=== PATIENT | male | born 1945 | race Caucasian/White ===

== ENCOUNTER → 2018-02-02 | Outpatient (CLI) | payer MEDICARE ==
[2018-02-02 08:48] LABS: CHOLESTEROL 187.93 mg/dL (0-200); TRIGLYCERIDES 80 mg/dL (<150)
[2018-02-02 08:59] LABS: DIRECT LDL 111 mg/dL (<100)
== END ==
LOC: OD 07:44
PROVIDERS: ATTEND Internal Medicine
DX: Z12.5 Encounter for screening for malignant neoplasm of prostate (principal); E78.5 Hyperlipidemia, unspecified
CPT/HCPCS: 36415; 80061; G0103

== ENCOUNTER → 2018-03-01 | Outpatient (CLI) | payer MEDICARE ==
--- NOTE | 2018-03-01 14:41 | RADIOLOGY REPORT (SQ) ---
EXAM DESCRIPTION: CHEST PA/LATERAL COMPLETED DATE/TIME: 03/01/2018 2:00 pm REASON FOR STUDY: COUGH R05 COUGH COMPARISON: 01/01/2015. NUMBER OF VIEWS: Two view. TECHNIQUE: Frontal and lateral radiographic views of the chest acquired. LIMITATIONS: None. FINDINGS: LUNGS AND PLEURA: No opacities, masses or pneumothorax. No pleural effusion. Attenuated bl ood vessels and flattened aide-diaphragms. MEDIASTINUM AND HILAR STRUCTURES: No masses. No contour abnormalities. HEART AND VASCULAR STRUCTURES: Heart normal in size and contour. No evidence for failure. BONES: No acute findings. HARDWARE: None in the chest. OTHER: No other significant finding. IMPRESSION: COPD. NO ACUTE RADIOGRAPHIC FINDING IN THE CHEST. TECHNICAL DOCUMENTATION: JOB ID: [id number] [employer]- All Rights Reserved Reading location - IP/workstation name: [email or web address]
== END ==
LOC: OD 13:30
PROVIDERS: ATTEND Internal Medicine
DX: R05 Cough (principal)
CPT/HCPCS: 71046

== ENCOUNTER → 2019-03-01 | Outpatient (CLI) | payer MEDICARE ==
--- NOTE | 2019-03-01 14:58 | RADIOLOGY REPORT (SQ) ---
EXAM DESCRIPTION: CT LUNG CANCER SCREENING COMPLETED DATE/TIME: 03/01/2019 2:28 pm REASON FOR STUDY: NICOTINE DEPENDENCE, CIGARETTES, W OTH DISORDERS F17.218 NICOTINE DEPENDENCE, CIG ARETTES, W OTH DISORDERS Has the patient had a Chest CT scan within the past year? Was the patient offered tobacco cessation counseling? Was the patient engaged in shared decision making for this test? Does the patient have signs or symptoms of Lung Cancer? Is the patient a smoker? How many pack years? How many years since quitting smoking? Patients age: COMPARISON: None. TECHNIQUE: Low Dose CT scan performed of the chest without intravenous contrast for purposes of scre ening for lung cancer. Images reviewed with lung, soft tissue and bone windows. Reconstructed coron al and sagittal MPR images reviewed. All images stored on PACS. All CT scanners at this facility use dose modulation, iterative reconstruction, and/or weight based d osing when appropriate to reduce radiation dose to as low as reasonably achievable (ALARA). [facility]: Dose Right [facility]: CareDose [facility]: Dose Right [facility]: Teradose 4D [facility]: [email or web address] RADIATION DOSE: CT Rad equipment meets quality standard of care and radiation dose reduction techniq ues were employed. CTDIvol: 2.0 mGy. DLP: 89 mGy-cm. mGy. . LIMITATIONS: None FINDINGS: LUNGS AND PLEURA: No masses or nodules. No pleural effusions or calcifications. No pne umothorax. HILAR AND MEDIASTINAL STRUCTURES: Shotty mediastinal nodes. HEART AND VASCULAR STRUCTURES: Irregular aortic dilatation. Generally ectatic ascending aorta with m ore focal dilatation up to 4.8 cm. Ectatic descending aorta with focal dilatation up to 5.2 cm mid d escending. Distal descending dilatation with saccular aneurysm up to 4.8 cm. Aneurysmal dilatation in the upper abdomen aorta. At the level of the hiatus, likely greater than 5 cm. No pericardial e ffusion. CORONARY ARTERY CALCIFICATIONS: Marked. UPPER ABDOMEN, THYROID, BONES, OTHER SOFT TISSUES: As above. IMPRESSION: 1. No suspicious lung lesions. 2. Extensive aortic aneurysms. Aneurysms involve the ascending and descending aorta with continuatio n into the upper abdominal aorta. LUNGRADS: LUNGRADS: 1 NEGATIVE. NO NODULES, OR DEFINITELY BENIGN NODULES MODIFIER: S CLINICALLY SIGNIFICANT OR POTENTIALLY CLINICALLY SIGNIFICANT FINDINGS (non lung cancer) RECOMMENDATION: Continue annual screening with LDCT in 12 months. COMMENT: CRITERIA: No lung nodules. Nodules with specific calcifications: Complete, central, popcorn, concentric rings and fat containin g nodules. TECHNICAL DOCUMENTATION: JOB ID: [id number] Quality ID # [id number]: Final reports with documentation of one or more dose reduction techniques (e.g., Au tomated exposure control, adjustment of the mA and/or kV according to patient size, use of iterative reconstruction technique) 2010 [facility] Radiology Reading location - IP/workstation name: [email or web address]
== END ==
LOC: RAD 14:04
PROVIDERS: ATTEND Physician Assistant
DX: Z12.2 Encounter for screening for malignant neoplasm of respiratory organs (principal); F17.218 Nicotine dependence, cigarettes, with other nicotine-induced disorders; I71.4 Abdominal aortic aneurysm, without rupture
CPT/HCPCS: G0297

== ENCOUNTER → 2019-07-05 | Outpatient (CLI) | payer MEDICARE ==
--- NOTE | 2019-07-05 10:37 | RADIOLOGY REPORT (SQ) ---
EXAM DESCRIPTION: U/S RETROPERITON (RENAL/AORTA) COMPLETED DATE/TIME: 07/05/2019 10:22 am REASON FOR STUDY: UTI (N39.0) N39.0 URINARY TRACT INFECTION, SITE NOT SPECIFIED COMPARISON: None. TECHNIQUE: Dynamic and static grayscale images acquired of the kidneys and bladder and recorded on P ACS. Additional selected color Doppler and spectral images recorded. LIMITATIONS: None. FINDINGS: RIGHT KIDNEY: The right kidney measures 10.0 cm in length. Normal echogenicity. No so lid or suspicious masses. No hydronephrosis. No calcifications. There is a 2.7 x 3.[address] LEFT KIDNEY: The left kidney measures 11.5 cm in length. Normal echogenicity. No solid or suspic ious masses. No hydronephrosis. No calcifications. BLADDER: No masses. OTHER FINDINGS: No other significant finding. IMPRESSION: Small right renal cyst largest diameter is 3.0 cm. No other significant findings. TECHNICAL DOCUMENTATION: JOB ID: [id number] [employer]- All Rights Reserved Reading location - IP/workstation name: [email or web address]
== END ==
LOC: RAD 09:35
PROVIDERS: ATTEND Urology
DX: N39.0 Urinary tract infection, site not specified (principal); N28.1 Cyst of kidney, acquired
CPT/HCPCS: 76770

== ENCOUNTER 2019-10-25 12:20 | Emergency (ER) | payer MEDICARE ==
[2019-10-25] MEDS ORDERED: ONDANSETRON HCL INJ/PF 4 MG/2 ML SDV IV ONE ×2 (13:08→15:14)
--- NOTE | 2019-10-25 13:10 | ER Document Report ---
ED Medical Screen (RME) - General Chief Complaint: Abdominal Pain Stated Complaint: ABDOMINAL/BACK PAIN Time Seen by Provider: 10/25/19 13:07 Primary Care Provider: CHRISTIAN RIVAS [Primary Care Provider] - Follow up as needed Information source: Patient Notes: Patient presents complaining of abdominal pain that radiates around to his back that started around 2:00 this morning. Patient reports nausea and vomiting x2 episodes. No diarrhea. No fever. Patient does complain of some lightheadedness. No chest discomfort. Patient does have abdominal aortic aneurysm. I have greeted and performed a rapid initial assessment of this patient. A comprehensive ED assessment and evaluation of the patient, analysis of test results and completion of the medical decision making process will be conducted by additional ED providers. TRAVEL OUTSIDE OF THE [place] IN LAST 30 DAYS: No Physical Exam - Vital signs Vitals: Temp Pulse Resp BP Pulse Ox 97.8 F 50 L 18 148/75 H 100 10/25/19 12:27 10/25/19 12:27 10/25/19 12:27 10/25/19 12:27 10/25/19 12:27 - Abdominal Tenderness: Tender - Abdominal tenderness across mid abdomen Course - Vital Signs Vital signs: Temp Pulse Resp BP Pulse Ox 97.8 F 50 L 18 148/75 H 100 10/25/19 12:27 10/25/19 12:27 10/25/19 12:27 10/25/19 12:27 10/25/19 12:27 Doctor's Discharge - Discharge Referrals: CHRISTIAN RIVAS [Primary Care Provider] - Follow up as needed
[2019-10-25 14:00] LABS: ABSOLUTE BASOPHILS # (AUTO) 0.1 10^3/uL (0.0-0.2); ABSOLUTE LYMPHOCYTES (AUTO) 1.5 10^3/uL (0.5-4.7); ABSOLUTE MONOCYTES (AUTO) 0.4 10^3/uL (0.1-1.4); ABSOLUTE NEUT (AUTO) 8.2 10^3/uL (1.7-8.2); BASOPHILS % (AUTO) 0.6 % (0-2); EOSINOPHILS % (AUTO) 0.1 % (0-6); HEMATOCRIT 44.5 % (37.9-51.0); HEMOGLOBIN 15.3 g/dL (13.5-17.0); LYMPHOCYTES % (AUTO) 14.6 % (13-45); MEAN CORPUSCULAR HEMOGLOBIN 31.7 pg (27.0-33.4); MEAN CORPUSCULAR HGB CONC 34.5 g/dL (32.0-36.0); MEAN CORPUSCULAR VOLUME 92 fl (80-97); MONOCYTES % (AUTO) 3.8 % (3-13); PLATELET COUNT 218 10^3/uL (150-450); RED BLOOD COUNT 4.83 10^6/uL (4.35-5.55); RED CELL DISTRIBUTION WIDTH 14.1 % (11.5-14.0); SEGMENTED NEUTROPHILS % (AUTO) 80.9 % (42-78); TOTAL CELLS COUNTED % (AUTO) 100 %; WHITE BLOOD COUNT 10.2 10^3/uL (4.0-10.5)
[2019-10-25 14:17] LABS: ALBUMIN 4.3 g/dL (3.5-5.0); ALKALINE PHOSPHATASE 139 U/L (38-126); ANION GAP 11 (5-19); ASPARTATE AMINO TRANSFERASE 20 U/L (17-59); BILIRUBIN,DIRECT 0.1 mg/dL (0.0-0.4); BILIRUBIN,TOTAL 0.5 mg/dL (0.2-1.3); BLOOD UREA NITROGEN 14 mg/dL (7-20); CALCIUM 9.9 mg/dL (8.4-10.2); CARBON DIOXIDE 32 mmol/L (22-30); CHLORIDE 98 mmol/L (98-107); GLUCOSE 138 mg/dL (75-110); POTASSIUM 4.3 mmol/L (3.6-5.0); TOTAL PROTEIN 7.5 g/dL (6.3-8.2)
[2019-10-25 14:21] LABS: APPEARANCE,URINE CLEAR; BILIRUBIN,URINE NEGATIVE (NEGATIVE); COLOR,URINE YELLOW; GLUCOSE, URINE NEGATIVE (NEGATIVE); KETONES,URINE TRACE mg/dL (NEGATIVE); LEUKOCYTE ESTERASE,URINE NEGATIVE (NEGATIVE); NITRITE,URINE NEGATIVE (NEGATIVE); PROTEIN,URINE 30 mg/dL (NEGATIVE); URINE SPECIFIC GRAVITY 1.017; UROBILINOGEN,URINE NEGATIVE mg/dL (<2.0)
--- NOTE | 2019-10-25 14:24 | RADIOLOGY REPORT (SQ) ---
EXAM DESCRIPTION: U/S RETROPERITON (RENAL/AORTA) COMPLETED DATE/TIME: 10/25/2019 2:09 pm REASON FOR STUDY: abd pain, hx AAA COMPARISON: None. TECHNIQUE: Static and dynamic grayscale images acquired of the aorta and stored on PACs. Selected co karen Doppler and spectral images recorded. LIMITATIONS: None. FINDINGS: AORTIC CALIBER MAXIMAL PROXIMAL: 3.5 cm. MID: 2.8 cm. DISTAL: 2.8 cm. Unable to visualize the iliacs. IMPRESSION: Mild aneurysmal dilatation of the proximal abdominal aorta - it measures up to 3.5 cm in diameter. COMMENT: Aortic aneurysm imaging followup: 3.5-3.9 cm Every 12 months *Based upon the Society for Vascular Surgery Guidelines: J Vasc Surg. 2009 Oct;50(4 Suppl):S2-49 *For aortas of maximum diameter of 2.6-2.9 cm meeting the criteria for AAA (?1.5 x proximal normal se gment) TECHNICAL DOCUMENTATION: JOB ID: [id number] [employer]- All Rights Reserved Reading location - IP/workstation name: [email or web address]
[2019-10-25] MEDS ORDERED: MORPHINE SULFATE 10 MG/ML INJ IV ONE (15:14)
[2019-10-25] MEDS ORDERED: FENTANYL CITRATE INJ/PF 100 MCG/2 ML AMPUL IV ONE ×2 (15:34→18:48)
--- NOTE | 2019-10-25 17:09 | EKG REPORT ---
SEVERITY:- ABNORMAL ECG - SINUS RHYTHM LEFT ANTERIOR FASCICULAR BLOCK : Confirmed by: Faby Zamora 25-Oct-2019 17:08:11
--- NOTE | 2019-10-25 17:32 | RADIOLOGY REPORT (SQ) ---
EXAM DESCRIPTION: CTA ABDOMEN/PELVIS W WO COMPLETED DATE/TIME: 10/25/2019 5:11 pm REASON FOR STUDY: abdominal pain, vomiting COMPARISON: Chest CT 03/01/2019 TECHNIQUE: CT scan of the abdominal aorta extending to the iliac bifurcation performed with intraven ous contrast using helical scanning technique with dynamic intravenous contrast injection. Images rev iewed with lung, soft tissue, and bone windows. Reconstructed coronal and sagittal MPR images reviewe d. All images stored on PACS. Advanced 3D imaging as volume rendering, MIPS, SSD performed? yes All CT scanners at this facility use dose modulation, iterative reconstruction, and/or weight based d osing when appropriate to reduce radiation dose to as low as reasonably achievable (ALARA). [facility]: Dose Right [facility]: CareDose [facility]: Dose Right [facility]: Teradose 4D [facility]: [employer] CONTRAST TYPE AND DOSE: contrast/concentration: Isovue 350.00 mg/ml; Total Contrast Delivered: 100.0 ml; Total Saline Delivered: 90.0 ml RENAL FUNCTION: BUN 14; creatinine 0.63 LIMITATIONS: None. FINDINGS: NON-CONTRASTED IMAGING: Post contrast images only. POST-CONTRAST IMAGING: AORTA AND VESSELS: There is a thoracoabdominal aneurysm measuring up to 5.5 cm in greatest orthogonal dimension. Calcified and non calcified plaque is demonstrated. The aorta tapers to normal at the l evel of the iliac arteries which are normal in caliber. The major vascular branches remain patent an d are well opacified. LUNG BASES: No significant findings. No nodules or infiltrates. LIVER: Normal size. No masses or dilated ducts. SPLEEN: Normal size. No focal lesions. PANCREAS: No masses. No significant calcifications. No adjacent inflammation or peripancreatic fluid collections. Pancreatic duct not dilated. GALLBLADDER: No identified stones by CT criteria. No inflammatory changes to suggest cholecystitis. ADRENAL GLANDS: No significant masses or asymmetry. RIGHT KIDNEY AND URETER: No mass, calculi or urinary tract obstruction. Incidental note is made of a 3.2 cm exophytic simple cyst. LEFT KIDNEY AND URETER: No mass, calculi or urinary tract obstruction. RETROPERITONEUM: No retroperitoneal adenopathy, hemorrhage or masses. BOWEL AND PERITONEAL CAVITY: They are multiple loops of fluid and gas distended small bowel without e vidence of mechanical obstruction or volvulus. Colonic diverticula are present without focal inflamm atory changes. Simple appearing free fluid is seen within the pelvic cul-de-sac, extending cranially to the level of the right hepatic lobe. APPENDIX: Surgically absent. ABDOMINAL WALL: No masses. No hernias. BONY STRUCTURES: No significant or acute findings. 3-D IMAGING: Confirms the above findings. OTHER: There is uniform, circumferential mural thickening of the bladder. IMPRESSION: 1. Prominent thoraco abdominal aneurysm measuring up to 5.5 cm in greatest orthogonal d imension. No evidence of dissection or rupture. 2. Multiple loops of fluid a gas distended small bowel may represent a developing small bowel obstru ction. Concomitant simple ascites is a nonspecific finding. 3. Other chronic and incidental findings as detailed above. TECHNICAL DOCUMENTATION: JOB ID: [id number] Quality ID # 436: Final reports with documentation of one or more dose reduction techniques (e.g., Au tomated exposure control, adjustment of the mA and/or kV according to patient size, use of iterative reconstruction technique) 2010 [employer]- All Rights Reserved Reading location - IP/workstation name: [email or web address]
[2019-10-25] MEDS ORDERED: NORMAL SALINE 1000 ML 1,000 ML IV ONE (18:49)
[2019-10-25] MEDS ORDERED: PROMETHAZINE HCL INJ 25 MG/1 ML VIAL IV ONE (18:50)
--- NOTE | 2019-10-25 20:03 | ER Document Report ---
ED General - General Chief Complaint: Abdominal Pain Stated Complaint: ABDOMINAL/BACK PAIN Time Seen by Provider: 10/25/19 13:07 Primary Care Provider: CHRISTIAN RIVAS [NO LOCAL MD] - 10/28/19 TRAVEL OUTSIDE OF THE [place] IN LAST 30 DAYS: No - HPI Notes: 74-year-old male to the emergency department with daughter with complaints of nausea and vomiting and upper abdominal pain that radiates into his back since last night. He states that he has vomited at least 3 or 4 times today. He denies any diarrhea. Last bowel movement was yesterday. He denies any fevers or chills. Of note the patient has a history of AAA and is being closely followed. His daughter states that the last measurement that they had it was about 5 cm. Patient denies any chest pain, shortness of breath, leg numbness. He has not had abdominal surgery. His pain does not worsen with eating. He does smoke. - Related Data Allergies/Adverse Reactions: ibuprofen Allergy (Verified 10/25/19 13:15) Penicillins Allergy (Verified 10/25/19 13:15) pravastatin Allergy (Verified 10/25/19 13:15) Home Medications: atorvastain,lisinopril, metoprool Past Medical History - General Information source: Patient - Social History Smoking Status: Current Every Day Smoker Chew tobacco use (# tins/day): No Frequency of alcohol use: None Drug Abuse: None Family History: Hypertension Patient has suicidal ideation: No Patient has homicidal ideation: No Past Surgical History: Reports: Hx Appendectomy Review of Systems - Review of Systems Constitutional: denies: Chills, Fever EENT: No symptoms reported Cardiovascular: denies: Chest pain, Palpitations, Orthopnea, Dyspnea, Syncope, Dizziness, Lightheaded Respiratory: denies: Cough, Short of breath Gastrointestinal: Abdominal pain, Nausea, Vomiting. denies: Diarrhea Genitourinary: No symptoms reported Male Genitourinary: No symptoms reported Musculoskeletal: No symptoms reported Skin: No symptoms reported Hematologic/Lymphatic: No symptoms reported Neurological/Psychological: No symptoms reported -: Yes All other systems reviewed and negative Physical Exam - Vital signs Vitals: Temp Pulse Resp BP Pulse Ox 97.8 F 50 L 18 148/75 H 100 10/25/19 12:27 10/25/19 12:27 10/25/19 12:27 10/25/19 12:27 10/25/19 12:27 Interpretation: Hypertensive - General General appearance: Alert - HEENT Head: Normocephalic, Atraumatic Eyes: Normal Pupils: PERRL Neck: Normal, Supple - Respiratory Respiratory status: No respiratory distress Chest status: Nontender Breath sounds: Normal Chest palpation: Normal - Cardiovascular Rhythm: Regular Heart sounds: Normal auscultation Murmur: No - Abdominal Inspection: Normal Distension: No distension Bowel sounds: Normal Tenderness: Tender. No: McBurney's point, Mckay's sign, Guarding, Rebound, Other Notes: + TTP over the epigastrium and to the RUQ and LUQ. Negative mckay's sign. no CVA tenderness bilaterally - Back Back: Normal, Nontender - Neurological Neuro grossly intact: Yes Cognition: Normal Orientation: AAOx4 Taty Coma Scale Eye Opening: Spontaneous [place] Coma Scale Verbal: Oriented Taty Coma Scale Motor: Obeys Commands Taty Coma Scale Total: 15 Speech: Normal Motor strength normal: LUE, RUE, LLE, RLE Sensory: Normal - Psychological Associated symptoms: Normal affect, Normal mood - Skin Skin Temperature: Warm Skin Moisture: Dry Skin Color: Normal Course - Re-evaluation Re-evalutation: Impression: Epigastric abd pain. Noted CTA reading with known AAA of 5.5 cm. There are also dilated loops of bowel but no mercy obstruction. Patient did have one episode of vomiting here in the ER but is now doing better. Discussed patient with Dr. Wyatt. He agrees with the plan for discharge home. Have given strict return precautions. Patient and daughter agree with the plan. - Vital Signs Vital signs: Temp Pulse Resp BP Pulse Ox 99.5 F 60 18 145/92 H 100 10/25/19 21:45 10/25/19 21:45 10/25/19 21:45 10/25/19 21:45 10/25/19 21:45 - Laboratory Result Diagrams: 10/25/19 13:30 10/25/19 13:30 Laboratory results interpreted by me: 10/25/19 10/25/19 10/25/19 13:30 13:30 13:30 RDW 14.1 H Seg Neutrophils % 80.9 H Carbon Dioxide 32 H Glucose 138 H Alkaline Phosphatase 139 H Urine Protein 30 H Urine Ketones TRACE H - Diagnostic Test Radiology reviewed: Image reviewed, Reports reviewed - EKG Interpretation by Me Additional EKG results interpreted by me: no STEMI, rate of 59, Left anterior fasicular block. no change from prior. Discharge - Discharge Clinical Impression: Abdominal aortic aneurysm (AAA) 3.0 cm to 5.5 cm in diameter in male Abdominal pain Qualifiers: Abdominal location: upper abdomen, unspecified Qualified Code(s): R10.10 - Upper abdominal pain, unspecified Nausea & vomiting Qualifiers: Vomiting type: unspecified Vomiting Intractability: non-intractable Qualified Code(s): R11.2 - Nausea with vomiting, unspecified Condition: Stable Disposition: HOME, SELF-CARE Instructions: Abdominal Pain ([facility]), Vomiting ([facility]) Additional Instructions: PUSH FLUIDS -- TRY GATORADE, POWERADE< CLEAR LIQUIDS. RETURN IF INTRACTABLE VOMITING, WORSENING ABDOMINAL PAIN, CHEST PAIN, SHORTNESS OF BREATH, PASSING OUT. FOLLOW UP WITH YOUR PRIMARY CARE PHYSICIAN ON MONDAY WITHOUT FAIL. Prescriptions: Hydrocodone/Acetaminophen [[place] 5-325 mg Tablet] 1 tab PO Q4H #10 tablet Ondansetron [Zofran Odt 4 mg Tablet] 1 - 2 tab PO Q4H PRN #15 tab.rapdis PRN Reason: For Nausea/Vomiting Referrals: CHRISTIAN RIVAS [NO LOCAL MD] - 10/28/19
[2019-10-25] MEDS ORDERED: NORMAL SALINE 500 ML IV ONE (20:08)
[2019-10-25 21:48] VITALS: BP 145/92
== END 2019-10-25 21:45 | disposition home or self-care (01) ==
LOC: ER 12:20
DX: I71.4 Abdominal aortic aneurysm, without rupture (principal); R10.13 Epigastric pain; R10.816 Epigastric abdominal tenderness; R10.813 Right lower quadrant abdominal tenderness; R10.814 Left lower quadrant abdominal tenderness; R11.2 Nausea with vomiting, unspecified; I44.4 Left anterior fascicular block; F17.200 Nicotine dependence, unspecified, uncomplicated; Z79.899 Other long term (current) drug therapy; Z90.49 Acquired absence of other specified parts of digestive tract; Z88.8 Allergy status to other drugs, medicaments and biological substances; Z88.0 Allergy status to penicillin
CPT/HCPCS: 93005; 96376; 99284; 96361; 96374; 96375; 36415; 83690; 85025; 80053; 81001; 76770; 74174; 93010; J3010; J2550; J2405; J7030; J7040

== ENCOUNTER 2019-11-16 16:44 | Inpatient (IN) | payer MEDICARE ==
[2019-11-16] MEDS ORDERED: ONDANSETRON HCL INJ/PF 4 MG/2 ML SDV IV ONE ×3 (17:26→21:56)
--- NOTE | 2019-11-16 17:27 | ER Document Report ---
ED GI/ - General Chief Complaint: Abdominal Pain Stated Complaint: ABDOMINAL PAIN Time Seen by Provider: 11/16/19 16:56 TRAVEL OUTSIDE OF THE [place] IN LAST 30 DAYS: No - HPI Notes: 11/16/19 17:53 74-year-old male to the emergency department with family with complaints of progressively worsening abdominal pain, vomiting, leg swelling for the past 3 weeks. He was initially seen in our department on October 25 and had a CTA of his abdomen done. He had started to vomit the night before and did pretty well in the emergency department. He had normal labs at that time and weight 50 kg. He was sent home and urged to follow-up with primary care. He has seen his primary care several times since then and was placed most recently on clarithromycin, Flagyl, omeprazole for "stomach infection". He completed the course of antibiotics but he continues to do poorly. He often vomits several times a day. He has not been able to eat anything since yesterday because his abdominal pain has gotten worse. His daughter states that his legs have been swollen for not quite a week now and today they noticed that his abdomen was significantly swollen. He has no prior history of liver disease. He has not had any alcoholic beverages for over 40 years. He does smoke. He has a known AAA that on October 25 was measured at 5.5 cm. He denies any chest pain or shortness of breath. He states that is extremely thirsty. This morning when he was vomiting his daughter noticed that the emesis looked a lot like coffee grounds. That is when they decided to call the medics and he was brought here. Patient states that he has had some difficulty having a bowel movement. He states his last time was this morning but it was very little. He has not noticed any blood in his stool. Daughter states that he has had episodes of confusion. She states that she has been seeing it mainly at night where he will kind of talk out of his head and use his hands a lot. She also saw an episode of this yesterday during the day. - Related Data Allergies/Adverse Reactions: ibuprofen Allergy (Verified 10/25/19 13:15) Penicillins Allergy (Verified 10/25/19 13:15) pravastatin Allergy (Verified 10/25/19 13:15) Past Medical History - General Information source: Patient, Relative - Social History Smoking Status: Current Every Day Smoker Frequency of alcohol use: Has not had an alcoholic beverage in over 40 years Drug Abuse: None Lives with: Family Family History: Hypertension Patient has suicidal ideation: No Patient has homicidal ideation: No Past Surgical History: Reports: Hx Appendectomy Review of Systems - Review of Systems Constitutional: denies: Chills, Fever EENT: No symptoms reported Cardiovascular: denies: Chest pain, Palpitations, Heart racing, Orthopnea, Dyspnea, Syncope, Dizziness, Lightheaded Respiratory: denies: Cough, Short of breath Gastrointestinal: Abdominal pain, Nausea, Vomiting, Constipation, Blood in vomit Genitourinary: No symptoms reported Musculoskeletal: No symptoms reported Skin: No symptoms reported Hematologic/Lymphatic: No symptoms reported Neurological/Psychological: No symptoms reported -: Yes All other systems reviewed and negative Physical Exam - Vital signs Vitals: Resp 19 11/16/19 16:50 Selected Entries 11/16/19 11/16/19 22:01 22:31 Temperature 98.1 F Heart Rate ( 92 Monitors) Respiratory 22 H Rate Blood Pressure 103/75 Blood Pressure 84 Mean O2 Sat by Pulse 98 Oximetry Notes: Noted blood pressure of 97/74. Noted weight of 56.4 kg. In comparison to October 25 this is a 14 pound weight gain - General General appearance: Alert Notes: Patient appears ill but not toxic. - HEENT Head: Normocephalic, Atraumatic Eyes: Normal Pupils: PERRL - Respiratory Respiratory status: No respiratory distress Chest status: Nontender. No: Accessory muscle use Breath sounds: Normal. No: Rales, Rhonchi, Stridor, Wheezing Chest palpation: Normal - Cardiovascular Rhythm: Regular Heart sounds: Normal auscultation Murmur: No Notes: Bilateral legs with 3-4+ pitting edema - Abdominal Distension: Distended Bowel sounds: Normal Tenderness: Tender. No: McBurney's point, Mckay's sign, Guarding, Rebound Notes: The abdomen is diffusely distended. He is tympanic. Do not appreciate a mercy fluid wave. He has tenderness to palpation in the epigastrium and right upper quadrant. No CVA tenderness. This is a significantly different abdominal exam than when he was evaluated on October 25. - Rectal Tenderness: No Stool: Heme negative Hemorrhoids: None Notes: There appears to be an evolving sacral decubitus. Stage I - Back Back: Normal, Nontender - Neurological Neuro grossly intact: Yes Cognition: Normal Orientation: AAOx4 [place] Coma Scale Eye Opening: Spontaneous [place] Coma Scale Verbal: Oriented Taty Coma Scale Motor: Obeys Commands Taty Coma Scale Total: 15 Speech: Normal Cranial nerves: Normal Cerebellar coordination: Normal Motor strength normal: LUE, RUE, LLE, RLE Additional motor exam normals: Equal cashier and salesperson. No: Pronator drift Sensory: Normal - Psychological Associated symptoms: Normal affect - Patient is not acutely confused. He is able to answer questions and he knows person, place, time and situation., Normal mood - Skin Skin Temperature: Warm Skin Moisture: Dry Skin Color: Normal Course - Re-evaluation Re-evalutation: 11/16/[address] Paula, ER attending. Discussed patient's history of nausea and vomiting abdominal pain for the past 3 weeks. Discussed how patient had outpatient antibiotics but has not improved. Discussed episode of likely coffee-ground emesis this morning. Noted that blood pressure is 97/73. Patient has a history of hypertension. He is not tachycardic. He is not hypoxic. We discussed patient's abdominal exam which does illustrate distention. We discussed his lower extremity exam which has 3-4+ pitting edema bilaterally. We have a high suspicion that perhaps he is in liver failure. We will await labs and then proceed with further imaging studies. 11/17/19 00:[address] result. Discussed further with Dr. Skinner current ER attending. He agrees with plan for admission with surgery consulting and patient to medicine due to the hyponatremia. Spoke with Dr. Perez, surgeon. He agrees with plan for consultation and the patient to go to medicine. He will come and see the patient. I have ordered an NG tube for the patient. Spoke with Dr. Sawant, hospitalist. He agrees with plan for admission and he would like for the patient to go to a medical floor. He is aware that an NG tube will be placed and Dr. Perez will consult on the patient. Dr. Perez came and saw the patient and would also like to have a Amaya placed. Was approached by nursing staff. 4 attempts were made to place NG tube without success. Dr. Skinner and I discussed this and we will go together and to the patient to place NG tube. Dr. Skinner was able to place an NG tube successfully with good return of gastric fluid and checked by auscultation to hear bubbles. We will confirm with KUB. Nursing staff is also attempted to Place Amaya and had difficulty with a 14 and a 16 [place]. I also attempted to help advance a 16 and met resistance. I have encouraged staff midwife to try to place a coude after KUB is completed. KUB confirms placement of NG tube in the stomach. Nursing staff was not able to place Coude. Nursing staff decided to take patient to the floor. Advised Dr. Skinner of the amaya issue and patient having gone to the floor. He is aware. Impression: SBO, hyponatremia, leg edema. Patient admitted to the hospitalist service with surgery consulting. NG tube in place with at least 350 ml of green gastric content out. - Vital Signs Vital signs: Temp Pulse Resp BP Pulse Ox 98.1 F 22 H 103/75 98 11/16/19 22:01 11/16/19 22:31 11/16/19 22:31 11/16/19 22:31 - Laboratory Result Diagrams: 11/16/19 16:57 11/16/19 16:57 Laboratory results interpreted by me: 11/16/19 11/16/19 11/16/19 16:57 16:57 17:46 WBC 12.8 H Lymph % (Auto) 10.1 L Absolute Neuts (auto) 10.5 H Seg Neutrophils % 82.4 H Sodium 122.3 L Chloride 81 L Carbon Dioxide 32 H Creatinine 0.40 L Calcium 8.1 L Ammonia < 8.7 L Total Protein 5.2 L Albumin 2.7 L Urine Protein Urine Ketones 11/16/19 21:25 WBC Lymph % (Auto) Absolute Neuts (auto) Seg Neutrophils % Sodium Chloride Carbon Dioxide Creatinine Calcium Ammonia Total Protein Albumin Urine Protein 30 H Urine Ketones 80 H - Diagnostic Test Radiology reviewed: Image reviewed, Reports reviewed - EKG Interpretation by Me Additional EKG results interpreted by me: 11/16/19 EKG #1: Rate 83, rhythm: Sinus, interpretation: no STEMI, T wave inversions in V2 and V3; the T wave inversion in V3 is new in comparison to a prior on October 25, 2019 Discharge - Discharge Clinical Impression: Small bowel obstruction, Hyponatremia, Dependent edema Nausea and vomiting Qualifiers: Vomiting type: unspecified Vomiting Intractability: non-intractable Qualified Code(s): R11.2 - Nausea with vomiting, unspecified Abdominal pain Qualifiers: Abdominal location: right upper quadrant Qualified Code(s): R10.11 - Right upper quadrant pain Condition: Stable Disposition: ADMITTED INPATIENT Admitting Provider: Savana (Hospitalist) Unit Admitted: Medical Floor
--- NOTE | 2019-11-16 18:06 | RADIOLOGY REPORT (SQ) ---
EXAM DESCRIPTION: CHEST SINGLE VIEW COMPLETED DATE/TIME: 11/16/2019 5:54 pm REASON FOR STUDY: leg edema, vomiting, low BP COMPARISON: 03/01/2019 TECHNIQUE: Single frontal radiographic view of the chest acquired. NUMBER OF VIEWS: One view. LIMITATIONS: None. FINDINGS: LUNGS AND PLEURA: No pneumothorax. No consolidation or pleural effusion. MEDIASTINUM AND HILAR STRUCTURES: Similar aortic contour to the prior study given differences in tech nique. HEART AND VASCULAR STRUCTURES: Stable. BONES: No acute findings. HARDWARE: None in the chest. OTHER: No other significant finding. IMPRESSION: NO ACUTE FINDINGS.Similar aortic contour to the prior study given differences in techniq ue. TECHNICAL DOCUMENTATION: JOB ID: [id number] [place]-72 2010 [employer]- All Rights Reserved Reading location - IP/workstation name: [email or web address]
[2019-11-16 18:13] LABS: INTERNATIONAL RATION (INR) 0.97; PROTHROMBIN TIME 12.9 SEC (11.4-15.4)
[2019-11-16 18:14] LABS: PARTIAL THROMBOPLASTIN TIME 27.7 SEC (23.5-35.8)
[2019-11-16 18:20] LABS: ABSOLUTE LYMPHOCYTES (AUTO) 1.3 10^3/uL (0.5-4.7); ABSOLUTE MONOCYTES (AUTO) 0.9 10^3/uL (0.1-1.4); ABSOLUTE NEUT (AUTO) 10.5 10^3/uL (1.7-8.2); ALBUMIN 2.7 g/dL (3.5-5.0); ALKALINE PHOSPHATASE 56 U/L (38-126); ANION GAP 9 (5-19); ASPARTATE AMINO TRANSFERASE 37 U/L (17-59); BASOPHILS % (AUTO) 0.2 % (0-2); BILIRUBIN,DIRECT 0.4 mg/dL (0.0-0.4); BILIRUBIN,TOTAL 0.6 mg/dL (0.2-1.3); BLOOD UREA NITROGEN 19 mg/dL (7-20); CALCIUM 8.1 mg/dL (8.4-10.2); CARBON DIOXIDE 32 mmol/L (22-30); CHLORIDE 81 mmol/L (98-107); EOSINOPHILS % (AUTO) 0.4 % (0-6); GLUCOSE 98 mg/dL (75-110); HEMATOCRIT 39.7 % (37.9-51.0); HEMOGLOBIN 13.9 g/dL (13.5-17.0); LYMPHOCYTES % (AUTO) 10.1 % (13-45); MEAN CORPUSCULAR HEMOGLOBIN 31.3 pg (27.0-33.4); MEAN CORPUSCULAR VOLUME 89 fl (80-97); MONOCYTES % (AUTO) 6.9 % (3-13); PLATELET COUNT 296 10^3/uL (150-450); RED BLOOD COUNT 4.44 10^6/uL (4.35-5.55); RED CELL DISTRIBUTION WIDTH 13.8 % (11.5-14.0); SEGMENTED NEUTROPHILS % (AUTO) 82.4 % (42-78); TOTAL CELLS COUNTED % (AUTO) 100 %; TOTAL PROTEIN 5.2 g/dL (6.3-8.2); WHITE BLOOD COUNT 12.8 10^3/uL (4.0-10.5)
[2019-11-16 18:31] LABS: NT PRO BNP 256 pg/mL (<450)
[2019-11-16 18:32] LABS: TROPONIN I < 0.012 ng/mL
--- NOTE | 2019-11-16 21:41 | RADIOLOGY REPORT (SQ) ---
EXAM DESCRIPTION: CT ABDOMEN PELVIS WITH IV CONTRAST COMPLETED DATE/TME: 11/16/2019 00:00 CLINICAL HISTORY: 74 years Male abd pain, vomiting COMPARISON: 10/25/2019. TECHNIQUE: Contiguous axial images obtained through the abdomen and pelvis following IV contrast. Reformatted images obtained. This exam was performed according to our department optimization program which includes automated exposure control, adjustment of the mA and/or kv according to patient size and/or use of iterative reconstruction technique. FINDINGS: Lungs appear hyperinflated. There is aneurysmal dilatation of the distal thoracic aorta measuring 4.6 cm cyst bubble level of the hiatus. The liver, spleen and pancreas appear unremarkable. No adrenal masses. Unremarkable left kidney. There is mild distention of the right renal collecting system as compared to the previous examination without a discrete delayed nephrogram or area of obstruction noted. The renal collecting system appears subtly hyperdense. Question hemorrhage. Partial obstruction is not excluded. The gallbladder is visualized. There is infrarenal abdominal aortic aneurysm measuring 3 x 3.5 cm. This appears similar when compared to the earlier examination. Follow-up is recommended every two years. Calcification is present without evidence of acute dissection or rupture. There is moderate distention of small bowel consistent with obstruction. The zone of transition is in the right lower quadrant seen on image 45 and 46. The distal small bowel is completely decompressed. This appears to represent the same area of obstruction noted on the previous examination. The appendix is is not clearly identified.. Small amount of free fluid is present. IMPRESSION: Small bowel obstruction with an abrupt zone of transition in the right lower quadrant in the same location of obstruction on the examination from October Small amount of free fluid in the abdomen and pelvis Diverticulosis without diverticulitis There is mild distention of the right renal collecting system as compared to the previous exam without definite obstructing lesion noted. The collecting system also appears subtly hyperdense. Question hemorrhage within the collecting system. The possibility of partial obstruction cannot be excluded.
[2019-11-16 21:56] LABS: APPEARANCE,URINE SLIGHTLY-CLOUDY; BILIRUBIN,URINE NEGATIVE (NEGATIVE); COLOR,URINE AMBER; GLUCOSE, URINE NEGATIVE (NEGATIVE); KETONES,URINE 80 mg/dL (NEGATIVE); LEUKOCYTE ESTERASE,URINE NEGATIVE (NEGATIVE); NITRITE,URINE NEGATIVE (NEGATIVE); PROTEIN,URINE 30 mg/dL (NEGATIVE); URINE SPECIFIC GRAVITY 1.028; UROBILINOGEN,URINE NEGATIVE mg/dL (<2.0)
[2019-11-16] MEDS ORDERED: MORPHINE SULFATE 10 MG/ML INJ IV ONE (21:56)
[2019-11-16] MEDS ORDERED: LIDOCAINE 2% JELLY 5 ML TUBE TOP ONE (22:01)
[2019-11-16] MEDS ORDERED: NORMAL SALINE 1000 ML 1,000 ML IV PRN (22:02)
--- NOTE | 2019-11-16 22:50 | PDOC CONSULTATION ---
Consultation Consult Date: 11/16/19 Attending physician:: DAMEON HERNANDEZ Provider Consulted: LACI RIOJAS Consult reason:: sbo History of Present Illness Admission Date/PCP: NAOMI SAMS MD History of Present Illness: DYLAN MAXWELL is a 74 year old male to the emergency department with family with complaints of progressively worsening abdominal pain, vomiting, leg swelling for the past 3 weeks. He was initially seen in our department on October 25 and had a CTA of his abdomen done. He had started to vomit the night before and did pretty well in the emergency department. He had normal labs at that time and weight 50 kg. He was sent home and urged to follow-up with primary care. He has seen his primary care several times since then and was placed most recently on clarithromycin, Flagyl, omeprazole for "stomach infection". He completed the course of a ntibiotics but he continues to do poorly. He often vomits several times a day. He has not been able to eat anything since yesterday because his abdominal pain has gotten worse. His daughter states that his legs have been swollen for not quite a week now and today they noticed that his abdomen was significantly swollen. He has no prior history of liver disease. He has not had any alcoholic beverages for over 40 years. He does smoke. He has a known AAA that on October 25 was measured at 5.5 cm. He denies any chest pain or shortness of breath. He states that is extremely thirsty. This morning when he was vomiting his daughter noticed that the emesis looked a lot like coffee grounds. That is when they decided to call the medics and he was brought here. Patient states that he has had some difficulty having a bowel movement. He states his last time was this morning but it was very little. He has not noticed any blood in his stool. He has a history of open appendectomy done in 2009 Past Medical History Pulmonary Medical History: Reports: Chronic Obstructive Pulmonary Disease (COPD) GI Medical History: Reports: Other - 5.5 cm known abdominal aortic aneurysm Psychiatric Medical History: Reports: Tobacco Dependency Past Surgical History Past Surgical History: Reports: Appendectomy Social History Lives with: Family Smoking Status: Current Every Day Smoker Family History Family History: Hypertension Parental Family History Reviewed: No Children Family History Reviewed: NA Sibling(s) Family History Reviewed.: NA Medication/Allergy Home Medications: Atorvastatin Calcium [Lipitor 10 mg Tablet] 10 mg PO DAILY 10/25/19 Hydrocodone/Acetaminophen [[place] 5-325 mg Tablet] 1 tab PO Q4H #10 tablet 10/25/19 Lisinopril [Zestril] 2.5 mg PO DAILY 10/25/19 Metoprolol Succinate [Toprol Xl 25 mg Tab.sr] 12.5 mg PO DAILY 10/25/19 Ondansetron [Zofran Odt 4 mg Tablet] 1 - 2 tab PO Q4H PRN #15 tab.rapdis 10/25/19 Allergies/Adverse Reactions: ibuprofen Allergy (Verified 10/25/19 13:15) Penicillins Allergy (Verified 10/25/19 13:15) pravastatin Allergy (Verified 10/25/19 13:15) Review of Systems Constitutional: PRESENT: fatigue, weakness, weight loss Eyes: ABSENT: as per HPI, visual disturbances, other Ears: ABSENT: as per HPI, hearing changes, other Nose, Mouth, and Throat: ABSENT: as per HPI, headache(s), mouth pain, sore throat, vertigo, other Breasts: ABSENT: as per HPI, other Cardiovascular: ABSENT: as per HPI, chest pain, dyspnea on exertion, edema, orthropnea, palpitations, other Respiratory: PRESENT: dyspnea Gastrointestinal: PRESENT: abdominal pain, bloating, constipation, nausea, vomiting Genitourinary: PRESENT: difficulty urinating Musculoskeletal: PRESENT: muscle weakness Integumentary: ABSENT: as per HPI, diaphoresis, erythema, lesions, pruritus, rash, wounds, other Neurological: ABSENT: as per HPI, abnormal gait, abnormal movements, abnormal s peech, confusion, convulsions, dizziness, focal weakness, frequent falls, lack of coordination, memory loss, numbness, paresthesias, restless legs, syncope, tingling, tremor(s), vertigo, weakness, other Psychiatric: ABSENT: as per HPI, anxiety, depression, hallucinations, homidical ideation, suicidal ideation, other Endocrine: ABSENT: as per HPI, cold intolerance, flushing, heat intolerance, menstrual abnormalities, polydipsia, polyphagia, polyuria, other Hematologic/Lymphatic: ABSENT: as per HPI, easy bleeding, easy bruising, lymphadenopathy, other Allergic/Immunologic: ABSENT: as per HPI, seasonal rhinorrhea, other Physical Exam Vital Signs: Temp Pulse Resp BP Pulse Ox 98.1 F 25 H 101/75 99 11/16/19 22:01 11/16/19 18:01 11/16/19 18:01 11/16/19 18:01 Intake & Output 11/15/19 11/16/19 11/17/19 06:59 06:59 06:59 Weight 56.4 kg General appearance: PRESENT: disheveled, mild distress, thin Head exam: PRESENT: normocephalic Eye exam: PRESENT: EOMI Ear exam: PRESENT: normal external ear exam Mouth exam: PRESENT: dry mucosa Teeth exam: PRESENT: poor dentation Neck exam: PRESENT: full ROM Respiratory exam: PRESENT: clear to auscultation johanna, prolonged expiratory phas, retraction Cardiovascular exam: PRESENT: RRR Pulses: PRESENT: +1 pedal pulses bilateral GI/Abdominal exam: PRESENT: distended, hyperactive bowel sounds Rectal exam: PRESENT: deferred Extremities exam: PRESENT: full ROM Musculoskeletal exam: PRESENT: full ROM Neurological exam: PRESENT: alert, awake, oriented to person, oriented to place Psychiatric exam: PRESENT: appropriate affect Skin exam: PRESENT: dry Results Laboratory Results: 11/16/19 16:57 11/16/19 16:57 11/16/19 11/16/19 11/16/19 16:57 16:57 17:46 WBC 12.8 H RBC 4.44 Hgb 13.9 Hct 39.7 MCV 89 MCH 31.3 MCHC 35.0 RDW 13.8 Plt Count 296 Seg Neutrophils % 82.4 H Sodium 122.3 L Potassium 4.0 Chloride 81 L Carbon Dioxide 32 H Anion Gap 9 BUN 19 Creatinine 0.40 L Est GFR ( Amer) > 60 Glucose 98 Lactic Acid Calcium 8.1 L Total Bilirubin 0.6 AST 37 Alkaline Phosphatase 56 Ammonia < 8.7 L Total Protein 5.2 L Albumin 2.7 L Lipase 121.2 Urine Color Urine Appearance Urine pH Ur Specific [place] Urine Protein Urine Glucose (UA) Urine Ketones Urine Blood Urine Nitrite Ur Leukocyte Esterase Urine WBC (Auto) Urine RBC (Auto) 11/16/19 11/16/19 17:46 21:25 WBC RBC Hgb Hct MCV MCH MCHC RDW Plt Count Seg Neutrophils % Sodium Potassium Chloride Carbon Dioxide Anion Gap BUN Creatinine Est GFR ( Amer) Glucose Lactic Acid 0.9 Calcium Total Bilirubin AST Alkaline Phosphatase Ammonia Total Protein Albumin Lipase Urine Color CANDY Urine Appearance SLIGHTLY-CLOUDY Urine pH 6.0 Ur Specific [place] 1.028 Urine Protein 30 H Urine Glucose (UA) NEGATIVE Urine Ketones 80 H Urine Blood NEGATIVE Urine Nitrite NEGATIVE Ur Leukocyte Esterase NEGATIVE Urine WBC (Auto) 2 Urine RBC (Auto) 1 11/16/19 16:57 Troponin I < 0.012 NT-Pro-B Natriuret Pep 256 Impressions: Abdomen/Pelvis CT 11/16/19 00:00 IMPRESSION: Small bowel obstruction with an abrupt zone of transition in the right lower quadrant in the same location of obstruction on the examination from October Small amount of free fluid in the abdomen and pelvis Diverticulosis without diverticulitis There is mild distention of the right renal collecting system as compared to the previous exam without definite obstructing lesion noted. The collecting system also appears subtly hyperdense. Question hemorrhage within the collecting system. The possibility of partial obstruction cannot be excluded. Chest X-Ray 11/16/19 17:30 IMPRESSION: NO ACUTE FINDINGS.Similar aortic contour to the prior study given differences in technique. Assessment & Plan - Plan Summary Plan Summary: Impression this is a 74-year-old male who presents with weight loss fatigue hyponatremia chronic nausea and vomiting for the last 2 to 3 weeks has had an extensive work-up for his abdominal pain including a CT angiogram which was essentially negative for intra-abdominal process. Over the course of the last 24 hours patient's abdomen has become progressively more distended and tympanitic with increased nausea and vomiting now noted to be coffee-ground according to the family. This is what prompted their bringing him to the hospital today. CT scan is consistent with a small bowel obstruction as is his physical examination. Recommendations patient needs to be admitted to the medical service for treatment of his hyponatremia and evaluation of his COPD. I have ordered placement of an NG tube for a distended stomach seen on CT scan as well as a Oconnor catheter for his distended urinary bladder. Patient most likely will need diagnostic laparoscopy possible laparotomy during this hospital course however his metabolic issues need to be addressed first. Surgery will follow.
[2019-11-16] MEDS ORDERED: ACETAMINOPHEN 650 MG SUPP.RECT PR PRN (23:31)
[2019-11-16] MEDS ORDERED: NICOTINE 21 MG/24 HR PATCH.TD24 TD PRN (23:31)
[2019-11-16] MEDS ORDERED: MORPHINE SULFATE 10 MG/ML INJ IV PRN ×3 (23:31)
[2019-11-16] MEDS ORDERED: LEVALBUTEROL HCL NEB 0.63 MG/3 ML AMPUL NEB PRN (23:31)
[2019-11-16] MEDS ORDERED: GLUCAGON,HUMAN RECOMB 1 MG INJ SUBCUT PRN (23:33)
[2019-11-16] MEDS ORDERED: DEXTROSE 50%-WATER 25 GM/50 ML DISP.SYRIN IV PRN ×2 (23:33)
[2019-11-16] MEDS ORDERED: PROMETHAZINE HCL INJ 25 MG/1 ML VIAL IV PRN (23:33)
[2019-11-16] MEDS ORDERED: DEXTROSE 5%-LACTATED RINGERS 1,000 ML IV PRN (23:33)
[2019-11-16] MEDS ORDERED: DEXTROSE 40% GEL 15 GM TUBE PO PRN ×2 (23:33)
[2019-11-16] MEDS ORDERED: LORAZEPAM INJ 2 MG/1 ML VIAL IV PRN (23:47)
[2019-11-17] MEDS: IPRATROPIUM BROMIDE 0.02% NEB 0.5 MG/2.5 ML AMPUL NEB SCH ×3 (00:37→17:17)
[2019-11-17] MEDS: LEVALBUTEROL HCL NEB 1.25 MG/3 ML AMPUL NEB SCH ×3 (00:37→17:17)
--- NOTE | 2019-11-17 01:06 | RADIOLOGY REPORT (SQ) ---
EXAM DESCRIPTION: XR ABDOMEN 1 VIEW (KUB) COMPLETED DATE/TME: 11/17/2019 00:14 CLINICAL HISTORY: 74 years, Male, s/p ng tube placement COMPARISON: None. NUMBER OF VIEWS: 2 TECHNIQUE: AP abdomen LIMITATIONS: None. FINDINGS: Residual contrast within the collecting system and urinary bladder. Enteric tube coiled in the stomach. Dilated air-filled loops of small bowel are noted centrally. Gas and stool in the colon. Osteopenia IMPRESSION: Enteric tube coiled in the stomach copyright 2010 [employer]- All Rights Reserved
[2019-11-17] MEDS: PANTOPRAZOLE SODIUM 40 MG VIAL IV SCH ×3 (02:16→21:04)
[2019-11-17 04:45] LABS: HEMATOCRIT 35.4 % (37.9-51.0); HEMOGLOBIN 12.3 g/dL (13.5-17.0); MEAN CORPUSCULAR HEMOGLOBIN 31.3 pg (27.0-33.4); MEAN CORPUSCULAR HGB CONC 34.7 g/dL (32.0-36.0); MEAN CORPUSCULAR VOLUME 90 fl (80-97); PLATELET COUNT 268 10^3/uL (150-450); RED BLOOD COUNT 3.94 10^6/uL (4.35-5.55); RED CELL DISTRIBUTION WIDTH 14.3 % (11.5-14.0); WHITE BLOOD COUNT 13.2 10^3/uL (4.0-10.5)
--- NOTE | 2019-11-17 04:54 | PDOC H&P ---
History of Present Illness Admission Date/PCP: 11/16/19 22:40 NAOMI SAMS MD Patient complains of: Abdominal pain History of Present Illness: DYLAN MAXWELL is a 74 year old male who presented to the emergency room with a 3-week history of abdominal pain. He admits the gradual onset and slowly worsening of generalized intermittant abdominal pain, without radiation, accompanied by continuous nausea with episodic vomiting and associated with continuous decreased oral intake/anorexia and gradually increased swelling of his bilateral lower extremities. He describes the pain as an achy generalized pain with occasional sharp episodes lasting for several minutes and periods of several hours with no pain. He has been seen on several occasions for this problem including an emergency room visit on 10/25/2019 and a visit with his primary care provider who treated him for a possible H. pylori ulcer. He completed the treatment for H. pylori but had no improvement in his symptoms. He denies other associated or accompanying signs and symptoms. He denies prior similar episodes. He has not identified any aggravating or ameliorating factors for his abdominal pain. In the emergency room he was found to have a small bowel obstruction on his abdominal and pelvis CT scan. He was also noted to have a white blood count of 12,800 and to be hyponatremic. He was seen in consultation at the request of the emergency room doctor by Dr. Perez for the surgical team and he is being admitted by the hospitalist service with consultation to Dr. Perez at his request. Past Medical History Cardiac Medical History: Reports: Hypertension, Peripheral Vascular Disease - Abdominal aortic aneurysm 5.5 cm in diameter Denies: Atrial Fibrillation, Congestive Heart Failure, Coronary Artery Disease, Myocardial Infarction, Hyperlipidema Pulmonary Medical History: Reports: Chronic Obstructive Pulmonary Disease (COPD) Denies: Asthma, Respiratory Failure, Sleep Apnea EENT Medical History: Denies: Cataracts, Ears - Hearing aids Neurological Medical History: Denies: Hemorrhagic CVA, Ischemic CVA, Seizures Endocrine Medical History: Denies: Diabetes Mellitus Type 1, Diabetes Mellitus Type 2, Hyperthyroidism, Hypothyroidism Renal/ Medical History: Denies: Chronic Kidney Disease, Nephrolithiasis Malignancy Medical History: Reports: None GI Medical History: Denies: Cirrhosis, Crohn's Disease, Gastroesophageal Reflux Disease, Hepatitis, Hiatal Hernia, Peptic Ulcer Disease, Ulcerative Colitis Musculoskeltal Medical History: Denies: Arthritis, Gout Skin Medical History: Denies: Eczema, Psoriasis Psychiatric Medical History: Reports: Tobacco Dependency Denies: Alcohol Dependency, Substance Abuse Traumatic Medical History: Reports: None Hematology: Denies: Anemia, Bleeding Tendencies Infectious Medical History: Reports: None Past Surgical History Past Surgical History: Reports: Appendectomy Social History Information Source: Patient Lives with: Family Smoking Status: Current Every Day Smoker Electronic Cigarette use?: No Frequency of Alcohol Use: None Hx Recreational Drug Use: No Drugs: None Hx Prescription Drug Abuse: No - Advance Directive Resuscitation Status: Full Code Surrogate healthcare decision maker:: Carol Ann Cotterley Family History Family History: Hypertension. denies: CAD, DM, Malignancy Parental Family History Reviewed: Yes Children Family History Reviewed: No Sibling(s) Family History Reviewed.: Yes Medication/Allergy Home Medications: Atorvastatin Calcium [Lipitor 10 mg Tablet] 10 mg PO DAILY 10/25/19 Hydrocodone/Acetaminophen [Hope 5-325 mg Tablet] 1 tab PO Q4H #10 tablet 10/25/19 Lisinopril [Zestril] 2.5 mg PO DAILY 10/25/19 Metoprolol Succinate [Toprol Xl 25 mg Tab.sr] 12.5 mg PO DAILY 10/25/19 Ondansetron [Zofran Odt 4 mg Tablet] 1 - 2 tab PO Q4H PRN #15 tab.rapdis 10/25/19 Allergies/Adverse Reactions: ibuprofen Allergy (Verified 10/25/19 13:15) Penicillins Allergy (Verified 10/25/19 13:15) pravastatin Allergy (Verified 10/25/19 13:15) Review of Systems Constitutional: PRESENT: anorexia. ABSENT: chills, fever(s) Eyes: ABSENT: visual disturbances, other - Eye pain Ears: ABSENT: hearing changes, other - Ear pain Nose, Mouth, and Throat: ABSENT: headache(s), mouth pain, sore throat Cardiovascular: PRESENT: as per HPI, edema. ABSENT: chest pain, dyspnea on exertion, palpitations Respiratory: ABSENT: cough, dyspnea Gastrointestinal: PRESENT: as per HPI, abdominal pain, nausea, vomiting. ABSENT: constipation, diarrhea Genitourinary: ABSENT: dysuria, hematuria Musculoskeletal: ABSENT: back pain, joint swelling, muscle weakness Integumentary: ABSENT: pruritus, rash Neurological: ABSENT: confusion, convulsions, focal weakness, memory loss, syncope Psychiatric: ABSENT: anxiety, depression Endocrine: ABSENT: cold intolerance, heat intolerance Hematologic/Lymphatic: ABSENT: easy bleeding, easy bruising Allergic/Immunologic: ABSENT: seasonal rhinorrhea Physical Exam Vital Signs: Temp Pulse Resp BP Pulse Ox 98.1 F 22 H 103/75 98 11/16/19 22:01 11/16/19 22:31 11/16/19 22:31 11/16/19 22:31 Intake & Output 11/14/19 11/15/19 11/16/19 23:59 23:59 23:59 Weight 56.4 kg General appearance: PRESENT: cooperative, mild distress - Secondary to abdominal pain Head exam: PRESENT: atraumatic, normocephalic Eye exam: PRESENT: conjunctiva pink. ABSENT: conjunctival injection, scleral icterus Ear exam: PRESENT: normal external ear exam. ABSENT: bleeding, drainage Mouth exam: PRESENT: dry mucosa, neck supple Neck exam: ABSENT: thyromegaly, tracheal deviation Respiratory exam: PRESENT: decreased breath sounds - Moderately decreased breath sounds throughout all hicks, prolonged expiratory phas - Minimally prolonged expiratory phase noted in all lung hicks, rales - Fine bibasilar rales are noted, symmetrical, wheezes - Minimal expiratory wheezes noted in all lung fi elds Cardiovascular exam: PRESENT: RRR. ABSENT: clicks, gallop, rubs Pulses: PRESENT: normal carotid pulses, normal radial pulses Vascular exam: PRESENT: normal capillary refill. ABSENT: pallor GI/Abdominal exam: PRESENT: distended - Moderate gaseous distention, hypoactive bowel sounds, soft, tenderness - Mild generalized tenderness on palpation Rectal exam: PRESENT: deferred Extremities exam: PRESENT: pedal edema, +2 edema - 2+ pitting pretibial edema of the bilateral lower extremities. ABSENT: joint swelling Musculoskeletal exam: ABSENT: deformity, dislocation Neurological exam: PRESENT: alert, oriented to person, oriented to place, oriented to time, oriented to situation, CN II-XII grossly intact. ABSENT: motor sensory deficit Psychiatric exam: PRESENT: appropriate affect, normal mood Skin exam: PRESENT: dry, intact, warm. ABSENT: jaundice, rash, urticaria Results Laboratory Results: 11/16/19 16:57 11/16/19 16:57 11/16/19 11/16/19 11/16/19 16:57 16:57 17:46 WBC 12.8 H RBC 4.44 Hgb 13.9 Hct 39.7 MCV 89 MCH 31.3 MCHC 35.0 RDW 13.8 Plt Count 296 Seg Neutrophils % 82.4 H Sodium 122.3 L Potassium 4.0 Chloride 81 L Carbon Dioxide 32 H Anion Gap 9 BUN 19 Creatinine 0.40 L Est GFR ( Amer) > 60 Glucose 98 Lactic Acid Calcium 8.1 L Total Bilirubin 0.6 AST 37 Alkaline Phosphatase 56 Ammonia < 8.7 L Total Protein 5.2 L Albumin 2.7 L Lipase 121.2 Urine Color Urine Appearance Urine pH Ur Specific [place] Urine Protein Urine Glucose (UA) Urine Ketones Urine Blood Urine Nitrite Ur Leukocyte Esterase Urine WBC (Auto) Urine RBC (Auto) 11/16/19 11/16/19 17:46 21:25 WBC RBC Hgb Hct MCV MCH MCHC RDW Plt Count Seg Neutrophils % Sodium Potassium Chloride Carbon Dioxide Anion Gap BUN Creatinine Est GFR ( Amer) Glucose Lactic Acid 0.9 Calcium Total Bilirubin AST Alkaline Phosphatase Ammonia Total Protein Albumin Lipase Urine Color CANDY Urine Appearance SLIGHTLY-CLOUDY Urine pH 6.0 Ur Specific [place] 1.028 Urine Protein 30 H Urine Glucose (UA) NEGATIVE Urine Ketones 80 H Urine Blood NEGATIVE Urine Nitrite NEGATIVE Ur Leukocyte Esterase NEGATIVE Urine WBC (Auto) 2 Urine RBC (Auto) 1 11/16/19 16:57 Troponin I < 0.012 NT-Pro-B Natriuret Pep 256 Impressions: Abdomen/Pelvis CT 11/16/19 00:00 IMPRESSION: Small bowel obstruction with an abrupt zone of transition in the right lower quadrant in the same location of obstruction on the examination from October Small amount of free fluid in the abdomen and pelvis Diverticulosis without diverticulitis There is mild distention of the right renal collecting system as compared to the previous exam without definite obstructing lesion noted. The collecting system also appears subtly hyperdense. Question hemorrhage within the collecting system. The possibility of partial obstruction cannot be excluded. Chest X-Ray 11/16/19 17:30 IMPRESSION: NO ACUTE FINDINGS.Similar aortic contour to the prior study given differences in technique. Assessment and Plan - Diagnosis (1) Small bowel obstruction Is this a current diagnosis for this admission?: Yes (2) Hyponatremia Is this a current diagnosis for this admission?: Yes (3) Nausea and vomiting Qualifiers: Vomiting type: unspecified Vomiting Intractability: non-intractable Qualified Code(s): R11.2 - Nausea with vomiting, unspecified Is this a current diagnosis for this admission?: Yes (4) Chronic obstructive pulmonary disease Qualifiers: COPD type: unspecified COPD Qualified Code(s): J44.9 - Chronic obstructive pulmonary disease, unspecified Is this a current diagnosis for this admission?: Yes (5) Essential hypertension Is this a current diagnosis for this admission?: Yes (6) Tobacco use disorder, continuous Is this a current diagnosis for this admission?: Yes - Plan Summary Summary: Patient is admitted to the medical service where he will receive routine supportive and symptomatic cares. He will be seen in consultation by Dr. Perez for surgical intervention as needed. He will receive morphine sulfate 2 to 4 mg IV every 2 hours as needed for control of pain with a sliding scale used for dosage. He will receive Ativan 1 mg IV every 4 hours as needed for anxiety or restlessness. He will receive IV fluid replacement with lactated Ringer's. Daily laboratory evaluations of the patient CBC, metabolic profile and magnesium level will be obtained as appropriate. A nicotine replacement patch will be available for the patient's use if desired. Smoking cessation is advised and counseled briefly at the bedside. - Time Time Spent with patient: 15-24 minutes Smoking Cessation Education: 3 to 10 minutes Medications reviewed and adjusted accordingly: Yes - Inpatient Certification Based on my medical assessment, after consideration of the patient's comorbidities, presenting symptoms, or acuity I expect that the services needed warrant INPATIENT care.: Yes I certify that my determination is in accordance with my understanding of Medicare's requirements for reasonable and necessary INPATIENT services [42 CFR 412.3e].: Yes Medical Necessity: Failure to Improve With Outpatient Therapy, Need Close Monitoring Due to Risk of Patient Decompensation, Need For IV Fluids, Need for Pain Control, Need for Surgery, Risk of Complication if Not Cared For in Hospital
[2019-11-17 05:11] LABS: BLOOD UREA NITROGEN 18 mg/dL (7-20); CALCIUM 7.7 mg/dL (8.4-10.2); CARBON DIOXIDE 32 mmol/L (22-30); CHLORIDE 82 mmol/L (98-107); GLUCOSE 130 mg/dL (75-110); POTASSIUM 3.6 mmol/L (3.6-5.0)
[2019-11-17 05:12] LABS: ANION GAP 10 (5-19)
[2019-11-17] MEDS: HEPARIN SOD (PORCINE) 5,000 UNIT/ML 1 ML VIAL SUBCUT SCH ×3 (05:19→21:03)
[2019-11-17] MEDS ORDERED: DEXTROSE 5%-NORMAL SALINE 1,000 ML IV PRN (07:54)
--- NOTE | 2019-11-17 09:04 | PDOC PROGRESS REPORT ---
Subjective Progress Note for:: 11/17/19 Subjective:: feels better with ng tube Reason For Visit: SMALL BOWEL OBSTRUCTION,HYPONATREMIA Physical Exam Vital Signs: Temp Pulse Resp BP Pulse Ox 98.7 F 94 15 91/58 L 94 11/17/19 07:29 11/17/19 07:29 11/17/19 07:29 11/17/19 07:29 11/17/19 07:29 Intake & Output 11/16/19 11/17/19 11/18/19 06:59 06:59 06:59 Output Total 925 Balance -925 Weight 83.2 kg General appearance: PRESENT: no acute distress Head exam: PRESENT: normocephalic Eye exam: PRESENT: EOMI Ear exam: PRESENT: normal external ear exam Mouth exam: PRESENT: moist Neck exam: PRESENT: full ROM Cardiovascular exam: PRESENT: RRR Pulses: PRESENT: normal radial pulses, normal femoral pulses GI/Abdominal exam: PRESENT: other - abd distended, hyperactive bs non tender sl improved since ng no flatus Rectal exam: PRESENT: deferred Extremities exam: PRESENT: full ROM Musculoskeletal exam: PRESENT: full ROM Neurological exam: PRESENT: awake, oriented to person, oriented to place Psychiatric exam: PRESENT: appropriate affect Skin exam: PRESENT: dry Results Laboratory Results: 11/17/19 04:36 11/17/19 04:36 11/16/19 11/16/19 11/16/19 16:57 16:57 17:46 WBC 12.8 H RBC 4.44 Hgb 13.9 Hct 39.7 MCV 89 MCH 31.3 MCHC 35.0 RDW 13.8 Plt Count 296 Seg Neutrophils % 82.4 H Sodium 122.3 L Potassium 4.0 Chloride 81 L Carbon Dioxide 32 H Anion Gap 9 BUN 19 Creatinine 0.40 L Est GFR ( Amer) > 60 Glucose 98 Lactic Acid Calcium 8.1 L Magnesium Total Bilirubin 0.6 AST 37 Alkaline Phosphatase 56 Ammonia < 8.7 L Total Protein 5.2 L Albumin 2.7 L Lipase 121.2 TSH Urine Color Urine Appearance Urine pH Ur Specific [place] Urine Protein Urine Glucose (UA) Urine Ketones Urine Blood Urine Nitrite Ur Leukocyte Esterase Urine WBC (Auto) Urine RBC (Auto) 11/16/19 11/16/19 11/17/19 17:46 21:25 01:01 WBC RBC Hgb Hct MCV MCH MCHC RDW Plt Count Seg Neutrophils % Sodium Potassium Chloride Carbon Dioxide Anion Gap BUN Creatinine Est GFR ( Amer) Glucose Lactic Acid 0.9 0.9 Calcium Magnesium Total Bilirubin AST Alkaline Phosphatase Ammonia Total Protein Albumin Lipase TSH Urine Color CANDY Urine Appearance SLIGHTLY-CLOUDY Urine pH 6.0 Ur Specific [place] 1.028 Urine Protein 30 H Urine Glucose (UA) NEGATIVE Urine Ketones 80 H Urine Blood NEGATIVE Urine Nitrite NEGATIVE Ur Leukocyte Esterase NEGATIVE Urine WBC (Auto) 2 Urine RBC (Auto) 1 11/17/19 11/17/19 11/17/19 04:36 04:36 04:36 WBC 13.2 H RBC 3.94 L Hgb 12.3 L Hct 35.4 L MCV 90 MCH 31.3 MCHC 34.7 RDW 14.3 H Plt Count 268 Seg Neutrophils % Sodium 123.6 L Potassium 3.6 Chloride 82 L Carbon Dioxide 32 H Anion Gap 10 BUN 18 Creatinine 0.51 L Est GFR ( Amer) > 60 Glucose 130 H Lactic Acid 0.7 Calcium 7.7 L Magnesium 1.6 Total Bilirubin AST Alkaline Phosphatase Ammonia Total Protein Albumin Lipase TSH Urine Color Urine Appearance Urine pH Ur Specific [place] Urine Protein Urine Glucose (UA) Urine Ketones Urine Blood Urine Nitrite Ur Leukocyte Esterase Urine WBC (Auto) Urine RBC (Auto) 11/17/19 04:36 WBC RBC Hgb Hct MCV MCH MCHC RDW Plt Count Seg Neutrophils % Sodium Potassium Chloride Carbon Dioxide Anion Gap BUN Creatinine Est GFR ( Amer) Glucose Lactic Acid Calcium Magnesium Total Bilirubin AST Alkaline Phosphatase Ammonia Total Protein Albumin Lipase TSH 2.17 Urine Color Urine Appearance Urine pH Ur Specific [place] Urine Protein Urine Glucose (UA) Urine Ketones Urine Blood Urine Nitrite Ur Leukocyte Esterase Urine WBC (Auto) Urine RBC (Auto) 11/16/19 16:57 Troponin I < 0.012 NT-Pro-B Natriuret Pep 256 Impressions: Abdomen/Pelvis CT 11/16/19 00:00 IMPRESSION: Small bowel obstruction with an abrupt zone of transition in the right lower quadrant in the same location of obstruction on the examination from [place] Small amount of free fluid in the abdomen and pelvis Diverticulosis without diverticulitis There is mild distention of the right renal collecting system as compared to the previous exam without definite obstructing lesion noted. The collecting system also appears subtly hyperdense. Question hemorrhage within the collecting system. The possibility of partial obstruction cannot be excluded. Chest X-Ray 11/16/19 17:30 IMPRESSION: NO ACUTE FINDINGS.Similar aortic contour to the prior study given differences in technique. KUB X-Ray 11/17/19 00:14 IMPRESSION: Enteric tube coiled in the stomach copyright 2011 [employer]- All Rights Reserved Assessment & Plan - Diagnosis (1) Hyponatremia Is this a current diagnosis for this admission?: Yes (2) Small bowel obstruction Is this a current diagnosis for this admission?: Yes - Time Time Spent with patient: 35 or more minutes - Plan Summary Plan Summary: sbo and hyponatremia pt prob has had a prolonged at least partial sbo has responded sl to ng suction approx a liter of fecal ng so far he will need surgery, however atthis time need to correct Na. will cont to follow plan on surgery when electrolytes corrected.
[2019-11-17] MEDS: DEXTROSE 5%-NORMAL SALINE 1,000 ML IV PRN ×2 (10:56→19:00)
--- NOTE | 2019-11-17 12:40 | PDOC PROGRESS REPORT ---
Subjective Progress Note for:: 11/17/19 Subjective:: DYLAN MAXWELL is a 74 year old male who presented to the emergency room with a 3-week history of abdominal pain. He admits the gradual onset and slowly worsening of generalized intermittant abdominal pain, without radiation, accompanied by continuous nausea with episodic vomiting and associated with continuous decreased oral intake/anorexia and gradually increased swelling of his bilateral lower extremities. He describes the pain as an achy generalized pain with occasional sharp episodes lasting for several minutes and periods of several hours with no pain. He has been seen on several occasions for this problem including an emergency room visit on 10/25/2019 and a visit with his primary care provider who treated him for a possible H. pylori ulcer. He completed the treatment for H. pylori but had no improvement in his symptoms. He denies other associated or accompanying signs and symptoms. He denies prior similar episodes. He has not identified any aggravating or ameliorating factors for his abdominal pain. In the emergency room he was found to have a small bowel obstruction on his abdominal and pelvis CT scan. He was also noted to have a white blood count of 12,800 and to be hyponatremic. He was seen in consultation at the request of the emergency room doctor by Dr. Perez for the surgical team and he is being admitted by the hospitalist service with consultation to Dr. Perez at his request. 11/17/2019. No acute events overnight. Patient comfortably resting in bed in no apparent distress, abdominal pain is minimal, patient is passing flatus, denies any fever, chills, nausea, vomiting. Surgery on board. Plan is poss possible laparotomy once electrolytes are corrected. Reason For Visit: SMALL BOWEL OBSTRUCTION,HYPONATREMIA Physical Exam Vital Signs: Temp Pulse Resp BP Pulse Ox 98.7 F 94 15 91/58 L 94 11/17/19 07:29 11/17/19 07:29 11/17/19 07:29 11/17/19 07:29 11/17/19 07:29 Intake & Output 11/16/19 11/17/19 11/18/19 06:59 06:59 06:59 Output Total 925 Balance -925 Weight 83.2 kg General appearance: PRESENT: no acute distress, well-developed, well-nourished Head exam: PRESENT: atraumatic, normocephalic Respiratory exam: PRESENT: clear to auscultation johanna. ABSENT: rales, rhonchi, wheezes GI/Abdominal exam: PRESENT: diminished bowel sounds, distended, soft, other - Nasogastric tube in place.. ABSENT: guarding, mass, organolmegaly, rebound, tenderness Neurological exam: PRESENT: alert, awake, oriented to person, oriented to place, oriented to time, oriented to situation, CN II-XII grossly intact. ABSENT: motor sensory deficit Results Laboratory Results: 11/17/19 04:36 11/17/19 04:36 11/16/19 11/16/19 11/16/19 16:57 16:57 17:46 WBC 12.8 H RBC 4.44 Hgb 13.9 Hct 39.7 MCV 89 MCH 31.3 MCHC 35.0 RDW 13.8 Plt Count 296 Seg Neutrophils % 82.4 H Sodium 122.3 L Potassium 4.0 Chloride 81 L Carbon Dioxide 32 H Anion Gap 9 BUN 19 Creatinine 0.40 L Est GFR ( Amer) > 60 Glucose 98 Lactic Acid Calcium 8.1 L Magnesium Total Bilirubin 0.6 AST 37 Alkaline Phosphatase 56 Ammonia < 8.7 L Total Protein 5.2 L Albumin 2.7 L Lipase 121.2 TSH Urine Color Urine Appearance Urine pH Ur Specific [place] Urine Protein Urine Glucose (UA) Urine Ketones Urine Blood Urine Nitrite Ur Leukocyte Esterase Urine WBC (Auto) Urine RBC (Auto) 11/16/19 11/16/19 11/17/19 17:46 21:25 01:01 WBC RBC Hgb Hct MCV MCH MCHC RDW Plt Count Seg Neutrophils % Sodium Potassium Chloride Carbon Dioxide Anion Gap BUN Creatinine Est GFR ( Amer) Glucose Lactic Acid 0.9 0.9 Calcium Magnesium Total Bilirubin AST Alkaline Phosphatase Ammonia Total Protein Albumin Lipase TSH Urine Color CANDY Urine Appearance SLIGHTLY-CLOUDY Urine pH 6.0 Ur Specific [place] 1.028 Urine Protein 30 H Urine Glucose (UA) NEGATIVE Urine Ketones 80 H Urine Blood NEGATIVE Urine Nitrite NEGATIVE Ur Leukocyte Esterase NEGATIVE Urine WBC (Auto) 2 Urine RBC (Auto) 1 11/17/19 11/17/19 11/17/19 04:36 04:36 04:36 WBC 13.2 H RBC 3.94 L Hgb 12.3 L Hct 35.4 L MCV 90 MCH 31.3 MCHC 34.7 RDW 14.3 H Plt Count 268 Seg Neutrophils % Sodium 123.6 L Potassium 3.6 Chloride 82 L Carbon Dioxide 32 H Anion Gap 10 BUN 18 Creatinine 0.51 L Est GFR ( Amer) > 60 Glucose 130 H Lactic Acid 0.7 Calcium 7.7 L Magnesium 1.6 Total Bilirubin AST Alkaline Phosphatase Ammonia Total Protein Albumin Lipase TSH Urine Color Urine Appearance Urine pH Ur Specific [place] Urine Protein Urine Glucose (UA) Urine Ketones Urine Blood Urine Nitrite Ur Leukocyte Esterase Urine WBC (Auto) Urine RBC (Auto) 11/17/19 11/17/19 04:36 08:45 WBC RBC Hgb Hct MCV MCH MCHC RDW Plt Count Seg Neutrophils % Sodium Potassium Chloride Carbon Dioxide Anion Gap BUN Creatinine Est GFR ( Amer) Glucose Lactic Acid 0.7 Calcium Magnesium Total Bilirubin AST Alkaline Phosphatase Ammonia Total Protein Albumin Lipase TSH 2.17 Urine Color Urine Appearance Urine pH Ur Specific [place] Urine Protein Urine Glucose (UA) Urine Ketones Urine Blood Urine Nitrite Ur Leukocyte Esterase Urine WBC (Auto) Urine RBC (Auto) 11/16/19 16:57 Troponin I < 0.012 NT-Pro-B Natriuret Pep 256 Impressions: Abdomen/Pelvis CT 11/16/19 00:00 IMPRESSION: Small bowel obstruction with an abrupt zone of transition in the right lower quadrant in the same location of obstruction on the examination from October Small amount of free fluid in the abdomen and pelvis Diverticulosis without diverticulitis There is mild distention of the right renal collecting system as compared to the previous exam without definite obstructing lesion noted. The collecting system also appears subtly hyperdense. Question hemorrhage within the collecting system. The possibility of partial obstruction cannot be excluded. Chest X-Ray 11/16/19 17:30 IMPRESSION: NO ACUTE FINDINGS.Similar aortic contour to the prior study given differences in technique. KUB X-Ray 11/17/19 00:14 IMPRESSION: Enteric tube coiled in the stomach copyright 2010 [employer]- All Rights Reserved Assessment and Plan - Diagnosis (1) Small bowel obstruction Is this a current diagnosis for this admission?: Yes Plan: Based on physical examination and CT finding. Denies any previous abdominal surgery or any bowel obstruction. Patient is starting to pass flatus now. Nominal pain is improving. Has not had a bowel movement. NG tube in place. Surgery on board for possible exploratory laparotomy. Continue supportive measures. Monitor vital status and electrolytes and replace as needed. (2) Chronic obstructive pulmonary disease Qualifiers: COPD type: unspecified COPD Qualified Code(s): J44.9 - Chronic obstructive pulmonary disease, unspecified Is this a current diagnosis for this admission?: Yes Plan: Does not seem to be acutely exacerbated. Continue supplemental oxygen, LABA, LABA, PRN duo nebs. (3) Hyponatremia Is this a current diagnosis for this admission?: Yes Plan: Likely due to GI losses. Continue NS. Sodium level every 8. (4) Nausea and vomiting Qualifiers: Vomiting type: unspecified Vomiting Intractability: non-intractable Qualified Code(s): R11.2 - Nausea with vomiting, unspecified Is this a current diagnosis for this admission?: Yes Plan: Improving. Due to #1. Supportive measures. Monitor electrolytes and replace as needed. (5) Abdominal aortic aneurysm (AAA) Qualifiers: Presence of rupture: without rupture Qualified Code(s): I71.4 - Abdominal aortic aneurysm, without rupture Is this a current diagnosis for this admission?: Yes Plan: Thoracic and abdominal aortic aneurysm. Greatest dimension 5.4 cm. As per patient he is already being evaluated as outpatient and had a recent CT. Patient and family strongly encouraged to follow-up with PCP and vascular surgeon for surgical intervention.
[2019-11-17] MEDS: LISINOPRIL 5 MG TABLET PO SCH (17:20)
--- NOTE | 2019-11-17 20:44 | EKG REPORT ---
SEVERITY:- ABNORMAL ECG - SINUS RHYTHM LEFT ANTERIOR FASCICULAR BLOCK CONSIDER LEFT VENTRICULAR HYPERTROPHY : Confirmed by: Faby Zamora 17-Nov-2019 20:43:13
--- NOTE | 2019-11-17 20:44 | EKG REPORT ---
SEVERITY:- ABNORMAL ECG - SINUS RHYTHM LEFT ANTERIOR FASCICULAR BLOCK CONSIDER LEFT VENTRICULAR HYPERTROPHY ABNORMAL T, CONSIDER ISCHEMIA, ANTERIOR LEADS : Confirmed by: Faby Zamora 17-Nov-2019 20:43:19
[2019-11-18] MEDS: DEXTROSE 5%-NORMAL SALINE 1,000 ML IV PRN ×3 (02:09→11:26)
[2019-11-18] MEDS: HEPARIN SOD (PORCINE) 5,000 UNIT/ML 1 ML VIAL SUBCUT SCH ×3 (05:08→22:31)
[2019-11-18 05:26] LABS: HEMATOCRIT 36.1 % (37.9-51.0); HEMOGLOBIN 12.6 g/dL (13.5-17.0); MEAN CORPUSCULAR HEMOGLOBIN 31.6 pg (27.0-33.4); MEAN CORPUSCULAR HGB CONC 34.8 g/dL (32.0-36.0); MEAN CORPUSCULAR VOLUME 91 fl (80-97); PLATELET COUNT 240 10^3/uL (150-450); RED BLOOD COUNT 3.98 10^6/uL (4.35-5.55); RED CELL DISTRIBUTION WIDTH 14.1 % (11.5-14.0); WHITE BLOOD COUNT 10.2 10^3/uL (4.0-10.5)
[2019-11-18 05:50] LABS: ANION GAP 8 (5-19); BLOOD UREA NITROGEN 10 mg/dL (7-20); CALCIUM 7.3 mg/dL (8.4-10.2); CARBON DIOXIDE 27 mmol/L (22-30); CHLORIDE 93 mmol/L (98-107); GLUCOSE 102 mg/dL (75-110); POTASSIUM 3.1 mmol/L (3.6-5.0)
[2019-11-18] MEDS ORDERED: POTASSI CL 20 MEQ/50 ML RIDER 20 MEQ/50 ML RTUPB IV ONE (08:00)
[2019-11-18] MEDS ORDERED: (PENDING PHARMACY ID) (Lisinopril [Zestril] 2.5 MG) PO SCH (10:00)
[2019-11-18] MEDS: LISINOPRIL 5 MG TABLET PO SCH (10:21)
[2019-11-18] MEDS: METOPROLOL SUCCINATE 25 MG TAB.SR.24H PO SCH (10:22)
[2019-11-18] MEDS: PANTOPRAZOLE SODIUM 40 MG VIAL IV SCH ×2 (10:25→22:00)
--- NOTE | 2019-11-18 11:13 | PDOC PROGRESS REPORT ---
Subjective Progress Note for:: 11/18/19 Subjective:: DYLAN MAXWELL is a 74 year old male who presented to the emergency room with a 3-week history of abdominal pain. He admits the gradual onset and slowly worsening of generalized intermittant abdominal pain, without radiation, accompanied by continuous nausea with episodic vomiting and associated with continuous decreased oral intake/anorexia and gradually increased swelling of his bilateral lower extremities. He describes the pain as an achy generalized pain with occasional sharp episodes lasting for several minutes and periods of several hours with no pain. He has been seen on several occasions for this problem including an emergency room visit on 10/25/2019 and a visit with his primary care provider who treated him for a possible H. pylori ulcer. He completed the treatment for H. pylori but had no improvement in his symptoms. He denies other associated or accompanying signs and symptoms. He denies prior similar episodes. He has not identified any aggravating or ameliorating factors for his abdominal pain. In the emergency room he was found to have a small bowel obstruction on his abdominal and pelvis CT scan. He was also noted to have a white blood count of 12,800 and to be hyponatremic. He was seen in consultation at the request of the emergency room doctor by Dr. Perez for the surgical team and he is being admitted by the hospitalist service with consultation to Dr. Perez at his request. 11/17/2019. No acute events overnight. Patient comfortably resting in bed in no apparent distress, abdominal pain is minimal, patient is passing flatus, denies any fever, chills, nausea, vomiting. Surgery on board. Plan is poss possible laparotomy once electrolytes are corrected. 11/18/2019. No acute events overnight. Patient has had 3-4 bowel movement since yesterday, abdominal pain has resolved, still having high gastric residual, denies any fever, chills, nausea, vomiting, diarrhea, constipation or any urinary symptoms. Reason For Visit: SMALL BOWEL OBSTRUCTION,HYPONATREMIA Physical Exam Vital Signs: Temp Pulse Resp BP Pulse Ox 97.7 F 81 16 99/66 L 96 11/17/19 19:36 11/17/19 19:36 11/17/19 19:36 11/17/19 19:36 11/17/19 19:36 Intake & Output 11/17/19 11/18/19 11/19/19 06:59 06:59 06:59 Intake Total 2974 Output Total 925 2175 Balance -925 799 Weight 83.2 kg 54.3 kg General appearance: PRESENT: no acute distress, well-developed, well-nourished Head exam: PRESENT: atraumatic, normocephalic Respiratory exam: PRESENT: clear to auscultation johanna. ABSENT: rales, rhonchi, wheezes Cardiovascular exam: PRESENT: RRR. ABSENT: diastolic murmur, rubs, systolic murmur GI/Abdominal exam: PRESENT: normal bowel sounds, soft. ABSENT: distended, guarding, mass, organolmegaly, rebound, tenderness Neurological exam: PRESENT: alert, awake, oriented to person, oriented to place, oriented to time, oriented to situation, CN II-XII grossly intact. ABSENT: motor sensory deficit Results Laboratory Results: 11/18/19 05:15 11/18/19 05:15 11/17/19 11/17/19 11/18/19 14:18 21:40 05:15 WBC 10.2 RBC 3.98 L Hgb 12.6 L Hct 36.1 L MCV 91 MCH 31.6 MCHC 34.8 RDW 14.1 H Plt Count 240 Sodium 124.7 L 125.0 L Potassium Chloride Carbon Dioxide Anion Gap BUN Creatinine Est GFR ( Amer) Glucose Calcium Magnesium 11/18/19 05:15 WBC RBC Hgb Hct MCV MCH MCHC RDW Plt Count Sodium 127.7 L Potassium 3.1 L Chloride 93 L Carbon Dioxide 27 Anion Gap 8 BUN 10 Creatinine 0.41 L Est GFR ( Amer) > 60 Glucose 102 Calcium 7.3 L Magnesium 1.7 11/16/19 16:57 Troponin I < 0.012 NT-Pro-B Natriuret Pep 256 Impressions: Abdomen/Pelvis CT 11/16/19 00:00 IMPRESSION: Small bowel obstruction with an abrupt zone of transition in the right lower quadrant in the same location of obstruction on the examination from [place] Small amount of free fluid in the abdomen and pelvis Diverticulosis without diverticulitis There is mild distention of the right renal collecting system as compared to the previous exam without definite obstructing lesion noted. The collecting system also appears subtly hyperdense. Question hemorrhage within the collecting system. The possibility of partial obstruction cannot be excluded. Chest X-Ray 11/16/19 17:30 IMPRESSION: NO ACUTE FINDINGS.Similar aortic contour to the prior study given differences in technique. KUB X-Ray 11/17/19 00:14 IMPRESSION: Enteric tube coiled in the stomach copyright 2011 [employer]- All Rights Reserved Assessment and Plan - Diagnosis (1) Small bowel obstruction Is this a current diagnosis for this admission?: Yes Plan: Having normal bowel movement. Based on initial physical examination and CT finding. Denies any previous abdominal surgery or any bowel obstruction. No bowel movement. Having high residuals. Surgical intervention has been held at this point. Continue nasogastric suctioning. Monitor vitals. Surgery on board. Follow recommendations. (2) Chronic obstructive pulmonary disease Qualifiers: COPD type: unspecified COPD Qualified Code(s): J44.9 - Chronic obstructive pulmonary disease, unspecified Is this a current diagnosis for this admission?: Yes Plan: Does not seem to be acutely exacerbated. Continue supplemental oxygen, LABA, LABA, PRN duo nebs. (3) Hyponatremia Is this a current diagnosis for this admission?: Yes Plan: Likely due to GI losses. Continue NS. Sodium level every 8. (4) Nausea and vomiting Qualifiers: Vomiting type: unspecified Vomiting Intractability: non-intractable Qualified Code(s): R11.2 - Nausea with vomiting, unspecified Is this a current diagnosis for this admission?: Yes Plan: Improving. Due to #1. Supportive measures. Monitor electrolytes and replace as needed. (5) Abdominal aortic aneurysm (AAA) Qualifiers: Presence of rupture: without rupture Qualified Code(s): I71.4 - Abdominal aortic aneurysm, without rupture Is this a current diagnosis for this admission?: Yes Plan: Thoracic and abdominal aortic aneurysm. Greatest dimension 5.4 cm. As per patient he is already being evaluated as outpatient and had a recent CT. Patient and family strongly encouraged to follow-up with PCP and vascular surgeon for surgical intervention.
--- NOTE | 2019-11-18 11:57 | PDOC PROGRESS REPORT ---
Subjective Progress Note for:: 11/18/19 Subjective:: Patient doing better, passing gas and stool. Much less distended according to patient's daughter. Patient remains confused, disoriented. Reason For Visit: SMALL BOWEL OBSTRUCTION,HYPONATREMIA Physical Exam Vital Signs: Temp Pulse Resp BP Pulse Ox 97.7 F 81 16 99/66 L 96 11/17/19 19:36 11/17/19 19:36 11/17/19 19:36 11/17/19 19:36 11/17/19 19:36 Intake & Output 11/17/19 11/18/19 11/19/19 06:59 06:59 06:59 Intake Total 2974 269 Output Total 925 2175 200 Balance -925 799 69 Weight 83.2 kg 54.3 kg General appearance: PRESENT: no acute distress, other - Patient confused, disoriented, but pleasant. GI/Abdominal exam: PRESENT: other - Abdomen much less distended; soft, no gloria toneal signs. Nasogastric drainage down but still, bilious. Results Laboratory Results: 11/18/19 05:15 11/18/19 05:15 11/17/19 11/17/19 11/18/19 14:18 21:40 05:15 WBC 10.2 RBC 3.98 L Hgb 12.6 L Hct 36.1 L MCV 91 MCH 31.6 MCHC 34.8 RDW 14.1 H Plt Count 240 Sodium 124.7 L 125.0 L Potassium Chloride Carbon Dioxide Anion Gap BUN Creatinine Est GFR ( Amer) Glucose Calcium Magnesium 11/18/19 05:15 WBC RBC Hgb Hct MCV MCH MCHC RDW Plt Count Sodium 127.7 L Potassium 3.1 L Chloride 93 L Carbon Dioxide 27 Anion Gap 8 BUN 10 Creatinine 0.41 L Est GFR ( Amer) > 60 Glucose 102 Calcium 7.3 L Magnesium 1.7 11/16/19 16:57 Troponin I < 0.012 NT-Pro-B Natriuret Pep 256 Impressions: Abdomen/Pelvis CT 11/16/19 00:00 IMPRESSION: Small bowel obstruction with an abrupt zone of transition in the right lower quadrant in the same location of obstruction on the examination from October Small amount of free fluid in the abdomen and pelvis Diverticulosis without diverticulitis There is mild distention of the right renal collecting system as compared to the previous exam without definite obstructing lesion noted. The collecting system also appears subtly hyperdense. Question hemorrhage within the collecting system. The possibility of partial obstruction cannot be excluded. Chest X-Ray 11/16/19 17:30 IMPRESSION: NO ACUTE FINDINGS.Similar aortic contour to the prior study given differences in technique. KUB X-Ray 11/17/19 00:14 IMPRESSION: Enteric tube coiled in the stomach copyright 2011 [employer]- All Rights Reserved Assessment & Plan - Diagnosis (1) Small bowel obstruction Is this a current diagnosis for this admission?: Yes Plan: Impression: Clinically improved with significant bowel and gas evacuation; nasogastric drainage persist however. No peritoneal signs; no indication for surgical intervention today. Patient remains disoriented, confused; daughter at bedside believes symptoms are worse Recommendations: 1. Continue nasogastric decompression; no indication for surgery today 2. Sodium now up to 127; still low, being corrected; discussed altered mentation with primary care staff. Will obtain CT scan of head. - Time Time Spent with patient: 15-24 minutes Medications reviewed and adjusted accordingly: Yes Anticipated discharge: Home
--- NOTE | 2019-11-18 15:25 | RADIOLOGY REPORT (SQ) ---
EXAM DESCRIPTION: CT HEAD WITHOUT COMPLETED DATE/TIME: 11/18/2019 3:13 pm REASON FOR STUDY: persistant hyponatremia, mental status changes COMPARISON: None. TECHNIQUE: Axial images acquired through the brain without intravenous contrast. Images reviewed wi th bone, brain and subdural windows. Additional sagittal and coronal reconstructions were generated. Images stored on PACS. All CT scanners at this facility use dose modulation, iterative reconstruction, and/or weight based d osing when appropriate to reduce radiation dose to as low as reasonably achievable (ALARA). [facility]: Dose Right [facility]: CareDose [facility]: Dose Right [facility]: Teradose 4D [facility]: Define My Style RADIATION DOSE: CT Rad equipment meets quality standard of care and radiation dose reduction techniq ues were employed. CTDIvol: 53.2 mGy. DLP: 1044 mGy-cm. mGy. LIMITATIONS: None. FINDINGS: VENTRICLES: Prominent. CEREBRUM: No masses. No hemorrhage. No midline shift. Areas of low density in the white matter mos t likely due to chronic micro-vascular ischemic change. No evidence for acute infarction. CEREBELLUM: No masses or hemorrhage. Prominent CSF space consistent with arachnoid cyst or Dandy-Wal ker variant. EXTRAAXIAL SPACES: Mild age-related involutional change. No fluid collections. No masses. ORBITS AND GLOBE: No intra- or extraconal masses. Normal contour of globe without masses. CALVARIUM: No fracture. PARANASAL SINUSES: No fluid or mucosal thickening. SOFT TISSUES: No mass or hematoma. OTHER: No other significant finding. IMPRESSION: MILD CHRONIC CHANGES OF ATROPHY AND MICROVASCULAR ISCHEMIA. NO ACUTE PROCESS. EVIDENCE OF ACUTE STROKE: NO. TECHNICAL DOCUMENTATION: JOB ID: [id number] Quality ID # [id number]: Final reports with documentation of one or more dose reduction techniques (e.g., Au tomated exposure control, adjustment of the mA and/or kV according to patient size, use of iterative reconstruction technique) 2010 [employer]- All Rights Reserved Reading location - IP/workstation name: [email or web address]
[2019-11-18] MEDS ORDERED: HALOPERIDOL LACTATE INJ 5 MG/1 ML VIAL IV PRN (18:33)
[2019-11-19 05:11] LABS: HEMOGLOBIN 12.6 g/dL (13.5-17.0); MEAN CORPUSCULAR HEMOGLOBIN 31.6 pg (27.0-33.4); MEAN CORPUSCULAR VOLUME 90 fl (80-97); PLATELET COUNT 222 10^3/uL (150-450); RED BLOOD COUNT 3.98 10^6/uL (4.35-5.55); RED CELL DISTRIBUTION WIDTH 14.1 % (11.5-14.0); WHITE BLOOD COUNT 5.5 10^3/uL (4.0-10.5)
[2019-11-19 05:37] LABS: BLOOD UREA NITROGEN 8 mg/dL (7-20); CALCIUM 7.4 mg/dL (8.4-10.2); CARBON DIOXIDE 29 mmol/L (22-30); CHLORIDE 98 mmol/L (98-107); GLUCOSE 78 mg/dL (75-110)
[2019-11-19 05:52] LABS: ANION GAP 4 (5-19)
[2019-11-19] MEDS ORDERED: DEXTROSE 5%-NORMAL SALINE 1,000 ML with POTASSIUM CHLORIDE 40 MEQ IV PRN ×2 (06:20)
[2019-11-19] MEDS: POTASSIUM CHLORIDE 20 MEQ/50 ML RTU IV SCH ×2 (06:49→09:59)
[2019-11-19] MEDS: HEPARIN SOD (PORCINE) 5,000 UNIT/ML 1 ML VIAL SUBCUT SCH ×3 (07:04→21:39)
[2019-11-19] MEDS: METOPROLOL SUCCINATE 25 MG TAB.SR.24H PO SCH (09:45)
[2019-11-19] MEDS: LISINOPRIL 5 MG TABLET PO SCH (09:45)
[2019-11-19] MEDS: PANTOPRAZOLE SODIUM 40 MG VIAL IV SCH ×2 (09:59→21:39)
--- NOTE | 2019-11-19 10:44 | PDOC PROGRESS REPORT ---
Subjective Progress Note for:: 11/19/19 Subjective:: 74-year-old male admitted with hyponatremia and a small bowel obstruction. Currently, the patient is having bowel movements and passing flatus. He reports that he has no abdominal pain or nausea. His NG tube has been in place for several days. He denies chest pain, shortness of breath, fevers, chills, orthostasis, blurry vision, dizziness. Reason For Visit: SMALL BOWEL OBSTRUCTION,HYPONATREMIA Physical Exam Vital Signs: Temp Pulse Resp BP Pulse Ox 98.9 F 76 16 107/63 91 L 11/19/19 08:00 11/19/19 08:00 11/19/19 08:00 11/19/19 08:00 11/19/19 08:00 Intake & Output 11/18/19 11/19/19 11/20/19 06:59 06:59 06:59 Intake Total 2974 269 50 Output Total 2175 2500 2600 Balance 799 -2231 -2550 Weight 54.3 kg 51.5 kg General appearance: PRESENT: no acute distress, cooperative, thin Head exam: PRESENT: atraumatic, normocephalic Eye exam: PRESENT: EOMI, PERRLA. ABSENT: scleral icterus Mouth exam: PRESENT: moist, neck supple Neck exam: PRESENT: meningismus, tenderness, thyromegaly, tracheal deviation Respiratory exam: PRESENT: unlabored. ABSENT: tachypnea, wheezes Cardiovascular exam: PRESENT: RRR Pulses: PRESENT: normal radial pulses GI/Abdominal exam: PRESENT: soft. ABSENT: distended, tenderness Rectal exam: PRESENT: deferred Musculoskeletal exam: ABSENT: deformity Neurological exam: PRESENT: alert, awake, oriented to person, oriented to place, oriented to time, oriented to situation Psychiatric exam: ABSENT: agitated, anxious, depressed Focused psych exam: ABSENT: delusional Skin exam: ABSENT: cyanosis, erythema, jaundice Results Laboratory Results: 11/19/19 04:51 11/19/19 04:51 11/19/19 11/19/19 04:51 04:51 WBC 5.5 RBC 3.98 L Hgb 12.6 L Hct 36.0 L MCV 90 MCH 31.6 MCHC 35.0 RDW 14.1 H Plt Count 222 Sodium 130.7 L Potassium 3.0 L* Chloride 98 Carbon Dioxide 29 Anion Gap 4 L BUN 8 Creatinine 0.40 L Est GFR ( Amer) > 60 Glucose 78 Calcium 7.4 L Magnesium 1.6 11/16/19 16:57 Troponin I < 0.012 NT-Pro-B Natriuret Pep 256 Impressions: Abdomen/Pelvis CT 11/16/19 00:00 IMPRESSION: Small bowel obstruction with an abrupt zone of transition in the right lower quadrant in the same location of obstruction on the examination from October Small amount of free fluid in the abdomen and pelvis Diverticulosis without diverticulitis There is mild distention of the right renal collecting system as compared to the previous exam without definite obstructing lesion noted. The collecting system also appears subtly hyperdense. Question hemorrhage within the collecting system. The possibility of partial obstruction cannot be excluded. Chest X-Ray 11/16/19 17:30 IMPRESSION: NO ACUTE FINDINGS.Similar aortic contour to the prior study given differences in technique. KUB X-Ray 11/17/19 00:14 IMPRESSION: Enteric tube coiled in the stomach copyright 2011 [employer]- All Rights Reserved Head CT 11/18/19 00:00 IMPRESSION: MILD CHRONIC CHANGES OF ATROPHY AND MICROVASCULAR ISCHEMIA. NO ACUTE PROCESS. EVIDENCE OF ACUTE STROKE: NO. Assessment & Plan - Diagnosis (1) Small bowel obstruction Is this a current diagnosis for this admission?: Yes - Time Time Spent with patient: Less than 15 minutes - Plan Summary Plan Summary: This is a 74-year-old male with a history of a small bowel obstruction. The patient is currently having flatus and passing stool. I will remove his NG tube today. I will also start him on a full liquid diet. Repeat x-rays tomorrow. If the patient continues tolerated diet, surgical intervention may not be necessary. If his obstruction returns, surgery should be strongly considered. Surgery will continue to follow this patient with you.
--- NOTE | 2019-11-19 12:06 | PDOC PROGRESS REPORT ---
Subjective Progress Note for:: 11/19/19 Subjective:: DYLAN MAXWELL is a 74 year old male who presented to the emergency room with a 3-week history of abdominal pain. He admits the gradual onset and slowly worsening of generalized intermittant abdominal pain, without radiation, accompanied by continuous nausea with episodic vomiting and associated with continuous decreased oral intake/anorexia and gradually increased swelling of his bilateral lower extremities. He describes the pain as an achy generalized pain with occasional sharp episodes lasting for several minutes and periods of several hours with no pain. He has been seen on several occasions for this problem including an emergency room visit on 10/25/2019 and a visit with his primary care provider who treated him for a possible H. pylori ulcer. He completed the treatment for H. pylori but had no improvement in his symptoms. He denies other associated or accompanying signs and symptoms. He denies prior similar episodes. He has not identified any aggravating or ameliorating factors for his abdominal pain. In the emergency room he was found to have a small bowel obstruction on his abdominal and pelvis CT scan. He was also noted to have a white blood count of 12,800 and to be hyponatremic. He was seen in consultation at the request of the emergency room doctor by Dr. Perez for the surgical team and he is being admitted by the hospitalist service with consultation to Dr. Perez at his request. 11/17/2019. No acute events overnight. Patient comfortably resting in bed in no apparent distress, abdominal pain is minimal, patient is passing flatus, denies any fever, chills, nausea, vomiting. Surgery on board. Plan is poss possible laparotomy once electrolytes are corrected. 11/18/2019. No acute events overnight. Patient has had 3-4 bowel movement since yesterday, abdominal pain has resolved, still having high gastric residual, denies any fever, chills, nausea, vomiting, diarrhea, constipation or any urinary symptoms. 11/19/2019. No acute events overnight. Patient currently resting in bed in no apparent distress, alert and 3, his NG tube been removed. Having normal bowel movement. Denies any abdominal pain. Denies any chest pain, nausea, vomiting, diarrhea, constipation or any urinary symptoms. Reason For Visit: SMALL BOWEL OBSTRUCTION,HYPONATREMIA Physical Exam Vital Signs: Temp Pulse Resp BP Pulse Ox 98.9 F 76 16 107/63 91 L 11/19/19 08:00 11/19/19 08:00 11/19/19 08:00 11/19/19 08:00 11/19/19 08:00 Intake & Output 11/18/19 11/19/19 11/20/19 06:59 06:59 06:59 Intake Total 2974 269 50 Output Total 2175 2500 2600 Balance 759 -8159 -4738 Weight 54.3 kg 51.5 kg General appearance: PRESENT: no acute distress, well-developed, well-nourished Head exam: PRESENT: atraumatic, normocephalic Respiratory exam: PRESENT: clear to auscultation johanna. ABSENT: rales, rhonchi, wheezes Cardiovascular exam: PRESENT: RRR. ABSENT: diastolic murmur, rubs, systolic murmur GI/Abdominal exam: PRESENT: normal bowel sounds, soft. ABSENT: distended, guarding, mass, organolmegaly, rebound, tenderness Neurological exam: PRESENT: alert, awake, oriented to person, oriented to place, oriented to time, oriented to situation, CN II-XII grossly intact. ABSENT: motor sensory deficit Results Laboratory Results: 11/19/19 04:51 11/19/19 04:51 11/19/19 11/19/19 04:51 04:51 WBC 5.5 RBC 3.98 L Hgb 12.6 L Hct 36.0 L MCV 90 MCH 31.6 MCHC 35.0 RDW 14.1 H Plt Count 222 Sodium 130.7 L Potassium 3.0 L* Chloride 98 Carbon Dioxide 29 Anion Gap 4 L BUN 8 Creatinine 0.40 L Est GFR ( Amer) > 60 Glucose 78 Calcium 7.4 L Magnesium 1.6 11/16/19 16:57 Troponin I < 0.012 NT-Pro-B Natriuret Pep 256 Impressions: Abdomen/Pelvis CT 11/16/19 00:00 IMPRESSION: Small bowel obstruction with an abrupt zone of transition in the right lower quadrant in the same location of obstruction on the examination from October Small amount of free fluid in the abdomen and pelvis Diverticulosis without diverticulitis There is mild distention of the right renal collecting system as compared to the previous exam without definite obstructing lesion noted. The collecting system also appears subtly hyperdense. Question hemorrhage within the collecting system. The possibility of partial obstruction cannot be excluded. Chest X-Ray 11/16/19 17:30 IMPRESSION: NO ACUTE FINDINGS.Similar aortic contour to the prior study given differences in technique. KUB X-Ray 11/17/19 00:14 IMPRESSION: Enteric tube coiled in the stomach copyright 2011 [employer]- All Rights Reserved Head CT 11/18/19 00:00 IMPRESSION: MILD CHRONIC CHANGES OF ATROPHY AND MICROVASCULAR ISCHEMIA. NO ACUTE PROCESS. EVIDENCE OF ACUTE STROKE: NO. Assessment and Plan - Diagnosis (1) Small bowel obstruction Is this a current diagnosis for this admission?: Yes Plan: Resolved. Having normal bowel movements. P.o. tolerant. Based on initial physical examination and CT finding. Denies any previous abdominal surgery or any bowel obstruction. Surgical intervention has been held at this point. Continue full liquid diet advance as tolerated. Surgery following. Recommendations noted. (2) Chronic obstructive pulmonary disease Qualifiers: COPD type: unspecified COPD Qualified Code(s): J44.9 - Chronic obstructive pulmonary disease, unspecified Is this a current diagnosis for this admission?: Yes Plan: Does not seem to be acutely exacerbated. Continue supplemental oxygen, LABA, LABA, PRN duo nebs. (3) Hyponatremia Is this a current diagnosis for this admission?: Yes Plan: Likely due to GI losses. Continue NS. Sodium level every 8. (4) Nausea and vomiting Qualifiers: Vomiting type: unspecified Vomiting Intractability: non-intractable Qualified Code(s): R11.2 - Nausea with vomiting, unspecified Is this a current diagnosis for this admission?: Yes Plan: Resolved. Due to #1. Supportive measures. Monitor electrolytes and replace as needed. (5) Abdominal aortic aneurysm (AAA) Qualifiers: Presence of rupture: without rupture Qualified Code(s): I71.4 - Abdominal aortic aneurysm, without rupture Is this a current diagnosis for this admission?: Yes Plan: Thoracic and abdominal aortic aneurysm. Greatest dimension 5.4 cm. As per patient he is already being evaluated as outpatient and had a recent CT. Patient and family strongly encouraged to follow-up with PCP and vascular surgeon for surgical intervention.
[2019-11-19 18:14] LABS: POTASSIUM 3.4 mmol/L (3.6-5.0)
[2019-11-20] MEDS: HEPARIN SOD (PORCINE) 5,000 UNIT/ML 1 ML VIAL SUBCUT SCH ×3 (05:44→21:44)
[2019-11-20 09:17] LABS: ANION GAP 5 (5-19); BLOOD UREA NITROGEN 8 mg/dL (7-20); CALCIUM 7.5 mg/dL (8.4-10.2); CARBON DIOXIDE 29 mmol/L (22-30); CHLORIDE 97 mmol/L (98-107); GLUCOSE 111 mg/dL (75-110); POTASSIUM 3.4 mmol/L (3.6-5.0)
--- NOTE | 2019-11-20 09:44 | RADIOLOGY REPORT (SQ) ---
EXAM DESCRIPTION: KUB/ABDOMEN (SINGLE VIEW) COMPLETED DATE/TIME: 11/20/2019 9:09 am REASON FOR STUDY: SBO COMPARISON: AP views of the abdomen from 11/17/2019. NUMBER OF VIEWS: One view. TECHNIQUE: Supine radiographic image of the abdomen acquired. LIMITATIONS: None. FINDINGS: BOWEL GAS PATTERN: Evaluation for free intraperitoneal air and differential air-fluid leve ls is limited due to supine technique. The stomach and several loops of large bowel are distended wi th air. There is no pneumatosis or portal venous gas. CALCIFICATIONS: Vascular calcifications. SOFT TISSUES: No abnormality. HARDWARE: The enteric tube is no longer in place. BONES: No acute findings. OTHER: No other finding. IMPRESSION: The enteric tube is no longer in place. The stomach and several loops of large bowel ar e distended with air (unchanged). TECHNICAL DOCUMENTATION: JOB ID: [id number] [employer]- All Rights Reserved Reading location - IP/workstation name: [email or web address]
[2019-11-20] MEDS: METOPROLOL SUCCINATE 25 MG TAB.SR.24H PO SCH (10:05)
[2019-11-20] MEDS: LISINOPRIL 5 MG TABLET PO SCH (10:05)
[2019-11-20] MEDS: PANTOPRAZOLE SODIUM 40 MG VIAL IV SCH ×2 (10:05→21:44)
[2019-11-20] MEDS ORDERED: ACETAMINOPHEN 325 MG TABLET PO PRN (10:13)
[2019-11-20] MEDS ORDERED: POTASSIUM CHLORIDE 10 MEQ TABLET.ER PO ONE (10:14)
--- NOTE | 2019-11-20 10:17 | PDOC PROGRESS REPORT ---
Subjective Progress Note for:: 11/20/19 Subjective:: DYLAN MAXWELL is a 74 year old male who presented to the emergency room with a 3-week history of abdominal pain. He admits the gradual onset and slowly worsening of generalized intermittant abdominal pain, without radiation, accompanied by continuous nausea with episodic vomiting and associated with continuous decreased oral intake/anorexia and gradually increased swelling of his bilateral lower extremities. He describes the pain as an achy generalized pain with occasional sharp episodes lasting for several minutes and periods of several hours with no pain. He has been seen on several occasions for this problem including an emergency room visit on 10/25/2019 and a visit with his primary care provider who treated him for a possible H. pylori ulcer. He completed the treatment for H. pylori but had no improvement in his symptoms. He denies other associated or accompanying signs and symptoms. He denies prior similar episodes. He has not identified any aggravating or ameliorating factors for his abdominal pain. In the emergency room he was found to have a small bowel obstruction on his abdominal and pelvis CT scan. He was also noted to have a white blood count of 12,800 and to be hyponatremic. He was seen in consultation at the request of the emergency room doctor by Dr. Perez for the surgical team and he is being admitted by the hospitalist service with consultation to Dr. Perez at his request. 11/17/2019. No acute events overnight. Patient comfortably resting in bed in no apparent distress, abdominal pain is minimal, patient is passing flatus, denies any fever, chills, nausea, vomiting. Surgery on board. Plan is poss possible laparotomy once electrolytes are corrected. 11/18/2019. No acute events overnight. Patient has had 3-4 bowel movement since yesterday, abdominal pain has resolved, still having high gastric residual, denies any fever, chills, nausea, vomiting, diarrhea, constipation or any urinary symptoms. 11/19/2019. No acute events overnight. Patient currently resting in bed in no apparent distress, alert and 3, his NG tube been removed. Having normal bowel movement. Denies any abdominal pain. Denies any chest pain, nausea, vomiting, diarrhea, constipation or any urinary symptoms. 11/20/1999. No acute events overnight. Complaining of headache. P.o. tolerant. Having normal bowel and bladder movement. Abdominal pain has resolved. Still hyponatremic and hypokalemic. Reason For Visit: SMALL BOWEL OBSTRUCTION,HYPONATREMIA Physical Exam Vital Signs: Temp Pulse Resp BP Pulse Ox 97.3 F 67 16 122/72 96 11/20/19 08:00 11/20/19 08:00 11/20/19 08:00 11/20/19 08:00 11/20/19 08:00 Intake & Output 11/19/19 11/20/19 11/21/19 06:59 06:59 06:59 Intake Total 269 1930 Output Total 2500 3800 Balance -2231 -1870 Weight 51.5 kg 50 kg General appearance: PRESENT: no acute distress, well-developed, well-nourished Head exam: PRESENT: atraumatic, normocephalic Respiratory exam: PRESENT: clear to auscultation johanna. ABSENT: rales, rhonchi, wheezes Cardiovascular exam: PRESENT: RRR. ABSENT: diastolic murmur, rubs, systolic murmur GI/Abdominal exam: PRESENT: normal bowel sounds, soft. ABSENT: distended, guarding, mass, organolmegaly, rebound, tenderness Neurological exam: PRESENT: alert, awake, oriented to person, oriented to place, oriented to time, oriented to situation, CN II-XII grossly intact. ABSENT: motor sensory deficit Results Laboratory Results: 11/19/19 04:51 11/20/19 08:29 11/19/19 11/20/19 16:55 08:29 Sodium 131.4 L 130.8 L Potassium 3.4 L 3.4 L Chloride 97 L Carbon Dioxide 29 Anion Gap 5 BUN 8 Creatinine 0.43 L Est GFR ( Amer) > 60 Glucose 111 H Calcium 7.5 L 11/16/19 16:57 Troponin I < 0.012 NT-Pro-B Natriuret Pep 256 Impressions: Abdomen/Pelvis CT 11/16/19 00:00 IMPRESSION: Small bowel obstruction with an abrupt zone of transition in the right lower quadrant in the same location of obstruction on the examination from October Small amount of free fluid in the abdomen and pelvis Diverticulosis without diverticulitis There is mild distention of the right renal collecting system as compared to the previous exam without definite obstructing lesion noted. The collecting system also appears subtly hyperdense. Question hemorrhage within the collecting system. The possibility of partial obstruction cannot be excluded. Chest X-Ray 11/16/19 17:30 IMPRESSION: NO ACUTE FINDINGS.Similar aortic contour to the prior study given differences in technique. Head CT 11/18/19 00:00 IMPRESSION: MILD CHRONIC CHANGES OF ATROPHY AND MICROVASCULAR ISCHEMIA. NO ACUTE PROCESS. EVIDENCE OF ACUTE STROKE: NO. KUB X-Ray 11/20/19 06:00 IMPRESSION: The enteric tube is no longer in place. The stomach and several loops of large bowel are distended with air (unchanged). Assessment and Plan - Diagnosis (1) Small bowel obstruction Is this a current diagnosis for this admission?: Yes Plan: Resolved. Having normal bowel movements. P.o. tolerant. Based on initial physical examination and CT finding. Denies any previous abdominal surgery or any bowel obstruction. Surgical intervention has been held at this point. Advance to regular diet. Surgery following. Recommendations noted. (2) Chronic obstructive pulmonary disease Qualifiers: COPD type: unspecified COPD Qualified Code(s): J44.9 - Chronic obstructive pulmonary disease, unspecified Is this a current diagnosis for this admission?: Yes Plan: Does not seem to be acutely exacerbated. Continue supplemental oxygen, LABA, LABA, PRN duo nebs. (3) Hyponatremia Is this a current diagnosis for this admission?: Yes Plan: Likely due to GI losses. Mild improvement. Daily BMP. Monitor for seizure. (4) Nausea and vomiting Qualifiers: Vomiting type: unspecified Vomiting Intractability: non-intractable Qualified Code(s): R11.2 - Nausea with vomiting, unspecified Is this a current diagnosis for this admission?: Yes Plan: Resolved. Due to #1. Supportive measures. Monitor electrolytes and replace as needed. (5) Abdominal aortic aneurysm (AAA) Qualifiers: Presence of rupture: without rupture Qualified Code(s): I71.4 - Abdominal aortic aneurysm, without rupture Is this a current diagnosis for this admission?: Yes Plan: Thoracic and abdominal aortic aneurysm. Greatest dimension 5.4 cm. As per patient he is already being evaluated as outpatient and had a recent CT. Patient and family strongly encouraged to follow-up with PCP and vascular surgeon for surgical intervention.
--- NOTE | 2019-11-20 16:41 | PDOC PROGRESS REPORT ---
Subjective Progress Note for:: 11/20/19 Subjective:: Patient reports no abdominal pain, flatus, and multiple bowel movements today, tolerating p.o. well Reason For Visit: SMALL BOWEL OBSTRUCTION,HYPONATREMIA Physical Exam Vital Signs: Temp Pulse Resp BP Pulse Ox 98.1 F 96 16 123/73 96 11/20/19 12:00 11/20/19 12:00 11/20/19 12:00 11/20/19 12:00 11/20/19 12:00 Intake & Output 11/19/19 11/20/19 11/21/19 06:59 06:59 06:59 Intake Total 269 1930 1000 Output Total 2500 3800 Balance -2231 -1870 1000 Weight 51.5 kg 50 kg General appearance: PRESENT: no acute distress Respiratory exam: PRESENT: clear to auscultation johanna Cardiovascular exam: PRESENT: RRR GI/Abdominal exam: PRESENT: distended - Slightly, normal bowel sounds, soft Results Laboratory Results: 11/19/19 04:51 11/20/19 08:29 11/19/19 11/20/19 16:55 08:29 Sodium 131.4 L 130.8 L Potassium 3.4 L 3.4 L Chloride 97 L Carbon Dioxide 29 Anion Gap 5 BUN 8 Creatinine 0.43 L Est GFR ( Amer) > 60 Glucose 111 H Calcium 7.5 L 11/16/19 16:57 Troponin I < 0.012 NT-Pro-B Natriuret Pep 256 Impressions: Abdomen/Pelvis CT 11/16/19 00:00 IMPRESSION: Small bowel obstruction with an abrupt zone of transition in the right lower quadrant in the same location of obstruction on the examination from October Small amount of free fluid in the abdomen and pelvis Diverticulosis without diverticulitis There is mild distention of the right renal collecting system as compared to the previous exam without definite obstructing lesion noted. The collecting system also appears subtly hyperdense. Question hemorrhage within the collecting system. The possibility of partial obstruction cannot be excluded. Chest X-Ray 11/16/19 17:30 IMPRESSION: NO ACUTE FINDINGS.Similar aortic contour to the prior study given differences in technique. Head CT 11/18/19 00:00 IMPRESSION: MILD CHRONIC CHANGES OF ATROPHY AND MICROVASCULAR ISCHEMIA. NO ACUTE PROCESS. EVIDENCE OF ACUTE STROKE: NO. KUB X-Ray 11/20/19 06:00 IMPRESSION: The enteric tube is no longer in place. The stomach and several loops of large bowel are distended with air (unchanged). Assessment & Plan - Diagnosis (1) Partial mechanical small bowel obstructi Is this a current diagnosis for this admission?: Yes - Time Time Spent with patient: 15-24 minutes - Plan Summary Plan Summary: Assessment: Resolved partial small bowel mechanical obstruction with flatus, multiple bowel movements today Patient tolerating p.o. well (clear liquid diet) This current episode represents the second episode of this condition Past history of laparoscopic appendectomy in 2009 On physical exam, the patient's abdomen is slightly distended but soft without peritoneal signs Plan: Agree with increasing the diet to regular Patient can be discharged to home anytime if he tolerates regular diet well Follow-up with Dr. Kinsey in 2 weeks I will sign off, please call us back with questions.
[2019-11-21 05:35] LABS: BLOOD UREA NITROGEN 8 mg/dL (7-20); CALCIUM 7.5 mg/dL (8.4-10.2); CHLORIDE 97 mmol/L (98-107); GLUCOSE 81 mg/dL (75-110)
[2019-11-21 05:41] LABS: CARBON DIOXIDE 30 mmol/L (22-30)
[2019-11-21 05:42] LABS: ANION GAP 2 (5-19); POTASSIUM 4.5 mmol/L (3.6-5.0)
[2019-11-21] MEDS: HEPARIN SOD (PORCINE) 5,000 UNIT/ML 1 ML VIAL SUBCUT SCH ×3 (05:55→21:24)
[2019-11-21] MEDS ORDERED: PROMETHAZINE HCL INJ 25 MG/1 ML VIAL IV PRN (08:00)
[2019-11-21] MEDS: SODIUM BICARBONATE 650 MG TABLET PO SCH ×3 (08:38→15:42)
[2019-11-21] MEDS ORDERED: ATORVASTATIN CALCIUM 10 MG TABLET PO SCH (10:00)
[2019-11-21] MEDS: PANTOPRAZOLE SODIUM 40 MG VIAL IV SCH ×2 (10:48→21:24)
[2019-11-21] MEDS: METOPROLOL SUCCINATE 25 MG TAB.SR.24H PO SCH (10:48)
[2019-11-21] MEDS: LISINOPRIL 5 MG TABLET PO SCH (10:49)
--- NOTE | 2019-11-21 11:46 | PDOC PROGRESS REPORT ---
Subjective Progress Note for:: 11/21/19 Subjective:: DYLAN MAXWELL is a 74 year old male who presented to the emergency room with a 3-week history of abdominal pain. He admits the gradual onset and slowly worsening of generalized intermittant abdominal pain, without radiation, accompanied by continuous nausea with episodic vomiting and associated with continuous decreased oral intake/anorexia and gradually increased swelling of his bilateral lower extremities. He describes the pain as an achy generalized pain with occasional sharp episodes lasting for several minutes and periods of several hours with no pain. He has been seen on several occasions for this problem including an emergency room visit on 10/25/2019 and a visit with his primary care provider who treated him for a possible H. pylori ulcer. He completed the treatment for H. pylori but had no improvement in his symptoms. He denies other associated or accompanying signs and symptoms. He denies prior similar episodes. He has not identified any aggravating or ameliorating factors for his abdominal pain. In the emergency room he was found to have a small bowel obstruction on his abdominal and pelvis CT scan. He was also noted to have a white blood count of 12,800 and to be hyponatremic. He was seen in consultation at the request of the emergency room doctor by Dr. Perez for the surgical team and he is being admitted by the hospitalist service with consultation to Dr. Perez at his request. 11/17/2019. No acute events overnight. Patient comfortably resting in bed in no apparent distress, abdominal pain is minimal, patient is passing flatus, denies any fever, chills, nausea, vomiting. Surgery on board. Plan is poss possible laparotomy once electrolytes are corrected. 11/18/2019. No acute events overnight. Patient has had 3-4 bowel movement since yesterday, abdominal pain has resolved, still having high gastric residual, denies any fever, chills, nausea, vomiting, diarrhea, constipation or any urinary symptoms. 11/19/2019. No acute events overnight. Patient currently resting in bed in no apparent distress, alert and 3, his NG tube been removed. Having normal bowel movement. Denies any abdominal pain. Denies any chest pain, nausea, vomiting, diarrhea, constipation or any urinary symptoms. 11/20/1999. No acute events overnight. Complaining of headache. P.o. tolerant. Having normal bowel and bladder movement. Abdominal pain has resolved. Still hyponatremic and hypokalemic. 11/21/2019. No acute events overnight. Abdominal pain has resolved, having normal bowel and bladder movement. Patient could be potentially discharged home however still having significant hyponatremia. Reason For Visit: SMALL BOWEL OBSTRUCTION,HYPONATREMIA Physical Exam Vital Signs: Temp Pulse Resp BP Pulse Ox 97.9 F 70 19 103/76 97 11/21/19 07:20 11/21/19 07:20 11/21/19 07:20 11/21/19 07:20 11/21/19 07:20 Intake & Output 11/20/19 11/21/19 11/22/19 06:59 06:59 06:59 Intake Total 1930 2163 Output Total 3800 1250 Balance -1870 913 Weight 50 kg 51.2 kg General appearance: PRESENT: no acute distress, well-developed, well-nourished Head exam: PRESENT: atraumatic, normocephalic Respiratory exam: PRESENT: clear to auscultation johanna. ABSENT: rales, rhonchi, wheezes Cardiovascular exam: PRESENT: RRR. ABSENT: diastolic murmur, rubs, systolic murmur GI/Abdominal exam: PRESENT: normal bowel sounds, soft. ABSENT: distended, guarding, mass, organolmegaly, rebound, tenderness Neurological exam: PRESENT: alert, awake, oriented to person, oriented to place, oriented to time, oriented to situation, CN II-XII grossly intact. ABSENT: motor sensory deficit Results Laboratory Results: 11/19/19 04:51 11/21/19 04:43 11/21/19 04:43 Sodium 128.5 L Potassium 4.5 D Chloride 97 L Carbon Dioxide 30 Anion Gap 2 L BUN 8 Creatinine 0.42 L Est GFR ( Amer) > 60 Glucose 81 Calcium 7.5 L 11/16/19 16:57 Troponin I < 0.012 NT-Pro-B Natriuret Pep 256 Impressions: Abdomen/Pelvis CT 11/16/19 00:00 IMPRESSION: Small bowel obstruction with an abrupt zone of transition in the right lower quadrant in the same location of obstruction on the examination from October Small amount of free fluid in the abdomen and pelvis Diverticulosis without diverticulitis There is mild distention of the right renal collecting system as compared to the previous exam without definite obstructing lesion noted. The collecting system also appears subtly hyperdense. Question hemorrhage within the collecting system. The possibility of partial obstruction cannot be excluded. Chest X-Ray 11/16/19 17:30 IMPRESSION: NO ACUTE FINDINGS.Similar aortic contour to the prior study given differences in technique. Head CT 11/18/19 00:00 IMPRESSION: MILD CHRONIC CHANGES OF ATROPHY AND MICROVASCULAR ISCHEMIA. NO ACUTE PROCESS. EVIDENCE OF ACUTE STROKE: NO. KUB X-Ray 11/20/19 06:00 IMPRESSION: The enteric tube is no longer in place. The stomach and several loops of large bowel are distended with air (unchanged). Assessment and Plan - Diagnosis (1) Small bowel obstruction Is this a current diagnosis for this admission?: Yes Plan: Resolved. Having normal bowel movements. P.o. tolerant. Based on initial physical examination and CT finding. Denies any previous abdominal surgery or any bowel obstruction. Surgical intervention has been held at this point. Advance to regular diet. Surgery following. Recommendations noted. (2) Chronic obstructive pulmonary disease Qualifiers: COPD type: unspecified COPD Qualified Code(s): J44.9 - Chronic obstructive pulmonary disease, unspecified Is this a current diagnosis for this admission?: Yes Plan: Does not seem to be acutely exacerbated. Continue supplemental oxygen, LABA, LABA, PRN duo nebs. (3) Hyponatremia Is this a current diagnosis for this admission?: Yes Plan: Likely due to GI losses. Mild improvement. Daily BMP. Monitor for seizure. Will obtain urine osmolality and urine sodium. (4) Nausea and vomiting Qualifiers: Vomiting type: unspecified Vomiting Intractability: non-intractable Qualified Code(s): R11.2 - Nausea with vomiting, unspecified Is this a current diagnosis for this admission?: Yes Plan: Resolved. Due to #1. Supportive measures. Monitor electrolytes and replace as needed. (5) Abdominal aortic aneurysm (AAA) Qualifiers: Presence of rupture: without rupture Qualified Code(s): I71.4 - Abdominal aortic aneurysm, without rupture Is this a current diagnosis for this admission?: Yes Plan: Thoracic and abdominal aortic aneurysm. Greatest dimension 5.4 cm. As per patient he is already being evaluated as outpatient and had a recent CT. Patient and family strongly encouraged to follow-up with PCP and vascular surgeon for surgical intervention.
[2019-11-22] MEDS: HEPARIN SOD (PORCINE) 5,000 UNIT/ML 1 ML VIAL SUBCUT SCH ×3 (05:54→21:21)
[2019-11-22 05:56] LABS: ANION GAP 6 (5-19); BLOOD UREA NITROGEN 11 mg/dL (7-20); CALCIUM 7.8 mg/dL (8.4-10.2); CARBON DIOXIDE 31 mmol/L (22-30); CHLORIDE 94 mmol/L (98-107); GLUCOSE 88 mg/dL (75-110); POTASSIUM 4.1 mmol/L (3.6-5.0)
[2019-11-22] MEDS: SODIUM BICARBONATE 650 MG TABLET PO SCH ×3 (07:39→15:15)
--- NOTE | 2019-11-22 09:49 | PDOC PROGRESS REPORT ---
Subjective Progress Note for:: 11/22/19 Subjective:: DYLAN MAXWELL is a 74 year old male who presented to the emergency room with a 3-week history of abdominal pain. He admits the gradual onset and slowly worsening of generalized intermittant abdominal pain, without radiation, accompanied by continuous nausea with episodic vomiting and associated with continuous decreased oral intake/anorexia and gradually increased swelling of his bilateral lower extremities. He describes the pain as an achy generalized pain with occasional sharp episodes lasting for several minutes and periods of several hours with no pain. He has been seen on several occasions for this problem including an emergency room visit on 10/25/2019 and a visit with his primary care provider who treated him for a possible H. pylori ulcer. He completed the treatment for H. pylori but had no improvement in his symptoms. He denies other associated or accompanying signs and symptoms. He denies prior similar episodes. He has not identified any aggravating or ameliorating factors for his abdominal pain. In the emergency room he was found to have a small bowel obstruction on his abdominal and pelvis CT scan. He was also noted to have a white blood count of 12,800 and to be hyponatremic. He was seen in consultation at the request of the emergency room doctor by Dr. Perez for the surgical team and he is being admitted by the hospitalist service with consultation to Dr. Perez at his request. 11/17/2019. No acute events overnight. Patient comfortably resting in bed in no apparent distress, abdominal pain is minimal, patient is passing flatus, denies any fever, chills, nausea, vomiting. Surgery on board. Plan is poss possible laparotomy once electrolytes are corrected. 11/18/2019. No acute events overnight. Patient has had 3-4 bowel movement since yesterday, abdominal pain has resolved, still having high gastric residual, denies any fever, chills, nausea, vomiting, diarrhea, constipation or any urinary symptoms. 11/19/2019. No acute events overnight. Patient currently resting in bed in no apparent distress, alert and 3, his NG tube been removed. Having normal bowel movement. Denies any abdominal pain. Denies any chest pain, nausea, vomiting, diarrhea, constipation or any urinary symptoms. 11/20/1999. No acute events overnight. Complaining of headache. P.o. tolerant. Having normal bowel and bladder movement. Abdominal pain has resolved. Still hyponatremic and hypokalemic. 11/21/2019. No acute events overnight. Abdominal pain has resolved, having normal bowel and bladder movement. Patient could be potentially discharged home however still having significant hyponatremia. 11/22/2011. No acute events overnight, denies any fever, chills, nausea, vomiting, diarrhea, constipation or any urinary symptoms. P.o. tolerant, ambulatory, with normal bowel and bladder movements. Still having persistent hyponatremia. Reason For Visit: SMALL BOWEL OBSTRUCTION,HYPONATREMIA Physical Exam Vital Signs: Temp Pulse Resp BP Pulse Ox 97.6 F 105 H 14 139/88 H 81 L 11/22/19 00:09 11/22/19 07:27 11/22/19 00:09 11/22/19 07:27 11/22/19 07:27 Intake & Output 11/21/19 11/22/19 11/23/19 06:59 06:59 06:59 Intake Total 2163 956 Output Total 1250 Balance 913 956 Weight 51.2 kg 48.2 kg General appearance: PRESENT: no acute distress, thin, well-developed, well- nourished Head exam: PRESENT: atraumatic, normocephalic Respiratory exam: PRESENT: clear to auscultation johanna. ABSENT: rales, rhonchi, wheezes Cardiovascular exam: PRESENT: RRR. ABSENT: diastolic murmur, rubs, systolic murmur GI/Abdominal exam: PRESENT: normal bowel sounds, soft. ABSENT: distended, guarding, mass, organolmegaly, rebound, tenderness Neurological exam: PRESENT: alert, awake, oriented to person, oriented to place, oriented to time, oriented to situation, CN II-XII grossly intact. ABSENT: motor sensory deficit Results Laboratory Results: 11/19/19 04:51 11/22/19 05:04 11/21/19 11/22/19 17:00 05:04 Sodium 130.9 L Potassium 4.1 Chloride 94 L Carbon Dioxide 31 H Anion Gap 6 BUN 11 Creatinine 0.50 L Est GFR ( Amer) > 60 Glucose 88 Calcium 7.8 L Urine Osmolality 445 11/16/19 18:35 Blood Blood Culture - Final NO GROWTH IN 5 DAYS 11/16/19 17:46 Blood Blood Culture - Final NO GROWTH IN 5 DAYS 11/16/19 16:57 Troponin I < 0.012 NT-Pro-B Natriuret Pep 256 Impressions: Abdomen/Pelvis CT 11/16/19 00:00 IMPRESSION: Small bowel obstruction with an abrupt zone of transition in the right lower quadrant in the same location of obstruction on the examination from October Small amount of free fluid in the abdomen and pelvis Diverticulosis without diverticulitis There is mild distention of the right renal collecting system as compared to the previous exam without definite obstructing lesion noted. The collecting system also appears subtly hyperdense. Question hemorrhage within the collecting system. The possibility of partial obstruction cannot be excluded. Chest X-Ray 11/16/19 17:30 IMPRESSION: NO ACUTE FINDINGS.Similar aortic contour to the prior study given differences in technique. Head CT 11/18/19 00:00 IMPRESSION: MILD CHRONIC CHANGES OF ATROPHY AND MICROVASCULAR ISCHEMIA. NO ACUTE PROCESS. EVIDENCE OF ACUTE STROKE: NO. KUB X-Ray 11/20/19 06:00 IMPRESSION: The enteric tube is no longer in place. The stomach and several loops of large bowel are distended with air (unchanged). Assessment and Plan - Diagnosis (1) Hyponatremia Is this a current diagnosis for this admission?: Yes Plan: Euvolemic hyponatremia. TSH WNL. Urine sodium 88. Urine osmolarity 445. FeNa 0.43% Head CT negative for any intracranial masses. CT abdomen and pelvis negative for any malignancy. Chest x-ray negative for any masses. 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 We will obtain random cortisol level. Continue monitoring for seizure, continue supplemental sodium bicarbonate, BMP tomorrow. Nephrology consulted. Recommendations pending. (2) Small bowel obstruction Is this a current diagnosis for this admission?: Yes Plan: Resolved. Having normal bowel movements. P.o. tolerant. Based on initial physical examination and CT finding. Denies any previous abdominal surgery or any bowel obstruction. Surgical intervention has been held at this point. Advance to regular diet. Surgery following. Recommendations noted. (3) Chronic obstructive pulmonary disease Qualifiers: COPD type: unspecified COPD Qualified Code(s): J44.9 - Chronic obstructive pulmonary disease, unspecified Is this a current diagnosis for this admission?: Yes Plan: Does not seem to be acutely exacerbated. Continue supplemental oxygen, LABA, LABA, PRN duo nebs. (4) Nausea and vomiting Qualifiers: Vomiting type: unspecified Vomiting Intractability: non-intractable Qualified Code(s): R11.2 - Nausea with vomiting, unspecified Is this a current diagnosis for this admission?: Yes Plan: Resolved. Due to #1. Supportive measures. Monitor electrolytes and replace as needed. (5) Abdominal aortic aneurysm (AAA) Qualifiers: Presence of rupture: without rupture Qualified Code(s): I71.4 - Abdominal aortic aneurysm, without rupture Is this a current diagnosis for this admission?: Yes Plan: Thoracic and abdominal aortic aneurysm. Greatest dimension 5.4 cm. As per patient he is already being evaluated as outpatient and had a recent CT. Patient and family strongly encouraged to follow-up with PCP and vascular surgeon for surgical intervention.
[2019-11-22] MEDS: PANTOPRAZOLE SODIUM 40 MG VIAL IV SCH ×2 (10:27→21:21)
[2019-11-22] MEDS: METOPROLOL SUCCINATE 25 MG TAB.SR.24H PO SCH (10:28)
[2019-11-22] MEDS: LISINOPRIL 5 MG TABLET PO SCH (10:28)
[2019-11-22] MEDS ORDERED: TOLVAPTAN 15 MG TABLET PO ONE (15:00)
--- NOTE | 2019-11-22 17:27 | PDOC CONSULTATION ---
Consultation Consult Date: 11/22/19 Provider Consulted: ANDREEA JAY Consult reason:: I was asked to see the patient for hyponatremia. History of Present Illness Admission Date/PCP: 11/16/19 22:40 NAOMI SAMS MD History of Present Illness: DYLAN MAXWELL is a 74 year old male with history of COPD, peripheral vascular disease, abdominal aortic aneurysm who was admitted on November 16, 2019 because of abdominal pain, nausea, vomiting with increasing lower extremity swelling. Upon work-up patient was diagnosed to have small bowel obstruction. Surgery was consulted. Patient improved. Patient also came in with hyponatremia with initial sodium of 122.3 on admission. This was thought to be secondary to volume depletion so the patient was hydrated. His sodium level went up to 131.4 on November 19 but persisted to be low at that point until today at the level of 130.9. On October 25, 2019 he has normal sodium of 140.7 prior to this admission. This hospitalization the patient has received 0.9 normal saline initially on admission and then was switched to D5 normal saline from November 17 to November 20. He has a TSH of 2.17 which is normal, urine osmolality of 145 which is inappropriately elevated, urine sodium of 88 and urine creatinine of 79. Patient continues to have lower extremity edema and third spacing with an albumin of 2.7 upon admission. Currently the patient denies any more GI complaints including abdominal pain, nausea, nor vomiting. He said is eating fair and is drinking fluids. He admits that he still feels a little bit weak. He denies any previous history of hyponatremia. He denies being confused. He is making good amount of urine. Past Medical History Cardiac Medical History: Reports: Abdominal Aortic Aneurysm - 5.5 cm., Peripheral Vascular Disease - Abdominal aortic aneurysm 5.5 cm in diameter Pulmonary Medical History: Reports: Chronic Obstructive Pulmonary Disease (COPD) Psychiatric Medical History: Reports: Tobacco Dependency Past Surgical History Past Surgical History: Reports: Appendectomy Social History Information Source: Patient, [facility] Lives with: Family Smoking Status: Current Every Day Smoker Electronic Cigarette use?: No Frequency of Alcohol Use: None Hx Recreational Drug Use: No Drugs: None Hx Prescription Drug Abuse: No - Advance Directive Resuscitation Status: Full Code Family History Family History: Hypertension - Brother Parental Family History Reviewed: Yes Children Family History Reviewed: Yes Sibling(s) Family History Reviewed.: Yes Medication/Allergy Home Medications: Atorvastatin Calcium [Lipitor 10 mg Tablet] 10 mg PO DAILY 10/25/19 Lisinopril [Zestril] 2.5 mg PO DAILY 10/25/19 Metoprolol Succinate [Toprol Xl 25 mg Tab.sr] 12.5 mg PO DAILY 10/25/19 Allergies/Adverse Reactions: ibuprofen Allergy (Verified 10/25/19 13:15) Penicillins Allergy (Verified 10/25/19 13:15) pravastatin Allergy (Verified 10/25/19 13:15) Review of Systems All systems: reviewed and no additional remarkable complaints except as stated Review of Systems: Constitutional: ABSENT: chills, fever(s), headache(s), weight gain, weight loss; admits feeling fatigue and weak Eyes: ABSENT: visual disturbances Ears: ABSENT: hearing changes Cardiovascular: ABSENT: chest pain, dyspnea on exertion, edema, orthropnea, palpitations Respiratory: ABSENT: cough, dyspnea, hemoptysis Gastrointestinal: ABSENT: abdominal pain, constipation, diarrhea, hematemesis, hematochezia, nausea, vomiting Genitourinary: ABSENT: dysuria, hematuria Musculoskeletal: ABSENT: joint swelling Integumentary: ABSENT: rash, wounds Neurological: ABSENT: abnormal gait, abnormal speech, confusion, dizziness, f ocal weakness, numbness, syncope Psychiatric: ABSENT: anxiety, depression Endocrine: ABSENT: cold intolerance, heat intolerance, polydipsia, polyuria Hematologic/Lymphatic: ABSENT: easy bleeding, easy bruising, lymphadenopathy Physical Exam Vital Signs: Temp Pulse Resp BP Pulse Ox 97.3 F 59 L 16 105/48 L 99 11/22/19 11:23 11/22/19 11:23 11/22/19 11:23 11/22/19 11:23 11/22/19 11:23 Intake & Output 11/21/19 11/22/19 11/23/19 06:59 06:59 06:59 Intake Total 2163 956 240 Output Total 1250 Balance 913 956 240 Weight 51.2 kg 48.2 kg Exam: General appearance: No acute distress, cooperative, well-developed, well- nourished Head exam: PRESENT: atraumatic, normocephalic Eye exam: PRESENT: Conjunctiva [place], EOMI, PERRLA. ABSENT: conjunctival injection, scleral icterus Mouth exam: PRESENT: moist, neck supple, tongue midline Neck exam: PRESENT: full ROM. ABSENT: carotid bruit, JVD, lymphadenopathy, thyromegaly Respiratory exam: PRESENT: clear to auscultation bilaterally. ABSENT: rales, rhonchi, stridor, wheezes Cardiovascular exam: PRESENT: RRR, +S1, +S2. ABSENT: systolic murmur Pulses: PRESENT: normal radial pulses, normal dorsalis pedis pulses GI/Abdominal exam: PRESENT: Hypoactive bowel sounds, soft. ABSENT: guarding, mass, tenderness Rectal exam: Deferred Extremities exam: PRESENT: full ROM. Grade 1 bilateral lower extremity pitting edema ABSENT: calf tenderness Musculoskeletal: PRESENT: full ROM. ABSENT: deformity Neurological exam: PRESENT: alert, Awake, Oriented to person, Oriented to place, Oriented to time, reflexes normal, CN II-XII grossly intact. ABSENT: motor sensory deficit Psychiatric exam: PRESENT: appropriate affect, normal mood. ABSENT: homicidal ideation, suicidal ideation Skin exam: PRESENT: intact, dry, warm. ABSENT: rash Results Laboratory Results: 11/19/19 04:51 11/22/19 05:04 11/21/19 11/22/19 17:00 05:04 Sodium 130.9 L Potassium 4.1 Chloride 94 L Carbon Dioxide 31 H Anion Gap 6 BUN 11 Creatinine 0.50 L Est GFR ( Amer) > 60 Glucose 88 Calcium 7.8 L Urine Osmolality 445 11/16/19 18:35 Blood Blood Culture - Final NO GROWTH IN 5 DAYS 11/16/19 17:46 Blood Blood Culture - Final NO GROWTH IN 5 DAYS 11/16/19 16:57 Troponin I < 0.012 NT-Pro-B Natriuret Pep 256 Impressions: Abdomen/Pelvis CT 11/16/19 00:00 IMPRESSION: Small bowel obstruction with an abrupt zone of transition in the right lower quadrant in the same location of obstruction on the examination from October Small amount of free fluid in the abdomen and pelvis Diverticulosis without diverticulitis There is mild distention of the right renal collecting system as compared to the previous exam without definite obstructing lesion noted. The collecting system also appears subtly hyperdense. Question hemorrhage within the collecting system. The possibility of partial obstruction cannot be excluded. Chest X-Ray 11/16/19 17:30 IMPRESSION: NO ACUTE FINDINGS.Similar aortic contour to the prior study given differences in technique. Head CT 11/18/19 00:00 IMPRESSION: MILD CHRONIC CHANGES OF ATROPHY AND MICROVASCULAR ISCHEMIA. NO ACUTE PROCESS. EVIDENCE OF ACUTE STROKE: NO. KUB X-Ray 11/20/19 06:00 IMPRESSION: The enteric tube is no longer in place. The stomach and several loops of large bowel are distended with air (unchanged). Assessment & Plan - Diagnosis (1) Hyponatremia Is this a current diagnosis for this admission?: Yes Plan: Patient is in mild hypervolemic state with some third spacing due to hypoalbuminemia. His urine osmolality is inappropriately elevated. SIADH is a consideration. I will give the patient a dose of tolvaptan 15 mg x 1. Will repeat albumin level. Discontinue sodium bicarbonate as the patient's bicarb is starting to go up. Monitor electrolytes. If the patient's sodium is improved tomorrow close to 135, I think he can be safely discharged home. (2) Hypoalbuminemia Is this a current diagnosis for this admission?: Yes Plan: Recheck albumin. (3) Small bowel obstruction Is this a current diagnosis for this admission?: Yes Plan: Resolved. - Notes Notes: Thank you very much for this consultation. Discussed assessment and recommendation with Dr. Sterling. - Time Time Spent: 50 to 70 Minutes
[2019-11-22] MEDS ORDERED: ATORVASTATIN CALCIUM 10 MG TABLET PO SCH (22:00)
[2019-11-23] MEDS: HEPARIN SOD (PORCINE) 5,000 UNIT/ML 1 ML VIAL SUBCUT SCH (06:17)
[2019-11-23 07:08] LABS: ALBUMIN 2.3 g/dL (3.5-5.0); BLOOD UREA NITROGEN 12 mg/dL (7-20); CALCIUM 8.1 mg/dL (8.4-10.2); GLUCOSE 97 mg/dL (75-110); POTASSIUM 3.7 mmol/L (3.6-5.0)
[2019-11-23 07:13] LABS: CARBON DIOXIDE 35 mmol/L (22-30); CHLORIDE 100 mmol/L (98-107)
[2019-11-23 07:17] LABS: ANION GAP 3 (5-19)
[2019-11-23 09:12] VITALS: BP 116/65
[2019-11-23] MEDS: PANTOPRAZOLE SODIUM 40 MG VIAL IV SCH (11:46)
[2019-11-23] MEDS: METOPROLOL SUCCINATE 25 MG TAB.SR.24H PO SCH (11:46)
[2019-11-23] MEDS: LISINOPRIL 5 MG TABLET PO SCH (11:46)
--- NOTE | 2019-11-23 16:20 | PDOC DISCHARGE SUMMARY ---
Impression - Admit/DC Date/PCP Admission Date/Primary Care Provider: 11/16/19 22:40 NAOMI SAMS MD Discharge Date: 11/23/19 - Discharge Diagnosis (1) Hyponatremia Is this a current diagnosis for this admission?: Yes (2) Small bowel obstruction Is this a current diagnosis for this admission?: Yes (3) Chronic obstructive pulmonary disease Is this a current diagnosis for this admission?: Yes (4) Nausea and vomiting Is this a current diagnosis for this admission?: Yes (5) Abdominal aortic aneurysm (AAA) Is this a current diagnosis for this admission?: Yes - Additional Information Resuscitation Status: Full Code Referrals: NAOMI SAMS MD [Primary Care Provider] - Follow up as needed SHELLY MOELLER MD [ACTIVE STAFF] - (sbo 2 weeks) Home Medications: Atorvastatin Calcium [Lipitor 10 mg Tablet] 10 mg PO DAILY 10/25/19 Lisinopril [Zestril] 2.5 mg PO DAILY 10/25/19 Metoprolol Succinate [Toprol Xl 25 mg Tab.sr] 12.5 mg PO DAILY 10/25/19 History of Present Illiness History of Present Illness: DYLAN MAXWELL is a 74 year old male Hospital Course Hospital Course: DYLAN MAXWELL is a 74 year old male who presented to the emergency room with a 3-week history of abdominal pain. He admits the gradual onset and slowly worsening of generalized intermittant abdominal pain, without radiation, accompanied by continuous nausea with episodic vomiting and associated with continuous decreased oral intake/anorexia and gradually increased swelling of his bilateral lower extremities. He describes the pain as an achy generalized pain with occasional sharp episodes lasting for several minutes and periods of several hours with no pain. He has been seen on several occasions for this problem including an emergency room visit on 10/25/2019 and a visit with his primary care provider who treated him for a possible H. pylori ulcer. He completed the treatment for H. pylori but had no improvement in his symptoms. He denies other associated or accompanying signs and symptoms. He denies prior similar episodes. He has not identified any aggravating or ameliorating factors for his abdominal pain. In the emergency room he was found to have a small bowel obstruction on his abdominal and pelvis CT scan. He was also noted to have a white blood count of 12,800 and to be hyponatremic. He was seen in consultation at the request of the emergency room doctor by Dr. Perez for the surgical team and he is being admitted by the hospitalist service with consu ltation to Dr. Perez at his request. (1) Hyponatremia Resolved. Sodium WNL at the time of discharge. Most likely SIADH. Euvolemic hyponatremia. TSH WNL. Urine sodium 88. Urine osmolarity 445. FeNa 0.43%. Random cortisol level WNL. Head CT negative for any intracranial masses. CT abdomen and pelvis negative for any malignancy. Chest x-ray negative for any masses. Initially was started sodium bicarbonate with no significant changes. Nephrology consulted patient patient received 1 dose of tolvaptan with significant improvement of his sodium level. (2) Small bowel obstruction Resolved. Having normal bowel movements. P.o. tolerant. Based on initial physical examination and CT finding. Denied any previous abdominal surgery or any bowel obstruction. Admitted to surgical floor, started on nasogastric suction, surgery consulted however nosurgical intervention needed as small bowel obstruction resolved on its own. (3) Chronic obstructive pulmonary disease Did not not seem to be acutely exacerbated. Resumed LABA, LABA, PRN duo nebs. Advised to restart home meds upon discharge. (4) Nausea and vomiting Resolved. Due to #1. Was a started on supportive measures. Electrolytes monitored. (5) Abdominal aortic aneurysm (AAA) Thoracic and abdominal aortic aneurysm. Greatest dimension 5.4 cm. As per patient he is already being evaluated as outpatient and had a recent CT. Patient and family strongly encouraged to follow-up with PCP and vascular surgeon for surgical intervention. Physical Exam Vital Signs: Temp Pulse Resp BP Pulse Ox 97.4 F 63 19 116/65 96 11/23/19 14:00 11/23/19 14:00 11/23/19 14:00 11/23/19 14:00 11/23/19 14:00 Intake & Output 11/22/19 11/23/19 11/24/19 06:59 06:59 06:59 Intake Total 956 480 Balance 956 480 Weight 48.2 kg 45.2 kg General appearance: PRESENT: thin, well-developed Head exam: PRESENT: atraumatic, normocephalic Respiratory exam: PRESENT: clear to auscultation johanna. ABSENT: rales, rhonchi, wheezes Cardiovascular exam: PRESENT: RRR. ABSENT: diastolic murmur, rubs, systolic murmur GI/Abdominal exam: PRESENT: normal bowel sounds, soft. ABSENT: distended, guarding, mass, organolmegaly, rebound, tenderness Extremities exam: PRESENT: full ROM. ABSENT: calf tenderness, clubbing, pedal edema Neurological exam: PRESENT: alert, awake, oriented to person, oriented to place, oriented to time, oriented to situation, CN II-XII grossly intact. ABSENT: motor sensory deficit Skin exam: PRESENT: dry, intact, warm. ABSENT: cyanosis, rash Results Laboratory Results: WBC 5.5 10^3/uL (4.0-10.5) 11/19/19 04:51 RBC 3.98 10^6/uL (4.35-5.55) L 11/19/19 04:51 Hgb 12.6 g/dL (13.5-17.0) L 11/19/19 04:51 Hct 36.0 % (37.9-51.0) L 11/19/19 04:51 MCV 90 fl (80-97) 11/19/19 04:51 MCH 31.6 pg (27.0-33.4) 11/19/19 04:51 MCHC 35.0 g/dL (32.0-36.0) 11/19/19 04:51 RDW 14.1 % (11.5-14.0) H 11/19/19 04:51 Plt Count 222 10^3/uL (150-450) 11/19/19 04:51 Lymph % (Auto) 10.1 % (13-45) L 11/16/19 16:57 [place] % (Auto) 6.9 % (3-13) 11/16/19 16:57 Eos % (Auto) 0.4 % (0-6) 11/16/19 16:57 Baso % (Auto) 0.2 % (0-2) 11/16/19 16:57 Absolute Neuts (auto) 10.5 10^3/uL (1.7-8.2) H 11/16/19 16:57 Absolute Lymphs (auto) 1.3 10^3/uL (0.5-4.7) 11/16/19 16:57 Absolute Monos (auto) 0.9 10^3/uL (0.1-1.4) 11/16/19 16:57 Absolute Eos (auto) 0.0 10^3/uL (0.0-0.6) 11/16/19 16:57 Absolute Basos (auto) 0.0 10^3/uL (0.0-0.2) 11/16/19 16:57 Seg Neutrophils % 82.4 % (42-78) H 11/16/19 16:57 PT 12.9 SEC (11.4-15.4) 11/16/19 16:57 INR 0.97 11/16/19 16:57 APTT 27.7 SEC (23.5-35.8) 11/16/19 16:57 Sodium 138.4 mmol/L (137-145) 11/23/19 06:02 Potassium 3.7 mmol/L (3.6-5.0) 11/23/19 06:02 Chloride 100 mmol/L (98-107) 11/23/19 06:02 Carbon Dioxide 35 mmol/L (22-30) H 11/23/19 06:02 Anion Gap 3 (5-19) L 11/23/19 06:02 BUN 12 mg/dL (7-20) 11/23/19 06:02 Creatinine 0.55 mg/dL (0.52-1.25) 11/23/19 06:02 Est GFR ( Amer) > 60 (>60) 11/23/19 06:02 Est GFR (MDRD) Non-Af > 60 (>60) 11/23/19 06:02 Glucose 97 mg/dL (75-110) 11/23/19 06:02 Lactic Acid 0.7 mmol/L (0.7-2.1) 11/17/19 08:45 Calcium 8.1 mg/dL (8.4-10.2) L 11/23/19 06:02 Magnesium 1.6 mg/dL (1.6-2.3) 11/19/19 04:51 Total Bilirubin 0.6 mg/dL (0.2-1.3) 11/16/19 16:57 Direct Bilirubin 0.4 mg/dL (0.0-0.4) 11/16/19 16:57 Neonat Total Bilirubin Not Reportable 11/16/19 16:57 Neonat Direct Bilirubin Not Reportable 11/16/19 16:57 Neonat Indirect Bili Not Reportable 11/16/19 16:57 AST 37 U/L (17-59) 11/16/19 16:57 ALT 21 U/L (<50) 11/16/19 16:57 Alkaline Phosphatase 56 U/L (38-126) 11/16/19 16:57 Ammonia < 8.7 umol/L (9-33) L 11/16/19 17:46 Troponin I < 0.012 ng/mL 11/16/19 16:57 NT-Pro-B Natriuret Pep 256 pg/mL (<450) 11/16/19 16:57 Total Protein 5.2 g/dL (6.3-8.2) L 11/16/19 16:57 Albumin 2.3 g/dL (3.5-5.0) L 11/23/19 06:02 Lipase 121.2 U/L (23-300) 11/16/19 16:57 TSH 2.17 uIU/mL (0.47-4.68) 11/17/19 04:36 Random Cortisol 19.10 ug/dL (None Established) 11/22/19 05:04 Urine Color CANDY 11/16/19 21:25 Urine Appearance SLIGHTLY-CLOUDY 11/16/19 21:25 Urine pH 6.0 (5.0-9.0) 11/16/19 21:25 Ur Specific [place] 1.028 11/16/19 21:25 Urine Protein 30 mg/dL (NEGATIVE) H 11/16/19 21:25 Urine Glucose (UA) NEGATIVE mg/dL (NEGATIVE) 11/16/19 21:25 Urine Ketones 80 mg/dL (NEGATIVE) H 11/16/19 21:25 Urine Blood NEGATIVE (NEGATIVE) 11/16/19 21:25 Urine Nitrite NEGATIVE (NEGATIVE) 11/16/19 21:25 Urine Bilirubin NEGATIVE (NEGATIVE) 11/16/19 21:25 Urine Urobilinogen NEGATIVE mg/dL (<2.0) 11/16/19 21:25 Ur Leukocyte Esterase NEGATIVE (NEGATIVE) 11/16/19 21:25 Urine WBC (Auto) 2 /HPF 11/16/19 21:25 Urine RBC (Auto) 1 /HPF 11/16/19 21:25 Squamous Epi Cells Auto <1 /HPF 11/16/19 21:25 Urine Mucus (Auto) RARE /LPF 11/16/19 21:25 Urine Osmolality 445 mOsm/kg (300-900) 11/21/19 17:00 Urine Creatinine 79.0 mg/dL (22-328) 11/21/19 17:00 Urine Sodium 88 mmol/L (30-90) 11/21/19 17:00 Urine Ascorbic Acid NEGATIVE (NEGATIVE) 11/16/19 21:25 POC Stool Occult Blood NEGATIVE (NEGATIVE) 11/16/19 18:55 11/16/19 16:57 Troponin I < 0.012 NT-Pro-B Natriuret Pep 256 Impressions: Abdomen/Pelvis CT 11/16/19 00:00 IMPRESSION: Small bowel obstruction with an abrupt zone of transition in the right lower quadrant in the same location of obstruction on the examination from [place] Small amount of free fluid in the abdomen and pelvis Diverticulosis without diverticulitis There is mild distention of the right renal collecting system as compared to the previous exam without definite obstructing lesion noted. The collecting system also appears subtly hyperdense. Question hemorrhage within the collecting system. The possibility of partial obstruction cannot be excluded. Chest X-Ray 11/16/19 17:30 IMPRESSION: NO ACUTE FINDINGS.Similar aortic contour to the prior study given differences in technique. KUB X-Ray 11/17/19 00:14 IMPRESSION: Enteric tube coiled in the stomach copyright 2011 [employer]- All Rights Reserved Head CT 11/18/19 00:00 IMPRESSION: MILD CHRONIC CHANGES OF ATROPHY AND MICROVASCULAR ISCHEMIA. NO ACUTE PROCESS. EVIDENCE OF ACUTE STROKE: NO. KUB X-Ray 11/20/19 06:00 IMPRESSION: The enteric tube is no longer in place. The stomach and several loops of large bowel are distended with air (unchanged). Stroke Is this a Stroke Patient?: No Acute Heart Failure - Is this a Heart Failure Patient?: No
== END 2019-11-23 11:30 | disposition home health service (06) | DRG 389 ==
LOC: ER 16:44 → EH 22:40 → 4S 11-17 01:10
PROVIDERS: ADMIT Emergency Medicine; ATTEND Emergency Medicine
DX: K56.690 Other partial intestinal obstruction (principal); E22.2 Syndrome of inappropriate secretion of antidiuretic hormone; J44.9 Chronic obstructive pulmonary disease, unspecified; I71.4 Abdominal aortic aneurysm, without rupture; E88.09 Other disorders of plasma-protein metabolism, not elsewhere classified; I73.9 Peripheral vascular disease, unspecified; F17.210 Nicotine dependence, cigarettes, uncomplicated; I10 Essential (primary) hypertension; I71.2 Thoracic aortic aneurysm, without rupture; L89.151 Pressure ulcer of sacral region, stage 1; Z79.899 Other long term (current) drug therapy; Z88.6 Allergy status to analgesic agent; Z88.0 Allergy status to penicillin; Z88.8 Allergy status to other drugs, medicaments and biological substances; Z82.49 Family history of ischemic heart disease and other diseases of the circulatory system
CPT/HCPCS: 36415; 51702; 70450; 71045; 74018; 74177; 80048; 80053; 81001; 82040; 82140; 82533; 82570; 83605; 83690; 83735; 83880; 83935; 84132; 84295; 84300; 84443; 84484; 85025; 85027; 85610; 85730; 87040; 93005; 93010; 96374; 96376; 99285; A9270-GY; C1758; C9113; J1630; J1644; J2405; J3480; J3490; J7030; J7042; J7121

== ENCOUNTER 2019-12-10 09:06 | Inpatient (IN) | payer MEDICARE ==
--- NOTE | 2019-12-10 09:29 | ER Document Report ---
ED General - General Chief Complaint: Abdominal Pain Stated Complaint: ABDOMINAL PAIN Time Seen by Provider: 12/10/19 09:13 Notes: Note created in error, see other note by me same day TRAVEL OUTSIDE OF THE [place] IN LAST 30 DAYS: No - Related Data Allergies/Adverse Reactions: ibuprofen Allergy (Verified 10/25/19 13:15) Penicillins Allergy (Verified 10/25/19 13:15) pravastatin Allergy (Verified 10/25/19 13:15) Home Medications: Simvistatin Past Medical History - Social History Smoking Status: Current Every Day Smoker Family History: Hypertension. denies: CAD, DM, Malignancy Patient has suicidal ideation: No Patient has homicidal ideation: No - Past Medical History Cardiac Medical History: Reports: Hx Hypercholesterolemia, Hx Hypertension, Hx Peripheral Vascular Disease - Abdominal aortic aneurysm 5.5 cm in diameter Denies: Hx Atrial Fibrillation, Hx Congestive Heart Failure, Hx Coronary Artery Disease, Hx Heart Attack Pulmonary Medical History: Reports: Hx COPD Denies: Hx Asthma, Hx Respiratory Failure, Hx Sleep Apnea Neurological Medical History: Denies: Hx Seizures Endocrine Medical History: Denies: Hx Diabetes Mellitus Type 1, Hx Diabetes Mellitus Type 2, Hx Hyperthyroidism, Hx Hypothyroidism GI Medical History: Denies: Hx Cirrhosis, Hx Crohn's Disease, Hx Gastroesophageal Reflux Disease, Hx Hepatitis, Hx Hiatal Hernia, Hx Ulcerative Colitis Musculoskeletal Medical History: Denies Hx Arthritis, Denies Hx Gout Skin Medical History: Denies Hx Eczema, Denies Hx Psoriasis Infectious Medical History: Denies: Hx Hepatitis Past Surgical History: Reports: Hx Appendectomy Physical Exam - Vital signs Vitals: Temp Pulse Resp BP Pulse Ox 97.6 F 115 H 34 H 139/80 H 95 12/10/19 09:32 12/10/19 09:32 12/10/19 09:32 12/10/19 09:32 12/10/19 09:32 Course - Vital Signs Vital signs: Temp Pulse Resp BP Pulse Ox 97.7 F 109 H 31 H 99/85 L 93 12/10/19 13:20 12/10/19 13:02 12/10/19 14:44 12/10/19 14:44 12/10/19 14:44 - Laboratory Result Diagrams: 12/10/19 10:48 12/10/19 10:48 Laboratory results interpreted by me: 12/10/19 12/10/19 12/10/19 10:48 10:48 10:48 WBC 2.4 L RDW 15.8 H [place] % (Auto) 1.5 L Absolute Monos (auto) 0.0 L Sodium 133.8 L Chloride 91 L BUN 23 H Glucose 139 H Lactic Acid 6.3 H Calcium 8.2 L Total Protein 5.2 L Albumin 2.6 L Urine Protein Urine Urobilinogen Ur Leukocyte Esterase 12/10/19 11:22 WBC RDW [place] % (Auto) Absolute Monos (auto) Sodium Chloride BUN Glucose Lactic Acid Calcium Total Protein Albumin Urine Protein 30 H Urine Urobilinogen 2.0 H Ur Leukocyte Esterase SMALL H Discharge - Discharge Clinical Impression: Abdominal pain, Bowel perforation Disposition: SAME DAY SURGERY
--- NOTE | 2019-12-10 09:34 | ER Document Report ---
ED General - General Chief Complaint: Abdominal Pain Stated Complaint: ABDOMINAL PAIN Time Seen by Provider: 12/10/19 09:13 Primary Care Provider: NAOMI SAMS MD [Primary Care Provider] - Follow up as needed Notes: Patient is a 74-year-old white male with a past medical history significant for prior appendectomy, small bowel obstruction who was recently admitted for the same, AAA with greatest diameter of 5.4 cm and COPD who presents to the emergency department with a chief complaint of abdominal pain that began this morning. Patient reports the pain is diffuse across the entire abdomen. Unable to describe the pain. He states this does feel however like his prior small bowel obstruction. EMS reports that he was having a bowel movement at home when they arrived. Currently having another bowel movement in the room during my history and physical. Patient denies any nausea or vomiting. Denies any back pain, chest pain or shortness of breath. Denies any fever chills or night sweats. Reports he was supposed to see his vascular doctor today for follow-up evaluation of his AAA. TRAVEL OUTSIDE OF THE [place] IN LAST 30 DAYS: No - Related Data Allergies/Adverse Reactions: ibuprofen Allergy (Verified 10/25/19 13:15) Penicillins Allergy (Verified 10/25/19 13:15) pravastatin Allergy (Verified 10/25/19 13:15) Home Medications: Simvistatin Past Medical History - Social History Smoking Status: Current Every Day Smoker Family History: Hypertension. denies: CAD, DM, Malignancy Patient has suicidal ideation: No Patient has homicidal ideation: No - Past Medical History Cardiac Medical History: Reports: Hx Hypercholesterolemia, Hx Hypertension, Hx Peripheral Vascular Disease - Abdominal aortic aneurysm 5.5 cm in diameter Denies: Hx Atrial Fibrillation, Hx Congestive Heart Failure, Hx Coronary Artery Disease, Hx Heart Attack Pulmonary Medical History: Reports: Hx COPD Denies: Hx Asthma, Hx Respiratory Failure, Hx Sleep Apnea Neurological Medical History: Denies: Hx Seizures Endocrine Medical History: Denies: Hx Diabetes Mellitus Type 1, Hx Diabetes Mellitus Type 2, Hx Hyperthyroidism, Hx Hypothyroidism GI Medical History: Denies: Hx Cirrhosis, Hx Crohn's Disease, Hx Gastroesophageal Reflux Disease, Hx Hepatitis, Hx Hiatal Hernia, Hx Ulcerative Colitis Musculoskeletal Medical History: Denies Hx Arthritis, Denies Hx Gout Skin Medical History: Denies Hx Eczema, Denies Hx Psoriasis Infectious Medical History: Denies: Hx Hepatitis Past Surgical History: Reports: Hx Appendectomy Review of Systems - Review of Systems Gastrointestinal: Abdominal pain -: Yes All other systems reviewed and negative Physical Exam - Vital signs Vitals: Temp Pulse Resp BP Pulse Ox 97.6 F 115 H 34 H 139/80 H 95 12/10/19 09:32 12/10/19 09:32 12/10/19 09:32 12/10/19 09:32 12/10/19 09:32 - General General appearance: Appears well, Alert - Respiratory Respiratory status: No respiratory distress Chest status: Nontender Breath sounds: Normal Chest palpation: Normal - Cardiovascular Rhythm: Regular Heart sounds: Normal auscultation - Abdominal Inspection: Normal Distension: No distension Bowel sounds: Normal Tenderness: Tender, Guarding, Other - Diffuse tenderness and guarding to palpation - Genitourinary Notes: Hemoccult negative - Extremities General lower extremity: Other - 2+ DP/PT bilaterally - Neurological Neuro grossly intact: Yes Cognition: Normal Orientation: AAOx4 Taty Coma Scale Eye Opening: Spontaneous Taty Coma Scale Verbal: Oriented [place] Coma Scale Motor: Obeys Commands Taty Coma Scale Total: 15 Speech: Normal Sensory: Normal - Psychological Associated symptoms: Normal affect, Normal mood - Skin Skin Temperature: Warm Skin Moisture: Dry Skin Color: Normal Course - Re-evaluation Re-evalutation: 12/10/19 11:48 Spoke with the radiologist regarding the patient's CAT scan findings, I called at this time and communicated the findings with Dr. Cevallos, general surgery c application developer. He advised he will come to the ER and evaluate the patient. - Vital Signs Vital signs: Temp Pulse Resp BP Pulse Ox 97.6 F 115 H 34 H 139/80 H 95 12/10/19 09:32 12/10/19 09:32 12/10/19 09:32 12/10/19 09:32 12/10/19 09:32 - Laboratory Result Diagrams: 12/10/19 10:48 12/10/19 10:48 Laboratory results interpreted by me: 12/10/19 12/10/19 10:48 10:48 WBC 2.4 L RDW 15.8 H Jasper % (Auto) 1.5 L Absolute Monos (auto) 0.0 L Sodium 133.8 L Chloride 91 L BUN 23 H Glucose 139 H Calcium 8.2 L Total Protein 5.2 L Albumin 2.6 L Discharge - Discharge Clinical Impression: Bowel perforation Abdominal pain Qualifiers: Abdominal location: unspecified location Qualified Code(s): R10.9 - Unspecified abdominal pain Disposition: SAME DAY SURGERY Admitting Provider: Dr. Cevallos Unit Admitted: Surgical Floor Referrals: NAOMI SAMS MD [Primary Care Provider] - Follow up as needed
[2019-12-10] MEDS ORDERED: PHENYLEPHRINE HCL INJ/PF 10 MG/1 ML SDV ONE ×2 (09:49→16:57)
[2019-12-10 11:02] LABS: ABSOLUTE LYMPHOCYTES (AUTO) 0.7 10^3/uL (0.5-4.7); ABSOLUTE NEUT (AUTO) 1.7 10^3/uL (1.7-8.2); BASOPHILS % (AUTO) 0.3 % (0-2); EOSINOPHILS % (AUTO) 0.1 % (0-6); HEMATOCRIT 43.4 % (37.9-51.0); HEMOGLOBIN 14.8 g/dL (13.5-17.0); LYMPHOCYTES % (AUTO) 28.8 % (13-45); MEAN CORPUSCULAR HEMOGLOBIN 31.7 pg (27.0-33.4); MEAN CORPUSCULAR HGB CONC 34.2 g/dL (32.0-36.0); MEAN CORPUSCULAR VOLUME 93 fl (80-97); MONOCYTES % (AUTO) 1.5 % (3-13); PLATELET COUNT 386 10^3/uL (150-450); RED BLOOD COUNT 4.69 10^6/uL (4.35-5.55); RED CELL DISTRIBUTION WIDTH 15.8 % (11.5-14.0); SEGMENTED NEUTROPHILS % (AUTO) 69.3 % (42-78); TOTAL CELLS COUNTED % (AUTO) 100 %; WHITE BLOOD COUNT 2.4 10^3/uL (4.0-10.5)
--- NOTE | 2019-12-10 11:06 | RADIOLOGY REPORT (SQ) ---
EXAM DESCRIPTION: CT ABD/PELVIS WITH IV ONLY COMPLETED DATE/TIME: 12/10/2019 10:16 am REASON FOR STUDY: abd pain h/o AAA COMPARISON: 11/16/2019 TECHNIQUE: CT scan of the abdomen and pelvis performed using helical scanning technique with dynamic intravenous contrast injection. No oral contrast. Images reviewed with lung, soft tissue, and bone windows. Reconstructed coronal and sagittal MPR images reviewed. Delayed images for evaluation of the urinary system also acquired. All images stored on PACS. All CT scanners at this facility use dose modulation, iterative reconstruction, and/or weight based d osing when appropriate to reduce radiation dose to as low as reasonably achievable (ALARA). [facility]: Dose Right [facility]: CareDose [facility]: Dose Right [facility]: Teradose 4D [facility]: [employer] CONTRAST TYPE AND DOSE: contrast/concentration: Isovue 350.00 mg/ml; Total Contrast Delivered: 55.0 ml; Total Saline Delivered: 65.0 ml RENAL FUNCTION: Creatinine 0.55 RADIATION DOSE: CT Rad equipment meets quality standard of care and radiation dose reduction techniq ues were employed. CTDIvol: 4.8 - 5.0 mGy. DLP: 762 mGy-cm.. LIMITATIONS: None. FINDINGS: LOWER CHEST: Emphysematous change. Thoracic aortic aneurysm measuring 5.2 cm at the diaph ragmatic hiatus, stable. There is significant mural thrombus along the anterolateral wall. LIVER: Normal size. No masses. No dilated ducts. SPLEEN: Normal size. No focal lesions. PANCREAS: No masses. No significant calcifications. No adjacent inflammation or peripancreatic fluid collections. Pancreatic duct not dilated. GALLBLADDER: No identified stones by CT criteria. No inflammatory changes to suggest cholecystitis. ADRENAL GLANDS: No significant masses or asymmetry. RIGHT KIDNEY AND URETER: No solid masses. Unchanged right renal cyst. No significant calcification s. No hydronephrosis. Decreased fullness of the collecting system from prior exam. LEFT KIDNEY AND URETER: No solid masses. No definite nephrolithiasis. Stable calcification at the hilum, likely vascular. No hydronephrosis or hydroureter. AORTA AND VESSELS: Thoracic aortic aneurysm measuring up to 5 point 2 cm at the level of the diaphrag matic hiatus, stable. Additional infrarenal abdominal aortic aneurysm measuring up to 3.7 cm, stable . There is circumferential mural thrombus at this level. Aortoiliac atherosclerosis with multifocal moderate to severe luminal stenosis of the iliac arteries. The celiac SMA and bilateral renal arter ies are opacified. Evaluation of luminal stenosis at the renal artery is limited secondary to contra st timing but there is bilateral ostial atherosclerosis. RETROPERITONEUM: No retroperitoneal adenopathy, hemorrhage or masses. BOWEL AND PERITONEAL CAVITY: No evidence of high-grade intestinal obstruction. There is diffuse wall thickening involving multiple jejunal loops. Increased intraluminal attenuation within jejunal smal l loop which progresses on further delayed imaging suggestive of active extravasation (series 3, imag e 53 and series 6, image 51). Scattered additional gas fluid levels throughout small bowel and proxi mal colonic loops. Scattered colonic diverticula. Moderate volume ascites. APPENDIX: Not clearly identified. PELVIS: No mass. No free fluid. Normal bladder. ABDOMINAL WALL: Bilateral fat and fluid containing inguinal hernias, right greater than left. Anasar ca. BONES: No acute bony abnormality. No suspicious lytic or blastic osseous lesions. OTHER: No other significant finding. IMPRESSION: 1. Free intraperitoneal gas, most conspicuous inferior to the right hemidiaphragm, comp atible with perforated viscus. Site of perforation is not clearly delineated. Moderate volume ascit es, increased from prior. Recommend surgical consultation. 2. Increased intraluminal attenuation within a jejunal loop which progresses on further delayed imag ing suggestive of active GI bleed (series 3, image 53 and series 6, image 51). Recommend correlation with Hemoccult. Additional diffuse jejunal wall thickening suggestive of enteritis. 3. Thoracic and abdominal aortic aneurysm, stable. 4. Additional chronic findings as above. Findings were discussed with Stacia at 1057 hours on 12/10/2019. TECHNICAL DOCUMENTATION: JOB ID: [id number] Quality ID # [id number]: Final reports with documentation of one or more dose reduction techniques (e.g., Au tomated exposure control, adjustment of the mA and/or kV according to patient size, use of iterative reconstruction technique) 2010 [employer]- All Rights Reserved Reading location - IP/workstation name: [email or web address]
[2019-12-10 11:19] LABS: ALBUMIN 2.6 g/dL (3.5-5.0); ALKALINE PHOSPHATASE 92 U/L (38-126); ANION GAP 13 (5-19); ASPARTATE AMINO TRANSFERASE 22 U/L (17-59); BILIRUBIN,DIRECT 0.3 mg/dL (0.0-0.4); BILIRUBIN,TOTAL 0.8 mg/dL (0.2-1.3); BLOOD UREA NITROGEN 23 mg/dL (7-20); CALCIUM 8.2 mg/dL (8.4-10.2); CARBON DIOXIDE 30 mmol/L (22-30); CHLORIDE 91 mmol/L (98-107); GLUCOSE 139 mg/dL (75-110); POTASSIUM 3.6 mmol/L (3.6-5.0); TOTAL PROTEIN 5.2 g/dL (6.3-8.2)
[2019-12-10] MEDS ORDERED: NORMAL SALINE 1000 ML 1,000 ML IV ONE ×2 (11:42→12:47)
[2019-12-10 11:56] LABS: APPEARANCE,URINE SLIGHTLY-CLOUDY; BILIRUBIN,URINE NEGATIVE (NEGATIVE); COLOR,URINE YELLOW; GLUCOSE, URINE NEGATIVE (NEGATIVE); KETONES,URINE NEGATIVE (NEGATIVE); LEUKOCYTE ESTERASE,URINE SMALL (NEGATIVE); NITRITE,URINE NEGATIVE (NEGATIVE); PROTEIN,URINE 30 mg/dL (NEGATIVE); URINE SPECIFIC GRAVITY 1.018
--- NOTE | 2019-12-10 12:53 | PDOC H&P ---
History of Present Illness Admission Date/PCP: NAOMI SAMS MD Patient complains of: Abdominal pain History of Present Illness: DYLAN MAXWELL is a 74 year old male, with COPD, thoracoabdominal stable aneurysm, who presents to the emergency room with a 24-hour history of abdominal pain, intense nausea, and emesis, heme-negative stools, diarrhea with brown liquid stools. CT scan of the abdomen pelvis has been done revealing a free intraperitoneal air with inflammatory changes of the proximal jejunum. His blood work reveals a white blood cell count of 2.5, normal H&H, and normal electrolytes with a slightly elevated BUN of 23 and a low sodium of 133. Magda ent denies a previous history of stroke, heart attack, or peripheral vascular disease. Past Medical History Cardiac Medical History: Reports: Hyperlipidema, Hypertension, Peripheral Vascular Disease - Abdominal aortic aneurysm 5.5 cm in diameter Denies: Atrial Fibrillation, Congestive Heart Failure, Coronary Artery Disease, Myocardial Infarction Pulmonary Medical History: Reports: Chronic Obstructive Pulmonary Disease (COPD) Denies: Asthma, Respiratory Failure, Sleep Apnea Neurological Medical History: Denies: Seizures Endocrine Medical History: Denies: Diabetes Mellitus Type 1, Diabetes Mellitus Type 2, Hyperthyroidism, Hypothyroidism GI Medical History: Denies: Cirrhosis, Crohn's Disease, Gastroesophageal Reflux Disease, Hepatitis, Hiatal Hernia, Ulcerative Colitis Musculoskeltal Medical History: Denies: Arthritis, Gout Skin Medical History: Denies: Eczema, Psoriasis Hematology: Denies: Anemia, Bleeding Tendencies Past Surgical History Past Surgical History: Reports: Appendectomy Social History Smoking Status: Current Every Day Smoker Frequency of Alcohol Use: None Hx Recreational Drug Use: No Drugs: None Hx Prescription Drug Abuse: No Family History Family History: Hypertension. denies: CAD, DM, Malignancy Parental Family History Reviewed: No Children Family History Reviewed: No Sibling(s) Family History Reviewed.: No Medication/Allergy Home Medications: Atorvastatin Calcium [Lipitor 10 mg Tablet] 10 mg PO DAILY 10/25/19 Lisinopril [Zestril] 2.5 mg PO DAILY 10/25/19 Metoprolol Succinate [Toprol Xl 25 mg Tab.sr] 12.5 mg PO DAILY 10/25/19 Allergies/Adverse Reactions: ibuprofen Allergy (Verified 10/25/19 13:15) Penicillins Allergy (Verified 10/25/19 13:15) pravastatin Allergy (Verified 10/25/19 13:15) Physical Exam Vital Signs: Temp Pulse Resp BP Pulse Ox 97.6 F 115 H 34 H 139/80 H 95 12/10/19 09:32 12/10/19 09:32 12/10/19 09:32 12/10/19 09:32 12/10/19 09:32 Intake & Output 12/09/19 12/10/19 12/11/19 06:59 06:59 06:59 Weight 48.308 kg General appearance: PRESENT: cooperative, disheveled, mild distress, thin Head exam: PRESENT: atraumatic Eye exam: PRESENT: EOMI Mouth exam: PRESENT: dry mucosa, neck supple Teeth exam: PRESENT: poor dentation Neck exam: PRESENT: full ROM Respiratory exam: PRESENT: clear to auscultation johanna Cardiovascular exam: PRESENT: RRR GI/Abdominal exam: PRESENT: distended, firm, rigid, tenderness - Diffusely, with grimacing and guarding Rectal exam: PRESENT: deferred Extremities exam: PRESENT: full ROM Musculoskeletal exam: PRESENT: full ROM Neurological exam: PRESENT: alert, awake, oriented to person, CN II-XII grossly intact Psychiatric exam: PRESENT: depressed Skin exam: PRESENT: warm Results Laboratory Results: 12/10/19 10:48 12/10/19 10:48 12/10/19 12/10/19 12/10/19 10:48 10:48 11:22 WBC 2.4 L RBC 4.69 Hgb 14.8 Hct 43.4 MCV 93 MCH 31.7 MCHC 34.2 RDW 15.8 H Plt Count 386 Seg Neutrophils % 69.3 Sodium 133.8 L Potassium 3.6 Chloride 91 L Carbon Dioxide 30 Anion Gap 13 BUN 23 H Creatinine 0.67 Est GFR ( Amer) > 60 Glucose 139 H Calcium 8.2 L Total Bilirubin 0.8 AST 22 Alkaline Phosphatase 92 Total Protein 5.2 L Albumin 2.6 L Lipase 34.1 Urine Color YELLOW Urine Appearance SLIGHTLY-CLOUDY Urine pH 6.0 Ur Specific Killen 1.018 Urine Protein 30 H Urine Glucose (UA) NEGATIVE Urine Ketones NEGATIVE Urine Blood NEGATIVE Urine Nitrite NEGATIVE Ur Leukocyte Esterase SMALL H Urine WBC (Auto) 7 Urine RBC (Auto) 1 Stool Occult Blood 12/10/19 11:22 WBC RBC Hgb Hct MCV MCH MCHC RDW Plt Count Seg Neutrophils % Sodium Potassium Chloride Carbon Dioxide Anion Gap BUN Creatinine Est GFR ( Amer) Glucose Calcium Total Bilirubin AST Alkaline Phosphatase Total Protein Albumin Lipase Urine Color Urine Appearance Urine pH Ur Specific Killen Urine Protein Urine Glucose (UA) Urine Ketones Urine Blood Urine Nitrite Ur Leukocyte Esterase Urine WBC (Auto) Urine RBC (Auto) Stool Occult Blood NEGATIVE Impressions: Abdomen/Pelvis CT 12/10/19 09:28 IMPRESSION: 1. Free intraperitoneal gas, most conspicuous inferior to the right hemidiaphragm, compatible with perforated viscus. Site of perforation is not clearly delineated. Moderate volume ascites, increased from prior. Recommend surgical consultation. 2. Increased intraluminal attenuation within a jejunal loop which progresses on further delayed imaging suggestive of active GI bleed (series 3, image 53 and series 6, image 51). Recommend correlation with Hemoccult. Additional diffuse jejunal wall thickening suggestive of enteritis. 3. Thoracic and abdominal aortic aneurysm, stable. 4. Additional chronic findings as above. Findings were discussed with Stacia at 1057 hours on 12/10/2019. Assessment & Plan - Diagnosis (1) Abdominal pain Qualifiers: Abdominal location: unspecified location Qualified Code(s): R10.9 - Unspecified abdominal pain Is this a current diagnosis for this admission?: Yes (2) Bowel perforation Is this a current diagnosis for this admission?: Yes - Plan Summary Plan Summary: Assessment: Abdominal pain for [address] scan abdomen pelvis significant for free intraperitoneal air with significant proximal jejunal enteritis Blood work significant for lower blood cell count of 2.5 and H&H Diarrhea with brown liquid stools, Hemoccult negative Physical exam demonstrates a rigid abdomen with peritonitis History of COPD, abdominal stable aneurysm Plan: Emergent laparotomy, possible bowel resection, possible ostomy. Procedure, risks, benefits, complications, alternatives, including the poss ibility of stroke, heart attack before or during surgery, intraoperative and postoperative, prolonged intubation, pneumonia, wound infection, and other complications have been discussed with the patient; the patient and the daughter's questions have been answered, the possibility of complete small bowel removal with inability to survive after the surgery has been discussed with the patient, this is been fully understood by the patient and the daughter, they agree and understand all the above, and they decide to proceed. Preop EKG Type and crossmatch for 2 units of packed red blood cells Lactic acid Normal saline second bolus 1 L followed by normal saline 150 mL/h Levaquin and Flagyl preop Admission to the ICU to follow
[2019-12-10] MEDS: LEVOFLOXACIN 500 MG/D5W RTU 500 MG/100 ML RTUPB IV SCH (13:28)
[2019-12-10] MEDS ORDERED: METRONIDAZOLE 500 MG/NS RTU 500 MG/100 ML RTUPB IV ONE (13:30)
[2019-12-10] MEDS ORDERED: IPRATROPIUM/ALBUTEROL 0.5-2.5 MG/3 ML AMPUL NEB ONE (14:30)
[2019-12-10] MEDS ORDERED: EPINEPHRINE INJ/PF 1 MG/1 ML AMPULE ONE ×4 (14:43→16:12)
[2019-12-10] MEDS ORDERED: FENTANYL CITRATE INJ/PF 100 MCG/2 ML AMPUL ONE (14:43)
[2019-12-10] MEDS ORDERED: LIDOCAINE 2% INJ-PF (100 MG/5 ML) SYRINGE ONE (14:43)
[2019-12-10] MEDS ORDERED: ONDANSETRON HCL INJ/PF 4 MG/2 ML SDV ONE (14:44)
[2019-12-10] MEDS ORDERED: PROPOFOL INJ 200 MG/20 ML VIAL IV ONE (14:44)
[2019-12-10] MEDS ORDERED: MIDAZOLAM 2 MG/2 ML INJ ONE (14:44)
[2019-12-10] MEDS ORDERED: EPINEPHRINE INJ 1 MG/10 ML DISP.SYRIN ONE (15:51)
--- NOTE | 2019-12-10 16:22 | EKG REPORT ---
SEVERITY:- ABNORMAL ECG - SINUS TACHYCARDIA VENTRICULAR PREMATURE COMPLEX PROBABLE LEFT ATRIAL ABNORMALITY LEFT AXIS DEVIATION LOW VOLTAGE IN FRONTAL LEADS BORDERLINE R WAVE PROGRESSION, ANTERIOR LEADS NONSPECIFIC T ABNORMALITIES, ANT-LAT LEADS : Confirmed by: Destiny Lopez MD 10-Dec-2019 16:21:45
[2019-12-10 16:48] LABS: HEMATOCRIT 32.7 % (37.9-51.0); MEAN CORPUSCULAR VOLUME 94 fl (80-97); PLATELET COUNT 262 10^3/uL (150-450); RED BLOOD COUNT 3.47 10^6/uL (4.35-5.55)
[2019-12-10 17:10] LABS: ANION GAP 10 (5-19); BLOOD UREA NITROGEN 20 mg/dL (7-20); CARBON DIOXIDE 22 mmol/L (22-30); CHLORIDE 102 mmol/L (98-107); GLUCOSE 152 mg/dL (75-110)
[2019-12-10] MEDS ORDERED: SODIUM BICARBONATE 8.4% INJ 50 MEQ/50 ML DISP.SYRIN ONE ×2 (17:18→17:19)
[2019-12-10 17:19] LABS: CALCIUM 6.2 mg/dL (8.4-10.2); POTASSIUM 2.9 mmol/L (3.6-5.0)
[2019-12-10] MEDS ORDERED: CALCIUM GLUCONATE 1000 MG/10 ML INJ IV ONE ×3 (17:22→20:30)
[2019-12-10] MEDS ORDERED: POTASSI CL 20 MEQ/50 ML RIDER 20 MEQ/50 ML RTUPB IV ONE (17:22)
[2019-12-10 17:27] LABS: HEMOGLOBIN 11.1 g/dL (13.5-17.0)
[2019-12-10 17:31] LABS: ABSOLUTE MONOCYTES # (MANUAL) 0.1 10^3/uL (0.1-1.4); BASOPHILS % (MANUAL) 0 % (0-2); EOSINOPHILS % (MANUAL) 0 % (0-6); LYMPHOCYTES % (MANUAL) 44 % (13-45); METAMYELOCYTES % (MANUAL) 2 % (0-1); MONOCYTES % (MANUAL) 6 % (3-13); SEGMENTED NEUTROPHILS % (MAN) 26 % (42-78); TOTAL CELLS COUNTED 50
[2019-12-10 17:32] LABS: ANISOCYTOSIS 1+; BAND NEUTROPHILS % (MANUAL) 14 % (3-5); PLATELET COMMENT ADEQUATE; POLYCHROMASIA SLIGHT
[2019-12-10 17:33] LABS: ARTERIAL BLOOD BASE EXCESS -3.1 mmol/L; ARTERIAL BLOOD FIO2 100%; ARTERIAL BLOOD H2CO3 1.59 mmol/L (1.05-1.35); ARTERIAL BLOOD O2 SATURATION 96.9 % (94-98); ARTERIAL BLOOD PCO2 52.9 mmHg (35-45); ARTERIAL BLOOD PH 7.28 (7.35-7.45); ARTERIAL BLOOD PO2 102.8 mmHg (80-100); ARTERIAL BLOOD TOTAL CO2 25.6 mmol/L (23-27)
[2019-12-10] MEDS ORDERED: VASOPRESSIN INJ 20 UNIT/1 ML VIAL ONE (17:35)
[2019-12-10] MEDS ORDERED: NORMAL SALINE 1000 ML 1,000 ML IV PRN (18:38)
[2019-12-10] MEDS ORDERED: ONDANSETRON HCL INJ/PF 4 MG/2 ML SDV IV PRN (18:38)
[2019-12-10] MEDS ORDERED: DEXTROSE 40% GEL 15 GM TUBE PO PRN ×2 (18:38)
[2019-12-10] MEDS ORDERED: GLUCAGON,HUMAN RECOMB 1 MG INJ SUBCUT PRN (18:38)
[2019-12-10] MEDS ORDERED: DEXTROSE 50%-WATER 25 GM/50 ML DISP.SYRIN IV PRN ×2 (18:38)
--- NOTE | 2019-12-10 18:39 | Operative Report ---
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 OPERATION: Exploratory laparotomy, extensive lysis of adhesions lasting 1 hour, ileocecectomy SURGEON: CHRIS RUSH ANESTHESIA: GA TISSUE REMOVED OR ALTERED: Ileocecectomy with perforated loop of terminal ileum COMPLICATIONS: None ESTIMATED BLOOD LOSS: 50 mL INTRAOPERATIVE FINDINGS: Loop of terminal ileum twisted on itself plastered against the right lobar retroperitoneum on top of the right ureter PROCEDURE: Procedure was done in the operating room, the patient was placed in a supine position, general esthesia induced by another intubation by anesthesiologist, nasogastric tube was inserted, a Oconnor catheter was inserted, the abdomen was prepped and draped in usual fashion. A midline incision was made according to the presurgical markings, the linea alba was divided with Bovie the peritoneal cavity was entered. Large amount of murky ascites was identified this was fully aspirated and sent for Gram stain and aerobic/anaerobic cultures. The small bowel was eviscerated and ran from the ligament of Treitz down to to the ileocecal valve and backward. A distal loop of terminal ileum was found to be twisted on itself as per closed-loop obstruction with perforation at the point of torsion with spillage of enteric content. Following the laparotomy, the cecum and right colon were elevated off the retroperitoneum with Bovie and LigaSure up to the liver flexure. Dissection was then continued more proximally to the cecum and through this was fully elevated from the retroperitoneum. Similarly, the terminal ileum was elevated from the retroperitoneum by dividing the mesentery with LigaSure: Once this was accomplished, bowel clamps were applied on the terminal ileum about 15 cm proximal to the ileocecal valve and on the right colon, 20 cm distal to the cecum. The terminal ileum and the cecum were divided with CLARKE staplers with green load, the mesentery of the small bowel and cecum was then divided with LigaSure and the specimen was removed from the surgical field and sent to pathology. The proximal and distal ends of the bowel were placed [id number] and kept in position with interrupted 3-0 silk Lembert sutures placed on the antimesenteric border. The antimesenteric corner of the staple line of each end was opened with Bovie, a 75 mm long CLARKE stapler with green load was inserted and fired to create an enterocolostomy, the stapler was opened and removed. The anastomosis was found to be intact. The large enterotomy was temporarily closed with Allis clamps and then with a 60 mm TA stapler with green load. The TA staple line was reinforced with interrupted Lembert 2-0 silk sutures. The large mesenteric defect of the ileocecectomy was closed with running locking 2-0 silk suture. The bowel was replaced within the peritoneal cavity, the anastomosis was inspected and found to be satisfactory, the peritoneal cavity was irrigated with normal saline until clear, approximately 6 L, the linea alba was closed with running #1 looped PDS suture while the bowel was spared with a rubber fish ball protector. The skin was loosely approximated with a few skin yusuf. The patient tolerated procedure well, kept intubated, and transferred to the ICU in stable conditions.
[2019-12-10] MEDS ORDERED: PROPOFOL 1,000 MG/100 ML INFUS..BTL IV ONE (18:48)
[2019-12-10 19:31] LABS: ABSOLUTE LYMPHOCYTES (AUTO) 0.5 10^3/uL (0.5-4.7); ABSOLUTE MONOCYTES (AUTO) 0.2 10^3/uL (0.1-1.4); ABSOLUTE NEUT (AUTO) 1.7 10^3/uL (1.7-8.2); BASOPHILS % (AUTO) 0.2 % (0-2); EOSINOPHILS % (AUTO) 0.1 % (0-6); HEMATOCRIT 36.1 % (37.9-51.0); HEMOGLOBIN 12.6 g/dL (13.5-17.0); LYMPHOCYTES % (AUTO) 22.3 % (13-45); MEAN CORPUSCULAR HEMOGLOBIN 32.5 pg (27.0-33.4); MEAN CORPUSCULAR VOLUME 93 fl (80-97); MONOCYTES % (AUTO) 7.8 % (3-13); PLATELET COUNT 244 10^3/uL (150-450); RED BLOOD COUNT 3.89 10^6/uL (4.35-5.55); RED CELL DISTRIBUTION WIDTH 15.9 % (11.5-14.0); SEGMENTED NEUTROPHILS % (AUTO) 69.6 % (42-78); TOTAL CELLS COUNTED % (AUTO) 100 %; WHITE BLOOD COUNT 2.4 10^3/uL (4.0-10.5)
[2019-12-10 19:39] LABS: ALBUMIN 1.3 g/dL (3.5-5.0); ALKALINE PHOSPHATASE 44 U/L (38-126); ANION GAP 6 (5-19); ASPARTATE AMINO TRANSFERASE 19 U/L (17-59); BILIRUBIN,TOTAL 0.3 mg/dL (0.2-1.3); BLOOD UREA NITROGEN 19 mg/dL (7-20); CALCIUM 7.1 mg/dL (8.4-10.2); CARBON DIOXIDE 26 mmol/L (22-30); CHLORIDE 105 mmol/L (98-107); GLUCOSE 145 mg/dL (75-110); POTASSIUM 3.2 mmol/L (3.6-5.0); TOTAL PROTEIN 2.7 g/dL (6.3-8.2)
[2019-12-10 20:18] LABS: ARTERIAL BLOOD BASE EXCESS -2.2 mmol/L; ARTERIAL BLOOD H2CO3 1.48 mmol/L (1.05-1.35); ARTERIAL BLOOD HCO3 24.3 mmol/L (20-24); ARTERIAL BLOOD PCO2 49.1 mmHg (35-45); ARTERIAL BLOOD PH 7.31 (7.35-7.45); ARTERIAL BLOOD PO2 99.8 mmHg (80-100); ARTERIAL BLOOD TOTAL CO2 25.8 mmol/L (23-27)
[2019-12-10 20:19] LABS: ARTERIAL BLOOD FIO2 60%
[2019-12-10] MEDS ORDERED: ALBUMIN HUMAN 500 ML IV ONE (21:00)
[2019-12-10] MEDS ORDERED: FENTANYL CITRATE/PF 600 MCG/60 ML BAG IV PRN (21:01)
[2019-12-10 21:31] LABS: PHOSPHORUS 3.7 mg/dL (2.5-4.5)
[2019-12-10] MEDS: METRONIDAZOLE 500 MG/NS RTU 500 MG/100 ML RTUPB IV SCH (21:41)
[2019-12-10] MEDS: FAMOTIDINE INJ/PF 20 MG/2 ML SDV IV SCH (21:41)
[2019-12-10] MEDS ORDERED: RINGERS SOLUTION,LACTATED 1,000 ML IV PRN ×2 (21:51→22:17)
[2019-12-10] MEDS ORDERED: MAGNESIUM SULFATE/D5W 1 GM/100 ML RTUPB IV SCH (22:00)
[2019-12-10] MEDS: POTASSI CL 20 MEQ/50 ML RIDER 20 MEQ/50 ML RTUPB IV SCH (22:15)
[2019-12-10] MEDS ORDERED: MAGNESIUM SULFATE 4 GM/D5W 100 ML IV ONE (22:30)
[2019-12-10] MEDS ORDERED: RINGERS SOLUTION,LACTATED 500 ML IV ONE ×2 (22:40→23:49)
[2019-12-10] MEDS ORDERED: RINGERS SOLUTION,LACTATED 1,000 ML IV ONE (22:40)
[2019-12-11] MEDS: POTASSI CL 20 MEQ/50 ML RIDER 20 MEQ/50 ML RTUPB IV SCH ×2 (00:22→02:25)
[2019-12-11] MEDS ORDERED: DEXTROSE 5%-WATER 250 ML with NOREPINEPHRINE BITARTRATE 4 MG IV PRN ×2 (01:11)
[2019-12-11] MEDS ORDERED: NOREPINEPHRINE BITARTRATE INJ/PF 4 MG/4 ML SDV IV ONE (01:17)
[2019-12-11] MEDS ORDERED: ALBUMIN HUMAN 500 ML IV ONE ×2 (01:39→01:45)
[2019-12-11] MEDS ORDERED: SODIUM CHLORIDE 3% IV ONE (02:04)
[2019-12-11] MEDS: MAGNESIUM SULFATE 1 GM/D5W 100 ML IV SCH ×2 (02:25→03:42)
[2019-12-11] MEDS ORDERED: RINGERS SOLUTION,LACTATED 1,000 ML IV PRN (03:33)
[2019-12-11] MEDS ORDERED: FENTANYL CITRATE INJ/PF 100 MCG/2 ML AMPUL IV ONE (04:44)
[2019-12-11] MEDS ORDERED: FENTANYL CITRATE INJ/PF 100 MCG/2 ML AMPUL ONE (04:48)
[2019-12-11 04:59] LABS: ARTERIAL BLOOD BASE EXCESS -0.1 mmol/L; ARTERIAL BLOOD H2CO3 0.88 mmol/L (1.05-1.35); ARTERIAL BLOOD HCO3 22.5 mmol/L (20-24); ARTERIAL BLOOD O2 SATURATION 98.2 % (94-98); ARTERIAL BLOOD PCO2 29.3 mmHg (35-45); ARTERIAL BLOOD PO2 101.4 mmHg (80-100); ARTERIAL BLOOD TOTAL CO2 23.4 mmol/L (23-27)
[2019-12-11 05:03] LABS: ARTERIAL BLOOD FIO2 40%
[2019-12-11] MEDS: METRONIDAZOLE 500 MG/NS RTU 500 MG/100 ML RTUPB IV SCH ×3 (05:27→21:54)
[2019-12-11] MEDS: FAMOTIDINE INJ/PF 20 MG/2 ML SDV IV SCH ×2 (05:28→18:50)
[2019-12-11] MEDS: DEXTROSE 5%-WATER 250 ML with NOREPINEPHRINE BITARTRATE 4 MG IV PRN ×6 (05:30→20:34)
[2019-12-11 07:03] LABS: ABSOLUTE LYMPHOCYTES (AUTO) 1.1 10^3/uL (0.5-4.7); ABSOLUTE MONOCYTES (AUTO) 0.3 10^3/uL (0.1-1.4); ABSOLUTE NEUT (AUTO) 6.1 10^3/uL (1.7-8.2); BASOPHILS % (AUTO) 0.1 % (0-2); HEMATOCRIT 28.8 % (37.9-51.0); LYMPHOCYTES % (AUTO) 14.1 % (13-45); MEAN CORPUSCULAR HGB CONC 34.7 g/dL (32.0-36.0); MEAN CORPUSCULAR VOLUME 92 fl (80-97); MONOCYTES % (AUTO) 3.8 % (3-13); PLATELET COUNT 230 10^3/uL (150-450); RED BLOOD COUNT 3.13 10^6/uL (4.35-5.55); TOTAL CELLS COUNTED % (AUTO) 100 %
[2019-12-11 07:06] LABS: WHITE BLOOD COUNT 7.5 10^3/uL (4.0-10.5)
[2019-12-11 07:21] LABS: ANION GAP 7 (5-19); BLOOD UREA NITROGEN 20 mg/dL (7-20); CALCIUM 7.4 mg/dL (8.4-10.2); CARBON DIOXIDE 24 mmol/L (22-30); CHLORIDE 105 mmol/L (98-107); GLUCOSE 78 mg/dL (75-110); POTASSIUM 3.5 mmol/L (3.6-5.0)
--- NOTE | 2019-12-11 08:56 | RADIOLOGY REPORT (SQ) ---
EXAM DESCRIPTION: CHEST SINGLE VIEW COMPLETED DATE/TIME: 12/11/2019 7:03 am REASON FOR STUDY: Follow-up ET tube placement COMPARISON: AP view of the chest from 11/16/2019 EXAM PARAMETERS: NUMBER OF VIEWS: One view. TECHNIQUE: An AP view of the chest was obtained. RADIATION DOSE: NA LIMITATIONS: None. FINDINGS: LUNGS AND PLEURA: Dense opacity in the left retrocardiac space that obscures the contour o f the descending thoracic aorta. The left lateral costophrenic sulcus is blunted. There is no pneum othorax. MEDIASTINUM AND HILAR STRUCTURES: No mediastinal or hilar contour abnormality. HEART AND VASCULAR STRUCTURES: The cardiac silhouette is within normal limits given the low inspirato ry lung volumes. BONES: No acute findings. HARDWARE: The tip of the endotracheal tube projects 2.2 cm above the barrett. The tip of the enteric tube projects past the gastroesophageal junction and outside the field of view of the radiograph. OTHER: No other finding. IMPRESSION: 1. The tip of the endotracheal tube projects 2.2 cm above the barrett. 2. Left basilar atelectasis and probable trace left pleural effusion. TECHNICAL DOCUMENTATION: JOB ID: [id number] [employer]- All Rights Reserved Reading location - IP/workstation name: [email or web address]
--- NOTE | 2019-12-11 09:44 | PDOC PROGRESS REPORT ---
Subjective Progress Note for:: 12/11/19 Reason For Visit: PNEUMOPERITONEUM, PERFORATED TERMINAL ILEUM Physical Exam Vital Signs: Temp Pulse Resp BP Pulse Ox 99.7 F 92 19 84/62 L 100 12/11/19 03:02 12/11/19 03:02 12/11/19 07:00 12/11/19 03:02 12/11/19 07:00 Intake & Output 12/10/19 12/11/19 12/12/19 06:59 06:59 06:59 Intake Total 8359 Output Total 7574 60 Balance 785 -60 Weight 62.1 kg Results Laboratory Results: 12/11/19 06:27 12/11/19 06:47 12/10/19 12/10/19 12/10/19 10:48 10:48 10:48 WBC 2.4 L RBC 4.69 Hgb 14.8 Hct 43.4 MCV 93 MCH 31.7 MCHC 34.2 RDW 15.8 H Plt Count 386 Seg Neutrophils % 69.3 Carbonic Acid HCO3/H2CO3 Ratio ABG pH ABG pCO2 ABG pO2 ABG HCO3 ABG O2 Saturation ABG Base Excess FiO2 Sodium 133.8 L Potassium 3.6 Chloride 91 L Carbon Dioxide 30 Anion Gap 13 BUN 23 H Creatinine 0.67 Est GFR ( Amer) > 60 Glucose 139 H Lactic Acid 6.3 H Calcium 8.2 L Ionized Calcium Camacho Phosphorus Magnesium Total Bilirubin 0.8 AST 22 Alkaline Phosphatase 92 Total Protein 5.2 L Albumin 2.6 L Lipase 34.1 Urine Color Urine Appearance Urine pH Ur Specific [place] Urine Protein Urine Glucose (UA) Urine Ketones Urine Blood Urine Nitrite Ur Leukocyte Esterase Urine WBC (Auto) Urine RBC (Auto) Stool Occult Blood Blood Type Antibody Screen 12/10/19 12/10/19 12/10/19 11:22 11:22 12:52 WBC RBC Hgb Hct MCV MCH MCHC RDW Plt Count Seg Neutrophils % Carbonic Acid HCO3/H2CO3 Ratio ABG pH ABG pCO2 ABG pO2 ABG HCO3 ABG O2 Saturation ABG Base Excess FiO2 Sodium Potassium Chloride Carbon Dioxide Anion Gap BUN Creatinine Est GFR ( Amer) Glucose Lactic Acid Calcium Ionized Calcium Camacho Phosphorus Magnesium Total Bilirubin AST Alkaline Phosphatase Total Protein Albumin Lipase Urine Color YELLOW Urine Appearance SLIGHTLY-CLOUDY Urine pH 6.0 Ur Specific [place] 1.018 Urine Protein 30 H Urine Glucose (UA) NEGATIVE Urine Ketones NEGATIVE Urine Blood NEGATIVE Urine Nitrite NEGATIVE Ur Leukocyte Esterase SMALL H Urine WBC (Auto) 7 Urine RBC (Auto) 1 Stool Occult Blood NEGATIVE Blood Type O NEGATIVE Antibody Screen NEGATIVE 12/10/19 12/10/19 12/10/19 16:29 16:29 16:29 WBC 2.0 L RBC 3.47 L Hgb 11.1 L D Hct 32.7 L MCV 94 MCH 32.0 MCHC 34.0 RDW 16.0 H Plt Count 262 Seg Neutrophils % Not Reportable Carbonic Acid HCO3/H2CO3 Ratio ABG pH ABG pCO2 ABG pO2 ABG HCO3 ABG O2 Saturation ABG Base Excess FiO2 Sodium 133.8 L Potassium 2.9 L* Chloride 102 Carbon Dioxide 22 Anion Gap 10 BUN 20 Creatinine 0.55 Est GFR ( Amer) > 60 Glucose 152 H Lactic Acid 6.2 H Calcium 6.2 L* Ionized Calcium Camacho Phosphorus Magnesium Total Bilirubin AST Alkaline Phosphatase Total Protein Albumin Lipase Urine Color Urine Appearance Urine pH Ur Specific [place] Urine Protein Urine Glucose (UA) Urine Ketones Urine Blood Urine Nitrite Ur Leukocyte Esterase Urine WBC (Auto) Urine RBC (Auto) Stool Occult Blood Blood Type Antibody Screen 12/10/19 12/10/19 12/10/19 17:32 19:00 19:00 WBC 2.4 L RBC 3.89 L Hgb 12.6 L Hct 36.1 L MCV 93 MCH 32.5 MCHC 35.0 RDW 15.9 H Plt Count 244 Seg Neutrophils % 69.6 Carbonic Acid 1.59 H HCO3/H2CO3 Ratio 15:1 ABG pH 7.28 L ABG pCO2 52.9 H ABG pO2 102.8 H ABG HCO3 24.0 ABG O2 Saturation 96.9 ABG Base Excess -3.1 FiO2 100% Sodium 136.9 L Potassium 3.2 L Chloride 105 Carbon Dioxide 26 Anion Gap 6 BUN 19 Creatinine 0.41 L Est GFR ( Amer) > 60 Glucose 145 H Lactic Acid Calcium 7.1 L Ionized Calcium Camacho Phosphorus Magnesium Total Bilirubin 0.3 AST 19 Alkaline Phosphatase 44 Total Protein 2.7 L Albumin 1.3 L Lipase Urine Color Urine Appearance Urine pH Ur Specific [place] Urine Protein Urine Glucose (UA) Urine Ketones Urine Blood Urine Nitrite Ur Leukocyte Esterase Urine WBC (Auto) Urine RBC (Auto) Stool Occult Blood Blood Type Antibody Screen 12/10/19 12/10/19 12/10/19 19:00 19:00 19:42 WBC RBC Hgb Hct MCV MCH MCHC RDW Plt Count Seg Neutrophils % Carbonic Acid 1.48 H HCO3/H2CO3 Ratio 16:1 ABG pH 7.31 L ABG pCO2 49.1 H ABG pO2 99.8 ABG HCO3 24.3 H ABG O2 Saturation 97.0 ABG Base Excess -2.2 FiO2 60% Sodium Potassium Chloride Carbon Dioxide Anion Gap BUN Creatinine Est GFR ( Amer) Glucose Lactic Acid 2.9 H Calcium Ionized Calcium [place] Phosphorus 3.7 Magnesium 1.2 L* Total Bilirubin AST Alkaline Phosphatase Total Protein Albumin Lipase Urine Color Urine Appearance Urine pH Ur Specific [place] Urine Protein Urine Glucose (UA) Urine Ketones Urine Blood Urine Nitrite Ur Leukocyte Esterase Urine WBC (Auto) Urine RBC (Auto) Stool Occult Blood Blood Type Antibody Screen 12/11/19 12/11/19 12/11/19 04:38 04:38 06:27 WBC 7.5 D RBC 3.13 L Hgb 10.0 L D Hct 28.8 L MCV 92 MCH 32.0 MCHC 34.7 RDW 16.0 H Plt Count 230 Seg Neutrophils % 82.0 H Carbonic Acid 0.88 L HCO3/H2CO3 Ratio 25:1 ABG pH 7.50 H ABG pCO2 29.3 L ABG pO2 101.4 H ABG HCO3 22.5 ABG O2 Saturation 98.2 H ABG Base Excess -0.1 FiO2 40% Sodium Potassium Chloride Carbon Dioxide Anion Gap BUN Creatinine Est GFR ( Amer) Glucose Lactic Acid 2.7 H Calcium Ionized Calcium [place] 1.09 L Phosphorus Magnesium Total Bilirubin AST Alkaline Phosphatase Total Protein Albumin Lipase Urine Color Urine Appearance Urine pH Ur Specific [place] Urine Protein Urine Glucose (UA) Urine Ketones Urine Blood Urine Nitrite Ur Leukocyte Esterase Urine WBC (Auto) Urine RBC (Auto) Stool Occult Blood Blood Type Antibody Screen 12/11/19 06:47 WBC RBC Hgb Hct MCV MCH MCHC RDW Plt Count Seg Neutrophils % Carbonic Acid HCO3/H2CO3 Ratio ABG pH ABG pCO2 ABG pO2 ABG HCO3 ABG O2 Saturation ABG Base Excess FiO2 Sodium 136.4 L Potassium 3.5 L Chloride 105 Carbon Dioxide 24 Anion Gap 7 BUN 20 Creatinine 0.56 Est GFR ( Amer) > 60 Glucose 78 Lactic Acid Calcium 7.4 L Ionized Calcium [place] Phosphorus Magnesium Total Bilirubin AST Alkaline Phosphatase Total Protein Albumin Lipase Urine Color Urine Appearance Urine pH Ur Specific [place] Urine Protein Urine Glucose (UA) Urine Ketones Urine Blood Urine Nitrite Ur Leukocyte Esterase Urine WBC (Auto) Urine RBC (Auto) Stool Occult Blood Blood Type Antibody Screen Impressions: Abdomen/Pelvis CT 12/10/19 09:28 IMPRESSION: 1. Free intraperitoneal gas, most conspicuous inferior to the right hemidiaphragm, compatible with perforated viscus. Site of perforation is not clearly delineated. Moderate volume ascites, increased from prior. Recommend surgical consultation. 2. Increased intraluminal attenuation within a jejunal loop which progresses on further delayed imaging suggestive of active GI bleed (series 3, image 53 and series 6, image 51). Recommend correlation with Hemoccult. Additional diffuse jejunal wall thickening suggestive of enteritis. 3. Thoracic and abdominal aortic aneurysm, stable. 4. Additional chronic findings as above. Findings were discussed with Stacia at 1057 hours on 12/10/2019. Chest X-Ray 12/11/19 06:00 IMPRESSION: 1. The tip of the endotracheal tube projects 2.2 cm above the barrett. 2. Left basilar atelectasis and probable trace left pleural effusion. Assessment & Plan - Time Time Spent with patient: Less than 15 minutes - Plan Summary Plan Summary: This is a 74-year-old male status post exploratory laparotomy for intestinal perforation due to strangulated internal hernia. The patient's pressor requirement has decreased significantly overnight. He is making urine. The heat treat technician is managing the patient's ventilator and hemodynamic status. Surgery will continue to follow very closely. Extubation and further care per the heat treat technician at this time.
[2019-12-11] MEDS: LEVOFLOXACIN 500 MG/D5W RTU 500 MG/100 ML RTUPB IV SCH (11:14)
[2019-12-11] MEDS: ENOXAPARIN SODIUM INJ 40 MG/0.4 ML DISP.SYRIN SUBCUT SCH (11:14)
[2019-12-11 13:46] LABS: PATH REVIEW PATHOLOGIST REVIEWED
[2019-12-11] MEDS: RINGERS SOLUTION,LACTATED 1,000 ML IV PRN (14:45)
[2019-12-11] MEDS ORDERED: DEXTROSE 5%-WATER 250 ML with PHENYLEPHRINE HCL 40 MG IV PRN ×2 (15:01)
--- NOTE | 2019-12-11 15:02 | PDOC CRITICAL CARE PROG REPORT ---
General Date:: 12/11/19 ICU Day:: 1 Hospital Day:: 1 Resuscitation Status: Full Code Events in the past 12 to 24 Hours:: Extubated Review of systems relevant to events:: Respiratory and GI Reason for ICU Addmission:: Need for pressors and ventilator - Medications: Medications reviewed and adjusted accordingly: Yes Vasopressors:: Levophed Sedation:: None Physical Exam Vital Signs: Temp Pulse Resp BP Pulse Ox 100.8 F H 100 33 H 115/67 94 12/11/19 12:00 12/11/19 13:05 12/11/19 14:00 12/11/19 13:05 12/11/19 14:00 Intake & Output 12/10/19 12/11/19 12/12/19 06:59 06:59 06:59 Intake Total 8459 291 Output Total 7574 180 Balance 885 111 Weight 62.1 kg Weight/Height Weight 62.1 kg Height 5 ft 10 in General appearance: PRESENT: no acute distress, well-developed, well-nourished Head exam: PRESENT: atraumatic, normocephalic Eye exam: PRESENT: conjunctiva pink, EOMI, PERRLA. ABSENT: scleral icterus Ear exam: PRESENT: normal external ear exam Mouth exam: PRESENT: moist, tongue midline Respiratory exam: PRESENT: clear to auscultation johanna, decreased breath sounds, other - Barrel chested.. ABSENT: rales, rhonchi, wheezes Cardiovascular exam: PRESENT: tachycardia GI/Abdominal exam: PRESENT: normal bowel sounds, soft, other - Incision dressed.. ABSENT: distended, guarding, mass, organolmegaly, rebound, tenderness Rectal exam: PRESENT: deferred Gentrourinary exam: PRESENT: indwelling catheter Extremities exam: PRESENT: full ROM. ABSENT: calf tenderness, clubbing, pedal edema Musculoskeletal exam: PRESENT: normal inspection Neurological exam: PRESENT: alert, awake, oriented to person, oriented to place, oriented to time, oriented to situation, CN II-XII grossly intact. ABSENT: motor sensory deficit Skin exam: PRESENT: dry, intact, warm. ABSENT: cyanosis, rash Tubes/Lines: PRESENT: Nasogastic Tube Laboratory/Radiographs Laboratory Results: 12/11/19 06:27 12/11/19 06:47 12/10/19 12/10/19 12/10/19 16:29 16:29 16:29 WBC 2.0 L RBC 3.47 L Hgb 11.1 L D Hct 32.7 L MCV 94 MCH 32.0 MCHC 34.0 RDW 16.0 H Plt Count 262 Seg Neutrophils % Not Reportable Carbonic Acid HCO3/H2CO3 Ratio ABG pH ABG pCO2 ABG pO2 ABG HCO3 ABG O2 Saturation ABG Base Excess FiO2 Sodium 133.8 L Potassium 2.9 L* Chloride 102 Carbon Dioxide 22 Anion Gap 10 BUN 20 Creatinine 0.55 Est GFR ( Amer) > 60 Glucose 152 H Lactic Acid 6.2 H Calcium 6.2 L* Ionized Calcium [place] Phosphorus Magnesium Total Bilirubin AST Alkaline Phosphatase Total Protein Albumin 12/10/19 12/10/19 12/10/19 17:32 19:00 19:00 WBC 2.4 L RBC 3.89 L Hgb 12.6 L Hct 36.1 L MCV 93 MCH 32.5 MCHC 35.0 RDW 15.9 H Plt Count 244 Seg Neutrophils % 69.6 Carbonic Acid 1.59 H HCO3/H2CO3 Ratio 15:1 ABG pH 7.28 L ABG pCO2 52.9 H ABG pO2 102.8 H ABG HCO3 24.0 ABG O2 Saturation 96.9 ABG Base Excess -3.1 FiO2 100% Sodium 136.9 L Potassium 3.2 L Chloride 105 Carbon Dioxide 26 Anion Gap 6 BUN 19 Creatinine 0.41 L Est GFR ( Amer) > 60 Glucose 145 H Lactic Acid Calcium 7.1 L Ionized Calcium [place] Phosphorus Magnesium Total Bilirubin 0.3 AST 19 Alkaline Phosphatase 44 Total Protein 2.7 L Albumin 1.3 L 12/10/19 12/10/19 12/10/19 19:00 19:00 19:42 WBC RBC Hgb Hct MCV MCH MCHC RDW Plt Count Seg Neutrophils % Carbonic Acid 1.48 H HCO3/H2CO3 Ratio 16:1 ABG pH 7.31 L ABG pCO2 49.1 H ABG pO2 99.8 ABG HCO3 24.3 H ABG O2 Saturation 97.0 ABG Base Excess -2.2 FiO2 60% Sodium Potassium Chloride Carbon Dioxide Anion Gap BUN Creatinine Est GFR ( Amer) Glucose Lactic Acid 2.9 H Calcium Ionized Calcium [place] Phosphorus 3.7 Magnesium 1.2 L* Total Bilirubin AST Alkaline Phosphatase Total Protein Albumin 12/11/19 12/11/1912/11/20 04:38 04:38 06:27 WBC 7.5 D RBC 3.13 L Hgb 10.0 L D Hct 28.8 L MCV 92 MCH 32.0 MCHC 34.7 RDW 16.0 H Plt Count 230 Seg Neutrophils % 82.0 H Carbonic Acid 0.88 L HCO3/H2CO3 Ratio 25:1 ABG pH 7.50 H ABG pCO2 29.3 L ABG pO2 101.4 H ABG HCO3 22.5 ABG O2 Saturation 98.2 H ABG Base Excess -0.1 FiO2 40% Sodium Potassium Chloride Carbon Dioxide Anion Gap BUN Creatinine Est GFR ( Amer) Glucose Lactic Acid 2.7 H Calcium Ionized Calcium [place] 1.09 L Phosphorus Magnesium Total Bilirubin AST Alkaline Phosphatase Total Protein Albumin 12/11/19 06:47 WBC RBC Hgb Hct MCV MCH MCHC RDW Plt Count Seg Neutrophils % Carbonic Acid HCO3/H2CO3 Ratio ABG pH ABG pCO2 ABG pO2 ABG HCO3 ABG O2 Saturation ABG Base Excess FiO2 Sodium 136.4 L Potassium 3.5 L Chloride 105 Carbon Dioxide 24 Anion Gap 7 BUN 20 Creatinine 0.56 Est GFR ( Amer) > 60 Glucose 78 Lactic Acid Calcium 7.4 L Ionized Calcium [place] Phosphorus Magnesium Total Bilirubin AST Alkaline Phosphatase Total Protein Albumin Impressions: Abdomen/Pelvis CT 12/10/19 09:28 IMPRESSION: 1. Free intraperitoneal gas, most conspicuous inferior to the righ t hemidiaphragm, compatible with perforated viscus. Site of perforation is not clearly delineated. Moderate volume ascites, increased from prior. Recommend surgical consultation. 2. Increased intraluminal attenuation within a jejunal loop which progresses on further delayed imaging suggestive of active GI bleed (series 3, image 53 and series 6, image 51). Recommend correlation with Hemoccult. Additional diffuse jejunal wall thickening suggestive of enteritis. 3. Thoracic and abdominal aortic aneurysm, stable. 4. Additional chronic findings as above. Findings were discussed with Palomo at 1057 hours on 12/10/2019. Chest X-Ray 12/11/19 06:00 IMPRESSION: 1. The tip of the endotracheal tube projects 2.2 cm above the barrett. 2. Left basilar atelectasis and probable trace left pleural effusion. All labs, radiographs, diagnostic studies and EKGs were personally reviewed: Yes In addition, reports of radiographic and diagnostic studies were read: Yes Assessment and Plan - Diagnosis (1) Hypotension Qualifiers: Hypotension type: postprocedural hypotension Qualified Code(s): I95.81 - Postprocedural hypotension Is this a current diagnosis for this admission?: Yes Plan: He may very well be hypoadrenal but recent surgery would preclude cortisone at this time. Weaning levophed. (2) Chronic obstructive pulmonary disease Qualifiers: COPD type: unspecified COPD Qualified Code(s): J44.9 - Chronic obstructive pulmonary disease, unspecified Is this a current diagnosis for this admission?: Yes Plan: Not active, he is now extubated. (3) Small bowel obstruction Is this a current diagnosis for this admission?: Yes Plan: With bowel perforation. Resolved with surgery. Plan Summary: Wean levophed to off, mobilize chaeck cortisol. Critical Time Critical Time (minutes): 30 Level of Care: ICU Anticipated discharge: Home Within: Other - Too soon to tell. -: 1. The care of a critical patient is a dynamic process. This note is a wine sales representative synopsis but static in nature. The timeframe for treatments given in order is not necessarily the actual time these treatments may have been done. 2. This patient requires critical care secondary to ongoing requirements for therapy not offered or safe outside the critical care environment. Transfer to a lower level of care will result in altered life or limb morbidity and mortality. 3. Multidisciplinary rounds completed. 4. ABCDE bundle addressed.
[2019-12-11] MEDS ORDERED: POTASSI CL 20 MEQ/50 ML RIDER 20 MEQ/50 ML RTUPB IV ONE (22:30)
[2019-12-11] MEDS ORDERED: IPRATROPIUM/ALBUTEROL 0.5-2.5 MG/3 ML AMPUL NEB ONE (22:30)
[2019-12-12] MEDS: RINGERS SOLUTION,LACTATED 1,000 ML IV PRN (02:42)
[2019-12-12 05:03] LABS: HEMATOCRIT 29.6 % (37.9-51.0); HEMOGLOBIN 10.2 g/dL (13.5-17.0); MEAN CORPUSCULAR HEMOGLOBIN 31.6 pg (27.0-33.4); MEAN CORPUSCULAR HGB CONC 34.4 g/dL (32.0-36.0); MEAN CORPUSCULAR VOLUME 92 fl (80-97); PLATELET COUNT 194 10^3/uL (150-450); RED BLOOD COUNT 3.23 10^6/uL (4.35-5.55); RED CELL DISTRIBUTION WIDTH 16.4 % (11.5-14.0)
[2019-12-12 05:17] LABS: ANION GAP 7 (5-19); BLOOD UREA NITROGEN 21 mg/dL (7-20); CALCIUM 7.3 mg/dL (8.4-10.2); CARBON DIOXIDE 25 mmol/L (22-30); CHLORIDE 105 mmol/L (98-107); PHOSPHORUS 2.9 mg/dL (2.5-4.5); POTASSIUM 3.5 mmol/L (3.6-5.0)
[2019-12-12 05:30] LABS: GLUCOSE 50 mg/dL (75-110)
[2019-12-12] MEDS ORDERED: DEXTROSE 5%-1/2 NORMAL SALINE 1,000 ML IV ONE (05:34)
[2019-12-12] MEDS: FAMOTIDINE INJ/PF 20 MG/2 ML SDV IV SCH ×2 (05:36→18:53)
[2019-12-12] MEDS: METRONIDAZOLE 500 MG/NS RTU 500 MG/100 ML RTUPB IV SCH ×3 (05:36→21:27)
[2019-12-12] MEDS: POTASSI CL 20 MEQ/50 ML RIDER 20 MEQ/50 ML RTUPB IV SCH ×2 (05:52→10:21)
[2019-12-12 06:35] LABS: ABSOLUTE LYMPHOCYTES# (MANUAL) 1.3 10^3/uL (0.5-4.7); ABSOLUTE MONOCYTES # (MANUAL) 2.5 10^3/uL (0.1-1.4); ANISOCYTOSIS 1+; BAND NEUTROPHILS % (MANUAL) 11 % (3-5); BASOPHILS % (MANUAL) 0 % (0-2); EOSINOPHILS % (MANUAL) 0 % (0-6); LYMPHOCYTES % (MANUAL) 6 % (13-45); MONOCYTES % (MANUAL) 12 % (3-13); PLATELET COMMENT ADEQUATE; SEGMENTED NEUTROPHILS % (MAN) 71 % (42-78); TOTAL CELLS COUNTED 100; TOXIC GRANULATION SLIGHT
--- NOTE | 2019-12-12 08:37 | RADIOLOGY REPORT (SQ) ---
EXAM DESCRIPTION: CHEST SINGLE VIEW COMPLETED DATE/TIME: 12/12/2019 6:48 am REASON FOR STUDY: r/o infiltrate/congestion COMPARISON: AP chest 11/16/2019 Two-view chest 01/01/2015 EXAM PARAMETERS: NUMBER OF VIEWS: One view. TECHNIQUE: Single frontal radiographic view of the chest acquired. RADIATION DOSE: NA LIMITATIONS: None. FINDINGS: Free subdiaphragmatic air is present. This report was called to Dr Wayne, free air is pos t operative. LUNGS AND PLEURA: There is dense consolidation in the left retrocardiac region atelectasis versus pne umonia. Right lung grossly clear. No pleural effusions or pneumothorax. MEDIASTINUM AND HILAR STRUCTURES: No masses. Contour normal. HEART AND VASCULAR STRUCTURES: Heart normal in size. Normal vasculature. BONES: No acute findings. HARDWARE: Endotracheal tube has been removed. Nasogastric tube tip and side port in the stomach OTHER: No other significant finding. IMPRESSION: Left basilar consolidation atelectasis versus pneumonia Nasogastric tube tip and side port under the hemidiaphragms Postoperative subdiaphragmatic free air TECHNICAL DOCUMENTATION: JOB ID: [id number]- All Rights Reserved Reading location - IP/workstation name: [email or web address]
[2019-12-12] MEDS: IPRATROPIUM/ALBUTEROL 0.5-2.5 MG/3 ML AMPUL NEB PRN (10:15)
[2019-12-12] MEDS: ENOXAPARIN SODIUM INJ 40 MG/0.4 ML DISP.SYRIN SUBCUT SCH (10:21)
[2019-12-12] MEDS: LEVOFLOXACIN 500 MG/D5W RTU 500 MG/100 ML RTUPB IV SCH (10:22)
--- NOTE | 2019-12-12 10:29 | PDOC CRITICAL CARE PROG REPORT ---
General Date:: 12/12/19 ICU Day:: 3 Hospital Day:: 3 Resuscitation Status: Full Code Events in the past 12 to 24 Hours:: Extubated and pressors now off. Review of systems relevant to events:: GI and respiratory. Reason for ICU Addmission:: Need for pressors and ventilator - Medications: Medications reviewed and adjusted accordingly: Yes Vasopressors:: None Sedation:: None Physical Exam Vital Signs: Temp Pulse Resp BP Pulse Ox 98.6 F 98 31 H 98/50 L 98 12/12/19 08:00 12/12/19 08:00 12/12/19 08:00 12/12/19 08:00 12/12/19 08:00 Intake & Output 12/11/19 12/12/19 12/13/19 06:59 06:59 06:59 Intake Total 8559 1635 1 Output Total 7574 855 150 Balance 985 780 -149 Weight 62.1 kg 65.3 kg Weight/Height Weight 65.3 kg Height 5 ft 10 in General appearance: PRESENT: no acute distress, well-developed, well-nourished Head exam: PRESENT: atraumatic, normocephalic Eye exam: PRESENT: conjunctiva pink, EOMI, PERRLA. ABSENT: scleral icterus Ear exam: PRESENT: normal external ear exam Mouth exam: PRESENT: moist, tongue midline Respiratory exam: PRESENT: clear to auscultation johanna, tachypnea, unlabored. ABSENT: rales, rhonchi, wheezes Cardiovascular exam: PRESENT: RRR. ABSENT: diastolic murmur, rubs, systolic murmur GI/Abdominal exam: PRESENT: hypoactive bowel sounds, soft, other - Dressings intact. Rectal exam: PRESENT: deferred Gentrourinary exam: PRESENT: indwelling catheter Extremities exam: PRESENT: pedal edema Musculoskeletal exam: PRESENT: normal inspection Neurological exam: PRESENT: alert, awake, oriented to person, oriented to place, oriented to time, oriented to situation, CN II-XII grossly intact. ABSENT: motor sensory deficit Psychiatric exam: PRESENT: appropriate affect, normal mood. ABSENT: homicidal ideation, suicidal ideation Skin exam: PRESENT: dry, normal color Tubes/Lines: PRESENT: Nasogastic Tube Laboratory/Radiographs Laboratory Results: 12/12/19 04:30 12/12/19 04:30 12/12/19 12/12/1920 04:30 04:30 04:30 WBC 21.0 H D RBC 3.23 L Hgb 10.2 L Hct 29.6 L MCV 92 MCH 31.6 MCHC 34.4 RDW 16.4 H Plt Count 194 Seg Neutrophils % Not Reportable Sodium 137.0 Potassium 3.5 L Chloride 105 Carbon Dioxide 25 Anion Gap 7 BUN 21 H Creatinine 0.75 Est GFR ( Amer) > 60 Glucose 50 L Lactic Acid 0.8 Calcium 7.3 L Phosphorus 2.9 Magnesium 2.2 Impressions: Abdomen/Pelvis CT 12/10/19 09:28 IMPRESSION: 1. Free intraperitoneal gas, most conspicuous inferior to the right hemidiaphragm, compatible with perforated viscus. Site of perforation is not clearly delineated. Moderate volume ascites, increased from prior. Recommend surgical consultation. 2. Increased intraluminal attenuation within a jejunal loop which progresses on further delayed imaging suggestive of active GI bleed (series 3, image 53 and series 6, image 51). Recommend correlation with Hemoccult. Additional diffuse jejunal wall thickening suggestive of enteritis. 3. Thoracic and abdominal aortic aneurysm, stable. 4. Additional chronic findings as above. Findings were discussed with Stacia at 1057 hours on 12/10/2019. Chest X-Ray 12/12/19 04:00 IMPRESSION: Left basilar consolidation atelectasis versus pneumonia Nasogastric tube tip and side port under the hemidiaphragms Postoperative subdiaphragmatic free air All labs, radiographs, diagnostic studies and EKGs were personally reviewed: Yes In addition, reports of radiographic and diagnostic studies were read: Yes Assessment and Plan - Diagnosis (1) Hypotension Qualifiers: Hypotension type: postprocedural hypotension Qualified Code(s): I95.81 - Postprocedural hypotension Is this a current diagnosis for this admission?: Yes Plan: Resolved. Off pressors. (2) Chronic obstructive pulmonary disease Qualifiers: COPD type: unspecified COPD Qualified Code(s): J44.9 - Chronic obstructive pulmonary disease, unspecified Is this a current diagnosis for this admission?: Yes Plan: Stable. (3) Small bowel obstruction Is this a current diagnosis for this admission?: Yes Plan: Routine post op care. Plan Summary: Mobilize. Downgrade soon. Critical Time Critical Time (minutes): 35 Level of Care: ICU Anticipated discharge: Home Within: Other - Several more days -: 1. The care of a critical patient is a dynamic process. This note is a desk representative synopsis but static in nature. The timeframe for treatments given in order is not necessarily the actual time these treatments may have been done. 2. This patient requires critical care secondary to ongoing requirements for therapy not offered or safe outside the critical care environment. Transfer to a lower level of care will result in altered life or limb morbidity and mortality. 3. Multidisciplinary rounds completed. 4. ABCDE bundle addressed.
[2019-12-12] MEDS: ALBUMIN HUMAN 12.5 GM/50 ML RTUINJ IV SCH ×2 (14:11→15:30)
--- NOTE | 2019-12-12 17:51 | PDOC PROGRESS REPORT ---
Subjective Progress Note for:: 12/12/19 Subjective:: Patient comfortable, alert awake, without complaints Reason For Visit: PNEUMOPERITONEUM, PERFORATED TERMINAL ILEUM Physical Exam Vital Signs: Temp Pulse Resp BP Pulse Ox 98.6 F 98 28 H 104/53 L 96 12/12/19 16:00 12/12/19 16:00 12/12/19 16:00 12/12/19 16:00 12/12/19 16:00 Intake & Output 12/11/19 12/12/19 12/13/19 06:59 06:59 06:59 Intake Total 8559 1735 128 Output Total 7574 855 540 Balance 985 880 -412 Weight 62.1 kg 65.3 kg General appearance: PRESENT: no acute distress, thin Respiratory exam: PRESENT: rales, rhonchi Cardiovascular exam: PRESENT: RRR GI/Abdominal exam: PRESENT: distended, hypoactive bowel sounds, soft, other - Midline incision granulating, open, fascia intact, no redness of the edges, no drainage, no odor Extremities exam: PRESENT: full ROM Musculoskeletal exam: PRESENT: full ROM Neurological exam: PRESENT: alert, awake, oriented to time, oriented to situation Skin exam: PRESENT: warm Results Laboratory Results: 12/12/19 04:30 12/12/19 04:30 12/10/19 12/12/19 12/12/19 12:52 04:30 04:30 WBC 21.0 H D RBC 3.23 L Hgb 10.2 L Hct 29.6 L MCV 92 MCH 31.6 MCHC 34.4 RDW 16.4 H Plt Count 194 Seg Neutrophils % Not Reportable Sodium 137.0 Potassium 3.5 L Chloride 105 Carbon Dioxide 25 Anion Gap 7 BUN 21 H Creatinine 0.75 Est GFR ( Amer) > 60 Glucose 50 L Lactic Acid Calcium 7.3 L Phosphorus 2.9 Magnesium 2.2 Blood Type O NEGATIVE Antibody Screen NEGATIVE 12/12/19 04:30 WBC RBC Hgb Hct MCV MCH MCHC RDW Plt Count Seg Neutrophils % Sodium Potassium Chloride Carbon Dioxide Anion Gap BUN Creatinine Est GFR ( Amer) Glucose Lactic Acid 0.8 Calcium Phosphorus Magnesium Blood Type Antibody Screen Impressions: Abdomen/Pelvis CT 12/10/19 09:28 IMPRESSION: 1. Free intraperitoneal gas, most conspicuous inferior to the right hemidiaphragm, compatible with perforated viscus. Site of perforation is not clearly delineated. Moderate volume ascites, increased from prior. Recommend surgical consultation. 2. Increased intraluminal attenuation within a jejunal loop which progresses on further delayed imaging suggestive of active GI bleed (series 3, image 53 and series 6, image 51). Recommend correlation with Hemoccult. Additional diffuse jejunal wall thickening suggestive of enteritis. 3. Thoracic and abdominal aortic aneurysm, stable. 4. Additional chronic findings as above. Findings were discussed with Stacia at 1057 hours on 12/10/2019. Chest X-Ray 12/12/19 04:00 IMPRESSION: Left basilar consolidation atelectasis versus pneumonia Nasogastric tube tip and side port under the hemidiaphragms Postoperative subdiaphragmatic free air Assessment & Plan - Diagnosis (1) Abdominal pain Qualifiers: Abdominal location: unspecified location Qualified Code(s): R10.9 - Unspecified abdominal pain Is this a current diagnosis for this admission?: Yes (2) Bowel perforation Is this a current diagnosis for this admission?: Yes - Time Time Spent with patient: 15-24 minutes - Plan Summary Plan Summary: Assessment: Postoperative day #2 following laparotomy and ileocecectomy with large liver lesions for perforated distal small bowel Vital signs stable patient afebrile Patient extubated Patient off pressors Good urine output Leukocytosis 21,000 Metabolic profile within normal limits except for slight elevated BUN of 31 Plan: Continue current therapy by the field sampling technician Normal saline wet-to-dry dressing changes with abdominal wound twice a day Possible transfer to the floor tomorrow
[2019-12-13 05:10] LABS: HEMATOCRIT 30.3 % (37.9-51.0); HEMOGLOBIN 10.4 g/dL (13.5-17.0); MEAN CORPUSCULAR HEMOGLOBIN 31.6 pg (27.0-33.4); MEAN CORPUSCULAR HGB CONC 34.2 g/dL (32.0-36.0); MEAN CORPUSCULAR VOLUME 92 fl (80-97); PLATELET COUNT 157 10^3/uL (150-450); RED BLOOD COUNT 3.28 10^6/uL (4.35-5.55); RED CELL DISTRIBUTION WIDTH 16.3 % (11.5-14.0); WHITE BLOOD COUNT 22.8 10^3/uL (4.0-10.5)
[2019-12-13 05:17] LABS: BLOOD UREA NITROGEN 24 mg/dL (7-20); CALCIUM 7.7 mg/dL (8.4-10.2); GLUCOSE 100 mg/dL (75-110); POTASSIUM 3.6 mmol/L (3.6-5.0)
[2019-12-13 05:22] LABS: CARBON DIOXIDE 29 mmol/L (22-30); CHLORIDE 105 mmol/L (98-107)
[2019-12-13 05:34] LABS: ABSOLUTE LYMPHOCYTES# (MANUAL) 1.6 10^3/uL (0.5-4.7); ABSOLUTE MONOCYTES # (MANUAL) 1.1 10^3/uL (0.1-1.4); ANISOCYTOSIS 1+; BAND NEUTROPHILS % (MANUAL) 5 % (3-5); BASOPHILS % (MANUAL) 0 % (0-2); EOSINOPHILS % (MANUAL) 0 % (0-6); LYMPHOCYTES % (MANUAL) 7 % (13-45); MONOCYTES % (MANUAL) 5 % (3-13); SEGMENTED NEUTROPHILS % (MAN) 83 % (42-78); TOTAL CELLS COUNTED 100
[2019-12-13 05:36] LABS: PLATELET COMMENT ADEQUATE
[2019-12-13 06:00] LABS: ANION GAP 4 (5-19)
[2019-12-13] MEDS: METRONIDAZOLE 500 MG/NS RTU 500 MG/100 ML RTUPB IV SCH ×2 (06:37→17:56)
[2019-12-13] MEDS: FAMOTIDINE INJ/PF 20 MG/2 ML SDV IV SCH ×2 (06:37→17:56)
[2019-12-13 08:45] LABS: ARTERIAL BLOOD BASE EXCESS -1.1 mmol/L; ARTERIAL BLOOD H2CO3 1.51 mmol/L (1.05-1.35); ARTERIAL BLOOD HCO3 25.4 mmol/L (20-24); ARTERIAL BLOOD O2 SATURATION 90.2 % (94-98); ARTERIAL BLOOD PH 7.32 (7.35-7.45); ARTERIAL BLOOD PO2 62.9 mmHg (80-100); ARTERIAL BLOOD TOTAL CO2 26.9 mmol/L (23-27)
[2019-12-13 08:50] LABS: ARTERIAL BLOOD FIO2 3L
--- NOTE | 2019-12-13 08:57 | RADIOLOGY REPORT (SQ) ---
EXAM DESCRIPTION: CHEST SINGLE VIEW COMPLETED DATE/TIME: 12/13/2019 6:58 am REASON FOR STUDY: Follow-up ET tube placement COMPARISON: 12/12/2019 EXAM PARAMETERS: NUMBER OF VIEWS: One view. TECHNIQUE: Single frontal radiographic view of the chest acquired. RADIATION DOSE: NA LIMITATIONS: None. FINDINGS: LUNGS AND PLEURA: Unchanged dense opacification of the left lower lobe. Patchy additional bilateral interstitial opacities throughout, similar to prior. No large effusion. No pneumothorax. MEDIASTINUM AND HILAR STRUCTURES: Stable. HEART AND VASCULAR STRUCTURES: Enlarged, stable. BONES: No acute findings. HARDWARE: Enteric tube tip side port at distal esophagus. OTHER: Large volume pneumoperitoneum again seen. IMPRESSION: 1. Large volume pneumoperitoneum again seen. 2. Unchanged left basilar consolidation, atelectasis versus pneumonia. 3. No endotracheal tube visualized. Enteric tube side port proximal to GE junction. Recommend adva ncing 5 to 10 cm. TECHNICAL DOCUMENTATION: JOB ID: [id number] [employer]- All Rights Reserved Reading location - IP/workstation name: [email or web address]
[2019-12-13] MEDS ORDERED: FUROSEMIDE INJ/PF 20 MG/2 ML SDV IV ONE (09:30)
--- NOTE | 2019-12-13 10:31 | PDOC PROGRESS REPORT ---
Subjective Progress Note for:: 12/13/19 Subjective:: Patient extubated but obtunded and somewhat responsive Reason For Visit: PNEUMOPERITONEUM, PERFORATED TERMINAL ILEUM Physical Exam Vital Signs: Temp Pulse Resp BP Pulse Ox 98.6 F 90 22 H 104/74 99 12/13/19 08:00 12/13/19 09:04 12/13/19 09:04 12/13/19 08:00 12/13/19 09:04 Intake & Output 12/12/19 12/13/19 12/14/19 06:59 06:59 06:59 Intake Total 1735 328 Output Total 855 1140 50 Balance 880 -812 -50 Weight 65.3 kg 65.5 kg General appearance: PRESENT: no acute distress Respiratory exam: PRESENT: clear to auscultation johanna Cardiovascular exam: PRESENT: RRR GI/Abdominal exam: PRESENT: hypoactive bowel sounds, soft, other - Midline incision granulating granulating Results Laboratory Results: 12/13/19 04:15 12/13/19 04:15 12/10/19 12/13/19 12/13/19 12:52 04:15 04:15 WBC 22.8 H RBC 3.28 L Hgb 10.4 L Hct 30.3 L MCV 92 MCH 31.6 MCHC 34.2 RDW 16.3 H Plt Count 157 Seg Neutrophils % Not Reportable Carbonic Acid HCO3/H2CO3 Ratio ABG pH ABG pCO2 ABG pO2 ABG HCO3 ABG O2 Saturation ABG Base Excess FiO2 Sodium 137.7 Potassium 3.6 Chloride 105 Carbon Dioxide 29 Anion Gap 4 L BUN 24 H Creatinine 0.49 L Est GFR ( Amer) > 60 Glucose 100 Calcium 7.7 L Blood Type O NEGATIVE Antibody Screen NEGATIVE 12/13/19 08:30 WBC RBC Hgb Hct MCV MCH MCHC RDW Plt Count Seg Neutrophils % Carbonic Acid 1.51 H HCO3/H2CO3 Ratio 16:1 ABG pH 7.32 L ABG pCO2 50.0 H ABG pO2 62.9 L ABG HCO3 25.4 H ABG O2 Saturation 90.2 L ABG Base Excess -1.1 FiO2 3L Sodium Potassium Chloride Carbon Dioxide Anion Gap BUN Creatinine Est GFR ( Amer) Glucose Calcium Blood Type Antibody Screen Impressions: Abdomen/Pelvis CT 12/10/19 09:28 IMPRESSION: 1. Free intraperitoneal gas, most conspicuous inferior to the right hemidiaphragm, compatible with perforated viscus. Site of perforation is not clearly delineated. Moderate volume ascites, increased from prior. Recommend surgical consultation. 2. Increased intraluminal attenuation within a jejunal loop which progresses on further delayed imaging suggestive of active GI bleed (series 3, image 53 and series 6, image 51). Recommend correlation with Hemoccult. Additional diffuse jejunal wall thickening suggestive of enteritis. 3. Thoracic and abdominal aortic aneurysm, stable. 4. Additional chronic findings as above. Findings were discussed with Stacia at 1057 hours on 12/10/2019. Chest X-Ray 12/13/19 06:00 IMPRESSION: 1. Large volume pneumoperitoneum again seen. 2. Unchanged left basilar consolidation, atelectasis versus pneumonia. 3. No endotracheal tube visualized. Enteric tube side port proximal to GE junction. Recommend advancing 5 to 10 cm. Assessment & Plan - Diagnosis (1) Abdominal pain Qualifiers: Abdominal location: unspecified location Qualified Code(s): R10.9 - Unsp ecified abdominal pain Is this a current diagnosis for this admission?: Yes (2) Bowel perforation Is this a current diagnosis for this admission?: Yes - Time Time Spent with patient: 25-34 minutes - Plan Summary Plan Summary: Specimen: Postop day #3 following his laparotomy and ileocecectomy for small bowel perforation Vital signs stable patient afebrile Patient clinically obtunded, extubated, but arousable Abdomen soft Leukocytosis 22,000 Chest x-ray shows a large amount of pneumoperitoneum, cause unknown No edema discussed with radiologist Plan: CT scan abdomen pelvis with IV oral contrast identified a cause for pneumoperitoneum Possibly, the patient will be to taken back to surgery today for exploration if the pneumoperitoneum is confirmed and the cause is not clear
[2019-12-13] MEDS: LEVOFLOXACIN 500 MG/D5W RTU 500 MG/100 ML RTUPB IV SCH (10:37)
[2019-12-13] MEDS: ENOXAPARIN SODIUM INJ 40 MG/0.4 ML DISP.SYRIN SUBCUT SCH (10:37)
[2019-12-13] MEDS ORDERED: ONDANSETRON HCL INJ/PF 4 MG/2 ML SDV ONE (12:38)
[2019-12-13] MEDS ORDERED: PHENYLEPHRINE HCL INJ/PF 10 MG/1 ML SDV ONE (12:38)
--- NOTE | 2019-12-13 13:17 | PDOC CRITICAL CARE PROG REPORT ---
General Date:: 12/13/19 ICU Day:: 3 Hospital Day:: 3 Resuscitation Status: Full Code Events in the past 12 to 24 Hours:: More free air suggestive of perfed viscus. Review of systems relevant to events:: GI Reason for ICU Addmission:: Need for pressors and ventilator - Medications: Medications reviewed and adjusted accordingly: Yes Vasopressors:: None Sedation:: None Physical Exam Vital Signs: Temp Pulse Resp BP Pulse Ox 97.5 F 90 26 H 90/55 L 100 12/13/19 12:00 12/13/19 12:00 12/13/19 12:00 12/13/19 12:00 12/13/19 12:00 Intake & Output 12/12/19 12/13/19 12/14/19 06:59 06:59 06:59 Intake Total 1735 428 Output Total 855 1140 275 Balance 880 -712 -275 Weight 65.3 kg 65.5 kg Weight/Height Weight 65.5 kg Height 5 ft 10 in General appearance: PRESENT: no acute distress, other - He is awake and responsive but becoming obtunded. Head exam: PRESENT: atraumatic, normocephalic Eye exam: PRESENT: conjunctiva pink, EOMI, PERRLA. ABSENT: scleral icterus Ear exam: PRESENT: normal external ear exam Mouth exam: PRESENT: moist, tongue midline Respiratory exam: PRESENT: clear to auscultation johanna, decreased breath sounds. ABSENT: rales, rhonchi, wheezes Cardiovascular exam: PRESENT: RRR. ABSENT: diastolic murmur, rubs, systolic murmur Vascular exam: PRESENT: normal capillary refill GI/Abdominal exam: PRESENT: diminished bowel sounds, guarding, hypoactive bowel sounds, soft, other - Incision itself seen last night. Clean with no erythema. Rectal exam: PRESENT: deferred Gentrourinary exam: PRESENT: indwelling catheter Extremities exam: PRESENT: full ROM. ABSENT: calf tenderness, clubbing, pedal edema Musculoskeletal exam: PRESENT: normal inspection Neurological exam: PRESENT: altered Skin exam: PRESENT: dry, intact, warm. ABSENT: cyanosis, rash Laboratory/Radiographs Laboratory Results: 12/13/19 04:15 12/13/19 04:15 12/10/19 12/13/19 12/13/19 12:52 04:15 04:15 WBC 22.8 H RBC 3.28 L Hgb 10.4 L Hct 30.3 L MCV 92 MCH 31.6 MCHC 34.2 RDW 16.3 H Plt Count 157 Seg Neutrophils % Not Reportable Carbonic Acid HCO3/H2CO3 Ratio ABG pH ABG pCO2 ABG pO2 ABG HCO3 ABG O2 Saturation ABG Base Excess FiO2 Sodium 137.7 Potassium 3.6 Chloride 105 Carbon Dioxide 29 Anion Gap 4 L BUN 24 H Creatinine 0.49 L Est GFR ( Amer) > 60 Glucose 100 Calcium 7.7 L Blood Type O NEGATIVE Antibody Screen NEGATIVE 12/13/19 12/13/19 08:30 11:58 WBC RBC Hgb Hct MCV MCH MCHC RDW Plt Count Seg Neutrophils % Carbonic Acid 1.51 H HCO3/H2CO3 Ratio 16:1 ABG pH 7.32 L ABG pCO2 50.0 H ABG pO2 62.9 L ABG HCO3 25.4 H ABG O2 Saturation 90.2 L ABG Base Excess -1.1 FiO2 3L Sodium Potassium Chloride Carbon Dioxide Anion Gap BUN Creatinine Est GFR ( Amer) Glucose Calcium Blood Type O NEGATIVE Antibody Screen NEGATIVE Impressions: Abdomen/Pelvis CT 12/10/19 09:28 IMPRESSION: 1. Free intraperitoneal gas, most conspicuous inferior to the right hemidiaphragm, compatible with perforated viscus. Site of perforation is not clearly delineated. Moderate volume ascites, increased from prior. Recommend surgical consultation. 2. Increased intraluminal attenuation within a jejunal loop which progresses on further delayed imaging suggestive of active GI bleed (series 3, image 53 and series 6, image 51). Recommend correlation with Hemoccult. Additional diffuse jejunal wall thickening suggestive of enteritis. 3. Thoracic and abdominal aortic aneurysm, stable. 4. Additional chronic findings as above. Findings were discussed with Stacia at 1057 hours on 12/10/2019. Chest X-Ray 12/13/19 06:00 IMPRESSION: 1. Large volume pneumoperitoneum again seen. 2. Unchanged left basilar consolidation, atelectasis versus pneumonia. 3. No endotracheal tube visualized. Enteric tube side port proximal to GE junction. Recommend advancing 5 to 10 cm. All labs, radiographs, diagnostic studies and EKGs were personally reviewed: Yes In addition, reports of radiographic and diagnostic studies were read: Yes Assessment and Plan - Diagnosis (1) Hypotension Qualifiers: Hypotension type: postprocedural hypotension Qualified Code(s): I95.81 - Postprocedural hypotension Is this a current diagnosis for this admission?: Yes Plan: Recurrence in the face of second perforation. Back to OR. (2) Chronic obstructive pulmonary disease Qualifiers: COPD type: unspecified COPD Qualified Code(s): J44.9 - Chronic obstructive pulmonary disease, unspecified Is this a current diagnosis for this admission?: Yes Plan: Inactive (3) Small bowel obstruction Is this a current diagnosis for this admission?: Yes Plan: SBO resolved. Second perforation merits second surgery later today. Plan Summary: To OR this afternoon. Critical Time Critical Time (minutes): 35 Level of Care: ICU Anticipated discharge: Home with Homehealth Within: Other - Too soon to tell. -: 1. The care of a critical patient is a dynamic process. This note is a technical support representative synopsis but static in nature. The timeframe for treatments given in order is not necessarily the actual time these treatments may have been done. 2. This patient requires critical care secondary to ongoing requirements for therapy not offered or safe outside the critical care environment. Transfer to a lower level of care will result in altered life or limb morbidity and mortality. 3. Multidisciplinary rounds completed. 4. ABCDE bundle addressed.
[2019-12-13] MEDS ORDERED: PROPOFOL INJ 200 MG/20 ML VIAL IV ONE (13:45)
[2019-12-13] MEDS ORDERED: HYDROMORPHONE HCL INJ/PF 2 MG/ML AMPULE ONE (13:45)
[2019-12-13] MEDS ORDERED: FENTANYL CITRATE INJ/PF 250 MCG/5 ML AMPULE ONE (13:45)
[2019-12-13] MEDS ORDERED: BUPIVACAINE HCL 0.5%-EPI 1:200000 INJ/PF 30 ML VIAL ONE (13:51)
[2019-12-13] MEDS ORDERED: CALCIUM GLUCONATE 1000 MG/10 ML INJ IV ONE (14:17)
[2019-12-13] MEDS ORDERED: VASOPRESSIN INJ 20 UNIT/1 ML VIAL ONE (14:21)
[2019-12-13 15:06] LABS: ARTERIAL BLOOD BASE EXCESS -1.9 mmol/L; ARTERIAL BLOOD FIO2 ROOM AIR; ARTERIAL BLOOD H2CO3 1.34 mmol/L (1.05-1.35); ARTERIAL BLOOD HCO3 23.8 mmol/L (20-24); ARTERIAL BLOOD O2 SATURATION 99.1 % (94-98); ARTERIAL BLOOD PCO2 44.6 mmHg (35-45); ARTERIAL BLOOD PH 7.35 (7.35-7.45); ARTERIAL BLOOD PO2 171.8 mmHg (80-100); ARTERIAL BLOOD TOTAL CO2 25.2 mmol/L (23-27)
[2019-12-13 15:11] LABS: HEMATOCRIT 28.4 % (37.9-51.0); HEMOGLOBIN 9.6 g/dL (13.5-17.0); MEAN CORPUSCULAR HEMOGLOBIN 31.8 pg (27.0-33.4); MEAN CORPUSCULAR VOLUME 94 fl (80-97); PLATELET COUNT 124 10^3/uL (150-450); RED BLOOD COUNT 3.03 10^6/uL (4.35-5.55); RED CELL DISTRIBUTION WIDTH 16.5 % (11.5-14.0); WHITE BLOOD COUNT 13.4 10^3/uL (4.0-10.5)
[2019-12-13 15:27] LABS: ANION GAP 5 (5-19); BLOOD UREA NITROGEN 23 mg/dL (7-20); CALCIUM 7.6 mg/dL (8.4-10.2); CARBON DIOXIDE 26 mmol/L (22-30); CHLORIDE 108 mmol/L (98-107); GLUCOSE 88 mg/dL (75-110); POTASSIUM 3.3 mmol/L (3.6-5.0)
[2019-12-13 15:44] LABS: ABSOLUTE LYMPHOCYTES# (MANUAL) 0.4 10^3/uL (0.5-4.7); ABSOLUTE MONOCYTES # (MANUAL) 0.3 10^3/uL (0.1-1.4); BASOPHILS % (MANUAL) 0 % (0-2); EOSINOPHILS % (MANUAL) 0 % (0-6); LYMPHOCYTES % (MANUAL) 3 % (13-45); MONOCYTES % (MANUAL) 2 % (3-13); PLATELET COMMENT DECREASED; SEGMENTED NEUTROPHILS % (MAN) 95 % (42-78); TOTAL CELLS COUNTED 100
[2019-12-13 15:45] LABS: ANISOCYTOSIS 1+
[2019-12-13 15:46] LABS: HYPOCHROMASIA SLIGHT; OVALOCYTES 1+; POLYCHROMASIA SLIGHT
--- NOTE | 2019-12-13 16:12 | Operative Report ---
Nonrecallable Operative Report DATE OF SURGERY: 12/13/19 PREOPERATIVE DIAGNOSIS: pneumoperitoneum, s/p ileocecectomy POSTOPERATIVE DIAGNOSIS: same, unknown cause OPERATION: exploratory laparotomy SURGEON: CHRIS RUSH ANESTHESIA: GA TISSUE REMOVED OR ALTERED: n/a COMPLICATIONS: none ESTIMATED BLOOD LOSS: <10 mL INTRAOPERATIVE FINDINGS: moderate amount of serous fluid in the peritoneal cavity, no obvious cultures for pneumoperitoneum, anastomosis appeared intact PROCEDURE: Procedure was done in the operating room, the patient was placed in a supine position, general esthesia induced by another intubation by anesthesiologist, nasogastric tube was inserted, a Oconnor catheter was inserted, the abdomen was prepped and draped in usual fashion. A midline incision was made according to the presurgical markings, the linea alba was divided with Bovie the peritoneal cavity was entered. A moderate amount of serous fluid was noted with no odor, this appeared to be slightly cloudy; however, it was not bilious or feculent or had any enteric content. The fluid was sent for Gram stain, aerobic anaerobic cultures, and chemical analysis including glucose, amylase and lipase, bilirubin, protein and albumin, and creatinine. The small bowel was eviscerated and ran from the ligament of Treitz down to to the ileocecectomy anastomosis and backward. No lesions] were identified. Anastomosis appeared to be intact. The peritoneal cavity was then filled with warm normal saline and anastomosis was tested without evidence of air leak. The irrigation was then aspirated and the anterior wall of the stomach and antrum were examined without evidence of lesions; the lesser sac was open and entered and no areas of perforation abnormalities were noted. The right, transverse, left and colon were all examined individually and no abnormalities were seen. At this point, the stapled ileocecectomy anastomosis was reinforced with interrupted [id number] Lembert 2-0 silk sutures. The small bowel was then replaced within the peritoneal cavity, the linea alba was closed with running #1 looped PDS suture, the skin was left open with only few yusuf to approximate, covered with Betadine soaked 4 x 4's and sterile dressings. A 15 Thai round Juan drain was placed through a right lower quadrant stab wound into the peritoneal cavity by the ileocecectomy, secured to the skin with a 2 nylon suture, and connected to bulb suction. The patient the procedure well, was left intubated and transferred to the ICU in satisfactory conditions.
[2019-12-13] MEDS ORDERED: PROPOFOL 1,000 MG/100 ML INFUS..BTL IV ONE (16:22)
[2019-12-13] MEDS: ALBUMIN HUMAN 12.5 GM/50 ML RTUINJ IV SCH ×3 (17:58→19:52)
[2019-12-13] MEDS: DEXTROSE 5%-WATER 250 ML with NOREPINEPHRINE BITARTRATE 4 MG IV PRN ×2 (18:00)
[2019-12-13] MEDS ORDERED: PROPOFOL 1,000 MG/100 ML INFUS..BTL IV PRN (18:30)
--- NOTE | 2019-12-13 18:38 | RADIOLOGY REPORT (SQ) ---
EXAM DESCRIPTION: CHEST SINGLE VIEW COMPLETED DATE/TIME: 12/13/2019 6:16 pm REASON FOR STUDY: Postop, now intubated COMPARISON: 12/13/2019 EXAM PARAMETERS: NUMBER OF VIEWS: One view. TECHNIQUE: Single frontal radiographic view of the chest acquired. RADIATION DOSE: NA LIMITATIONS: None. FINDINGS: LUNGS AND PLEURA: Dense retrocardiac opacification on the left. Ill-defined infiltrates i n the left lung and in the right base. MEDIASTINUM AND HILAR STRUCTURES: No masses. Contour normal. HEART AND VASCULAR STRUCTURES: Heart normal in size. Normal vasculature. BONES: No acute findings. HARDWARE: NG tube extends 5 cm inside the stomach. Endotracheal tube has its tip 2 cm above the itzel na. OTHER: No other significant finding. IMPRESSION: Endotracheal tube terminates 2 cm above the barrett. NG tube is just inside the stomach. Airspace disease in the lower lobes, pneumonia versus atelectasis. TECHNICAL DOCUMENTATION: JOB ID: [id number] [employer]- All Rights Reserved Reading location - IP/workstation name: [email or web address]
[2019-12-13] MEDS: POTASSI CL 20 MEQ/50 ML RIDER 20 MEQ/50 ML RTUPB IV SCH ×2 (20:30→22:13)
[2019-12-14] MEDS: METRONIDAZOLE 500 MG/NS RTU 500 MG/100 ML RTUPB IV SCH ×4 (00:06→21:54)
--- NOTE | 2019-12-14 04:02 | RADIOLOGY REPORT (SQ) ---
EXAM DESCRIPTION: XR CHEST 1 VIEW COMPLETED DATE/TME: 12/14/2019 00:00 CLINICAL HISTORY: 74 years, Male, line placement; r/o pneumo COMPARISON: 12/13/2019 chest NUMBER OF VIEWS: 1 TECHNIQUE: Portable chest LIMITATIONS: None. FINDINGS: The heart size is normal. Endotracheal tube, central venous catheter, and enteric tube in place. Tip of the central line in the cavoatrial junction. No pneumothorax. Osteopenia. COPD. Interstitial and airspace opacities with small bibasilar effusions as before IMPRESSION: Interval placement of central venous catheter. No pneumothorax. Other findings stable copyright 2010 [employer]- All Rights Reserved
[2019-12-14] MEDS: DEXTROSE 5%-WATER 250 ML with NOREPINEPHRINE BITARTRATE 4 MG IV PRN ×2 (04:22)
--- NOTE | 2019-12-14 05:29 | Operative Report ---
Bedside Procedure - History of Present Illness History of Present Illness: Pre-procedure Dx: Shock on vasopressors, need for additional IV access Post-procedure Dx: Shock on vasopressors, need for additional IV access EBL 3 mL Indication for Procedure: Shock requiring vasopressors; need for additional IV access Date: 12/14/19 Provider: CALEB SNYDER - Central Line Left Internal jugular Time completed: 02:30 Consent obtained: Yes Central line pre-insertion: Sterile PPE donned, Chloraprep applied, Sterile drapes applied Central line size (Fr.): 7 Central line lumen type: Triple Anesthetic type: 1% Lidocaine mL's of anesthesia: 2 Ultrasound guided: Yes CM at insertion site: 20 Line secured with sutures: Yes Central line post-insertion: Blood return from lumens, Biopatch applied, Sutured, Sterile dressing applied, Position confirmed w/ CXR Number of attempts: 1 Complications: No Notes: 12/14/19 05:23 Patient placed in proper procedural position followed by prepping and draping in usual sterile fashion. Utilizing ultrasound, the left internal jugular vein was visualized and free of thrombus from the angle of the mandible down to the clavicle. The skin and subcutaneous tissue was anesthetized with 2 mL of 1% lidocaine. A 20-gauge introducer needle attached to syringe under negative pressure was visualized entering the left internal jugular vein with a falcon of blood in the syringe. The syringe was detached from the needle noting a slow dripping of nonpulsatile blood. A guidewire was then advanced through the needle into the left internal jugular vein and the needle was removed over the wire. The wire was confirmed to be in the left internal jugular vein in 2 views via ultrasound. A dilator was then passed over the wire to dilate the skin and subcutaneous tissue and was subsequently removed. A 7 Bangladeshi 20 cm catheter was then advanced over the wire into the left internal jugular vein and the guidewire was removed, again noting a slow dripping of nonpulsatile blood from the distal lumen of the catheter. All lumens aspirated and flushed easily. A Biopatch was applied, the catheter was sutured into place noting insertion at 20 cm at the skin, and a sterile transparent occlusive dressing was applied. Pt tolerated the procedure well.
[2019-12-14] MEDS: FAMOTIDINE INJ/PF 20 MG/2 ML SDV IV SCH ×2 (06:32→17:36)
[2019-12-14 06:37] LABS: ARTERIAL BLOOD BASE EXCESS 1.2 mmol/L; ARTERIAL BLOOD H2CO3 1.11 mmol/L (1.05-1.35); ARTERIAL BLOOD HCO3 25.1 mmol/L (20-24); ARTERIAL BLOOD O2 SATURATION 93.4 % (94-98); ARTERIAL BLOOD PCO2 36.9 mmHg (35-45); ARTERIAL BLOOD PH 7.45 (7.35-7.45); ARTERIAL BLOOD PO2 63.8 mmHg (80-100); ARTERIAL BLOOD TOTAL CO2 26.2 mmol/L (23-27)
[2019-12-14 06:42] LABS: ARTERIAL BLOOD FIO2 30%
[2019-12-14 06:46] LABS: HEMOGLOBIN 9.6 g/dL (13.5-17.0); MEAN CORPUSCULAR HEMOGLOBIN 31.6 pg (27.0-33.4); MEAN CORPUSCULAR HGB CONC 34.2 g/dL (32.0-36.0); MEAN CORPUSCULAR VOLUME 92 fl (80-97); PLATELET COUNT 122 10^3/uL (150-450); RED BLOOD COUNT 3.03 10^6/uL (4.35-5.55); RED CELL DISTRIBUTION WIDTH 16.7 % (11.5-14.0); WHITE BLOOD COUNT 19.1 10^3/uL (4.0-10.5)
[2019-12-14 06:59] LABS: ANION GAP 6 (5-19); BLOOD UREA NITROGEN 22 mg/dL (7-20); CALCIUM 7.8 mg/dL (8.4-10.2); CARBON DIOXIDE 27 mmol/L (22-30); CHLORIDE 107 mmol/L (98-107); GLUCOSE 89 mg/dL (75-110); PHOSPHORUS 2.2 mg/dL (2.5-4.5); POTASSIUM 3.5 mmol/L (3.6-5.0)
[2019-12-14 07:27] LABS: ABSOLUTE LYMPHOCYTES# (MANUAL) 1.9 10^3/uL (0.5-4.7); ABSOLUTE MONOCYTES # (MANUAL) 0.4 10^3/uL (0.1-1.4); ANISOCYTOSIS 1+; BAND NEUTROPHILS % (MANUAL) 4 % (3-5); BASOPHILS % (MANUAL) 0 % (0-2); EOSINOPHILS % (MANUAL) 0 % (0-6); HYPOCHROMASIA 1+; LYMPHOCYTES % (MANUAL) 10 % (13-45); MONOCYTES % (MANUAL) 2 % (3-13); SEGMENTED NEUTROPHILS % (MAN) 84 % (42-78); TOTAL CELLS COUNTED 100
[2019-12-14 07:28] LABS: PLATELET COMMENT DECREASED
--- NOTE | 2019-12-14 08:43 | PDOC PROGRESS REPORT ---
Subjective Progress Note for:: 12/14/19 Subjective:: Patient remains intubated stable vital signs Reason For Visit: PNEUMOPERITONEUM, PERFORATED TERMINAL ILEUM Status post exploratory laparotomy with ileocecectomy for obstruction and perforation of the distal ileum Status post reexploration yesterday for question of pneumoperitoneum without evidence of leak. Physical Exam Vital Signs: Temp Pulse Resp BP Pulse Ox 99.3 F 78 16 102/56 L 96 12/14/19 06:00 12/13/19 21:46 12/14/19 06:00 12/13/19 21:46 12/14/19 06:00 Intake & Output 12/13/19 12/14/19 12/15/19 06:59 06:59 06:59 Intake Total 428 2893 Output Total 1140 1620 Balance -712 1273 Weight 65.5 kg 65.9 kg General appearance: PRESENT: no acute distress, other - Patient intubated Head exam: PRESENT: normocephalic Eye exam: PRESENT: EOMI Ear exam: PRESENT: normal external ear exam Mouth exam: PRESENT: moist Teeth exam: PRESENT: poor dentation Neck exam: PRESENT: full ROM Respiratory exam: PRESENT: clear to auscultation johanna Cardiovascular exam: PRESENT: RRR Pulses: PRESENT: normal radial pulses, normal femoral pulses Breast: PRESENT: Normal GI/Abdominal exam: PRESENT: soft - Midline dressing from yesterday is intact with Betadine soaked sponge and packed in the midline Rectal exam: PRESENT: deferred Gentrourinary exam: PRESENT: indwelling catheter Extremities exam: PRESENT: other - Patient intubated Neurological exam: PRESENT: other - And intubated Skin exam: PRESENT: dry Results Laboratory Results: 12/14/19 06:15 12/14/19 06:15 12/13/19 12/13/19 12/13/19 08:30 11:58 14:54 WBC RBC Hgb Hct MCV MCH MCHC RDW Plt Count Seg Neutrophils % Carbonic Acid 1.51 H HCO3/H2CO3 Ratio 16:1 ABG pH 7.32 L ABG pCO2 50.0 H ABG pO2 62.9 L ABG HCO3 25.4 H ABG O2 Saturation 90.2 L ABG Base Excess -1.1 FiO2 3L Sodium 139.2 Potassium 3.3 L Chloride 108 H Carbon Dioxide 26 Anion Gap 5 BUN 23 H Creatinine 0.41 L Est GFR ( Amer) > 60 Glucose 88 Calcium 7.6 L Phosphorus Magnesium Blood Type O NEGATIVE Antibody Screen NEGATIVE 12/13/19 12/13/19 12/14/19 14:54 14:54 06:15 WBC 13.4 H RBC 3.03 L Hgb 9.6 L Hct 28.4 L MCV 94 MCH 31.8 MCHC 34.0 RDW 16.5 H Plt Count 124 L Seg Neutrophils % Not Reportable Carbonic Acid 1.34 1.11 HCO3/H2CO3 Ratio 17:1 22:1 ABG pH 7.35 7.45 ABG pCO2 44.6 36.9 ABG pO2 171.8 H 63.8 L ABG HCO3 23.8 25.1 H ABG O2 Saturation 99.1 H 93.4 L ABG Base Excess -1.9 1.2 FiO2 ROOM AIR 30% Sodium Potassium Chloride Carbon Dioxide Anion Gap BUN Creatinine Est GFR ([facility] Amer) Glucose Calcium Phosphorus Magnesium Blood Type Antibody Screen 12/14/19 12/14/19 06:15 06:15 WBC 19.1 H RBC 3.03 L Hgb 9.6 L Hct 28.0 L MCV 92 MCH 31.6 MCHC 34.2 RDW 16.7 H Plt Count 122 L Seg Neutrophils % Not Reportable Carbonic Acid HCO3/H2CO3 Ratio ABG pH ABG pCO2 ABG pO2 ABG HCO3 ABG O2 Saturation ABG Base Excess FiO2 Sodium 140.4 Potassium 3.5 L Chloride 107 Carbon Dioxide 27 Anion Gap 6 BUN 22 H Creatinine 0.46 L Est GFR ( Amer) > 60 Glucose 89 Calcium 7.8 L Phosphorus 2.2 L Magnesium 1.8 Blood Type Antibody Screen Impressions: Abdomen/Pelvis CT 12/10/19 09:28 IMPRESSION: 1. Free intraperitoneal gas, most conspicuous inferior to the right hemidiaphragm, compatible with perforated viscus. Site of perforation is not clearly delineated. Moderate volume ascites, increased from prior. Recommend surgical consultation. 2. Increased intraluminal attenuation within a jejunal loop which progresses on further delayed imaging suggestive of active GI bleed (series 3, image 53 and series 6, image 51). Recommend correlation with Hemoccult. Additional diffuse jejunal wall thickening suggestive of enteritis. 3. Thoracic and abdominal aortic aneurysm, stable. 4. Additional chronic findings as above. Findings were discussed with Stacia at 1057 hours on 12/10/2019. Chest X-Ray 12/14/19 00:00 IMPRESSION: Interval placement of central venous catheter. No pneumothorax. Other findings stable copyright 2011 [employer]- All Rights Reserved Assessment & Plan - Time Time Spent with patient: 35 or more minutes - Plan Summary Plan Summary: Status post exploratory laparotomy with ileocecectomy then takeback yesterday for question of pneumoperitoneum. Today patient remains intubated. White blood count 19,000 today. Plan discussed with the engine repairer we will plan on extubation today we will start dressing changes with wet-to-dry normal saline to the midline.
[2019-12-14] MEDS: LEVOFLOXACIN 500 MG/D5W RTU 500 MG/100 ML RTUPB IV SCH (09:52)
[2019-12-14] MEDS: ENOXAPARIN SODIUM INJ 40 MG/0.4 ML DISP.SYRIN SUBCUT SCH (09:52)
[2019-12-14] MEDS: BUDESONIDE NEB 0.25 MG/2 ML AMPUL NEB SCH ×2 (11:21→21:02)
--- NOTE | 2019-12-14 15:19 | PDOC CRITICAL CARE PROG REPORT ---
General Date:: 12/14/19 Ventilator Day:: 2 Resuscitation Status: Full Code Events in the past 12 to 24 Hours:: Went back to OR yesterday (12/13) with concerns of recurrent perforation of viscus (due to abdominal free air and dwindling blood pressure). No significant intrao perative findings reported. Returned from OR still on mechanical ventilatory support. Reason for ICU Addmission:: Need for pressors and ventilator - Medications: Medications reviewed and adjusted accordingly: Yes Vasopressors:: None Sedation:: Propofol Physical Exam Vital Signs: Temp Pulse Resp BP Pulse Ox 99.3 F 78 16 102/56 L 96 12/14/19 06:00 12/13/19 21:46 12/14/19 06:00 12/13/19 21:46 12/14/19 06:00 Intake & Output 12/13/19 12/14/19 12/15/19 06:59 06:59 06:59 Intake Total 428 2893 Output Total 1140 1620 Balance -712 1273 Weight 65.5 kg 65.9 kg Weight/Height Weight 65.9 kg Height 1.78 m General appearance: PRESENT: no acute distress, thin Exam: chronically ill in appearance, cachectic, edematous Head exam: PRESENT: atraumatic, normocephalic Eye exam: PRESENT: PERRLA. ABSENT: periorbital swelling, scleral icterus Mouth exam: PRESENT: moist, neck supple, other - Endotracheal tube in situ Respiratory exam: PRESENT: clear to auscultation johanna, symmetrical, unlabored Cardiovascular exam: PRESENT: RRR, +S1, +S2. ABSENT: gallop, rubs, systolic murmur Pulses: PRESENT: normal carotid pulses, normal radial pulses, normal femoral pulses GI/Abdominal exam: PRESENT: hypoactive bowel sounds, soft, tenderness, other - Midline laparotomy incision bandaged Gentrourinary exam: PRESENT: scrotal swelling Extremities exam: PRESENT: +2 edema. ABSENT: calf tenderness, joint swelling Musculoskeletal exam: PRESENT: normal inspection Neurological exam: PRESENT: reflexes normal, CN II-XII grossly intact. ABSENT: motor sensory deficit Psychiatric exam: PRESENT: other - Sedated on propofol Tubes/Lines: PRESENT: Endotracheal Tube, Central Line - Left IJ, Arterial Catheter - Radial Laboratory/Radiographs Laboratory Results: 12/14/19 06:15 12/14/19 06:15 12/13/19 12/13/19 12/13/19 08:30 11:58 14:54 WBC RBC Hgb Hct MCV MCH MCHC RDW Plt Count Seg Neutrophils % Carbonic Acid 1.51 H HCO3/H2CO3 Ratio 16:1 ABG pH 7.32 L ABG pCO2 50.0 H ABG pO2 62.9 L ABG HCO3 25.4 H ABG O2 Saturation 90.2 L ABG Base Excess -1.1 FiO2 3L Sodium 139.2 Potassium 3.3 L Chloride 108 H Carbon Dioxide 26 Anion Gap 5 BUN 23 H Creatinine 0.41 L Est GFR ( Amer) > 60 Glucose 88 Calcium 7.6 L Phosphorus Magnesium Blood Type O NEGATIVE Antibody Screen NEGATIVE 12/13/19 12/13/19 12/14/19 14:54 14:54 06:15 WBC 13.4 H RBC 3.03 L Hgb 9.6 L Hct 28.4 L MCV 94 MCH 31.8 MCHC 34.0 RDW 16.5 H Plt Count 124 L Seg Neutrophils % Not Reportable Carbonic Acid 1.34 1.11 HCO3/H2CO3 Ratio 17:1 22:1 ABG pH 7.35 7.45 ABG pCO2 44.6 36.9 ABG pO2 171.8 H 63.8 L ABG HCO3 23.8 25.1 H ABG O2 Saturation 99.1 H 93.4 L ABG Base Excess -1.9 1.2 FiO2 ROOM AIR 30% Sodium Potassium Chloride Carbon Dioxide Anion Gap BUN Creatinine Est GFR ( Amer) Glucose Calcium Phosphorus Magnesium Blood Type Antibody Screen 12/14/19 12/14/19 06:15 06:15 WBC 19.1 H RBC 3.03 L Hgb 9.6 L Hct 28.0 L MCV 92 MCH 31.6 MCHC 34.2 RDW 16.7 H Plt Count 122 L Seg Neutrophils % Not Reportable Carbonic Acid HCO3/H2CO3 Ratio ABG pH ABG pCO2 ABG pO2 ABG HCO3 ABG O2 Saturation ABG Base Excess FiO2 Sodium 140.4 Potassium 3.5 L Chloride 107 Carbon Dioxide 27 Anion Gap 6 BUN 22 H Creatinine 0.46 L Est GFR ( Amer) > 60 Glucose 89 Calcium 7.8 L Phosphorus 2.2 L Magnesium 1.8 Blood Type Antibody Screen Impressions: Abdomen/Pelvis CT 12/10/19 09:28 IMPRESSION: 1. Free intraperitoneal gas, most conspicuous inferior to the right hemidiaphragm, compatible with perforated viscus. Site of perforation is not clearly delineated. Moderate volume ascites, increased from prior. Recommend surgical consultation. 2. Increased intraluminal attenuation within a jejunal loop which progresses on further delayed imaging suggestive of active GI bleed (series 3, image 53 and series 6, image 51). Recommend correlation with Hemoccult. Additional diffuse jejunal wall thickening suggestive of enteritis. 3. Thoracic and abdominal aortic aneurysm, stable. 4. Additional chronic findings as above. Findings were discussed with Stacia at 1057 hours on 12/10/2019. Chest X-Ray 12/14/19 00:00 IMPRESSION: Interval placement of central venous catheter. No pneumothorax. Other findings stable copyright 2011 [employer]- All Rights Reserved All labs, radiographs, diagnostic studies and EKGs were personally reviewed: Yes In addition, reports of radiographic and diagnostic studies were read: Yes Assessment and Plan - Diagnosis (1) Acute hypercapnic respiratory failure Is this a current diagnosis for this admission?: Yes Plan: Sedation vacation. Pressure support trial (PSV 10/5). Anticipate liberation from mechanical ventilatory support within 24 hours. (2) Emphysema lung Qualifiers: Emphysema type: centrilobular Qualified Code(s): J43.2 - Centrilobular emphysema Is this a current diagnosis for this admission?: Yes Plan: DuoNeb/Pulmicort while intubated (3) Bowel perforation Is this a current diagnosis for this admission?: Yes Plan: s/p ileocecectomy with perforated loop of terminal ileum (2/) and repeat exploratory laparotomy (12/13) no new significant findings. Case discussed with Dr. Perez. (4) Hypoalbuminemia Is this a current diagnosis for this admission?: Yes Plan: Need to address nutritional status. If the patient is unable to start enteral feeding, will need to consider TPN. (5) Small bowel obstruction Is this a current diagnosis for this admission?: Yes Critical Time Critical Time (minutes): 45 Level of Care: ICU -: 1. The care of a critical patient is a dynamic process. This note is a malt liquors sales representative synopsis but static in nature. The timeframe for treatments given in order is not necessarily the actual time these treatments may have been done. 2. This patient requires critical care secondary to ongoing requirements for therapy not offered or safe outside the critical care environment. Transfer to a lower level of care will result in altered life or limb morbidity and mortality. 3. Multidisciplinary rounds completed. 4. ABCDE bundle addressed.
[2019-12-14 16:33] LABS: ARTERIAL BLOOD H2CO3 0.88 mmol/L (1.05-1.35); ARTERIAL BLOOD PCO2 29.1 mmHg (35-45); ARTERIAL BLOOD PH 7.53 (7.35-7.45); ARTERIAL BLOOD PO2 60.3 mmHg (80-100); ARTERIAL BLOOD TOTAL CO2 24.9 mmol/L (23-27)
[2019-12-14 16:34] LABS: ARTERIAL BLOOD FIO2 30%
[2019-12-14] MEDS: POTASSI CL 20 MEQ/1/2NS 1L 1000 ML IV PRN (20:30)
[2019-12-14] MEDS: IPRATROPIUM/ALBUTEROL 0.5-2.5 MG/3 ML AMPUL NEB PRN (21:02)
[2019-12-15] MEDS: METRONIDAZOLE 500 MG/NS RTU 500 MG/100 ML RTUPB IV SCH ×3 (06:28→21:26)
[2019-12-15] MEDS: FAMOTIDINE INJ/PF 20 MG/2 ML SDV IV SCH (06:29)
[2019-12-15 07:02] LABS: ABSOLUTE LYMPHOCYTES (AUTO) 1.5 10^3/uL (0.5-4.7); ABSOLUTE NEUT (AUTO) 13.6 10^3/uL (1.7-8.2); BASOPHILS % (AUTO) 0.2 % (0-2); HEMATOCRIT 29.3 % (37.9-51.0); HEMOGLOBIN 9.9 g/dL (13.5-17.0); LYMPHOCYTES % (AUTO) 9.2 % (13-45); MEAN CORPUSCULAR HGB CONC 33.7 g/dL (32.0-36.0); MEAN CORPUSCULAR VOLUME 92 fl (80-97); MONOCYTES % (AUTO) 6.4 % (3-13); PLATELET COUNT 108 10^3/uL (150-450); RED BLOOD COUNT 3.18 10^6/uL (4.35-5.55); RED CELL DISTRIBUTION WIDTH 16.3 % (11.5-14.0); SEGMENTED NEUTROPHILS % (AUTO) 84.2 % (42-78); TOTAL CELLS COUNTED % (AUTO) 100 %; WHITE BLOOD COUNT 16.1 10^3/uL (4.0-10.5)
[2019-12-15 07:24] LABS: ANION GAP 5 (5-19); BLOOD UREA NITROGEN 22 mg/dL (7-20); CALCIUM 7.3 mg/dL (8.4-10.2); CARBON DIOXIDE 30 mmol/L (22-30); CHLORIDE 107 mmol/L (98-107); GLUCOSE 79 mg/dL (75-110); PHOSPHORUS 2.4 mg/dL (2.5-4.5); POTASSIUM 3.2 mmol/L (3.6-5.0)
[2019-12-15] MEDS: BUDESONIDE NEB 0.25 MG/2 ML AMPUL NEB SCH ×2 (08:37→21:00)
[2019-12-15] MEDS: IPRATROPIUM/ALBUTEROL 0.5-2.5 MG/3 ML AMPUL NEB PRN (08:37)
--- NOTE | 2019-12-15 09:20 | PDOC PROGRESS REPORT ---
Subjective Progress Note for:: 12/15/19 Subjective:: Patient extubated, comfortable, without complaints, reports passing some liquid stools today Reason For Visit: PNEUMOPERITONEUM, PERFORATED TERMINAL ILEUM Physical Exam Vital Signs: Temp Pulse Resp BP Pulse Ox 99.0 F 84 19 127/62 H 100 12/15/19 08:00 12/15/19 08:00 12/15/19 08:00 12/15/19 08:00 12/15/19 08:00 Intake & Output 12/14/19 12/15/19 12/16/19 06:59 06:59 06:59 Intake Total 2993 443 Output Total 1620 1295 150 Balance 1373 -1982 -150 Weight 65.9 kg 64.5 kg General appearance: PRESENT: no acute distress, thin Respiratory exam: PRESENT: clear to auscultation johanna Cardiovascular exam: PRESENT: RRR GI/Abdominal exam: PRESENT: soft, other - Midline incision open with a few yusuf in between, granulating, pink, no drainage, no odor, no erythema of the edges; right lower quadrant intra-abdominal drain filled with clear serous fluid Results Laboratory Results: 12/15/19 06:35 12/15/19 06:35 12/14/19 12/15/19 12/15/19 16:10 06:35 06:35 WBC 16.1 H RBC 3.18 L Hgb 9.9 L Hct 29.3 L MCV 92 MCH 31.0 MCHC 33.7 RDW 16.3 H Plt Count 108 L Seg Neutrophils % 84.2 H Carbonic Acid 0.88 L HCO3/H2CO3 Ratio 27:1 ABG pH 7.53 H ABG pCO2 29.1 L ABG pO2 60.3 L ABG HCO3 24.0 ABG O2 Saturation 94.0 ABG Base Excess 2.0 FiO2 30% Sodium 141.9 Potassium 3.2 L Chloride 107 Carbon Dioxide 30 Anion Gap 5 BUN 22 H Creatinine 0.34 L Est GFR ( Amer) > 60 Glucose 79 Calcium 7.3 L Phosphorus 2.4 L Magnesium 1.6 12/10/19 16:01 Peritoneal Gram Stain - Final 12/10/19 16:01 Peritoneal Body Fluid Culture - Final Enterobacter Cloacae Citrobacter Koseri Enterococcus Faecalis(Group D) Clostridium Sp.not Perfringens Bacteroides Fragilis Group Impressions: Abdomen/Pelvis CT 12/10/19 09:28 IMPRESSION: 1. Free intraperitoneal gas, most conspicuous inferior to the right hemidiaphragm, compatible with perforated viscus. Site of perforation is not clearly delineated. Moderate volume ascites, increased from prior. Recommend surgical consultation. 2. Increased intraluminal attenuation within a jejunal loop which progresses on further delayed imaging suggestive of active GI bleed (series 3, image 53 and series 6, image 51). Recommend correlation with Hemoccult. Additional diffuse jejunal wall thickening suggestive of enteritis. 3. Thoracic and abdominal aortic aneurysm, stable. 4. Additional chronic findings as above. Findings were discussed with Stacia at 1057 hours on 12/10/2019. Chest X-Ray 12/14/19 00:00 IMPRESSION: Interval placement of central venous catheter. No pneumothorax. Other findings stable copyright 2011 [employer]- All Rights Reserved Assessment & Plan - Diagnosis (1) Abdominal pain Qualifiers: Abdominal location: unspecified location Qualified Code(s): R10.9 - Unspecified abdominal pain Is this a current diagnosis for this admission?: Yes (2) Bowel perforation Is this a current diagnosis for this admission?: Yes - Time Time Spent with patient: 25-34 minutes - Plan Summary Plan Summary: Assessment: Postoperative day #5 and 2 following ileocecectomy and takeback for pneum operitoneum Vital signs stable, patient afebrile Good urine output (1,450 mL yesterday) NG tube output approximately 450 mL for the past 24 hours Intra-abdominal Juan drain output clear serous: 500 mL yesterday, 90 mL this morning Improving leukocytosis decreasing to 16,000 Metabolic profile shows decreased potassium, calcium, magnesium, phosphorus, normal creatinine Physical exam shows a soft abdomen with granulating, clean abdominal wound Chest x-ray shows bilateral infiltrates versus atelectasis, no pneumoperitoneum noted on the chest x-ray on December 14, 2019 Abdominal fluid culture significant for multiple organisms both aerobic and anaerobic Plan: Continue NG tube n.p.o. IV fluids Start TPN today Replace electrolytes as per the veneer stapler Continue IV antibiotics (Levaquin Flagyl) Patient to go to the floor in the next 1 to 2 days Out of bed up in chair
[2019-12-15] MEDS ORDERED: DEXTROSE 10%-WATER 1,000 ML IV PRN (10:00)
[2019-12-15] MEDS: LEVOFLOXACIN 500 MG/D5W RTU 500 MG/100 ML RTUPB IV SCH (10:26)
[2019-12-15] MEDS: ENOXAPARIN SODIUM INJ 40 MG/0.4 ML DISP.SYRIN SUBCUT SCH (10:26)
[2019-12-15] MEDS: POTASSI CL 20 MEQ/1/2NS 1L 1000 ML IV PRN (10:26)
[2019-12-15 10:33] LABS: INTERNATIONAL RATION (INR) 1.28; PROTHROMBIN TIME 16.1 SEC (11.4-15.4)
[2019-12-15 10:40] LABS: HEMATOCRIT 29.1 % (37.9-51.0); HEMOGLOBIN 9.7 g/dL (13.5-17.0); MEAN CORPUSCULAR HGB CONC 33.3 g/dL (32.0-36.0); MEAN CORPUSCULAR VOLUME 93 fl (80-97); PLATELET COUNT 106 10^3/uL (150-450); RED BLOOD COUNT 3.14 10^6/uL (4.35-5.55); RED CELL DISTRIBUTION WIDTH 16.3 % (11.5-14.0); WHITE BLOOD COUNT 16.5 10^3/uL (4.0-10.5)
[2019-12-15] MEDS ORDERED: MAGNESIUM SULFATE INJ 8 MEQ/2 ML IV ONE (10:42)
[2019-12-15] MEDS: INSULIN REG, HUMAN 100 UNIT/ML 3 ML VIAL (PYX) SUBCUT SCH ×3 (11:40→23:50)
[2019-12-15] MEDS: MAGNESIUM SULFATE 1 GM/D5W 100 ML IV SCH ×2 (11:46→13:16)
[2019-12-15] MEDS: POTASSI CL 20 MEQ/50 ML RIDER 20 MEQ/50 ML RTUPB IV SCH ×4 (11:46→21:23)
[2019-12-15] MEDS: IPRATROPIUM/ALBUTEROL 0.5-2.5 MG/3 ML AMPUL NEB SCH ×2 (14:31→21:00)
[2019-12-15] MEDS ORDERED: POTASSI CL 20 MEQ/1/2NS 1L 20 MEQ/1,000 ML RTUINJ IV PRN (21:06)
[2019-12-15] MEDS: AMINO ACIDS 5 %/DEXTROSE 20 % 1,000 ML IV PRN (21:24)
[2019-12-16] MEDS: IPRATROPIUM/ALBUTEROL 0.5-2.5 MG/3 ML AMPUL NEB SCH ×2 (02:34→07:54)
[2019-12-16 03:06] LABS: HEMATOCRIT 28.1 % (37.9-51.0); HEMOGLOBIN 9.6 g/dL (13.5-17.0); MEAN CORPUSCULAR HEMOGLOBIN 31.2 pg (27.0-33.4); MEAN CORPUSCULAR HGB CONC 34.1 g/dL (32.0-36.0); MEAN CORPUSCULAR VOLUME 92 fl (80-97); PLATELET COUNT 115 10^3/uL (150-450); RED BLOOD COUNT 3.07 10^6/uL (4.35-5.55); RED CELL DISTRIBUTION WIDTH 15.9 % (11.5-14.0); WHITE BLOOD COUNT 16.6 10^3/uL (4.0-10.5)
[2019-12-16 03:29] LABS: ALBUMIN 1.7 g/dL (3.5-5.0); ALKALINE PHOSPHATASE 281 U/L (38-126); ASPARTATE AMINO TRANSFERASE 19 U/L (17-59); BILIRUBIN,TOTAL 0.5 mg/dL (0.2-1.3); BLOOD UREA NITROGEN 19 mg/dL (7-20); GLUCOSE 159 mg/dL (75-110); PHOSPHORUS 2.2 mg/dL (2.5-4.5); TOTAL PROTEIN 3.4 g/dL (6.3-8.2)
[2019-12-16 03:34] LABS: CARBON DIOXIDE 33 mmol/L (22-30); CHLORIDE 109 mmol/L (98-107)
[2019-12-16 03:36] LABS: PREALBUMIN 3.8 mg/dL (17.6-36.0)
[2019-12-16 03:42] LABS: INTERNATIONAL RATION (INR) 1.33; PROTHROMBIN TIME 16.6 SEC (11.4-15.4)
[2019-12-16 03:43] LABS: ANION GAP 0 (5-19)
[2019-12-16] MEDS ORDERED: SODIUM PHOS,M-BASIC-D-BASIC 40 MMOL in NORMAL SALINE 500 ML IV ONE ×3 (04:00→09:00)
[2019-12-16] MEDS: METRONIDAZOLE 500 MG/NS RTU 500 MG/100 ML RTUPB IV SCH ×3 (05:41→21:31)
[2019-12-16] MEDS: INSULIN REG, HUMAN 100 UNIT/ML 3 ML VIAL (PYX) SUBCUT SCH ×3 (05:41→17:46)
[2019-12-16] MEDS: BUDESONIDE NEB 0.25 MG/2 ML AMPUL NEB SCH ×2 (07:54→20:59)
--- NOTE | 2019-12-16 08:10 | PDOC CRITICAL CARE PROG REPORT ---
General Date:: 12/15/19 ICU Day:: 5 Hospital Day:: 6 Resuscitation Status: Full Code Events in the past 12 to 24 Hours:: Went back to OR (12/13) with concerns of recurrent perforation of viscus (due to abdominal free air and dwindling blood pressure). No significant intraoperative findings reported. Returned from OR still on mechanical ventilatory support. Successfully extubated yesterday (on 12/14). Review of systems relevant to events:: GI, respiratory Reason for ICU Addmission:: Need for pressors and ventilator Physical Exam Vital Signs: Temp Pulse Resp BP Pulse Ox 99.0 F 84 19 127/62 H 100 12/15/19 08:00 12/15/19 08:00 12/15/19 08:00 12/15/19 08:00 12/15/19 08:00 Intake & Output 12/14/19 12/15/19 12/16/19 06:59 06:59 06:59 Intake Total 2993 543 1000 Output Total 1620 2425 150 Balance 1373 -1882 850 Weight 65.9 kg 64.5 kg Weight/Height Weight 64.5 kg Height 1.78 m General appearance: PRESENT: no acute distress, thin Head exam: PRESENT: atraumatic, normocephalic Eye exam: PRESENT: conjunctiva pink, EOMI, PERRLA. ABSENT: scleral icterus Mouth exam: PRESENT: dry mucosa, tongue midline Respiratory exam: PRESENT: rales, rhonchi, symmetrical. ABSENT: wheezes Cardiovascular exam: PRESENT: RRR. ABSENT: diastolic murmur, rubs, systolic murmur Pulses: PRESENT: normal dorsalis pedis pul GI/Abdominal exam: PRESENT: hypoactive bowel sounds, soft, other - Midline laparotomy incision bandaged. ABSENT: distended, guarding, mass, rebound, tenderness Extremities exam: PRESENT: full ROM, pedal edema, +2 edema. ABSENT: calf tenderness, clubbing Neurological exam: PRESENT: alert, awake, oriented to person, oriented to place, oriented to time, oriented to situation, CN II-XII grossly intact. ABSENT: loyda r sensory deficit Psychiatric exam: PRESENT: appropriate affect, normal mood. ABSENT: homicidal ideation, suicidal ideation Skin exam: PRESENT: dry, intact, warm. ABSENT: cyanosis, rash Tubes/Lines: PRESENT: Nasogastic Tube Laboratory/Radiographs Laboratory Results: 12/15/19 06:35 12/14/19 12/15/19 12/15/19 16:10 06:35 06:35 WBC 16.1 H RBC 3.18 L Hgb 9.9 L Hct 29.3 L MCV 92 MCH 31.0 MCHC 33.7 RDW 16.3 H Plt Count 108 L Seg Neutrophils % 84.2 H Carbonic Acid 0.88 L HCO3/H2CO3 Ratio 27:1 ABG pH 7.53 H ABG pCO2 29.1 L ABG pO2 60.3 L ABG HCO3 24.0 ABG O2 Saturation 94.0 ABG Base Excess 2.0 FiO2 30% Sodium 141.9 Potassium 3.2 L Chloride 107 Carbon Dioxide 30 Anion Gap 5 BUN 22 H Creatinine 0.34 L Est GFR ( Amer) > 60 Glucose 79 Calcium 7.3 L Phosphorus 2.4 L Magnesium 1.6 12/10/19 16:01 Peritoneal Gram Stain - Final 12/10/19 16:01 Peritoneal Body Fluid Culture - Final Enterobacter Cloacae Citrobacter Koseri Enterococcus Faecalis(Group D) Clostridium Sp.not Perfringens Bacteroides Fragilis Group Impressions: Abdomen/Pelvis CT 12/10/19 09:28 IMPRESSION: 1. Free intraperitoneal gas, most conspicuous inferior to the right hemidiaphragm, compatible with perforated viscus. Site of perforation is not clearly delineated. Moderate volume ascites, increased from prior. Recommend surgical consultation. 2. Increased intraluminal attenuation within a jejunal loop which progresses on further delayed imaging suggestive of active GI bleed (series 3, image 53 and series 6, image 51). Recommend correlation with Hemoccult. Additional diffuse jejunal wall thickening suggestive of enteritis. 3. Thoracic and abdominal aortic aneurysm, stable. 4. Additional chronic findings as above. Findings were discussed with Stcaia at 1057 hours on 12/10/2019. Chest X-Ray 12/14/19 00:00 IMPRESSION: Interval placement of central venous catheter. No pneumothorax. Other findings stable copyright 2011 [employer]- All Rights Reserved Assessment and Plan - Diagnosis (1) Peritonitis Is this a current diagnosis for this admission?: Yes Plan: On Levaquin/Flagyl for polymicrobial infection with surgical specimens isolating: Enterobacter cloacae, Citrobacter), Enterococcus faecalis (group D), Clostridium species (not perfringens), Bacteroides fragilis group. (2) Acute hypercapnic respiratory failure Is this a current diagnosis for this admission?: Yes Plan: Successfully extubated. Supplemental oxygen as needed to maintain SPO2 90 to 94%. Incentive spirometry/pulmonary toilet. (3) Emphysema lung Qualifiers: Emphysema type: centrilobular Qualified Code(s): J43.2 - Centrilobular emphysema Is this a current diagnosis for this admission?: Yes Plan: Continue DuoNeb/Pulmicort (4) Bowel perforation Is this a current diagnosis for this admission?: Yes Plan: s/p ileocecectomy with perforated loop of terminal ileum (2/) and repeat exploratory laparotomy (12/13) no new significant findings. Case discussed with Dr. Cevallos. Currently on Levaquin/Flagyl. (5) Hypoalbuminemia Is this a current diagnosis for this admission?: Yes (6) Small bowel obstruction Is this a current diagnosis for this admission?: Yes (7) Protein calorie malnutrition Is this a current diagnosis for this admission?: Yes Plan: Discussed with Dr. Cevallos. Plans to start TPN. (8) Hypokalemia Is this a current diagnosis for this admission?: Yes Plan: Replete potassium (KCl 80 mEq IV). (9) Hypomagnesemia Is this a current diagnosis for this admission?: Yes Plan: Magnesium sulfate 2 g IV (10) Hypocalcemia Is this a current diagnosis for this admission?: Yes Plan: Check ionized calcium Critical Time Critical Time (minutes): 45 Level of Care: ICU -: 1. The care of a critical patient is a dynamic process. This note is a community health program representative synopsis but static in nature. The timeframe for treatments given in order is not necessarily the actual time these treatments may have been done. 2. This patient requires critical care secondary to ongoing requirements for therapy not offered or safe outside the critical care environment. Transfer to a lower level of care will result in altered life or limb morbidity and mortality. 3. Multidisciplinary rounds completed. 4. ABCDE bundle addressed.
[2019-12-16] MEDS: LEVOFLOXACIN 500 MG/D5W RTU 500 MG/100 ML RTUPB IV SCH (09:43)
[2019-12-16] MEDS: ENOXAPARIN SODIUM INJ 40 MG/0.4 ML DISP.SYRIN SUBCUT SCH (09:44)
--- NOTE | 2019-12-16 12:09 | PDOC PROGRESS REPORT ---
Subjective Progress Note for:: 12/16/19 Subjective:: Patient comfortable, reports bowel movement yesterday and today with flatus Reason For Visit: PNEUMOPERITONEUM, PERFORATED TERMINAL ILEUM Physical Exam Vital Signs: Temp Pulse Resp BP Pulse Ox 98.6 F 89 22 H 119/63 99 12/16/19 08:00 12/16/19 10:00 12/16/19 11:00 12/16/19 10:00 12/16/19 11:00 Intake & Output 12/15/19 12/16/19 12/17/19 06:59 06:59 06:59 Intake Total 543 1638 100 Output Total 2425 2200 190 Balance -1882 -562 -90 Weight 64.5 kg 66.1 kg 66.1 kg General appearance: PRESENT: no acute distress, thin Neck exam: PRESENT: full ROM Respiratory exam: PRESENT: clear to auscultation johanna Cardiovascular exam: PRESENT: RRR GI/Abdominal exam: PRESENT: normal bowel sounds, soft, other - Midline incision granulating, no erythema, odor, or drainage, fascia intact: Left lateral abdomen intra-abdominal drain with clear fluid Results Laboratory Results: 12/16/19 02:50 12/16/19 02:50 12/13/19 12/13/19 12/13/19 14:51 14:51 14:51 WBC RBC Hgb Hct MCV MCH MCHC RDW Plt Count Sodium Potassium Chloride Carbon Dioxide Anion Gap BUN Creatinine Est GFR ( Amer) Glucose Calcium Phosphorus Magnesium Total Bilirubin AST Alkaline Phosphatase Total Protein Albumin Prealbumin Fluid Glucose Fluid Total Protein 2.0 Fluid Albumin 1.1 Fluid LDH Fluid Amylase 12/13/19 12/13/19 12/16/19 14:51 14:51 02:50 WBC 16.6 H RBC 3.07 L Hgb 9.6 L Hct 28.1 L MCV 92 MCH 31.2 MCHC 34.1 RDW 15.9 H Plt Count 115 L Sodium Potassium Chloride Carbon Dioxide Anion Gap BUN Creatinine Est GFR ( Amer) Glucose Calcium Phosphorus Magnesium Total Bilirubin AST Alkaline Phosphatase Total Protein Albumin Prealbumin Fluid Glucose 5 Fluid Total Protein Fluid Albumin Fluid LDH 2889 Fluid Amylase 12/16/19 02:50 WBC RBC Hgb Hct MCV MCH MCHC RDW Plt Count Sodium 141.8 Potassium 4.0 Chloride 109 H Carbon Dioxide 33 H Anion Gap 0 L BUN 19 Creatinine 0.34 L Est GFR ( Amer) > 60 Glucose 159 H Calcium 7.0 L* Phosphorus 2.2 L Magnesium 1.8 Total Bilirubin 0.5 AST 19 Alkaline Phosphatase 281 H Total Protein 3.4 L Albumin 1.7 L Prealbumin 3.8 L Fluid Glucose Fluid Total Protein Fluid Albumin Fluid LDH Fluid Amylase 12/13/19 14:40 Peritoneal Gram Stain - Final 12/13/19 14:40 Peritoneal Body Fluid Culture - Final C.albicans/C.dubliniensis No Anaerobic Organisms 12/10/19 10:48 Blood Blood Culture - Final NO GROWTH IN 5 DAYS 12/10/19 09:40 Blood Blood Culture - Final NO GROWTH IN 5 DAYS 12/10/19 16:01 Peritoneal Gram Stain - Final 12/10/19 16:01 Peritoneal Body Fluid Culture - Final Enterobacter Cloacae Citrobacter Koseri Enterococcus Faecalis(Group D) Clostridium Sp.not Perfringens Bacteroides Fragilis Group Impressions: Abdomen/Pelvis CT 12/10/19 09:28 IMPRESSION: 1. Free intraperitoneal gas, most conspicuous inferior to the right hemidiaphragm, compatible with perforated viscus. Site of perforation is not clearly delineated. Moderate volume ascites, increased from prior. Recommend surgical consultation. 2. Increased intraluminal attenuation within a jejunal loop which progresses on further delayed imaging suggestive of active GI bleed (series 3, image 53 and series 6, image 51). Recommend correlation with Hemoccult. Additional diffuse jejunal wall thickening suggestive of enteritis. 3. Thoracic and abdominal aortic aneurysm, stable. 4. Additional chronic findings as above. Findings were discussed with Stacia at 1057 hours on 12/10/2019. Chest X-Ray 12/14/19 00:00 IMPRESSION: Interval placement of central venous catheter. No pneumothorax. Other findings stable copyright 2011 [employer]- All Rights Reserved Assessment & Plan - Diagnosis (1) Abdominal pain Qualifiers: Qualified Code(s): R10.9 - Unspecified abdominal pain Is this a current diagnosis for this admission?: Yes (2) Bowel perforation Is this a current diagnosis for this admission?: Yes - Time Time Spent with patient: 35 or more minutes - Plan Summary Plan Summary: Postoperative day #6 and 3 following ileocecectomy and takeback for pneumoperitoneum (unknown cause), respectively Vital signs stable, patient afebrile Good urine output (1,450 mL yesterday) NG tube output less than 200 mL for the past 24 hours Intra-abdominal Juan drain output clear serous: 90 mL yesterday, 90 mL this morning Persistent leukocytosis 16,000 Metabolic profile shows a normal limits Physical exam shows a soft abdomen with granulating, clean abdominal wound Abdominal fluid culture significant for multiple organisms both aerobic and anaerobic, growing Proteus. Sensitivity pending Plan: Remove NG tube: if this occurs, advance diet to clear liquids Continue TPN started on December 15, 2019 Continue IV antibiotics (Levaquin Flagyl) Out of bed up in chair line Remove intra-abdominal drain
--- NOTE | 2019-12-16 12:29 | PDOC CRITICAL CARE PROG REPORT ---
General Date:: 12/16/19 ICU Day:: 6 Hospital Day:: 7 Resuscitation Status: Full Code Events in the past 12 to 24 Hours:: Went back to OR (2/7) with concerns of recurrent perforation of viscus (due to abdominal free air and dwindling blood pressure). No significant intraoperative findings reported. Returned from OR still on mechanical ventilatory support. Successfully extubated (2/8). On 2 LPM via nasal cannula. No respiratory distress. Anticipating initiation of p.o. intake today. NG tube has been removed. Review of systems relevant to events:: GI, respiratory Reason for ICU Addmission:: Need for pressors and ventilator - Medications: Medications reviewed and adjusted accordingly: Yes Physical Exam Vital Signs: Temp Pulse Resp BP Pulse Ox 98.6 F 89 22 H 119/63 99 12/16/19 08:00 12/16/19 10:00 12/16/19 11:00 12/16/19 10:00 12/16/19 11:00 Intake & Output 12/15/19 12/16/19 12/17/19 06:59 06:59 06:59 Intake Total 543 1638 100 Output Total 2425 2200 190 Balance -1882 -562 -90 Weight 64.5 kg 66.1 kg 66.1 kg Weight/Height Weight 66.1 kg Height 1.78 m General appearance: PRESENT: no acute distress, thin Eye exam: PRESENT: conjunctiva pink, EOMI, PERRLA. ABSENT: scleral icterus Mouth exam: PRESENT: dry mucosa, tongue midline Neck exam: ABSENT: carotid bruit, JVD, lymphadenopathy, thyromegaly Respiratory exam: PRESENT: rales, rhonchi, symmetrical Cardiovascular exam: PRESENT: RRR. ABSENT: diastolic murmur, rubs, systolic murmur GI/Abdominal exam: PRESENT: hypoactive bowel sounds, soft. ABSENT: firm, guarding, mass, Mckay's sign Extremities exam: PRESENT: full ROM, pedal edema. ABSENT: calf tenderness, c lubbing Neurological exam: PRESENT: alert, awake, oriented to person, oriented to place, oriented to time, oriented to situation, CN II-XII grossly intact. ABSENT: motor sensory deficit Skin exam: PRESENT: dry, intact, warm. ABSENT: cyanosis, rash Laboratory/Radiographs Laboratory Results: 12/16/19 02:50 12/16/19 02:50 12/13/19 12/13/19 12/13/19 14:51 14:51 14:51 WBC RBC Hgb Hct MCV MCH MCHC RDW Plt Count Sodium Potassium Chloride Carbon Dioxide Anion Gap BUN Creatinine Est GFR ( Amer) Glucose Calcium Phosphorus Magnesium Total Bilirubin AST Alkaline Phosphatase Total Protein Albumin Prealbumin Fluid Glucose Fluid Total Protein 2.0 Fluid Albumin 1.1 Fluid LDH Fluid Amylase 19 12/13/19 12/13/19 12/16/19 14:51 14:51 02:50 WBC 16.6 H RBC 3.07 L Hgb 9.6 L Hct 28.1 L MCV 92 MCH 31.2 MCHC 34.1 RDW 15.9 H Plt Count 115 L Sodium Potassium Chloride Carbon Dioxide Anion Gap BUN Creatinine Est GFR ( Amer) Glucose Calcium Phosphorus Magnesium Total Bilirubin AST Alkaline Phosphatase Total Protein Albumin Prealbumin Fluid Glucose 5 Fluid Total Protein Fluid Albumin Fluid LDH 2889 Fluid Amylase 12/16/19 02:50 WBC RBC Hgb Hct MCV MCH MCHC RDW Plt Count Sodium 141.8 Potassium 4.0 Chloride 109 H Carbon Dioxide 33 H Anion Gap 0 L BUN 19 Creatinine 0.34 L Est GFR ( Amer) > 60 Glucose 159 H Calcium 7.0 L* Phosphorus 2.2 L Magnesium 1.8 Total Bilirubin 0.5 AST 19 Alkaline Phosphatase 281 H Total Protein 3.4 L Albumin 1.7 L Prealbumin 3.8 L Fluid Glucose Fluid Total Protein Fluid Albumin Fluid LDH Fluid Amylase 12/13/19 14:40 Peritoneal Gram Stain - Final 12/13/19 14:40 Peritoneal Body Fluid Culture - Final C.albicans/C.dubliniensis No Anaerobic Organisms 12/10/19 10:48 Blood Blood Culture - Final NO GROWTH IN 5 DAYS 12/10/19 09:40 Blood Blood Culture - Final NO GROWTH IN 5 DAYS 12/10/19 16:01 Peritoneal Gram Stain - Final 12/10/19 16:01 Peritoneal Body Fluid Culture - Final Enterobacter Cloacae Citrobacter Koseri Enterococcus Faecalis(Group D) Clostridium Sp.not Perfringens Bacteroides Fragilis Group Impressions: Abdomen/Pelvis CT 12/10/19 09:28 IMPRESSION: 1. Free intraperitoneal gas, most conspicuous inferior to the right hemidiaphragm, compatible with perforated viscus. Site of perforation is not clearly delineated. Moderate volume ascites, increased from prior. Recommend surgical consultation. 2. Increased intraluminal attenuation within a jejunal loop which progresses on further delayed imaging suggestive of active GI bleed (series 3, image 53 and series 6, image 51). Recommend correlation with Hemoccult. Additional diffuse jejunal wall thickening suggestive of enteritis. 3. Thoracic and abdominal aortic aneurysm, stable. 4. Additional chronic findings as above. Findings were discussed with Stacia at 1057 hours on 12/10/2019. Chest X-Ray 12/14/19 00:00 IMPRESSION: Interval placement of central venous catheter. No pneumothorax. Other findings stable copyright 2011 [employer]- All Rights Reserved All labs, radiographs, diagnostic studies and EKGs were personally reviewed: Yes In addition, reports of radiographic and diagnostic studies were read: Yes Assessment and Plan - Diagnosis (1) Peritonitis Is this a current diagnosis for this admission?: Yes Plan: On Levaquin/Flagyl for polymicrobial infection with surgical specimens isolating: Enterobacter cloacae, Citrobacter), Enterococcus faecalis (group D), Clostridium species (not perfringens), Bacteroides fragilis group. (2) Acute hypercapnic respiratory failure Is this a current diagnosis for this admission?: Yes Plan: Successfully extubated. Supplemental oxygen as needed to maintain SpO2 90-94%. Incentive spirometry/pulmonary toilet. (3) Emphysema lung Qualifiers: Emphysema type: centrilobular Qualified Code(s): J43.2 - Centrilobular emphysema Is this a current diagnosis for this admission?: Yes (4) Bowel perforation Is this a current diagnosis for this admission?: Yes (5) Hypoalbuminemia Is this a current diagnosis for this admission?: Yes (6) Small bowel obstruction Is this a current diagnosis for this admission?: Yes (7) Protein calorie malnutrition Is this a current diagnosis for this admission?: Yes (8) Hypokalemia Is this a current diagnosis for this admission?: Yes (9) Hypomagnesemia Is this a current diagnosis for this admission?: Yes (10) Hypocalcemia Is this a current diagnosis for this admission?: Yes Plan Summary: Case discussed with Dr. Salerno. Aguirre to transfer to the floor. Critical Time Critical Time (minutes): 30 Level of Care: ICU -: 1. The care of a critical patient is a dynamic process. This note is a sales representative canvas products synopsis but static in nature. The timeframe for treatments given in order is not necessarily the actual time these treatments may have been done. 2. This patient requires critical care secondary to ongoing requirements for therapy not offered or safe outside the critical care environment. Transfer to a lower level of care will result in altered life or limb morbidity and mortality. 3. Multidisciplinary rounds completed. 4. ABCDE bundle addressed.
[2019-12-16] MEDS: AMINO ACIDS 5 %/DEXTROSE 20 % 1,000 ML IV PRN (21:32)
[2019-12-17] MEDS: INSULIN REG, HUMAN 100 UNIT/ML 3 ML VIAL (PYX) SUBCUT SCH ×4 (00:21→17:21)
[2019-12-17] MEDS: METRONIDAZOLE 500 MG/NS RTU 500 MG/100 ML RTUPB IV SCH ×2 (05:33→14:05)
[2019-12-17 07:19] LABS: ALBUMIN 1.6 g/dL (3.5-5.0); ALKALINE PHOSPHATASE 219 U/L (38-126); ASPARTATE AMINO TRANSFERASE 15 U/L (17-59); BILIRUBIN,TOTAL 0.3 mg/dL (0.2-1.3); BLOOD UREA NITROGEN 16 mg/dL (7-20); GLUCOSE 137 mg/dL (75-110); PHOSPHORUS 2.9 mg/dL (2.5-4.5); POTASSIUM 3.6 mmol/L (3.6-5.0); TOTAL PROTEIN 3.4 g/dL (6.3-8.2)
[2019-12-17 07:24] LABS: CARBON DIOXIDE 32 mmol/L (22-30); CHLORIDE 107 mmol/L (98-107)
[2019-12-17 07:28] LABS: ANION GAP 2 (5-19)
[2019-12-17 07:29] LABS: CALCIUM 6.7 mg/dL (8.4-10.2)
--- NOTE | 2019-12-17 07:55 | PDOC PROGRESS REPORT ---
Subjective Progress Note for:: 12/17/19 Subjective:: feels ok pasing stool danilo clears. Reason For Visit: PNEUMOPERITONEUM, PERFORATED TERMINAL ILEUM Physical Exam Vital Signs: Temp Pulse Resp BP Pulse Ox 98.9 F 77 19 135/79 H 100 12/17/19 07:16 12/17/19 07:16 12/17/19 07:16 12/17/19 07:16 12/17/19 07:16 Intake & Output 12/16/19 12/17/19 12/18/19 06:59 06:59 06:59 Intake Total 1738 1813.3333 Output Total 2200 470 Balance -462 1343.3333 Weight 66.1 kg 64.1 kg General appearance: PRESENT: no acute distress Head exam: PRESENT: normocephalic Eye exam: PRESENT: EOMI, PERRLA Mouth exam: PRESENT: moist Teeth exam: PRESENT: poor dentation Neck exam: PRESENT: full ROM Respiratory exam: PRESENT: decreased breath sounds Cardiovascular exam: PRESENT: RRR Pulses: PRESENT: normal radial pulses, normal femoral pulses Vascular exam: PRESENT: normal capillary refill Breast: PRESENT: Normal GI/Abdominal exam: PRESENT: other - abd soft incision open, clean Rectal exam: PRESENT: deferred Extremities exam: PRESENT: full ROM Musculoskeletal exam: PRESENT: full ROM Neurological exam: PRESENT: alert, awake, oriented to person Psychiatric exam: PRESENT: appropriate affect Skin exam: PRESENT: dry Results Laboratory Results: 12/16/19 02:50 12/17/19 06:00 12/17/19 12/17/19 00:30 06:00 Sodium 140.8 Potassium 3.6 Chloride 107 Carbon Dioxide 32 H Anion Gap 2 L BUN 16 Creatinine 0.31 L Est GFR ( Amer) > 60 Glucose 137 H Calcium 6.7 L* Phosphorus 2.9 Total Bilirubin 0.3 AST 15 L Alkaline Phosphatase 219 H Total Protein 3.4 L Albumin 1.6 L Prealbumin 5.0 L Triglycerides 64 12/13/19 14:40 Peritoneal Gram Stain - Final 12/13/19 14:40 Peritoneal Body Fluid Culture - Final C.albicans/C.dubliniensis No Anaerobic Organisms Impressions: Abdomen/Pelvis CT 12/10/19 09:28 IMPRESSION: 1. Free intraperitoneal gas, most conspicuous inferior to the right hemidiaphragm, compatible with perforated viscus. Site of perforation is not clearly delineated. Moderate volume ascites, increased from prior. Recommend surgical consultation. 2. Increased intraluminal attenuation within a jejunal loop which progresses on further delayed imaging suggestive of active GI bleed (series 3, image 53 and series 6, image 51). Recommend correlation with Hemoccult. Additional diffuse jejunal wall thickening suggestive of enteritis. 3. Thoracic and abdominal aortic aneurysm, stable. 4. Additional chronic findings as above. Findings were discussed with Stacia at 1057 hours on 12/10/2019. Chest X-Ray 12/14/19 00:00 IMPRESSION: Interval placement of central venous catheter. No pneumothorax. Other findings stable copyright 2011 [employer]- All Rights Reserved Assessment & Plan - Time Time Spent with patient: 35 or more minutes - Plan Summary Plan Summary: increase mobilization have ordered physical therapy danilo clears will advance diet will need medicine consult upon tx to medical floor secondary to sever copd.
[2019-12-17] MEDS: BUDESONIDE NEB 0.25 MG/2 ML AMPUL NEB SCH ×2 (08:25→20:00)
--- NOTE | 2019-12-17 08:38 | PDOC CRITICAL CARE PROG REPORT ---
General Date:: 12/17/19 ICU Day:: 7 Hospital Day:: 8 Resuscitation Status: Full Code Events in the past 12 to 24 Hours:: Went back to OR (2/7) with concerns of recurrent perforation of viscus (due to abdominal free air and dwindling blood pressure). No significant intraoperative findings reported. Returned from OR still on mechanical ventilatory support. Successfully extubated (2/8). On 2 LPM via nasal cannula. No respiratory distress. Awaiting transfer to the floor. Tolerating p.o. intake. Nurse reports Ca 6.8 this a.m. Albumin 1.6. Review of systems relevant to events:: GI, respiratory Reason for ICU Addmission:: Need for pressors and ventilator Physical Exam Vital Signs: Temp Pulse Resp BP Pulse Ox 98.9 F 77 19 135/79 H 100 12/17/19 07:16 12/17/19 07:16 12/17/19 07:16 12/17/19 07:16 12/17/19 07:16 Intake & Output 12/16/19 12/17/19 12/18/19 06:59 06:59 06:59 Intake Total 1738 1813.3333 Output Total 2200 470 Balance -462 1343.3333 Weight 66.1 kg 64.1 kg Weight/Height Weight 64.1 kg Height 1.78 m Laboratory/Radiographs Laboratory Results: 12/16/19 02:50 12/17/19 06:00 12/17/19 12/17/19 00:30 06:00 Sodium 140.8 Potassium 3.6 Chloride 107 Carbon Dioxide 32 H Anion Gap 2 L BUN 16 Creatinine 0.31 L Est GFR ( Amer) > 60 Glucose 137 H Calcium 6.7 L* Phosphorus 2.9 Total Bilirubin 0.3 AST 15 L Alkaline Phosphatase 219 H Total Protein 3.4 L Albumin 1.6 L Prealbumin 5.0 L Triglycerides 64 12/13/19 14:40 Peritoneal Gram Stain - Final 12/13/19 14:40 Peritoneal Body Fluid Culture - Final C.albicans/C.dubliniensis No Anaerobic Organisms Impressions: Abdomen/Pelvis CT 12/10/19 09:28 IMPRESSION: 1. Free intraperitoneal gas, most conspicuous inferior to the right hemidiaphragm, compatible with perforated viscus. Site of perforation is not clearly delineated. Moderate volume ascites, increased from prior. Recommend surgical consultation. 2. Increased intraluminal attenuation within a jejunal loop which progresses on further delayed imaging suggestive of active GI bleed (series 3, image 53 and series 6, image 51). Recommend correlation with Hemoccult. Additional diffuse jejunal wall thickening suggestive of enteritis. 3. Thoracic and abdominal aortic aneurysm, stable. 4. Additional chronic findings as above. Findings were discussed with Stacia at 1057 hours on 12/10/2019. Chest X-Ray 12/14/19 00:00 IMPRESSION: Interval placement of central venous catheter. No pneumothorax. Other findings stable copyright 2011 [employer]- All Rights Reserved All labs, radiographs, diagnostic studies and EKGs were personally reviewed: Yes In addition, reports of radiographic and diagnostic studies were read: Yes Assessment and Plan - Diagnosis (1) Peritonitis Is this a current diagnosis for this admission?: Yes Plan: On Levaquin/Flagyl for polymicrobial infection with surgical specimens isolating: Enterobacter cloacae, Citrobacter), Enterococcus faecalis (group D), Clostridium species (not perfringens), Bacteroides fragilis group. (2) Acute hypercapnic respiratory failure Is this a current diagnosis for this admission?: Yes Plan: Successfully extubated. Supplemental oxygen as needed to maintain SpO2 90-94%. Incentive spirometry/pulmonary toilet. (3) Emphysema lung Qualifiers: Emphysema type: centrilobular Qualified Code(s): J43.2 - Centrilobular emphysema Is this a current diagnosis for this admission?: Yes Plan: Continue DuoNeb/Pulmicort (4) Bowel perforation Is this a current diagnosis for this admission?: Yes Plan: s/p ileocecectomy with perforated loop of terminal ileum (2/4) and repeat exploratory laparotomy (2/7) no new significant findings. Currently on Levaquin/Flagyl. (5) Hypoalbuminemia Is this a current diagnosis for this admission?: Yes (6) Small bowel obstruction Is this a current diagnosis for this admission?: Yes (7) Protein calorie malnutrition Is this a current diagnosis for this admission?: Yes (8) Hypokalemia Is this a current diagnosis for this admission?: Yes (9) Hypomagnesemia Is this a current diagnosis for this admission?: Yes (10) Hypocalcemia Is this a current diagnosis for this admission?: Yes Plan Summary: DISPOSITION: OK to transfer to the floor. Critical Time Critical Time (minutes): 30 Level of Care: IMCU -: 1. The care of a critical patient is a dynamic process. This note is a b2b sales representative synopsis but static in nature. The timeframe for treatments given in order is not necessarily the actual time these treatments may have been done. 2. This patient requires critical care secondary to ongoing requirements for therapy not offered or safe outside the critical care environment. Transfer to a lower level of care will result in altered life or limb morbidity and mortality. 3. Multidisciplinary rounds completed. 4. ABCDE bundle addressed.
[2019-12-17] MEDS: ENOXAPARIN SODIUM INJ 40 MG/0.4 ML DISP.SYRIN SUBCUT SCH (10:03)
[2019-12-17] MEDS: LEVOFLOXACIN 500 MG/D5W RTU 500 MG/100 ML RTUPB IV SCH (10:04)
[2019-12-17] MEDS: IPRATROPIUM/ALBUTEROL 0.5-2.5 MG/3 ML AMPUL NEB SCH ×3 (13:47→20:00)
[2019-12-17] MEDS: AMINO ACIDS 5 %/DEXTROSE 20 % 1,000 ML IV PRN (20:14)
[2019-12-18] MEDS: INSULIN REG, HUMAN 100 UNIT/ML 3 ML VIAL (PYX) SUBCUT SCH ×4 (01:26→18:33)
[2019-12-18] MEDS: IPRATROPIUM/ALBUTEROL 0.5-2.5 MG/3 ML AMPUL NEB SCH ×4 (02:31→19:58)
[2019-12-18 07:23] LABS: ALBUMIN 1.7 g/dL (3.5-5.0); ALKALINE PHOSPHATASE 186 U/L (38-126); ASPARTATE AMINO TRANSFERASE 16 U/L (17-59); BILIRUBIN,DIRECT 0.2 mg/dL (0.0-0.4); BILIRUBIN,TOTAL 0.3 mg/dL (0.2-1.3); BLOOD UREA NITROGEN 17 mg/dL (7-20); GLUCOSE 135 mg/dL (75-110); PHOSPHORUS 2.7 mg/dL (2.5-4.5); POTASSIUM 3.3 mmol/L (3.6-5.0); TOTAL PROTEIN 3.7 g/dL (6.3-8.2)
[2019-12-18 07:29] LABS: CARBON DIOXIDE 33 mmol/L (22-30); CHLORIDE 106 mmol/L (98-107)
[2019-12-18 07:31] LABS: PREALBUMIN 6.9 mg/dL (17.6-36.0)
[2019-12-18 07:35] LABS: ANION GAP 1 (5-19); CALCIUM 6.9 mg/dL (8.4-10.2)
[2019-12-18] MEDS: BUDESONIDE NEB 0.25 MG/2 ML AMPUL NEB SCH ×2 (08:07→19:58)
[2019-12-18] MEDS: ENOXAPARIN SODIUM INJ 40 MG/0.4 ML DISP.SYRIN SUBCUT SCH (11:25)
[2019-12-18] MEDS: AMINO ACIDS 5 %/DEXTROSE 20 % 1,000 ML IV PRN (15:20)
--- NOTE | 2019-12-18 16:22 | PDOC PROGRESS REPORT ---
Subjective Progress Note for:: 12/18/19 Reason For Visit: PNEUMOPERITONEUM, PERFORATED TERMINAL ILEUM Physical Exam Vital Signs: Temp Pulse Resp BP Pulse Ox 98.3 F 78 20 118/71 95 12/18/19 03:58 12/18/19 13:39 12/18/19 13:39 12/18/19 12:00 12/18/19 13:39 Intake & Output 12/17/19 12/18/19 12/19/19 06:59 06:59 06:59 Intake Total 1913.3333 602 Output Total 470 300 Balance 1443.3333 302 Weight 64.1 kg 63 kg 63 kg Results Laboratory Results: 12/16/19 02:50 12/18/19 05:45 12/18/19 05:45 Sodium 140.1 Potassium 3.3 L Chloride 106 Carbon Dioxide 33 H Anion Gap 1 L BUN 17 Creatinine 0.25 L Est GFR ( Amer) > 60 Glucose 135 H Calcium 6.9 L* Phosphorus 2.7 Total Bilirubin 0.3 AST 16 L Alkaline Phosphatase 186 H Total Protein 3.7 L Albumin 1.7 L Prealbumin 6.9 L Impressions: Abdomen/Pelvis CT 12/10/19 09:28 IMPRESSION: 1. Free intraperitoneal gas, most conspicuous inferior to the right hemidiaphragm, compatible with perforated viscus. Site of perforation is not clearly delineated. Moderate volume ascites, increased from prior. Recommend surgical consultation. 2. Increased intraluminal attenuation within a jejunal loop which progresses on further delayed imaging suggestive of active GI bleed (series 3, image 53 and series 6, image 51). Recommend correlation with Hemoccult. Additional diffuse jejunal wall thickening suggestive of enteritis. 3. Thoracic and abdominal aortic aneurysm, stable. 4. Additional chronic findings as above. Findings were discussed with Stacia at 1057 hours on 12/10/2019. Chest X-Ray 12/14/19 00:00 IMPRESSION: Interval placement of central venous catheter. No pneumothorax. Other findings stable copyright 2011 [employer]- All Rights Reserved Assessment & Plan - Diagnosis (1) Internal hernia Is this a current diagnosis for this admission?: Yes (2) Bowel perforation Is this a current diagnosis for this admission?: Yes (3) Small bowel obstruction Is this a current diagnosis for this admission?: Yes - Time Time Spent with patient: Less than 15 minutes - Plan Summary Plan Summary: This is a 74-year-old male with a perforated viscus due to an internal hernia. The patient is status post exploratory laparotomy, with a second look laparotomy several days later. The patient is doing well today. He is tolerating a diet, and passing stool. He is weak. He finds it difficult to walk. The patient is working with physical therapy. In light of the patient's recent medical condition, I have recommended he consider a rehab facility for post hospital care. The patient has stated that he will consider this. I will make the appropriate consultation. Continue with his diet. Ambulate as much as pos sible. Continue physical therapy. Aggressive pulmonary toilet.
[2019-12-19] MEDS: IPRATROPIUM/ALBUTEROL 0.5-2.5 MG/3 ML AMPUL NEB SCH ×4 (01:43→19:28)
[2019-12-19] MEDS: INSULIN REG, HUMAN 100 UNIT/ML 3 ML VIAL (PYX) SUBCUT SCH ×4 (06:17→17:35)
[2019-12-19 07:09] LABS: ALBUMIN 1.7 g/dL (3.5-5.0); ALKALINE PHOSPHATASE 157 U/L (38-126); ASPARTATE AMINO TRANSFERASE 16 U/L (17-59); BILIRUBIN,DIRECT 0.2 mg/dL (0.0-0.4); BILIRUBIN,TOTAL 0.3 mg/dL (0.2-1.3); BLOOD UREA NITROGEN 21 mg/dL (7-20); GLUCOSE 123 mg/dL (75-110); PHOSPHORUS 2.8 mg/dL (2.5-4.5); POTASSIUM 3.7 mmol/L (3.6-5.0); TOTAL PROTEIN 3.9 g/dL (6.3-8.2)
[2019-12-19 07:14] LABS: CARBON DIOXIDE 33 mmol/L (22-30); CHLORIDE 106 mmol/L (98-107)
[2019-12-19 07:15] LABS: CALCIUM 7.1 mg/dL (8.4-10.2)
[2019-12-19 07:16] LABS: PREALBUMIN 8.1 mg/dL (17.6-36.0)
[2019-12-19 07:18] LABS: ANION GAP 1 (5-19)
[2019-12-19] MEDS: BUDESONIDE NEB 0.25 MG/2 ML AMPUL NEB SCH ×2 (07:38→19:28)
[2019-12-19] MEDS ORDERED: ONDANSETRON HCL INJ/PF 4 MG/2 ML SDV IV PRN (09:00)
[2019-12-19] MEDS: ENOXAPARIN SODIUM INJ 40 MG/0.4 ML DISP.SYRIN SUBCUT SCH (09:50)
[2019-12-19] MEDS ORDERED: FAT EMULSIONS 250 ML IV SCH (10:00)
[2019-12-19] MEDS: AMINO ACIDS 5 %/DEXTROSE 20 % 1,000 ML IV PRN (12:04)
--- NOTE | 2019-12-19 12:30 | PDOC PROGRESS REPORT ---
Subjective Progress Note for:: 12/19/19 Reason For Visit: PNEUMOPERITONEUM, PERFORATED TERMINAL ILEUM Patient essentially not responsive. Grimaces when stimulated. At bed rest. TPN continues. Physical Exam Vital Signs: Temp Pulse Resp BP Pulse Ox 98.6 F 71 21 H 114/64 95 12/19/19 07:04 12/19/19 07:38 12/19/19 07:38 12/19/19 07:04 12/19/19 07:38 Intake & Output 12/18/19 12/19/19 12/20/19 06:59 06:59 06:59 Intake Total 602 540 Output Total 300 Balance 302 540 Weight 63 kg 67.3 kg General appearance: PRESENT: other - Patient laying semirecumbent, mouth open; minimally responsive to verbal stimulation GI/Abdominal exam: PRESENT: other - The abdomen is examined. The midline incision is loosely approximated yusuf. Is clean, with minimal granulation tissue. The abdomen is soft otherwise Results Laboratory Results: 12/16/19 02:50 12/19/19 06:20 12/19/19 06:20 Sodium 140.4 Potassium 3.7 Chloride 106 Carbon Dioxide 33 H Anion Gap 1 L BUN 21 H Creatinine 0.25 L Est GFR ( Amer) > 60 Glucose 123 H Calcium 7.1 L Phosphorus 2.8 Total Bilirubin 0.3 AST 16 L Alkaline Phosphatase 157 H Total Protein 3.9 L Albumin 1.7 L Prealbumin 8.1 L Impressions: Abdomen/Pelvis CT 12/10/19 09:28 IMPRESSION: 1. Free intraperitoneal gas, most conspicuous inferior to the right hemidiaphragm, compatible with perforated viscus. Site of perforation is not clearly delineated. Moderate volume ascites, increased from prior. Recommend surgical consultation. 2. Increased intraluminal attenuation within a jejunal loop which progresses on further delayed imaging suggestive of active GI bleed (series 3, image 53 and series 6, image 51). Recommend correlation with Hemoccult. Additional diffuse jejunal wall thickening suggestive of enteritis. 3. Thoracic and abdominal aortic aneurysm, stable. 4. Additional chronic findings as above. Findings were discussed with Stacia at 1057 hours on 12/10/2019. Chest X-Ray 12/14/19 00:00 IMPRESSION: Interval placement of central venous catheter. No pneumothorax. Other findings stable copyright 2011 [employer]- All Rights Reserved Assessment & Plan - Diagnosis (1) Bowel perforation Is this a current diagnosis for this admission?: Yes Plan: Impression: Postoperative day 5, postoperative day 8 status post exploratory laparotomy, small bowel resection for ischemia, perforated intestine; failure to thrive, poor p.o. intake , remains on TPN Plan: 1. Will communicate patient's status with ; need to get advanced care directives worked out; 2. We will also communicate with hospitalist service for additional support. - Time Time Spent with patient: Less than 15 minutes Medications reviewed and adjusted accordingly: Yes Anticipated discharge: Home
--- NOTE | 2019-12-19 13:28 | PDOC PROGRESS REPORT ---
Subjective Progress Note for:: 12/19/19 Subjective:: Mr. Karen Jacobs a 74-year-old male with past medical history of h yperlipidemia, hypertension, PVD, AAA 5.5 cm, COPD, was admitted on 12/10/2019 by surgical team for abdominal pain found to have pneumoperitoneum, underwent exploratory laparotomy and lysis of adhesion, with ileocecectomy, intubated, transferred to ICU post surgery, complicated by second perforation taken to the OR again on 12/13/2019 found to have a moderate amount of serous fluid in the peritoneal cavity with no obvious pneumoperitoneum. Anastomosis appeared intact. Was transferred back to ICU. Eventually was downgraded to IMCU on 12/18/2019. Abdominal fluid cultures grew Enterobacter, Citrobacter, enterococcus, Clostridium and Bacteroides. Was a started on levofloxacin and Flagyl and ICU. Received IV antibiotics from 12/10/2021 12/17/2019. While patient pending placement hospitalist is consulted for medical management. 12/19/2019. Saw patient this afternoon. Resting comfortably in bed no distress. Alert and oriented. Denies any pain. Has been tolerating some food. On TPN. Denies any fever, chills, nausea, vomiting, diarrhea, constipation or any urinary symptoms. Reason For Visit: PNEUMOPERITONEUM, PERFORATED TERMINAL ILEUM Physical Exam Vital Signs: Temp Pulse Resp BP Pulse Ox 98.6 F 71 21 H 114/64 95 12/19/19 07:04 12/19/19 07:38 12/19/19 07:38 12/19/19 07:04 12/19/19 07:38 Intake & Output 12/18/19 12/19/19 12/20/19 06:59 06:59 06:59 Intake Total 602 540 Output Total 300 Balance 302 540 Weight 63 kg 67.3 kg General appearance: PRESENT: no acute distress, well-developed, well-nourished Head exam: PRESENT: atraumatic, normocephalic Respiratory exam: PRESENT: clear to auscultation johanna. ABSENT: rales, rhonchi, wheezes GI/Abdominal exam: PRESENT: normal bowel sounds, soft, other - Dressing over surgical wound. No apparent tenderness erythema or discharge.. ABSENT: distended, guarding, mass, organolmegaly, rebound, tenderness Neurological exam: PRESENT: alert, awake, oriented to person, oriented to place, oriented to time, oriented to situation, CN II-XII grossly intact. ABSENT: motor sensory deficit Results Laboratory Results: 12/16/19 02:50 12/19/19 06:20 12/19/19 06:20 Sodium 140.4 Potassium 3.7 Chloride 106 Carbon Dioxide 33 H Anion Gap 1 L BUN 21 H Creatinine 0.25 L Est GFR ( Amer) > 60 Glucose 123 H Calcium 7.1 L Phosphorus 2.8 Total Bilirubin 0.3 AST 16 L Alkaline Phosphatase 157 H Total Protein 3.9 L Albumin 1.7 L Prealbumin 8.1 L Impressions: Abdomen/Pelvis CT 12/10/19 09:28 IMPRESSION: 1. Free intraperitoneal gas, most conspicuous inferior to the right hemidiaphragm, compatible with perforated viscus. Site of perforation is not clearly delineated. Moderate volume ascites, increased from prior. Recommend surgical consultation. 2. Increased intraluminal attenuation within a jejunal loop which progresses on further delayed imaging suggestive of active GI bleed (series 3, image 53 and series 6, image 51). Recommend correlation with Hemoccult. Additional diffuse jejunal wall thickening suggestive of enteritis. 3. Thoracic and abdominal aortic aneurysm, stable. 4. Additional chronic findings as above. Findings were discussed with Stacia at 1057 hours on 12/10/2019. Chest X-Ray 12/14/19 00:00 IMPRESSION: Interval placement of central venous catheter. No pneumothorax. Other findings stable copyright 2011 [employer]- All Rights Reserved Assessment and Plan - Diagnosis (1) Acute respiratory failure with hypoxia Is this a current diagnosis for this admission?: Yes Plan: Resolved. SPO2 WNL on 2 L. Intubated in ICU, successfully extubated on 12/16/2019. Continue supplemental oxygen, duo nebs, pulmonary toileting, flutter valve and incentive spirometry. (2) Bowel perforation Is this a current diagnosis for this admission?: Yes Plan: s/p ileocecectomy with perforated loop of terminal ileum (2/4) and repeat exploratory laparotomy (2) no new significant findings. As per surgical team. (3) Abdominal aortic aneurysm (AAA) Qualifiers: Presence of rupture: without rupture Qualified Code(s): I71.4 - Abdominal aortic aneurysm, without rupture Is this a current diagnosis for this admission?: Yes Plan: History of abdominal aortic aneurysm 5.5 cm. Outpatient PCP and vascular surgeon follow-up. (4) Chronic obstructive pulmonary disease Qualifiers: COPD type: unspecified COPD Qualified Code(s): J44.9 - Chronic obstructive pulmonary disease, unspecified Is this a current diagnosis for this admission?: Yes Plan: Does not seem to be acutely exacerbated. Plan as per #1. (5) BPH (benign prostatic hyperplasia) Qualifiers: Lower urinary tract symptom presence: symptoms absent Qualified Code(s): N40.0 - Benign prostatic hyperplasia without lower urinary tract symptoms Is this a current diagnosis for this admission?: Yes Plan: Continue tamsulosin. Outpatient PCP and urology follow-up. (6) Hypertension Is this a current diagnosis for this admission?: Yes Plan: Euvolemic. Normotensive. Continue MASHA and beta-blockers. PRN beta-blockers and IV hydralazine. Monitor vitals. Adjust meds as needed. Outpatient PCP follow-up. (7) Hyperlipidemia Is this a current diagnosis for this admission?: Yes Plan: Continue statins. LFTs WNL.
[2019-12-19] MEDS: TAMSULOSIN HCL 0.4 MG CAP.SR.24H PO SCH (17:35)
[2019-12-20] MEDS: IPRATROPIUM/ALBUTEROL 0.5-2.5 MG/3 ML AMPUL NEB SCH ×4 (01:49→19:20)
[2019-12-20] MEDS: INSULIN REG, HUMAN 100 UNIT/ML 3 ML VIAL (PYX) SUBCUT SCH ×2 (02:14→06:56)
[2019-12-20] MEDS: BUDESONIDE NEB 0.25 MG/2 ML AMPUL NEB SCH ×2 (07:57→19:20)
[2019-12-20] MEDS: AMINO ACIDS 5 %/DEXTROSE 20 % 1,000 ML IV PRN (08:32)
[2019-12-20 08:39] LABS: ABSOLUTE EOSINOPHILS # (AUTO) 0.1 10^3/uL (0.0-0.6); ABSOLUTE LYMPHOCYTES (AUTO) 1.3 10^3/uL (0.5-4.7); ABSOLUTE MONOCYTES (AUTO) 0.7 10^3/uL (0.1-1.4); BASOPHILS % (AUTO) 0.2 % (0-2); EOSINOPHILS % (AUTO) 0.4 % (0-6); HEMATOCRIT 25.1 % (37.9-51.0); HEMOGLOBIN 8.5 g/dL (13.5-17.0); LYMPHOCYTES % (AUTO) 10.3 % (13-45); MEAN CORPUSCULAR HEMOGLOBIN 31.2 pg (27.0-33.4); MEAN CORPUSCULAR HGB CONC 33.9 g/dL (32.0-36.0); MEAN CORPUSCULAR VOLUME 92 fl (80-97); MONOCYTES % (AUTO) 5.3 % (3-13); PLATELET COUNT 260 10^3/uL (150-450); RED BLOOD COUNT 2.72 10^6/uL (4.35-5.55); RED CELL DISTRIBUTION WIDTH 16.6 % (11.5-14.0); SEGMENTED NEUTROPHILS % (AUTO) 83.8 % (42-78); TOTAL CELLS COUNTED % (AUTO) 100 %; WHITE BLOOD COUNT 13.1 10^3/uL (4.0-10.5)
[2019-12-20 08:59] LABS: BLOOD UREA NITROGEN 25 mg/dL (7-20); CALCIUM 7.1 mg/dL (8.4-10.2); CHLORIDE 105 mmol/L (98-107); GLUCOSE 147 mg/dL (75-110); POTASSIUM 3.9 mmol/L (3.6-5.0)
[2019-12-20 09:05] LABS: ANION GAP 1 (5-19); CARBON DIOXIDE 33 mmol/L (22-30)
--- NOTE | 2019-12-20 09:16 | PDOC PROGRESS REPORT ---
Subjective Progress Note for:: 12/20/19 Reason For Visit: PNEUMOPERITONEUM, PERFORATED TERMINAL ILEUM Physical Exam Vital Signs: Temp Pulse Resp BP Pulse Ox 98.2 F 74 20 106/58 L 94 12/20/19 07:20 12/20/19 08:10 12/20/19 08:10 12/20/19 07:20 12/20/19 08:10 Intake & Output 12/19/19 12/20/19 12/21/19 06:59 06:59 06:59 Intake Total 540 380 Output Total 500 Balance 540 -120 Weight 67.3 kg 62.7 kg General appearance: PRESENT: disheveled, hard of hearing Head exam: PRESENT: normocephalic Eye exam: PRESENT: EOMI Ear exam: PRESENT: normal external ear exam Mouth exam: PRESENT: moist Teeth exam: PRESENT: poor dentation Neck exam: PRESENT: full ROM Respiratory exam: PRESENT: clear to auscultation johanna Cardiovascular exam: PRESENT: RRR Pulses: PRESENT: normal radial pulses, normal femoral pulses Vascular exam: PRESENT: normal capillary refill Breast: PRESENT: Normal GI/Abdominal exam: PRESENT: other - Soft nontender he has a midline incision that is open and being packed with wet-to-dry minimal granulation bed tissues appear to be pale Rectal exam: PRESENT: deferred Musculoskeletal exam: PRESENT: other - Patient lying in bed still too weak to stand up physical therapy states that he was able to sit at the side of the bed yesterday Psychiatric exam: PRESENT: flat affect Skin exam: PRESENT: dry Results Laboratory Results: 12/20/19 08:15 12/20/19 08:15 12/13/19 12/19/19 12/20/19 14:51 14:44 08:15 WBC RBC Hgb Hct MCV MCH MCHC RDW Plt Count Seg Neutrophils % Sodium 139.3 Potassium 3.9 Chloride 105 Carbon Dioxide 33 H Anion Gap 1 L BUN 25 H Creatinine 0.21 L Est GFR ( Amer) > 60 Glucose 147 H Calcium 7.1 L Ammonia < 8.7 L Fluid Tot Bilirubin 0.2 12/20/19 08:15 WBC 13.1 H RBC 2.72 L Hgb 8.5 L Hct 25.1 L MCV 92 MCH 31.2 MCHC 33.9 RDW 16.6 H Plt Count 260 Seg Neutrophils % 83.8 H Sodium Potassium Chloride Carbon Dioxide Anion Gap BUN Creatinine Est GFR ( Amer) Glucose Calcium Ammonia Fluid Tot Bilirubin Impressions: Abdomen/Pelvis CT 12/10/19 09:28 IMPRESSION: 1. Free intraperitoneal gas, most conspicuous inferior to the right hemidiaphragm, compatible with perforated viscus. Site of perforation is not clearly delineated. Moderate volume ascites, increased from prior. Recommend surgical consultation. 2. Increased intraluminal attenuation within a jejunal loop which progresses on further delayed imaging suggestive of active GI bleed (series 3, image 53 and series 6, image 51). Recommend correlation with Hemoccult. Additional diffuse jejunal wall thickening suggestive of enteritis. 3. Thoracic and abdominal aortic aneurysm, stable. 4. Additional chronic findings as above. Findings were discussed with Stacia at 1057 hours on 12/10/2019. Chest X-Ray 12/14/19 00:00 IMPRESSION: Interval placement of central venous catheter. No pneumothorax. Other findings stable copyright 2011 [employer]- All Rights Reserved Assessment & Plan - Time Time Spent with patient: 35 or more minutes - Plan Summary Plan Summary: Patient status post exploratory laparotomy for necrotic perforated distal termi nal ileum. Status post take back for exploratory laparotomy with negative findings. Currently patient still a bit weak and unable to stand on his own. Physical therapy has been working with the patient to allow him to sit up on the side of the bed and will continue working with him today. Discharge planning to see patient regarding placement after discharge.
[2019-12-20] MEDS ORDERED: FUROSEMIDE INJ/PF 40 MG/4 ML SDV IV SCH (10:00)
[2019-12-20] MEDS ORDERED: (PENDING PHARMACY ID) (Lisinopril [Zestril] 2.5 MG) PO SCH (10:00)
[2019-12-20] MEDS ORDERED: LISINOPRIL 5 MG TABLET PO SCH (10:00)
[2019-12-20] MEDS: ALBUMIN HUMAN 12.5 GM/50 ML RTUINJ IV SCH ×4 (10:44→13:05)
[2019-12-20] MEDS: METOPROLOL SUCCINATE 25 MG TAB.SR.24H PO SCH (10:51)
[2019-12-20] MEDS: FUROSEMIDE 20 MG TABLET PO SCH ×2 (10:51→17:26)
[2019-12-20] MEDS: ENOXAPARIN SODIUM INJ 40 MG/0.4 ML DISP.SYRIN SUBCUT SCH (10:52)
[2019-12-20] MEDS ORDERED: DEXTROSE 50%-WATER 25 GM/50 ML DISP.SYRIN IV PRN ×2 (11:26)
[2019-12-20] MEDS ORDERED: GLUCAGON,HUMAN RECOMB 1 MG INJ IM PRN (11:26)
[2019-12-20] MEDS ORDERED: DEXTROSE 40% GEL 15 GM TUBE PO PRN ×2 (11:26)
--- NOTE | 2019-12-20 12:26 | PDOC PROGRESS REPORT ---
Subjective Progress Note for:: 12/20/19 Subjective:: Mr. Karen Jacobs a 74-year-old male with past medical history of h yperlipidemia, hypertension, PVD, AAA 5.5 cm, COPD, was admitted on 12/10/2019 by surgical team for abdominal pain found to have pneumoperitoneum, underwent exploratory laparotomy and lysis of adhesion, with ileocecectomy, intubated, transferred to ICU post surgery, complicated by second perforation taken to the OR again on 12/13/2019 found to have a moderate amount of serous fluid in the peritoneal cavity with no obvious pneumoperitoneum. Anastomosis appeared intact. Was transferred back to ICU. Eventually was downgraded to IMCU on 12/18/2019. Abdominal fluid cultures grew Enterobacter, Citrobacter, enterococcus, Clostridium and Bacteroides. Was a started on levofloxacin and Flagyl and ICU. Received IV antibiotics from 12/10/2021 12/17/2019. While patient pending placement hospitalist is consulted for medical management. 12/19/2019. Saw patient this afternoon. Resting comfortably in bed no distress. Alert and oriented. Denies any pain. Has been tolerating some food. On TPN. Denies any fever, chills, nausea, vomiting, diarrhea, constipation or any urinary symptoms. 12/20/2019. No acute events overnight. Appears very weak however alert and oriented x3. Patient is able to tolerate some oral feeds denies any abdominal pain, nausea, vomiting, diarrhea, constipation or any urinary symptoms. Reason For Visit: PNEUMOPERITONEUM, PERFORATED TERMINAL ILEUM Physical Exam Vital Signs: Temp Pulse Resp BP Pulse Ox 97.8 F 73 24 H 114/65 96 12/20/19 10:52 12/20/19 10:52 12/20/19 10:52 12/20/19 10:52 12/20/19 10:52 Intake & Output 12/19/19 12/20/19 12/21/19 06:59 06:59 06:59 Intake Total 540 380 196 Output Total 500 Balance 540 -120 196 Weight 67.3 kg 62.7 kg 62.7 kg General appearance: PRESENT: thin Head exam: PRESENT: atraumatic, normocephalic Respiratory exam: PRESENT: clear to auscultation johanna. ABSENT: rales, rhonchi, wheezes Cardiovascular exam: PRESENT: RRR. ABSENT: diastolic murmur, rubs, systolic murmur GI/Abdominal exam: PRESENT: normal bowel sounds, soft. ABSENT: distended, guarding, mass, organolmegaly, rebound, tenderness Extremities exam: PRESENT: +2 edema Neurological exam: PRESENT: alert, awake, oriented to person, oriented to place, oriented to time, oriented to situation, CN II-XII grossly intact. ABSENT: motor sensory deficit Results Laboratory Results: 12/20/19 08:15 12/20/19 08:15 12/13/19 12/19/19 12/20/19 14:51 14:44 08:15 WBC RBC Hgb Hct MCV MCH MCHC RDW Plt Count Seg Neutrophils % Sodium 139.3 Potassium 3.9 Chloride 105 Carbon Dioxide 33 H Anion Gap 1 L BUN 25 H Creatinine 0.21 L Est GFR ( Amer) > 60 Glucose 147 H Calcium 7.1 L Ammonia < 8.7 L Fluid Tot Bilirubin 0.2 12/20/19 08:15 WBC 13.1 H RBC 2.72 L Hgb 8.5 L Hct 25.1 L MCV 92 MCH 31.2 MCHC 33.9 RDW 16.6 H Plt Count 260 Seg Neutrophils % 83.8 H Sodium Potassium Chloride Carbon Dioxide Anion Gap BUN Creatinine Est GFR ( Amer) Glucose Calcium Ammonia Fluid Tot Bilirubin Impressions: Abdomen/Pelvis CT 12/10/19 09:28 IMPRESSION: 1. Free intraperitoneal gas, most conspicuous inferior to the right hemidiaphragm, compatible with perforated viscus. Site of perforation is not clearly delineated. Moderate volume ascites, increased from prior. Recommend surgical consultation. 2. Increased intraluminal attenuation within a jejunal loop which progresses on further delayed imaging suggestive of active GI bleed (series 3, image 53 and series 6, image 51). Recommend correlation with Hemoccult. Additional diffuse jejunal wall thickening suggestive of enteritis. 3. Thoracic and abdominal aortic aneurysm, stable. 4. Additional chronic findings as above. Findings were discussed with Stacia at 1057 hours on 12/10/2019. Chest X-Ray 12/14/19 00:00 IMPRESSION: Interval placement of central venous catheter. No pneumothorax. Other findings stable copyright 2010 [employer]- All Rights Reserved Assessment and Plan - Diagnosis (1) Acute respiratory failure with hypoxia Is this a current diagnosis for this admission?: Yes Plan: Resolved. SPO2 WNL on 2 L. Intubated in ICU, successfully extubated on 12/16/2019. Continue supplemental oxygen, duo nebs, pulmonary toileting, flutter valve and incentive spirometry. (2) Bowel perforation Is this a current diagnosis for this admission?: Yes Plan: s/p ileocecectomy with perforated loop of terminal ileum (12/10) and repeat exploratory laparotomy (12/13) no new significant findings. As per surgical team. (3) Abdominal aortic aneurysm (AAA) Qualifiers: Presence of rupture: without rupture Qualified Code(s): I71.4 - Abdominal aortic aneurysm, without rupture Is this a current diagnosis for this admission?: Yes Plan: History of abdominal aortic aneurysm 5.5 cm. Outpatient PCP and vascular surgeon follow-up. (4) Chronic obstructive pulmonary disease Qualifiers: COPD type: unspecified COPD Qualified Code(s): J44.9 - Chronic obstructive pulmonary disease, unspecified Is this a current diagnosis for this admission?: Yes Plan: Does not seem to be acutely exacerbated. Plan as per #1. (5) BPH (benign prostatic hyperplasia) Qualifiers: Lower urinary tract symptom presence: symptoms absent Qualified Code(s): N40.0 - Benign prostatic hyperplasia without lower urinary tract symptoms Is this a current diagnosis for this admission?: Yes Plan: Continue tamsulosin. Outpatient PCP and urology follow-up. (6) Hypertension Is this a current diagnosis for this admission?: Yes Plan: Euvolemic. Normotensive. Continue MASHA and beta-blockers. PRN beta-blockers and IV hydralazine. Monitor vitals. Adjust meds as needed. Outpatient PCP follow-up. (7) Hyperlipidemia Is this a current diagnosis for this admission?: Yes Plan: Continue statins. LFTs WNL. (8) Hypoalbuminemia Is this a current diagnosis for this admission?: Yes Plan: Continue TPN. Patient has significant bilateral lower extremity 2+ pitting edema. We will start on IV albumin and low-dose Lasix. Dietitian consulted. (9) Hypoalbuminemia due to protein-calorie malnutrition Is this a current diagnosis for this admission?: Yes Plan: as above
[2019-12-20] MEDS: INSULIN LISPRO 100 UNIT/ML 3 ML VIAL SUBCUT SCH ×2 (13:06→17:17)
[2019-12-20] MEDS: TAMSULOSIN HCL 0.4 MG CAP.SR.24H PO SCH (17:25)
[2019-12-21] MEDS: INSULIN LISPRO 100 UNIT/ML 3 ML VIAL SUBCUT SCH ×4 (00:52→18:55)
[2019-12-21] MEDS: IPRATROPIUM/ALBUTEROL 0.5-2.5 MG/3 ML AMPUL NEB SCH ×4 (02:04→19:40)
[2019-12-21 05:37] LABS: ABSOLUTE EOSINOPHILS # (AUTO) 0.1 10^3/uL (0.0-0.6); ABSOLUTE LYMPHOCYTES (AUTO) 1.5 10^3/uL (0.5-4.7); ABSOLUTE MONOCYTES (AUTO) 0.8 10^3/uL (0.1-1.4); ABSOLUTE NEUT (AUTO) 9.5 10^3/uL (1.7-8.2); BASOPHILS % (AUTO) 0.3 % (0-2); EOSINOPHILS % (AUTO) 0.7 % (0-6); HEMATOCRIT 27.1 % (37.9-51.0); LYMPHOCYTES % (AUTO) 12.5 % (13-45); MEAN CORPUSCULAR HEMOGLOBIN 31.1 pg (27.0-33.4); MEAN CORPUSCULAR HGB CONC 33.1 g/dL (32.0-36.0); MEAN CORPUSCULAR VOLUME 94 fl (80-97); MONOCYTES % (AUTO) 6.7 % (3-13); PLATELET COUNT 315 10^3/uL (150-450); RED BLOOD COUNT 2.88 10^6/uL (4.35-5.55); RED CELL DISTRIBUTION WIDTH 17.3 % (11.5-14.0); SEGMENTED NEUTROPHILS % (AUTO) 79.8 % (42-78); TOTAL CELLS COUNTED % (AUTO) 100 %; WHITE BLOOD COUNT 11.8 10^3/uL (4.0-10.5)
[2019-12-21 06:01] LABS: ALBUMIN 2.1 g/dL (3.5-5.0); ALKALINE PHOSPHATASE 134 U/L (38-126); ASPARTATE AMINO TRANSFERASE 23 U/L (17-59); BILIRUBIN,DIRECT 0.3 mg/dL (0.0-0.4); BILIRUBIN,TOTAL 0.6 mg/dL (0.2-1.3); BLOOD UREA NITROGEN 22 mg/dL (7-20); CALCIUM 7.5 mg/dL (8.4-10.2); GLUCOSE 98 mg/dL (75-110); POTASSIUM 3.8 mmol/L (3.6-5.0); TOTAL PROTEIN 4.5 g/dL (6.3-8.2)
[2019-12-21 06:06] LABS: CARBON DIOXIDE 30 mmol/L (22-30); CHLORIDE 105 mmol/L (98-107)
[2019-12-21 06:10] LABS: ANION GAP 4 (5-19)
[2019-12-21] MEDS: BUDESONIDE NEB 0.25 MG/2 ML AMPUL NEB SCH ×2 (08:13→19:40)
[2019-12-21] MEDS: AMINO ACIDS 5 %/DEXTROSE 20 % 1,000 ML IV PRN (08:49)
[2019-12-21] MEDS: ENOXAPARIN SODIUM INJ 40 MG/0.4 ML DISP.SYRIN SUBCUT SCH (09:31)
[2019-12-21] MEDS: FUROSEMIDE 20 MG TABLET PO SCH ×2 (09:31→18:05)
[2019-12-21] MEDS: METOPROLOL SUCCINATE 25 MG TAB.SR.24H PO SCH (09:56)
[2019-12-21] MEDS ORDERED: MEGESTROL ACETATE SUSP 400 MG/10 ML UDCUP PO SCH (10:00)
--- NOTE | 2019-12-21 10:15 | RADIOLOGY REPORT (SQ) ---
EXAM DESCRIPTION: CHEST SINGLE VIEW COMPLETED DATE/TIME: 12/21/2019 9:59 am REASON FOR STUDY: SOB, somnolence. Upright. COMPARISON: 12/14/2019 FINDINGS: One view chest AP portable upright. Extubated with interval removal of the endotracheal and nasogastric tubes compared to prior. Left central line remains. Slight worsening lung opacities. There is persistent dense opacity left base, consolidation or volum e loss with slightly larger left pleural effusion. Small right pleural effusion as well. Interval d evelopment of haziness consistent with edema in the lungs. TECHNICAL DOCUMENTATION: JOB ID: [id number] Reading location - IP/workstation name: [email or web address]
--- NOTE | 2019-12-21 10:26 | EKG REPORT ---
SEVERITY:- ABNORMAL ECG - SINUS RHYTHM BORDERLINE LEFT AXIS DEVIATION NONSPECIFIC T ABNORMALITIES, ANTERIOR AND INFERIOR LEADS (NEW IN INFERIOR LEADS) : Confirmed by: John Horton MD 21-Dec-2019 10:26:21
--- NOTE | 2019-12-21 11:24 | RADIOLOGY REPORT (SQ) ---
EXAM DESCRIPTION: CT HEAD WITHOUT COMPLETED DATE/TIME: 12/21/2019 11:05 am REASON FOR STUDY: change in LOC Z00.00 ENCNTR FOR GENERAL ADULT MEDICAL EXAM W/O ABNORMAL FI COMPARISON: None. TECHNIQUE: Axial images acquired through the brain without intravenous contrast. Images reviewed wi th bone, brain and subdural windows. Additional sagittal and coronal reconstructions were generated. Images stored on PACS. All CT scanners at this facility use dose modulation, iterative reconstruction, and/or weight based d osing when appropriate to reduce radiation dose to as low as reasonably achievable (ALARA). [facility]: Dose Right [facility]: CareDose [facility]: Dose Right [facility]: Teradose 4D [facility]: [employer] RADIATION DOSE: CT Rad equipment meets quality standard of care and radiation dose reduction techniq ues were employed. CTDIvol: 53.2 mGy. DLP: 991 mGy-cm.mGy. LIMITATIONS: None. FINDINGS: VENTRICLES: Prominent. CEREBRUM: No masses. No hemorrhage. No midline shift. Areas of low density in the white matter mos t likely due to chronic micro-vascular ischemic change. No evidence for acute infarction. CEREBELLUM: No masses. No hemorrhage. No alteration of density. No evidence for acute infarction. EXTRAAXIAL SPACES: Age-related involutional change. No fluid collections. No masses. ORBITS AND GLOBE: No intra- or extraconal masses. Normal contour of globe without masses. CALVARIUM: No fracture. PARANASAL SINUSES: No fluid or mucosal thickening. SOFT TISSUES: No mass or hematoma. OTHER: No other significant finding. IMPRESSION: CHRONIC CHANGES OF ATROPHY AND MICROVASCULAR ISCHEMIA. NO ACUTE PROCESS. EVIDENCE OF ACUTE STROKE: NO. TECHNICAL DOCUMENTATION: JOB ID: [id number] Quality ID # [id number]: Final reports with documentation of one or more dose reduction techniques (e.g., Au tomated exposure control, adjustment of the mA and/or kV according to patient size, use of iterative reconstruction technique) 2010 [email or web address]- All Rights Reserved Reading location - IP/workstation name: [email or web address]
[2019-12-21] MEDS: MEGESTROL ACETATE SUSP 400 MG/10 ML UDCUP PO SCH (12:00)
[2019-12-21 16:20] LABS: APPEARANCE,URINE SLIGHTLY-CLOUDY; BILIRUBIN,URINE NEGATIVE (NEGATIVE); COLOR,URINE YELLOW; GLUCOSE, URINE NEGATIVE (NEGATIVE); KETONES,URINE NEGATIVE (NEGATIVE); PROTEIN,URINE NEGATIVE (NEGATIVE); URINE SPECIFIC GRAVITY 1.017; UROBILINOGEN,URINE NEGATIVE mg/dL (<2.0)
--- NOTE | 2019-12-21 16:28 | PDOC PROGRESS REPORT ---
Subjective Progress Note for:: 12/21/19 Subjective:: Mr. Karen Jacobs a 74-year-old male with past medical history of h yperlipidemia, hypertension, PVD, AAA 5.5 cm, COPD, was admitted on 12/10/2019 by surgical team for abdominal pain found to have pneumoperitoneum, underwent exploratory laparotomy and lysis of adhesion, with ileocecectomy, intubated, transferred to ICU post surgery, complicated by second perforation taken to the OR again on 12/13/2019 found to have a moderate amount of serous fluid in the peritoneal cavity with no obvious pneumoperitoneum. Anastomosis appeared intact. Was transferred back to ICU. Eventually was downgraded to IMCU on 12/18/2019. Abdominal fluid cultures grew Enterobacter, Citrobacter, enterococcus, Clostridium and Bacteroides. Was a started on levofloxacin and Flagyl and ICU. Received IV antibiotics from 12/10/2021 12/17/2019. While patient pending placement hospitalist is consulted for medical management. 12/19/2019. Saw patient this afternoon. Resting comfortably in bed no distress. Alert and oriented. Denies any pain. Has been tolerating some food. On TPN. Denies any fever, chills, nausea, vomiting, diarrhea, constipation or any urinary symptoms. 12/20/2019. No acute events overnight. Appears very weak however alert and oriented x3. Patient is able to tolerate some oral feeds denies any abdominal pain, nausea, vomiting, diarrhea, constipation or any urinary symptoms. 12/21/2019. No acute events overnight. This morning appears to be very lethargic however arousable, does not communicate much, except for incoherent mumbling, metals are stable, blood glucose level WNL, CT head WNL, ammonia level normal. Pending UA at time of dictation Reason For Visit: PNEUMOPERITONEUM, PERFORATED TERMINAL ILEUM Physical Exam Vital Signs: Temp Pulse Resp BP Pulse Ox 97.8 F 59 L 18 91/55 L 97 12/21/19 12:00 12/21/19 14:28 12/21/19 14:28 12/21/19 12:00 12/21/19 14:28 Intake & Output 12/20/19 12/21/19 12/22/19 06:59 06:59 06:59 Intake Total 630 691 Output Total 500 425 Balance 130 266 Weight 62.7 kg 63.8 kg General appearance: PRESENT: no acute distress, well-developed, well-nourished, other - Somnolent Head exam: PRESENT: atraumatic, normocephalic Respiratory exam: PRESENT: clear to auscultation johanna. ABSENT: rales, rhonchi, wheezes Pulses: PRESENT: normal dorsalis pedis pul Vascular exam: PRESENT: normal capillary refill GI/Abdominal exam: PRESENT: normal bowel sounds, soft, other - Surgical wound looks clean.. ABSENT: distended, guarding, mass, organolmegaly, rebound, tenderness Neurological exam: PRESENT: alert, awake, oriented to person, oriented to place, oriented to time, oriented to situation, CN II-XII grossly intact. ABSENT: motor sensory deficit Results Laboratory Results: 12/21/19 05:26 12/21/19 05:26 12/21/19 12/21/19 12/21/19 05:26 05:26 13:05 WBC 11.8 H RBC 2.88 L Hgb 9.0 L Hct 27.1 L MCV 94 MCH 31.1 MCHC 33.1 RDW 17.3 H Plt Count 315 Seg Neutrophils % 79.8 H Sodium 139.1 Potassium 3.8 Chloride 105 Carbon Dioxide 30 Anion Gap 4 L BUN 22 H Creatinine 0.21 L Est GFR ( Amer) > 60 Glucose 98 Calcium 7.5 L Magnesium 1.9 Total Bilirubin 0.6 AST 23 Alkaline Phosphatase 134 H Ammonia < 8.7 L Total Protein 4.5 L Albumin 2.1 L Urine Color Urine Appearance Urine pH Ur Specific [place] Urine Protein Urine Glucose (UA) Urine Ketones Urine Blood Urine RBC (Auto) 12/21/19 15:30 WBC RBC Hgb Hct MCV MCH MCHC RDW Plt Count Seg Neutrophils % Sodium Potassium Chloride Carbon Dioxide Anion Gap BUN Creatinine Est GFR ( Amer) Glucose Calcium Magnesium Total Bilirubin AST Alkaline Phosphatase Ammonia Total Protein Albumin Urine Color YELLOW Urine Appearance SLIGHTLY-CLOUDY Urine pH 6.0 Ur Specific [place] 1.017 Urine Protein NEGATIVE Urine Glucose (UA) NEGATIVE Urine Ketones NEGATIVE Urine Blood NEGATIVE Urine RBC (Auto) 1 Impressions: Abdomen/Pelvis CT 12/10/19 09:28 IMPRESSION: 1. Free intraperitoneal gas, most conspicuous inferior to the right hemidiaphragm, compatible with perforated viscus. Site of perforation is not clearly delineated. Moderate volume ascites, increased from prior. Recommend surgical consultation. 2. Increased intraluminal attenuation within a jejunal loop which progresses on further delayed imaging suggestive of active GI bleed (series 3, image 53 and series 6, image 51). Recommend correlation with Hemoccult. Additional diffuse jejunal wall thickening suggestive of enteritis. 3. Thoracic and abdominal aortic aneurysm, stable. 4. Additional chronic findings as above. Findings were discussed with Stacia at 1057 hours on 12/10/2019. Head CT 12/21/19 00:00 IMPRESSION: CHRONIC CHANGES OF ATROPHY AND MICROVASCULAR ISCHEMIA. NO ACUTE PROCESS. EVIDENCE OF ACUTE STROKE: NO. Assessment and Plan - Diagnosis (1) Acute respiratory failure with hypoxia Is this a current diagnosis for this admission?: Yes Plan: Resolved. SPO2 WNL on 2 L. Intubated in ICU, successfully extubated on 12/16/2019. Continue supplemental oxygen, duo nebs, pulmonary toileting, flutter valve and incentive spirometry. (2) Bowel perforation Is this a current diagnosis for this admission?: Yes Plan: s/p ileocecectomy with perforated loop of terminal ileum (12/10) and repeat explor atory laparotomy (12/13) no new significant findings. As per surgical team. (3) Abdominal aortic aneurysm (AAA) Qualifiers: Presence of rupture: without rupture Qualified Code(s): I71.4 - Abdominal aortic aneurysm, without rupture Is this a current diagnosis for this admission?: Yes Plan: History of abdominal aortic aneurysm 5.5 cm. Outpatient PCP and vascular surgeon follow-up. (4) Chronic obstructive pulmonary disease Qualifiers: COPD type: unspecified COPD Qualified Code(s): J44.9 - Chronic obstructive pulmonary disease, unspecified Is this a current diagnosis for this admission?: Yes Plan: Does not seem to be acutely exacerbated. Plan as per #1. (5) BPH (benign prostatic hyperplasia) Qualifiers: Lower urinary tract symptom presence: symptoms absent Qualified Code(s): N40.0 - Benign prostatic hyperplasia without lower urinary tract symptoms Is this a current diagnosis for this admission?: Yes Plan: Continue tamsulosin. Outpatient PCP and urology follow-up. (6) Hypertension Is this a current diagnosis for this admission?: Yes Plan: Euvolemic. Normotensive. Continue MASHA and beta-blockers. PRN beta-blockers and IV hydralazine. Monitor vitals. Adjust meds as needed. Outpatient PCP follow-up. (7) Hyperlipidemia Is this a current diagnosis for this admission?: Yes Plan: Continue statins. LFTs WNL. (8) Hypoalbuminemia Is this a current diagnosis for this admission?: Yes Plan: Continue TPN. Patient has significant bilateral lower extremity 2+ pitting edema. We will start on IV albumin and low-dose Lasix. Dietitian consulted. (9) Hypoalbuminemia due to protein-calorie malnutrition Is this a current diagnosis for this admission?: Yes Plan: as above
[2019-12-21] MEDS ORDERED: LEVOFLOXACIN 500 MG/D5W RTU 500 MG/100 ML RTUPB IV ONE (17:00)
[2019-12-21] MEDS: TAMSULOSIN HCL 0.4 MG CAP.SR.24H PO SCH (18:54)
--- NOTE | 2019-12-21 20:26 | PDOC PROGRESS REPORT ---
Subjective Progress Note for:: 12/21/19 Reason For Visit: PNEUMOPERITONEUM, PERFORATED TERMINAL ILEUM Physical Exam Vital Signs: Temp Pulse Resp BP Pulse Ox 97.8 F 63 18 114/69 94 12/21/19 16:00 12/21/19 19:42 12/21/19 19:42 12/21/19 16:00 12/21/19 19:42 Intake & Output 12/20/19 12/21/19 12/22/19 06:59 06:59 06:59 Intake Total 630 691 Output Total 500 425 Balance 130 266 Weight 62.7 kg 63.8 kg Results Laboratory Results: 12/21/19 05:26 12/21/19 05:26 12/21/19 12/21/19 12/21/19 05:26 05:26 13:05 WBC 11.8 H RBC 2.88 L Hgb 9.0 L Hct 27.1 L MCV 94 MCH 31.1 MCHC 33.1 RDW 17.3 H Plt Count 315 Seg Neutrophils % 79.8 H Sodium 139.1 Potassium 3.8 Chloride 105 Carbon Dioxide 30 Anion Gap 4 L BUN 22 H Creatinine 0.21 L Est GFR ( Amer) > 60 Glucose 98 Calcium 7.5 L Magnesium 1.9 Total Bilirubin 0.6 AST 23 Alkaline Phosphatase 134 H Ammonia < 8.7 L Total Protein 4.5 L Albumin 2.1 L Urine Color Urine Appearance Urine pH Ur Specific [place] Urine Protein Urine Glucose (UA) Urine Ketones Urine Blood Urine RBC (Auto) 12/21/19 15:30 WBC RBC Hgb Hct MCV MCH MCHC RDW Plt Count Seg Neutrophils % Sodium Potassium Chloride Carbon Dioxide Anion Gap BUN Creatinine Est GFR ( Amer) Glucose Calcium Magnesium Total Bilirubin AST Alkaline Phosphatase Ammonia Total Protein Albumin Urine Color YELLOW Urine Appearance SLIGHTLY-CLOUDY Urine pH 6.0 Ur Specific [place] 1.017 Urine Protein NEGATIVE Urine Glucose (UA) NEGATIVE Urine Ketones NEGATIVE Urine Blood NEGATIVE Urine RBC (Auto) 1 Impressions: Abdomen/Pelvis CT 12/10/19 09:28 IMPRESSION: 1. Free intraperitoneal gas, most conspicuous inferior to the right hemidiaphragm, compatible with perforated viscus. Site of perforation is not clearly delineated. Moderate volume ascites, increased from prior. Recommend surgical consultation. 2. Increased intraluminal attenuation within a jejunal loop which progresses on further delayed imaging suggestive of active GI bleed (series 3, image 53 and series 6, image 51). Recommend correlation with Hemoccult. Additional diffuse jejunal wall thickening suggestive of enteritis. 3. Thoracic and abdominal aortic aneurysm, stable. 4. Additional chronic findings as above. Findings were discussed with Stacia at 1057 hours on 12/10/2019. Head CT 12/21/19 00:00 IMPRESSION: CHRONIC CHANGES OF ATROPHY AND MICROVASCULAR ISCHEMIA. NO ACUTE PROCESS. EVIDENCE OF ACUTE STROKE: NO. Assessment & Plan - Diagnosis (1) Internal hernia Is this a current diagnosis for this admission?: Yes (2) Bowel perforation Is this a current diagnosis for this admission?: Yes (3) Small bowel obstruction Is this a current diagnosis for this admission?: Yes - Time Time Spent with patient: Less than 15 minutes - Plan Summary Plan Summary: 74-year-old male status post exploratory laparotomy for perforated small bowel due to internal hernia. The patient is somewhat somnolent today. He is difficult to arouse, although he does arouse to voice and other stimuli. He appears to be oriented, but quickly falls back asleep. I have discussed the case with Dr. Sterling. He is investigating the patient's decreased level of arousal. His abdomen today is soft. He denies abdominal pain. He is afebrile. His heart rate and blood pressure are normal. I do not believe his level of consciousness is related to an intra-abdominal process. I will continue to follow the patient closely, and reassess for any potential intraabdominal pathology.
[2019-12-21] MEDS: NORMAL SALINE INJ/PF 0.9% 10 ML SDV IV PRN (21:59)
[2019-12-22] MEDS: INSULIN LISPRO 100 UNIT/ML 3 ML VIAL SUBCUT SCH ×4 (00:20→17:49)
[2019-12-22] MEDS: IPRATROPIUM/ALBUTEROL 0.5-2.5 MG/3 ML AMPUL NEB SCH ×4 (02:14→19:45)
[2019-12-22 05:08] LABS: ABSOLUTE BASOPHILS # (AUTO) 0.1 10^3/uL (0.0-0.2); ABSOLUTE LYMPHOCYTES (AUTO) 1.5 10^3/uL (0.5-4.7); ABSOLUTE MONOCYTES (AUTO) 0.7 10^3/uL (0.1-1.4); ABSOLUTE NEUT (AUTO) 9.2 10^3/uL (1.7-8.2); EOSINOPHILS % (AUTO) 0.3 % (0-6); HEMATOCRIT 28.8 % (37.9-51.0); HEMOGLOBIN 9.8 g/dL (13.5-17.0); LYMPHOCYTES % (AUTO) 12.7 % (13-45); MEAN CORPUSCULAR HEMOGLOBIN 31.4 pg (27.0-33.4); MEAN CORPUSCULAR HGB CONC 33.9 g/dL (32.0-36.0); MEAN CORPUSCULAR VOLUME 93 fl (80-97); MONOCYTES % (AUTO) 6.4 % (3-13); PLATELET COUNT 341 10^3/uL (150-450); RED BLOOD COUNT 3.11 10^6/uL (4.35-5.55); RED CELL DISTRIBUTION WIDTH 16.9 % (11.5-14.0); SEGMENTED NEUTROPHILS % (AUTO) 79.6 % (42-78); TOTAL CELLS COUNTED % (AUTO) 100 %; WHITE BLOOD COUNT 11.6 10^3/uL (4.0-10.5)
[2019-12-22 05:31] LABS: ALKALINE PHOSPHATASE 149 U/L (38-126); ASPARTATE AMINO TRANSFERASE 25 U/L (17-59); BILIRUBIN,TOTAL 0.5 mg/dL (0.2-1.3); BLOOD UREA NITROGEN 22 mg/dL (7-20); CALCIUM 7.7 mg/dL (8.4-10.2); CARBON DIOXIDE 31 mmol/L (22-30); GLUCOSE 81 mg/dL (75-110); POTASSIUM 3.7 mmol/L (3.6-5.0); TOTAL PROTEIN 4.3 g/dL (6.3-8.2)
[2019-12-22 05:37] LABS: CHLORIDE 106 mmol/L (98-107)
[2019-12-22 05:39] LABS: ANION GAP 2 (5-19)
[2019-12-22] MEDS: NORMAL SALINE INJ/PF 0.9% 10 ML SDV IV PRN (05:45)
[2019-12-22] MEDS: BUDESONIDE NEB 0.25 MG/2 ML AMPUL NEB SCH ×2 (07:44→19:45)
[2019-12-22] MEDS: LEVOFLOXACIN 500 MG/D5W RTU 500 MG/100 ML RTUPB IV SCH (10:51)
[2019-12-22] MEDS: MEGESTROL ACETATE SUSP 400 MG/10 ML UDCUP PO SCH (10:51)
[2019-12-22] MEDS: ENOXAPARIN SODIUM INJ 40 MG/0.4 ML DISP.SYRIN SUBCUT SCH (10:51)
[2019-12-22] MEDS: FUROSEMIDE 20 MG TABLET PO SCH ×2 (10:52→17:52)
--- NOTE | 2019-12-22 12:10 | PDOC PROGRESS REPORT ---
Subjective Progress Note for:: 12/22/19 Subjective:: Mr. Karen Jacobs a 74-year-old male with past medical history of h yperlipidemia, hypertension, PVD, AAA 5.5 cm, COPD, was admitted on 12/10/2019 by surgical team for abdominal pain found to have pneumoperitoneum, underwent exploratory laparotomy and lysis of adhesion, with ileocecectomy, intubated, transferred to ICU post surgery, complicated by second perforation taken to the OR again on 12/13/2019 found to have a moderate amount of serous fluid in the peritoneal cavity with no obvious pneumoperitoneum. Anastomosis appeared intact. Was transferred back to ICU. Eventually was downgraded to IMCU on 12/18/2019. Abdominal fluid cultures grew Enterobacter, Citrobacter, enterococcus, Clostridium and Bacteroides. Was a started on levofloxacin and Flagyl and ICU. Received IV antibiotics from 12/10/2021 12/17/2019. While patient pending placement hospitalist is consulted for medical management. 12/19/2019. Saw patient this afternoon. Resting comfortably in bed no distress. Alert and oriented. Denies any pain. Has been tolerating some food. On TPN. Denies any fever, chills, nausea, vomiting, diarrhea, constipation or any urinary symptoms. 12/20/2019. No acute events overnight. Appears very weak however alert and oriented x3. Patient is able to tolerate some oral feeds denies any abdominal pain, nausea, vomiting, diarrhea, constipation or any urinary symptoms. 12/21/2019. No acute events overnight. This morning appears to be very lethargic however arousable, does not communicate much, except for incoherent mumbling, metals are stable, blood glucose level WNL, CT head WNL, ammonia level normal. Pending UA at time of dictation 12/22/2019. Overnight patient was found to be bradycardic otherwise mental status has improved back to baseline. Denies any fever, chills, nausea, vomiting, diarrhea, constipation or any urinary symptoms. Reason For Visit: PNEUMOPERITONEUM, PERFORATED TERMINAL ILEUM Physical Exam Vital Signs: Temp Pulse Resp BP Pulse Ox 98.7 F 73 19 97/36 L 97 12/22/19 08:00 12/22/19 08:00 12/22/19 08:00 12/22/19 08:00 12/22/19 08:00 Intake & Output 12/21/19 12/22/19 12/23/19 06:59 06:59 06:59 Intake Total 691 100 Output Total 425 Balance 266 100 Weight 63.8 kg 61.5 kg General appearance: PRESENT: no acute distress, well-developed, well-nourished Head exam: PRESENT: atraumatic, normocephalic Respiratory exam: PRESENT: clear to auscultation johanna. ABSENT: rales, rhonchi, wheezes Cardiovascular exam: PRESENT: RRR. ABSENT: diastolic murmur, rubs, systolic murmur GI/Abdominal exam: PRESENT: normal bowel sounds, soft. ABSENT: distended, guarding, mass, organolmegaly, rebound, tenderness Extremities exam: PRESENT: full ROM. ABSENT: calf tenderness, clubbing, pedal edema Neurological exam: PRESENT: alert, awake, oriented to person, oriented to place, CN II-XII grossly intact. ABSENT: motor sensory deficit Results Laboratory Results: 12/22/19 04:52 12/22/19 04:52 12/21/19 12/21/19 12/22/19 13:05 15:30 04:52 WBC 11.6 H RBC 3.11 L Hgb 9.8 L Hct 28.8 L MCV 93 MCH 31.4 MCHC 33.9 RDW 16.9 H Plt Count 341 Seg Neutrophils % 79.6 H Sodium Potassium Chloride Carbon Dioxide Anion Gap BUN Creatinine Est GFR ( Amer) Glucose Calcium Total Bilirubin AST Alkaline Phosphatase Ammonia < 8.7 L Total Protein Albumin Urine Color YELLOW Urine Appearance SLIGHTLY-CLOUDY Urine pH 6.0 Ur Specific [place] 1.017 Urine Protein NEGATIVE Urine Glucose (UA) NEGATIVE Urine Ketones NEGATIVE Urine Blood NEGATIVE Urine RBC (Auto) 1 12/22/19 04:52 WBC RBC Hgb Hct MCV MCH MCHC RDW Plt Count Seg Neutrophils % Sodium 139.0 Potassium 3.7 Chloride 106 Carbon Dioxide 31 H Anion Gap 2 L BUN 22 H Creatinine 0.26 L Est GFR ( Amer) > 60 Glucose 81 Calcium 7.7 L Total Bilirubin 0.5 AST 25 Alkaline Phosphatase 149 H Ammonia Total Protein 4.3 L Albumin 2.0 L Urine Color Urine Appearance Urine pH Ur Specific [place] Urine Protein Urine Glucose (UA) Urine Ketones Urine Blood Urine RBC (Auto) Impressions: Abdomen/Pelvis CT 12/10/19 09:28 IMPRESSION: 1. Free intraperitoneal gas, most conspicuous inferior to the right hemidiaphragm, compatible with perforated viscus. Site of perforation is not clearly delineated. Moderate volume ascites, increased from prior. Recommend surgical consultation. 2. Increased intraluminal attenuation within a jejunal loop which progresses on further delayed imaging suggestive of active GI bleed (series 3, image 53 and series 6, image 51). Recommend correlation with Hemoccult. Additional diffuse jejunal wall thickening suggestive of enteritis. 3. Thoracic and abdominal aortic aneurysm, stable. 4. Additional chronic findings as above. Findings were discussed with Stacia at 1057 hours on 12/10/2019. Head CT 12/21/19 00:00 IMPRESSION: CHRONIC CHANGES OF ATROPHY AND MICROVASCULAR ISCHEMIA. NO ACUTE PROCESS. EVIDENCE OF ACUTE STROKE: NO. Assessment and Plan - Diagnosis (1) Acute respiratory failure with hypoxia Is this a current diagnosis for this admission?: Yes Plan: Resolved. SPO2 WNL on 2 L. Intubated in ICU, successfully extubated on 12/16/2019. Continue supplemental oxygen, duo nebs, pulmonary toileting, flutter valve and incentive spirometry. (2) Bowel perforation Is this a current diagnosis for this admission?: Yes Plan: s/p ileocecectomy with perforated loop of terminal ileum (12/10) and repeat exploratory laparotomy (12/13) no new significant findings. As per surgical team. (3) Abdominal aortic aneurysm (AAA) Qualifiers: Presence of rupture: without rupture Qualified Code(s): I71.4 - Abdominal aortic aneurysm, without rupture Is this a current diagnosis for this admission?: Yes Plan: History of abdominal aortic aneurysm 5.5 cm. Outpatient PCP and vascular surgeon follow-up. (4) Chronic obstructive pulmonary disease Qualifiers: COPD type: unspecified COPD Qualified Code(s): J44.9 - Chronic obstructive pulmonary disease, unspecified Is this a current diagnosis for this admission?: Yes Plan: Does not seem to be acutely exacerbated. Plan as per #1. (5) BPH (benign prostatic hyperplasia) Qualifiers: Lower urinary tract symptom presence: symptoms absent Qualified Code(s): N40.0 - Benign prostatic hyperplasia without lower urinary tract symptoms Is this a current diagnosis for this admission?: Yes Plan: Continue tamsulosin. Outpatient PCP and urology follow-up. (6) Hypertension Is this a current diagnosis for this admission?: Yes Plan: Euvolemic. Normotensive. Continue MASHA. Hold beta-blockers due to bradycardia. PRN beta-blockers and IV hydralazine. Monitor vitals. Adjust meds as needed. Outpatient PCP follow-up. (7) Hyperlipidemia Is this a current diagnosis for this admission?: Yes Plan: Continue statins. LFTs WNL. (8) Hypoalbuminemia Is this a current diagnosis for this admission?: Yes Plan: He is off of TPN. Mild improvement of appetite. Patient has significant bilateral lower extremity 2+ pitting edema. Dietitian consulted. Continue Megace. We will give 1 dose of Marinol if effective will have rescheduled. (9) Hypoalbuminemia due to protein-calorie malnutrition Is this a current diagnosis for this admission?: Yes Plan: as above
[2019-12-22] MEDS ORDERED: DRONABINOL 2.5 MG CAPSULE PO ONE (13:00)
--- NOTE | 2019-12-22 14:47 | PDOC PROGRESS REPORT ---
Subjective Progress Note for:: 12/22/19 Reason For Visit: PNEUMOPERITONEUM, PERFORATED TERMINAL ILEUM Physical Exam Vital Signs: Temp Pulse Resp BP Pulse Ox 98.1 F 77 18 110/77 94 12/22/19 12:00 12/22/19 13:51 12/22/19 13:51 12/22/19 12:00 12/22/19 13:51 Intake & Output 12/21/19 12/22/19 12/23/19 06:59 06:59 06:59 Intake Total 691 100 100 Output Total 425 Balance 266 100 100 Weight 63.8 kg 61.5 kg Results Laboratory Results: 12/22/19 04:52 12/22/19 04:52 12/21/19 12/22/19 12/22/19 15:30 04:52 04:52 WBC 11.6 H RBC 3.11 L Hgb 9.8 L Hct 28.8 L MCV 93 MCH 31.4 MCHC 33.9 RDW 16.9 H Plt Count 341 Seg Neutrophils % 79.6 H Sodium 139.0 Potassium 3.7 Chloride 106 Carbon Dioxide 31 H Anion Gap 2 L BUN 22 H Creatinine 0.26 L Est GFR ( Amer) > 60 Glucose 81 Calcium 7.7 L Total Bilirubin 0.5 AST 25 Alkaline Phosphatase 149 H Total Protein 4.3 L Albumin 2.0 L Urine Color YELLOW Urine Appearance SLIGHTLY-CLOUDY Urine pH 6.0 Ur Specific [place] 1.017 Urine Protein NEGATIVE Urine Glucose (UA) NEGATIVE Urine Ketones NEGATIVE Urine Blood NEGATIVE Urine RBC (Auto) 1 Impressions: Abdomen/Pelvis CT 12/10/19 09:28 IMPRESSION: 1. Free intraperitoneal gas, most conspicuous inferior to the right hemidiaphragm, compatible with perforated viscus. Site of perforation is not clearly delineated. Moderate volume ascites, increased from prior. Recommend surgical consultation. 2. Increased intraluminal attenuation within a jejunal loop which progresses on further delayed imaging suggestive of active GI bleed (series 3, image 53 and s naties 6, image 51). Recommend correlation with Hemoccult. Additional diffuse jejunal wall thickening suggestive of enteritis. 3. Thoracic and abdominal aortic aneurysm, stable. 4. Additional chronic findings as above. Findings were discussed with Stacia at 1057 hours on 12/10/2019. Head CT 12/21/19 00:00 IMPRESSION: CHRONIC CHANGES OF ATROPHY AND MICROVASCULAR ISCHEMIA. NO ACUTE PROCESS. EVIDENCE OF ACUTE STROKE: NO. Assessment & Plan - Diagnosis (1) Internal hernia Is this a current diagnosis for this admission?: Yes (2) Bowel perforation Is this a current diagnosis for this admission?: Yes (3) Small bowel obstruction Is this a current diagnosis for this admission?: Yes - Time Time Spent with patient: Less than 15 minutes - Plan Summary Plan Summary: 74-year-old male status post exploratory laparotomy for perforated small bowel due to internal hernia. The patient is much more awake today. He answers questions appropriately. He is awake, and eating his lunch. He denies abdominal pain. He is afebrile. His heart rate and blood pressure are normal. Continue with aggressive pulmonary toilet, physical therapy, and discharge planning. Continue with dressing changes for midline wound.
[2019-12-22] MEDS: TAMSULOSIN HCL 0.4 MG CAP.SR.24H PO SCH (17:52)
[2019-12-23] MEDS: INSULIN LISPRO 100 UNIT/ML 3 ML VIAL SUBCUT SCH ×4 (01:49→17:50)
[2019-12-23] MEDS: IPRATROPIUM/ALBUTEROL 0.5-2.5 MG/3 ML AMPUL NEB SCH ×4 (02:12→20:21)
[2019-12-23 07:15] LABS: ABSOLUTE BASOPHILS # (AUTO) 0.1 10^3/uL (0.0-0.2); ABSOLUTE LYMPHOCYTES (AUTO) 1.6 10^3/uL (0.5-4.7); ABSOLUTE MONOCYTES (AUTO) 0.9 10^3/uL (0.1-1.4); ABSOLUTE NEUT (AUTO) 8.7 10^3/uL (1.7-8.2); BASOPHILS % (AUTO) 0.7 % (0-2); EOSINOPHILS % (AUTO) 0.2 % (0-6); HEMATOCRIT 28.2 % (37.9-51.0); HEMOGLOBIN 9.6 g/dL (13.5-17.0); LYMPHOCYTES % (AUTO) 14.4 % (13-45); MEAN CORPUSCULAR HEMOGLOBIN 31.5 pg (27.0-33.4); MEAN CORPUSCULAR HGB CONC 33.9 g/dL (32.0-36.0); MEAN CORPUSCULAR VOLUME 93 fl (80-97); MONOCYTES % (AUTO) 7.7 % (3-13); PLATELET COUNT 344 10^3/uL (150-450); RED BLOOD COUNT 3.04 10^6/uL (4.35-5.55); RED CELL DISTRIBUTION WIDTH 17.4 % (11.5-14.0); TOTAL CELLS COUNTED % (AUTO) 100 %; WHITE BLOOD COUNT 11.3 10^3/uL (4.0-10.5)
[2019-12-23 07:43] LABS: BLOOD UREA NITROGEN 21 mg/dL (7-20); CALCIUM 7.6 mg/dL (8.4-10.2); GLUCOSE 93 mg/dL (75-110); POTASSIUM 3.6 mmol/L (3.6-5.0)
[2019-12-23 07:48] LABS: CARBON DIOXIDE 31 mmol/L (22-30); CHLORIDE 105 mmol/L (98-107)
[2019-12-23] MEDS: BUDESONIDE NEB 0.25 MG/2 ML AMPUL NEB SCH ×2 (08:01→20:21)
[2019-12-23 08:06] LABS: ANION GAP 2 (5-19)
[2019-12-23] MEDS: FUROSEMIDE 20 MG TABLET PO SCH ×2 (09:43→17:51)
[2019-12-23] MEDS: MEGESTROL ACETATE SUSP 400 MG/10 ML UDCUP PO SCH (09:43)
[2019-12-23] MEDS: LEVOFLOXACIN 500 MG/D5W RTU 500 MG/100 ML RTUPB IV SCH (09:44)
[2019-12-23] MEDS: ENOXAPARIN SODIUM INJ 40 MG/0.4 ML DISP.SYRIN SUBCUT SCH (09:44)
--- NOTE | 2019-12-23 11:32 | PDOC PROGRESS REPORT ---
Subjective Progress Note for:: 12/23/19 Subjective:: Mr. Karen Jacobs a 74-year-old male with past medical history of h yperlipidemia, hypertension, PVD, AAA 5.5 cm, COPD, was admitted on 12/10/2019 by surgical team for abdominal pain found to have pneumoperitoneum, underwent exploratory laparotomy and lysis of adhesion, with ileocecectomy, intubated, transferred to ICU post surgery, complicated by second perforation taken to the OR again on 12/13/2019 found to have a moderate amount of serous fluid in the peritoneal cavity with no obvious pneumoperitoneum. Anastomosis appeared intact. Was transferred back to ICU. Eventually was downgraded to IMCU on 12/18/2019. Abdominal fluid cultures grew Enterobacter, Citrobacter, enterococcus, Clostridium and Bacteroides. Was a started on levofloxacin and Flagyl and ICU. Received IV antibiotics from 12/10/2021 12/17/2019. While patient pending placement hospitalist is consulted for medical management. 12/19/2019. Saw patient this afternoon. Resting comfortably in bed no distress. Alert and oriented. Denies any pain. Has been tolerating some food. On TPN. Denies any fever, chills, nausea, vomiting, diarrhea, constipation or any urinary symptoms. 12/20/2019. No acute events overnight. Appears very weak however alert and oriented x3. Patient is able to tolerate some oral feeds denies any abdominal pain, nausea, vomiting, diarrhea, constipation or any urinary symptoms. 12/21/2019. No acute events overnight. This morning appears to be very lethargic however arousable, does not communicate much, except for incoherent mumbling, metals are stable, blood glucose level WNL, CT head WNL, ammonia level normal. Pending UA at time of dictation 12/22/2019. Overnight patient was found to be bradycardic otherwise mental status has improved back to baseline. Denies any fever, chills, nausea, vomiting, diarrhea, constipation or any urinary symptoms. 12/23/2019. No acute events overnight. Patient comfortably resting in bed no apparent distress. Stating appetite much improved since being started on Marinol. Alert and oriented. In no apparent distress. Denies any fever, chills, nausea, vomiting, diarrhea, constipation or any urinary symptoms. Reason For Visit: PNEUMOPERITONEUM, PERFORATED TERMINAL ILEUM Physical Exam Vital Signs: Temp Pulse Resp BP Pulse Ox 97.2 F 73 18 107/64 94 12/23/19 08:24 12/23/19 08:24 12/23/19 08:24 12/23/19 08:24 12/23/19 08:24 Intake & Output 12/22/19 12/23/19 12/24/19 06:59 06:59 06:59 Intake Total 100 936 Balance 100 936 Weight 61.5 kg 60.8 kg General appearance: PRESENT: no acute distress, thin Head exam: PRESENT: atraumatic, normocephalic Respiratory exam: PRESENT: clear to auscultation johanna. ABSENT: rales, rhonchi, wheezes Cardiovascular exam: PRESENT: RRR. ABSENT: diastolic murmur, rubs, systolic murmur GI/Abdominal exam: PRESENT: normal bowel sounds, soft. ABSENT: distended, guarding, mass, organolmegaly, rebound, tenderness Neurological exam: PRESENT: alert, awake, oriented to person, oriented to place, oriented to time, CN II-XII grossly intact. ABSENT: motor sensory deficit Results Laboratory Results: 12/23/19 06:38 12/23/19 06:38 12/23/19 12/23/19 06:38 06:38 WBC 11.3 H RBC 3.04 L Hgb 9.6 L Hct 28.2 L MCV 93 MCH 31.5 MCHC 33.9 RDW 17.4 H Plt Count 344 Seg Neutrophils % 77.0 Sodium 138.0 Potassium 3.6 Chloride 105 Carbon Dioxide 31 H Anion Gap 2 L BUN 21 H Creatinine 0.26 L Est GFR ( Amer) > 60 Glucose 93 Calcium 7.6 L Impressions: Abdomen/Pelvis CT 12/10/19 09:28 IMPRESSION: 1. Free intraperitoneal gas, most conspicuous inferior to the right hemidiaphragm, compatible with perforated viscus. Site of perforation is not clearly delineated. Moderate volume ascites, increased from prior. Recommend surgical consultation. 2. Increased intraluminal attenuation within a jejunal loop which progresses on further delayed imaging suggestive of active GI bleed (series 3, image 53 and series 6, image 51). Recommend correlation with Hemoccult. Additional diffuse jejunal wall thickening suggestive of enteritis. 3. Thoracic and abdominal aortic aneurysm, stable. 4. Additional chronic findings as above. Findings were discussed with Stacia at 1057 hours on 12/10/2019. Head CT 12/21/19 00:00 IMPRESSION: CHRONIC CHANGES OF ATROPHY AND MICROVASCULAR ISCHEMIA. NO ACUTE PROCESS. EVIDENCE OF ACUTE STROKE: NO. Assessment and Plan - Diagnosis (1) Acute respiratory failure with hypoxia Is this a current diagnosis for this admission?: Yes Plan: Resolved. SPO2 WNL on 2 L. Intubated in ICU, successfully extubated on 12/16/2019. Continue supplemental oxygen, duo nebs, pulmonary toileting, flutter valve and incentive spirometry. (2) Bowel perforation Is this a current diagnosis for this admission?: Yes Plan: s/p ileocecectomy with perforated loop of terminal ileum (12/10) and repeat exploratory laparotomy (12/13) no new significant findings. As per surgical team. (3) Abdominal aortic aneurysm (AAA) Qualifiers: Presence of rupture: without rupture Qualified Code(s): I71.4 - Abdominal aortic aneurysm, without rupture Is this a current diagnosis for this admission?: Yes Plan: History of abdominal aortic aneurysm 5.5 cm. Outpatient PCP and vascular surgeon follow-up. (4) Chronic obstructive pulmonary disease Qualifiers: COPD type: unspecified COPD Qualified Code(s): J44.9 - Chronic obstructive pulmonary disease, unspecified Is this a current diagnosis for this admission?: Yes Plan: Does not seem to be acutely exacerbated. Plan as per #1. (5) BPH (benign prostatic hyperplasia) Qualifiers: Lower urinary tract symptom presence: symptoms absent Qualified Code(s): N40.0 - Benign prostatic hyperplasia without lower urinary tract symptoms Is this a current diagnosis for this admission?: Yes Plan: Continue tamsulosin. Outpatient PCP and urology follow-up. (6) Hypertension Is this a current diagnosis for this admission?: Yes Plan: Euvolemic. Normotensive. Continue MASHA. Hold beta-blockers due to bradycardia. PRN beta-blockers and IV hydralazine. Monitor vitals. Adjust meds as needed. Outpatient PCP follow-up. (7) Hyperlipidemia Is this a current diagnosis for this admission?: Yes Plan: Continue statins. LFTs WNL. (8) Hypoalbuminemia Is this a current diagnosis for this admission?: Yes Plan: He is off of TPN. Moderate improvement of appetite with Marinol. Patient has significant bilateral lower extremity 2+ pitting edema. Dietitian consulted. Continue Megace. Continue Marinol. Encourage frequent feeds. (9) Hypoalbuminemia due to protein-calorie malnutrition Is this a current diagnosis for this admission?: Yes Plan: as above
[2019-12-23] MEDS: DRONABINOL 2.5 MG CAPSULE PO SCH ×2 (14:04→17:52)
[2019-12-23] MEDS: TAMSULOSIN HCL 0.4 MG CAP.SR.24H PO SCH (17:51)
[2019-12-24] MEDS: INSULIN LISPRO 100 UNIT/ML 3 ML VIAL SUBCUT SCH ×4 (00:24→17:37)
[2019-12-24] MEDS: IPRATROPIUM/ALBUTEROL 0.5-2.5 MG/3 ML AMPUL NEB SCH ×4 (02:59→20:54)
[2019-12-24 04:37] LABS: ABSOLUTE LYMPHOCYTES (AUTO) 1.6 10^3/uL (0.5-4.7); ABSOLUTE MONOCYTES (AUTO) 0.7 10^3/uL (0.1-1.4); ABSOLUTE NEUT (AUTO) 7.8 10^3/uL (1.7-8.2); BASOPHILS % (AUTO) 0.3 % (0-2); EOSINOPHILS % (AUTO) 0.2 % (0-6); HEMATOCRIT 27.6 % (37.9-51.0); HEMOGLOBIN 9.4 g/dL (13.5-17.0); LYMPHOCYTES % (AUTO) 15.4 % (13-45); MEAN CORPUSCULAR HEMOGLOBIN 31.3 pg (27.0-33.4); MEAN CORPUSCULAR HGB CONC 33.8 g/dL (32.0-36.0); MEAN CORPUSCULAR VOLUME 93 fl (80-97); MONOCYTES % (AUTO) 6.7 % (3-13); PLATELET COUNT 340 10^3/uL (150-450); RED BLOOD COUNT 2.99 10^6/uL (4.35-5.55); RED CELL DISTRIBUTION WIDTH 17.2 % (11.5-14.0); SEGMENTED NEUTROPHILS % (AUTO) 77.4 % (42-78); TOTAL CELLS COUNTED % (AUTO) 100 %; WHITE BLOOD COUNT 10.1 10^3/uL (4.0-10.5)
[2019-12-24 05:30] LABS: ALKALINE PHOSPHATASE 147 U/L (38-126); ASPARTATE AMINO TRANSFERASE 23 U/L (17-59); BILIRUBIN,DIRECT 0.2 mg/dL (0.0-0.4); BILIRUBIN,TOTAL 0.4 mg/dL (0.2-1.3); BLOOD UREA NITROGEN 18 mg/dL (7-20); CALCIUM 7.7 mg/dL (8.4-10.2); CARBON DIOXIDE 33 mmol/L (22-30); CHLORIDE 104 mmol/L (98-107); GLUCOSE 107 mg/dL (75-110); POTASSIUM 3.1 mmol/L (3.6-5.0); TOTAL PROTEIN 4.5 g/dL (6.3-8.2)
[2019-12-24 05:39] LABS: ANION GAP 3 (5-19)
[2019-12-24] MEDS: BUDESONIDE NEB 0.25 MG/2 ML AMPUL NEB SCH ×2 (07:39→20:54)
[2019-12-24] MEDS: POTASSI CL 20 MEQ/50 ML RIDER 20 MEQ/50 ML RTUPB IV SCH ×2 (08:14→10:04)
[2019-12-24] MEDS ORDERED: POTASSIUM CHLORIDE 10 MEQ TABLET.ER PO ONE (08:30)
[2019-12-24] MEDS: LEVOFLOXACIN 500 MG/D5W RTU 500 MG/100 ML RTUPB IV SCH (09:21)
[2019-12-24] MEDS: FUROSEMIDE 20 MG TABLET PO SCH ×2 (09:21→17:35)
[2019-12-24] MEDS: DRONABINOL 2.5 MG CAPSULE PO SCH ×2 (09:21→17:35)
[2019-12-24] MEDS: MEGESTROL ACETATE SUSP 400 MG/10 ML UDCUP PO SCH (09:21)
[2019-12-24] MEDS: ENOXAPARIN SODIUM INJ 40 MG/0.4 ML DISP.SYRIN SUBCUT SCH (09:21)
--- NOTE | 2019-12-24 09:24 | PDOC PROGRESS REPORT ---
Subjective Progress Note for:: 12/24/19 Subjective:: Feels okay. No nausea or vomiting. Having bowel movements. Reason For Visit: PNEUMOPERITONEUM, PERFORATED TERMINAL ILEUM Physical Exam Vital Signs: Temp Pulse Resp BP Pulse Ox 97.8 F 66 16 113/67 94 12/24/19 00:59 12/24/19 07:40 12/24/19 07:40 12/24/19 00:59 12/24/19 02:59 Intake & Output 12/23/19 12/24/19 12/25/19 06:59 06:59 06:59 Intake Total 936 820 Balance 936 820 Weight 60.8 kg 58 kg General appearance: PRESENT: no acute distress, cooperative Respiratory exam: PRESENT: clear to auscultation johanna Cardiovascular exam: PRESENT: RRR GI/Abdominal exam: PRESENT: other - Soft, nondistended, nontender to palpation. Results Laboratory Results: 12/24/19 04:22 12/24/19 04:22 12/21/19 12/23/19 12/23/19 15:30 22:40 23:33 WBC RBC Hgb Hct MCV MCH MCHC RDW Plt Count Seg Neutrophils % Sodium Potassium Chloride Carbon Dioxide Anion Gap BUN Creatinine Est GFR ( Amer) Glucose Calcium Total Bilirubin AST Alkaline Phosphatase Total Protein Albumin Triglycerides Cancelled 123 Urine Color YELLOW Urine Appearance SLIGHTLY-CLOUDY Urine pH 6.0 Ur Specific [place] 1.017 Urine Protein NEGATIVE Urine Glucose (UA) NEGATIVE Urine Ketones NEGATIVE Urine Blood NEGATIVE Urine RBC (Auto) 1 12/24/19 12/24/19 04:22 04:22 WBC 10.1 RBC 2.99 L Hgb 9.4 L Hct 27.6 L MCV 93 MCH 31.3 MCHC 33.8 RDW 17.2 H Plt Count 340 Seg Neutrophils % 77.4 Sodium 140.0 Potassium 3.1 L Chloride 104 Carbon Dioxide 33 H Anion Gap 3 L BUN 18 Creatinine 0.28 L Est GFR ( Amer) > 60 Glucose 107 Calcium 7.7 L Total Bilirubin 0.4 AST 23 Alkaline Phosphatase 147 H Total Protein 4.5 L Albumin 2.0 L Triglycerides Urine Color Urine Appearance Urine pH Ur Specific [place] Urine Protein Urine Glucose (UA) Urine Ketones Urine Blood Urine RBC (Auto) Impressions: Abdomen/Pelvis CT 12/10/19 09:28 IMPRESSION: 1. Free intraperitoneal gas, most conspicuous inferior to the right hemidiaphragm, compatible with perforated viscus. Site of perforation is not clearly delineated. Moderate volume ascites, increased from prior. Recommend surgical consultation. 2. Increased intraluminal attenuation within a jejunal loop which progresses on further delayed imaging suggestive of active GI bleed (series 3, image 53 and series 6, image 51). Recommend correlation with Hemoccult. Additional diffuse jejunal wall thickening suggestive of enteritis. 3. Thoracic and abdominal aortic aneurysm, stable. 4. Additional chronic findings as above. Findings were discussed with Stacia at 1057 hours on 12/10/2019. Head CT 12/21/19 00:00 IMPRESSION: CHRONIC CHANGES OF ATROPHY AND MICROVASCULAR ISCHEMIA. NO ACUTE PROCESS. EVIDENCE OF ACUTE STROKE: NO. Assessment & Plan - Diagnosis (1) Bowel perforation Is this a current diagnosis for this admission?: Yes Plan: Status post ileocecectomy. Patient slowly improving. Will try solid food. Discharge planning.
[2019-12-24] MEDS: TAMSULOSIN HCL 0.4 MG CAP.SR.24H PO SCH (17:35)
[2019-12-25] MEDS: INSULIN LISPRO 100 UNIT/ML 3 ML VIAL SUBCUT SCH ×3 (01:00→12:34)
[2019-12-25] MEDS: IPRATROPIUM/ALBUTEROL 0.5-2.5 MG/3 ML AMPUL NEB SCH ×2 (01:56→07:50)
[2019-12-25 06:39] LABS: BLOOD UREA NITROGEN 14 mg/dL (7-20); CALCIUM 7.4 mg/dL (8.4-10.2); CARBON DIOXIDE 33 mmol/L (22-30); CHLORIDE 105 mmol/L (98-107); GLUCOSE 85 mg/dL (75-110); POTASSIUM 3.3 mmol/L (3.6-5.0)
[2019-12-25 06:48] LABS: ANION GAP 0 (5-19)
[2019-12-25] MEDS: BUDESONIDE NEB 0.25 MG/2 ML AMPUL NEB SCH (07:50)
[2019-12-25 09:28] VITALS: BP 128/70
[2019-12-25] MEDS: DRONABINOL 2.5 MG CAPSULE PO SCH (09:28)
[2019-12-25] MEDS: FUROSEMIDE 20 MG TABLET PO SCH (09:28)
[2019-12-25] MEDS: ENOXAPARIN SODIUM INJ 40 MG/0.4 ML DISP.SYRIN SUBCUT SCH (09:28)
[2019-12-25] MEDS: MEGESTROL ACETATE SUSP 400 MG/10 ML UDCUP PO SCH (09:28)
[2019-12-25] MEDS: LEVOFLOXACIN 500 MG/D5W RTU 500 MG/100 ML RTUPB IV SCH (09:28)
--- NOTE | 2019-12-25 10:03 | PDOC DISCHARGE SUMMARY ---
General - Admit/Disc Date/PCP Admission Date/Primary Care Provider: 12/10/19 20:00 NAOMI SAMS MD Discharge Date: 12/25/19 - Discharge Diagnosis Final Diagnosis: Perforated small bowel due to internal hernia. - Assessment Summary: This is a 74-year-old male who presented with free intra-abdominal air and an acute abdomen. He was taken to the operating room emergently where an internal hernia was identified, with strangulated small bowel and perforation. The small bowel was freed, and the perforated area was resected. A primary anastomosis was performed. Several days later, the patient appeared to be worsening, with increasing free intra-abdominal air. The patient was taken back for a second look laparotomy. Afterwards, the patient was taken to the intensive care unit w here he improved. He was then transferred to the floor. On the floor, the patient improved. He was given TPN for many days. His TPN was discontinued, and he was started on an appetite stimulant. He began tolerating a regular diet. One morning on the floor, the patient was noted to be somewhat somnolent. A CT scan of the head was performed, which was negative. The following day, the patient's sensorium spontaneously cleared. The patient has been ambulating with physical therapy, and it was evident that he would require a rehabilitation stay due to his inability to perform activities of daily living. At this time the patient is stable for discharge to a facility that can provide him with physical therapy and Occupational Therapy. - Additional Information Resuscitation Status: Full Code Discharge Diet: As Tolerated Discharge Activity: No Lifting Over 10 Pounds, No Lifting/Push/Pulling Referrals: [facility] [Outside] NAOMI SAMS MD [Primary Care Provider] - Follow up as needed Home Medications: Atorvastatin Calcium [Lipitor 10 mg Tablet] 10 mg PO QHS 12/11/19 Lisinopril [Zestril] 2.5 mg PO DAILY 12/11/19 Metoprolol Succinate [Toprol Xl 25 mg Tab.sr] 12.5 mg PO DAILY 12/11/19 Tamsulosin HCl [Flomax 0.4 mg Cap.sr] 0.4 mg PO QPM 12/11/19 History of Present Illiness History of Present Illness: DYLAN MAXWELL is a 74 year old male Physical Exam Vital Signs: Temp Pulse Resp BP Pulse Ox 97.7 F 93 16 128/70 H 94 02/19/20 08:00 12/25/19 08:00 12/25/19 08:00 12/25/19 08:00 12/25/19 08:00 Intake & Output 12/24/19 12/25/19 12/26/19 06:59 06:59 06:59 Intake Total 820 788 Balance 820 788 Weight 58 kg 60 kg Results Laboratory Results: WBC 10.1 10^3/uL (4.0-10.5) 12/24/19 04:22 RBC 2.99 10^6/uL (4.35-5.55) L 12/24/19 04:22 Hgb 9.4 g/dL (13.5-17.0) L 12/24/19 04:22 Hct 27.6 % (37.9-51.0) L 12/24/19 04:22 MCV 93 fl (80-97) 12/24/19 04:22 MCH 31.3 pg (27.0-33.4) 12/24/19 04:22 MCHC 33.8 g/dL (32.0-36.0) 12/24/19 04:22 RDW 17.2 % (11.5-14.0) H 12/24/19 04:22 Plt Count 340 10^3/uL (150-450) 12/24/19 04:22 Lymph % (Auto) 15.4 % (13-45) 12/24/19 04:22 [place] % (Auto) 6.7 % (3-13) 12/24/19 04:22 Eos % (Auto) 0.2 % (0-6) 12/24/19 04:22 Baso % (Auto) 0.3 % (0-2) 12/24/19 04:22 Absolute Neuts (auto) 7.8 10^3/uL (1.7-8.2) 12/24/19 04:22 Absolute Lymphs (auto) 1.6 10^3/uL (0.5-4.7) 12/24/19 04:22 Absolute Monos (auto) 0.7 10^3/uL (0.1-1.4) 12/24/19 04:22 Absolute Eos (auto) 0.0 10^3/uL (0.0-0.6) 12/24/19 04:22 Absolute Basos (auto) 0.0 10^3/uL (0.0-0.2) 12/24/19 04:22 Total Counted 100 12/14/19 06:15 Seg Neutrophils % 77.4 % (42-78) 12/24/19 04:22 Seg Neuts % (Manual) 84 % (42-78) H 12/14/19 06:15 Band Neutrophils % 4 % (3-5) 12/14/19 06:15 Lymphocytes % (Manual) 10 % (13-45) L 12/14/19 06:15 Atypical Lymphs % 8 % (0) 12/10/19 16:29 Monocytes % (Manual) 2 % (3-13) L 12/14/19 06:15 Eosinophils % (Manual) 0 % (0-6) 12/14/19 06:15 Basophils % (Manual) 0 % (0-2) 12/14/19 06:15 Metamyelocytes % 2 % (0-1) H 12/10/19 16:29 Abs Neuts (Manual) 16.8 10^3/uL (1.7-8.2) H 12/14/19 06:15 Abs Lymphs (Manual) 1.9 10^3/uL (0.5-4.7) 12/14/19 06:15 Abs Monocytes (Manual) 0.4 10^3/uL (0.1-1.4) 12/14/19 06:15 Absolute Eos (Manual) 0.0 10^3/uL (0.0-0.6) 12/14/19 06:15 Abs Basophils (Manual) 0.0 10^3/uL (0.0-0.2) 12/14/19 06:15 Toxic Granulation SLIGHT 12/12/19 04:30 Dohle Bodies PRESENT 12/12/19 04:30 Platelet Comment DECREASED 12/14/19 06:15 Polychromasia SLIGHT 12/13/19 14:54 Hypochromasia 1+ 12/14/19 06:15 Anisocytosis 1+ 12/14/19 06:15 Ovalocytes 1+ 12/13/19 14:54 PT 16.6 SEC (11.4-15.4) H 12/16/19 02:50 INR 1.33 12/16/19 02:50 Carbonic Acid 0.88 mmol/L (1.05-1.35) L 12/14/19 16:10 HCO3/H2CO3 Ratio 27:1 12/14/19 16:10 ABG pH 7.53 (7.35-7.45) H 12/14/19 16:10 ABG pCO2 29.1 mmHg (35-45) L 12/14/19 16:10 ABG pO2 60.3 mmHg (80-100) L 12/14/19 16:10 ABG HCO3 24.0 mmol/L (20-24) 12/14/19 16:10 ABG Total CO2 24.9 mmol/L (23-27) 12/14/19 16:10 ABG O2 Saturation 94.0 % (94-98) 12/14/19 16:10 ABG Base Excess 2.0 mmol/L 12/14/19 16:10 FiO2 30% 12/14/19 16:10 Sodium 138.3 mmol/L (137-145) 12/25/19 06:09 Potassium 3.3 mmol/L (3.6-5.0) L 12/25/19 06:09 Chloride 105 mmol/L (98-107) 12/25/19 06:09 Carbon Dioxide 33 mmol/L (22-30) H 12/25/19 06:09 Anion Gap 0 (5-19) L 12/25/19 06:09 BUN 14 mg/dL (7-20) 12/25/19 06:09 Creatinine 0.24 mg/dL (0.52-1.25) L 12/25/19 06:09 Est GFR ( Amer) > 60 (>60) 12/25/19 06:09 Est GFR (MDRD) Non-Af > 60 (>60) 12/25/19 06:09 Glucose 85 mg/dL (75-110) 12/25/19 06:09 POC Glucose 99 mg/dL (70-110) 12/25/19 06:05 Hemoglobin A1c % 5.5 % (4.7-6.0) 12/19/19 14:15 Lactic Acid 0.8 mmol/L (0.7-2.1) 12/12/19 04:30 Calcium 7.4 mg/dL (8.4-10.2) L 12/25/19 06:09 Ionized Calcium [place] 0.85 mmol/L (1.14-1.30) L 12/17/19 08:37 Phosphorus 2.8 mg/dL (2.5-4.5) 12/19/19 06:20 Magnesium 1.9 mg/dL (1.6-2.3) 12/21/19 05:26 Total Bilirubin 0.4 mg/dL (0.2-1.3) 12/24/19 04:22 Direct Bilirubin 0.2 mg/dL (0.0-0.4) 12/24/19 04:22 Neonat Total Bilirubin Not Reportable 12/24/19 04:22 Neonat Direct Bilirubin Not Reportable 12/24/19 04:22 Neonat Indirect Bili Not Reportable 12/24/19 04:22 AST 23 U/L (17-59) 12/24/19 04:22 ALT 13 U/L (<50) 12/24/19 04:22 Alkaline Phosphatase 147 U/L (38-126) H 12/24/19 04:22 Ammonia < 8.7 umol/L (9-33) L 12/21/19 13:05 Total Protein 4.5 g/dL (6.3-8.2) L 12/24/19 04:22 Albumin 2.0 g/dL (3.5-5.0) L 12/24/19 04:22 Prealbumin 8.1 mg/dL (17.6-36.0) L 12/19/19 06:20 Triglycerides 123 mg/dL (<150) 12/23/19 23:33 Lipase 34.1 U/L (23-300) 12/10/19 10:48 Random Cortisol 82.80 ug/dL (None Established) 12/11/19 06:47 Urine Color YELLOW 12/21/19 15:30 Urine Appearance SLIGHTLY-CLOUDY 12/21/19 15:30 Urine pH 6.0 (5.0-9.0) 12/21/19 15:30 Ur Specific [place] 1.017 12/21/19 15:30 Urine Protein NEGATIVE mg/dL (NEGATIVE) 12/21/19 15:30 Urine Glucose (UA) NEGATIVE mg/dL (NEGATIVE) 12/21/19 15:30 Urine Ketones NEGATIVE mg/dL (NEGATIVE) 12/21/19 15:30 Urine Blood NEGATIVE (NEGATIVE) 12/21/19 15:30 Urine Nitrite NEGATIVE (NEGATIVE) 12/10/19 11:22 Urine Nitrite (Reflex) NEGATIVE (NEGATIVE) 12/21/19 15:30 Urine Bilirubin NEGATIVE (NEGATIVE) 12/21/19 15:30 Urine Urobilinogen NEGATIVE mg/dL (<2.0) 12/21/19 15:30 Ur Leukocyte Esterase SMALL (NEGATIVE) H 12/10/19 11:22 Leukocyte Esterase Rfl TRACE (NEGATIVE) H 12/21/19 15:30 Urine WBC (Auto) 7 /HPF 12/10/19 11:22 Urine RBC (Auto) 1 /HPF 12/21/19 15:30 U Hyaline Cast (Auto) 3 /LPF 12/10/19 11:22 Urine Bacteria (Auto) TRACE /HPF 12/10/19 11:22 Urine WBC (Reflex) 5 /HPF 12/21/19 15:30 Squamous Epi Cells Auto <1 /HPF 12/21/19 15:30 Urine Mucus (Auto) RARE /LPF 12/21/19 15:30 Urine Ascorbic Acid NEGATIVE (NEGATIVE) 12/21/19 15:30 Fluid Glucose 5 mg/dL (.) 12/13/19 14:51 Fluid Total Protein 2.0 g/dL (.) 12/13/19 14:51 Fluid Albumin 1.1 g/dL (Not Estab.) 12/13/19 14:51 Fluid Tot Bilirubin 0.2 mg/dL (.) 12/13/19 14:51 Fluid LDH 2889 IU/L (.) 12/13/19 14:51 Fluid Amylase 19 U/L (.) 12/13/19 14:51 Stool Occult Blood NEGATIVE (NEGATIVE) 12/10/19 11:22 POC Stool Occult Blood NEGATIVE (NEGATIVE) 12/10/19 11:36 Slides for Path Review PATHOLOGIST REVIEWED 12/10/19 16:29 Blood Type O NEGATIVE 12/13/19 11:58 Antibody Screen NEGATIVE 12/13/19 11:58 Impressions: Abdomen/Pelvis CT 12/10/19 09:28 IMPRESSION: 1. Free intraperitoneal gas, most conspicuous inferior to the right hemidiaphragm, compatible with perforated viscus. Site of perforation is not clearly delineated. Moderate volume ascites, increased from prior. Recommend surgical consultation. 2. Increased intraluminal attenuation within a jejunal loop which progresses on further delayed imaging suggestive of active GI bleed (series 3, image 53 and series 6, image 51). Recommend correlation with Hemoccult. Additional diffuse jejunal wall thickening suggestive of enteritis. 3. Thoracic and abdominal aortic aneurysm, stable. 4. Additional chronic findings as above. Findings were discussed with Stacia at 1057 hours on 12/10/2019. Chest X-Ray 12/11/19 06:00 IMPRESSION: 1. The tip of the endotracheal tube projects 2.2 cm above the barrett. 2. Left basilar atelectasis and probable trace left pleural effusion. Chest X-Ray 12/12/19 04:00 IMPRESSION: Left basilar consolidation atelectasis versus pneumonia Nasogastric tube tip and side port under the hemidiaphragms Postoperative subdiaphragmatic free air Chest X-Ray 12/13/19 06:00 IMPRESSION: 1. Large volume pneumoperitoneum again seen. 2. Unchanged left basilar consolidation, atelectasis versus pneumonia. 3. No endotracheal tube visualized. Enteric tube side port proximal to GE junction. Recommend advancing 5 to 10 cm. Chest X-Ray 12/13/19 16:40 IMPRESSION: Endotracheal tube terminates 2 cm above the barrett. NG tube is just inside the stomach. Airspace disease in the lower lobes, pneumonia versus atelectasis. Chest X-Ray 12/14/19 00:00 IMPRESSION: Interval placement of central venous catheter. No pneumothorax. Other findings stable copyright 2010 [employer] acquired by [employer]- All Rights Reserved Head CT 12/21/19 00:00 IMPRESSION: CHRONIC CHANGES OF ATROPHY AND MICROVASCULAR ISCHEMIA. NO ACUTE PROCESS. EVIDENCE OF ACUTE STROKE: NO.
== END 2019-12-25 12:48 | DRG 329 ==
LOC: ER 09:06 → OROUT 12:49 → ICU 18:33 → OROUT 19:59 → ICU 20:00 → 5 12-18 03:25
PROVIDERS: ADMIT Surgery; ATTEND Surgery
PROC: 0DNW0ZZ Release Peritoneum, Open Approach (ICD-10-PCS; 2019-12-10)
PROC: 5A1945Z Respiratory Ventilation, 24-96 Consecutive Hours (ICD-10-PCS; 2019-12-10)
PROC: 0BH17EZ Insertion of Endotracheal Airway into Trachea, Via Natural or Artificial Opening (ICD-10-PCS; 2019-12-10)
PROC: 0DTH0ZZ Resection of Cecum, Open Approach (ICD-10-PCS; principal; 2019-12-10 14:30)
PROC: 0WJG0ZZ Inspection of Peritoneal Cavity, Open Approach (ICD-10-PCS; 2019-12-13)
PROC: 3E0336Z Introduction of Nutritional Substance into Peripheral Vein, Percutaneous Approach (ICD-10-PCS; 2019-12-13)
PROC: 02HV33Z Insertion of Infusion Device into Superior Vena Cava, Percutaneous Approach (ICD-10-PCS; 2019-12-14)
DX: K46.0 Unspecified abdominal hernia with obstruction, without gangrene (principal); K63.1 Perforation of intestine (nontraumatic); J96.02 Acute respiratory failure with hypercapnia; K56.2 Volvulus; K65.9 Peritonitis, unspecified; K56.50 Intestinal adhesions [bands], unspecified as to partial versus complete obstruction; E46 Unspecified protein-calorie malnutrition; I71.6 Thoracoabdominal aortic aneurysm, without rupture; E83.51 Hypocalcemia; I10 Essential (primary) hypertension; J44.9 Chronic obstructive pulmonary disease, unspecified; E78.5 Hyperlipidemia, unspecified; I73.9 Peripheral vascular disease, unspecified; F17.200 Nicotine dependence, unspecified, uncomplicated; I95.81 Postprocedural hypotension; E87.6 Hypokalemia; E83.42 Hypomagnesemia; B95.2 Enterococcus as the cause of diseases classified elsewhere; B96.89 Other specified bacterial agents as the cause of diseases classified elsewhere; N40.0 Benign prostatic hyperplasia without lower urinary tract symptoms; Z82.49 Family history of ischemic heart disease and other diseases of the circulatory system; Z88.0 Allergy status to penicillin; Z88.8 Allergy status to other drugs, medicaments and biological substances
CPT/HCPCS: 00790; 36415; 36556; 70450; 71045; 74177; 80048; 80053; 81001; 82042; 82140; 82150; 82247; 82272; 82330; 82533; 82803; 82945; 82962; 83036; 83605; 83615; 83690; 83735; 84100; 84134; 84157; 84478; 85025; 85027; 85610; 86850; 86900; 86901; 87040; 87070; 87075; 87077; 87086; 87150; 87186; 87205; 88307; 93005; 93010; 94002; 94003; 94640; 94667; 94668; 94799; 96360; 96361; 99233; 99285; 99291; A9270-GY; J0171; J0610; J1170; J1642; J1650; J1815; J1956; J2001; J2250; J2370; J2405; J2704; J3010; J3475; J3480; J3490; J7030; J7040; J7060; J7120; J7620; J7626; P9041; P9047; S0028